=== PATIENT | female | born 1955 | race Hispanic/Latino ===

== ENCOUNTER 2018-04-17 09:58 | Emergency (ER) | payer BC ==
[2018-04-17 10:00] VITALS: BMI 24.0
[2018-04-17 10:04] VITALS: O2SAT 100
[2018-04-17] MEDS ORDERED: Sodium Chloride 0.9% 1,000 ML IV STA (10:21)
--- NOTE | 2018-04-17 10:39 | ED PDOC ---
HPI: Abdomen Time Seen by Provider: 04/17/18 10:14 Chief Complaint (Nursing): Abdominal Pain Chief Complaint (Provider): abdominal pain History Per: Patient History/Exam Limitations: no limitations Onset/Duration Of Symptoms: Days (x4) Current Symptoms Are (Timing): Still Present Location Of Pain/Discomfort: Suprapubic Associated Symptoms: Fever (subjective), Chills, Nausea, Back Pain. denies: Vomiting, Diarrhea, Constipation Additional Complaint(s): Holly Hernandez is a 62 year old female, with a past medical history of hypothyroidism, who presents to the emergency department complaining of suprapubic pain onset for x4 days associated with fever, chills and bilateral back pain. Patient states pain radiates to the entire abdomen but is concentrated mostly on the left side. She was seen at [facility] today and was referred to the ER after she was told she had positive blood & protein in her urine. Patient is also complaining of nausea but denies any vomiting, diarrhea, constipation, dysuria or hematuria. No further medical complaints. PMD: None provided. Past Medical History Reviewed: Historical Data, Nursing Documentation, Vital Signs Vital Signs: Last Vital Signs Temp 98.3 F 04/17/18 10:03 Pulse 97 H 04/17/18 10:03 Resp 20 04/17/18 10:03 BP 164/102 H 04/17/18 10:03 Pulse Ox 100 04/17/18 10:03 - Medical History PMH: Hypothyroidism (synthroid taken) - Surgical History Surgical History: No Surg Hx - Family History Family History: States: Unknown Family Hx - Social History Current smoker - smoking cessation education provided: Yes (light smoker <10 cigarettes daily) Alcohol: None Drugs: Denies - Home Medications Home Medications: Ambulatory Orders Medication Instructions Recorded Cefuroxime Axetil [Cefuroxime] 500 mg PO DAILY #7 tablet 04/17/18 Phenazopyridine [Pyridium] 200 mg PO TID PRN #6 tab 04/17/18 - Allergies Allergies/Adverse Reactions: Allergies Allergy/AdvReac Type Severity Reaction Status Date / Time No Known Allergies Allergy Verified 04/17/18 10:07 Review of Systems ROS Statement: Except As Marked, All Systems Reviewed And Found Negative Constitutional: Positive for: Fever (subjective), Chills Gastrointestinal: Positive for: Nausea, Abdominal Pain (suprapubic). Negative for: Vomiting, Diarrhea, Constipation Genitourinary Female: Negative for: Dysuria, Hematuria Musculoskeletal: Positive for: Back Pain Physical Exam - Reviewed Nursing Documentation Reviewed: Yes Vital Signs Reviewed: Yes - Physical Exam Appears: Positive for: No Acute Distress Head Exam: Positive for: ATRAUMATIC, NORMAL INSPECTION, NORMOCEPHALIC Skin: Positive for: Normal Color, Warm, Dry Eye Exam: Positive for: Normal appearance, EOMI, PERRL ENT: Positive for: Normal ENT Inspection Neck: Positive for: Normal, Painless ROM, Supple Cardiovascular/Chest: Positive for: Regular Rate, Rhythm. Negative for: Murmur Respiratory: Positive for: Normal Breath Sounds. Negative for: Respiratory Distress Gastrointestinal/Abdominal: Positive for: Tenderness (Mild suprapubic ). Negative for: Guarding, Rebound Back: Positive for: L CVA Tenderness. Negative for: R CVA Tenderness, Vertebral Tenderness Extremity: Positive for: Normal ROM (upper and lower extremities). Negative for: Deformity, Swelling Neurologic/Psych: Positive for: Alert, Oriented. Negative for: Motor/Sensory Deficits - Laboratory Results Result Diagrams: 04/17/18 10:30 04/17/18 10:30 - ECG O2 Sat by Pulse Oximetry: 100 (RA) Pulse Ox Interpretation: Normal Medical Decision Making Medical Decision Making: Time: 10:14 Initial Impression: Initial Plan: --Abd & Pelvis w/o PO or IV Cont [CT] --CMP --Urine dipstick --CBC w/ differential --PTT --PT --Sodium Chloride 1,000 ml IV 1,000 mls/hr --Tylenol 325 mg tab 650 mg PO --Zofran Inj 4 mg IV --Blood culture --Urine culture --Urinalysis --Reevaluation Accession No. : [id number] Patient Name / ID : LEVAR HAWK F / [id number] Exam Date : 04/17/2018 12:04:54 ( Approved ) Study Comment : Sex / Age : F / 62Y Creator : Zoran Koo MD Dictator : Zoran Koo MD Manager Construction : [employer] Measuring Machine Programmer : Zoran Koo MD Approver2 : Report Date : 04/17/2018 13:28:09 My Comment : Date of service: 04/17/2018 PROCEDURE: CT Abdomen and Pelvis. HISTORY: L flank pain, fever COMPARISON: None. TECHNIQUE: Contiguous axial images of the abdomen and pelvis performed without oral or intravenous contrast material. Additional 2D sagittal and coronal the however the reformats generated. Radiation dose: Total exam DLP = 370.1 mGy-cm. This CT exam was performed using one or more of the following dose reduction techniques: Automated exposure control, adjustment of the mA and/or kV according to patient size, and/or use of iterative reconstruction technique. FINDINGS: LOWER THORAX: Mild passive/dependent type atelectasis both posterior sulci. No evidence of focal consolidation effusion or basilar pneumothorax. Heart size within range of normal. No significant pericardial effusion. Tiny hiatal hernia. LIVER: Liver is mildly enlarged measuring over 19 cm in CC dimension. . GALLBLADDER AND BILE DUCTS: Unremarkable. Gallbladder is physiologically distended. No definitive evidence of intraluminal gallbladder calculi. PANCREAS: Unremarkable. No mass. No ductal dilatation. SPLEEN: Unremarkable. No splenomegaly. ADRENALS: Slightly prominent adrenal glands. KIDNEYS AND URETERS: Kidneys demonstrate relatively symmetric size. No evidence of nephrolithiasis or hydronephrosis. No renal masses or collections seen on this limited noncontrast study. BLADDER: The bladder is incompletely distended which in part accounts for thick-walled appearance however correlation with urinalysis recommended to exclude cystitis. REPRODUCTIVE: The uterus appears atrophic so far as can be seen. APPENDIX: Normal-appearing appendix. BOWEL: Evaluation of the bowel is limited due to the lack of circulating intravenous contrast material. The stomach is incompletely distended. Visualized loops of small bowel exhibit relatively normal contour and caliber. No evidence of acute mechanical small bowel obstruction however note made of fecalized content within multiple loops of small bowel. Findings could be secondary to stasis as a sec well of constipation as there is moderate amount of stool is seen throughout the cecum, transverse and proximal descending colon consistent with fecal retention/constipation.. PERITONEUM: Unremarkable. No fluid collection. No free air. LYMPH NODES: Unremarkable. No enlarged lymph nodes. VASCULATURE: Unremarkable. No aortic aneurysm. . aortic atherosclerotic calcification or mural plaque present. BONES: Multilevel degenerative spondylosis of the lower thoracic and lumbar spine most notably affecting the L2-L3 and L4-L5 levels OTHER FINDINGS: None. IMPRESSION: Wall thickening of the urinary bladder in part due to incomplete distention however correlation urinalysis recommended to exclude cystitis. Findings also consistent with constipation with associated fecalized content in several loops of small bowel. Mild hepatomegaly. See above discussion for additional details and findings. 14:[address] Greene, recommends discharge home with Rx Ceftin 500 mg PO qd X 7 days. REQUESTS CALL AFTER URINE CULTURE RESULTED Scribe Attestation: Documented by William Fletcher, acting as a scribe for Vivian Cordova MD. Provider Scribe Attestation: All medical record entries made by the Scribe were at my direction and personally dictated by me. I have reviewed the chart and agree that the record accurately reflects my personal performance of the history, physical exam, medical decision making, and the department course for this patient. I have also personally directed, reviewed, and agree with the discharge instructions and disposition. Disposition - Clinical Impression Clinical Impression: UTI (urinary tract infection) - Disposition Disposition: Routine/Home Disposition Time: 15:00 Condition: IMPROVED Additional Instructions: FOLLOW-UP WITH PMD WITHIN 2 DAYS FOR REEVALUATION. Prescriptions: Cefuroxime Axetil [Cefuroxime] 500 mg PO DAILY #7 tablet Phenazopyridine [Pyridium] 200 mg PO TID PRN #6 tab PRN Reason: Bladder Spasm Instructions: Urinary Tract Infections in Adults Forms: [employer] (Chadian)
[2018-04-17 10:45] LABS: VENOUS BLOOD GAS BASE EXCESS 0.3 mmol/L (0.0-2.0); VENOUS BLOOD GAS PCO2 45 mmHg (40-60); VENOUS BLOOD GAS PO2 16 mm/Hg (30-55); VENOUS BLOOD PH 7.37 (7.32-7.43)
[2018-04-17 10:59] LABS: ALB/GLOB RATIO 1.2 (1.0-2.1); ALBUMIN 4.4 g/dL (3.5-5.0); ALT/SGPT 33 U/L (9-52); AST/SGOT 34 U/L (14-36); BLOOD UREA NITROGEN 9 mg/dl (7-17); CALCIUM 9.6 mg/dL (8.4-10.2); GFR NON-AFRICAN AMERICAN > 60
[2018-04-17 11:03] LABS: BASO % 0.3 % (0.0-2.0); EOS % 0.2 % (0.0-4.0); HEMOGLOBIN 12.7 g/dL (12.0-16.0); LYMPH # 0.6 K/uL (1.0-4.3); MEAN CORPUSCULAR HEMOGLOBIN 30.8 pg (27.0-31.0); MEAN CORPUSCULAR HGB CONC 33.1 g/dL (33.0-37.0); MEAN PLATELET VOLUME 9.2 fl (7.2-11.7); MONO # 0.7 K/uL (0.0-0.8); MONO % 6.6 % (0.0-10.0); NEUT # 9.7 K/uL (1.8-7.0); NEUT % 87.9 % (50.0-75.0); NRBC % 0.2 % (0.0-0.0); PLATELET COUNT 206 K/uL (130-400); RBC 4.13 Mil/uL (3.80-5.20); RED CELL DISTRIBUTION WIDTH 13.1 % (11.5-14.5)
[2018-04-17 11:04] LABS: INR 1.1; PROTHROMBIN TIME 12.6 Seconds (9.8-13.1)
[2018-04-17 11:07] LABS: PARTIAL THROMBOPLASTIN TIME 30.9 Seconds (25.6-37.1)
[2018-04-17 11:08] LABS: URINE BILIRUBIN NEGATIVE (NEGATIVE); URINE CLARITY SLIGHTY-CLOUDY (Clear); URINE COLOR YELLOW (YELLOW); URINE GLUCOSE (UA) NEG (Normal); URINE LEUKOCYTE ESTERASE NEG Leu/uL (Negative); URINE PROTEIN 100 mg/dL (NEGATIVE)
[2018-04-17 12:38] LABS: URINE BLOOD MODERATE (NEGATIVE)
[2018-04-17 12:56] LABS: LYMPHOCYTE 6 % (20-50); MONOCYTE 6 % (0-10); NEUTROPHIL 88 % (42-75); TOTAL CELLS COUNTED 100
[2018-04-17 12:57] LABS: PLATELET ESTIMATE NORMAL (NORMAL)
--- NOTE | 2018-04-17 13:31 | CT ---
Date of service: 04/17/2018 PROCEDURE: CT Abdomen and Pelvis. HISTORY: L flank pain, fever COMPARISON: None. TECHNIQUE: Contiguous axial images of the abdomen and pelvis performed without oral or intravenous contrast material. Additional 2D sagittal and coronal the however the reformats generated. Radiation dose: Total exam DLP = 370.1 mGy-cm. This CT exam was performed using one or more of the following dose reduction techniques: Automated exposure control, adjustment of the mA and/or kV according to patient size, and/or use of iterative reconstruction technique. FINDINGS: LOWER THORAX: Mild passive/dependent type atelectasis both posterior sulci. No evidence of focal consolidation effusion or basilar pneumothorax. Heart size within range of normal. No significant pericardial effusion. Tiny hiatal hernia. LIVER: Liver is mildly enlarged measuring over 19 cm in CC dimension. . GALLBLADDER AND BILE DUCTS: Unremarkable. Gallbladder is physiologically distended. No definitive evidence of intraluminal gallbladder calculi. PANCREAS: Unremarkable. No mass. No ductal dilatation. SPLEEN: Unremarkable. No splenomegaly. ADRENALS: Slightly prominent adrenal glands. KIDNEYS AND URETERS: Kidneys demonstrate relatively symmetric size. No evidence of nephrolithiasis or hydronephrosis. No renal masses or collections seen on this limited noncontrast study. BLADDER: The bladder is incompletely distended which in part accounts for thick-walled appearance however correlation with urinalysis recommended to exclude cystitis. REPRODUCTIVE: The uterus appears atrophic so far as can be seen. APPENDIX: Normal-appearing appendix. BOWEL: Evaluation of the bowel is limited due to the lack of circulating intravenous contrast material. The stomach is incompletely distended. Visualized loops of small bowel exhibit relatively normal contour and caliber. No evidence of acute mechanical small bowel obstruction however note made of fecalized content within multiple loops of small bowel. Findings could be secondary to stasis as a sec well of constipation as there is moderate amount of stool is seen throughout the cecum, transverse and proximal descending colon consistent with fecal retention/constipation.. PERITONEUM: Unremarkable. No fluid collection. No free air. LYMPH NODES: Unremarkable. No enlarged lymph nodes. VASCULATURE: Unremarkable. No aortic aneurysm. . aortic atherosclerotic calcification or mural plaque present. BONES: Multilevel degenerative spondylosis of the lower thoracic and lumbar spine most notably affecting the L2-L3 and L4-L5 levels OTHER FINDINGS: None. IMPRESSION: Wall thickening of the urinary bladder in part due to incomplete distention however correlation urinalysis recommended to exclude cystitis. Findings also consistent with constipation with associated fecalized content in several loops of small bowel. Mild hepatomegaly. See above discussion for additional details and findings.
[2018-04-17] MEDS ORDERED: cefTRIAXone (Rocephin) 1 gm Inj ONE (13:46)
[2018-04-17 15:22] VITALS: BP 118/69; PULSE 100; RESP 17; TEMP 99.6
== END 2018-04-17 15:22 | disposition home or self-care (01) ==
LOC: H.ER 09:58
DX: N39.0 Urinary tract infection, site not specified (principal)
CPT/HCPCS: 74176; 80053; 81003; 82803; 85025; 85610; 85730; 87040; 87086; 96365; 96375; 99285; J0696; J1885; J2405; J7030

== ENCOUNTER 2018-07-23 10:20 | Inpatient (IN) | payer BC ==
[2018-07-23] MEDS ORDERED: Sodium Chloride 0.9% 1,000 ML IV STA (10:49)
--- NOTE | 2018-07-23 10:56 | ED PDOC ---
HPI: Abdomen Time Seen by Provider: 07/23/18 10:34 Chief Complaint (Nursing): Abdominal Pain Chief Complaint (Provider): sent by PMD for evaluation abd pain History Per: Patient History/Exam Limitations: no limitations Location Of Pain/Discomfort: Diffuse, LLQ Quality Of Discomfort: Unable To Describe Associated Symptoms: Loss Of Appetite. denies: Nausea, Vomiting Exacerbating Factors: None Alleviating Factors: None Last Bowel Movement: Days Ago (2) Additional Complaint(s): 63yo female has been having ongoing abdominal pain for several weeks, worsening over last few days, had outpatient CT abd pelv yesterday showing pelvic abscess, told to come to ED last night by PMD but waited until this morning. States may have had a fever a few days ago, but denies within last 24 hours. She notes ongoing constipation after starting iron for anemia of unknown etiology di scovered as outpatient several months ago. Denies prior colonoscopy. Denies vomiting, headache, vaginal bleeding, cough or urinary symptoms. Abnormal Vaginal Bleeding: No Past Medical History Reviewed: Historical Data, Nursing Documentation, Vital Signs Vital Signs: Last Vital Signs Temp 98.2 F 07/23/18 10:24 Pulse 98 H 07/23/18 10:24 Resp 17 07/23/18 10:24 BP 114/73 07/23/18 10:24 Pulse Ox 100 07/23/18 10:24 - Medical History PMH: Hypothyroidism (synthroid taken) - Family History Family History: States: Unknown Family Hx - Living Arrangements Living Arrangements: With Family - Social History Current smoker - smoking cessation education provided: No - Home Medications Home Medications: Ambulatory Orders Medication Instructions Recorded Alprazolam [Xanax] 1 tab PO TID 07/23/18 Ciprofloxacin [Cipro] 1 tab PO BID 07/23/18 Ferrous Sulfate [Feosol] 1 tab PO BID 07/23/18 Levothyroxine [Synthroid] 1 tab PO DAILY 07/23/18 Metronidazole [Flagyl] 1 tab PO TID 07/23/18 - Allergies Allergies/Adverse Reactions: Allergies Allergy/AdvReac Type Severity Reaction Status Date / Time No Known Allergies Allergy Verified 04/17/18 10:07 Review of Systems ROS Statement: Except As Marked, All Systems Reviewed And Found Negative Constitutional: Positive for: Chills, Sweats Eyes: Negative for: Conjunctivae Inflammation ENT: Negative for: Ear Pain, Nose Pain, Throat Pain Cardiovascular: Negative for: Chest Pain, Palpitations Respiratory: Negative for: Cough, Shortness of Breath Gastrointestinal: Positive for: Nausea, Abdominal Pain, Constipation. Negative for: Diarrhea, Melena, Hematochezia Genitourinary Female: Negative for: Dysuria Musculoskeletal: Negative for: Neck Pain Skin: Negative for: Rash, Lesions Neurological: Negative for: Weakness, Numbness, Confusion Psych: Negative for: Suicidal ideation Physical Exam - Reviewed Nursing Documentation Reviewed: Yes Vital Signs Reviewed: Yes - Physical Exam Appears: Positive for: Well, Non-toxic, No Acute Distress Head Exam: Positive for: ATRAUMATIC, NORMAL INSPECTION, NORMOCEPHALIC Skin: Positive for: Warm, Pallor Eye Exam: Positive for: EOMI, Normal appearance, PERRL ENT: Positive for: Normal ENT Inspection Neck: Positive for: Normal, Painless ROM Cardiovascular/Chest: Positive for: Regular Rate, Rhythm Respiratory: Positive for: CNT, Normal Breath Sounds Gastrointestinal/Abdominal: Positive for: Soft, Tenderness (mild lower abd tenderness). Negative for: Guarding, Rebound Back: Positive for: Normal Inspection Extremity: Positive for: Normal ROM Neurologic/Psych: Positive for: Alert, Oriented. Negative for: Motor/Sensory Deficits - Laboratory Results Result Diagrams: 07/23/18 11:25 07/23/18 11:25 - ECG O2 Sat by Pulse Oximetry: 100 Pulse Ox Interpretation: Normal - Radiology X-Ray: Read By Radiologist X-Ray Interpretation: No Acute Disease Medical Decision Making Medical Decision Making: panic report from radiologist at [facility] reviewed but full CT report not available. Disc of images uploaded to PACS for surgery review, ID [id number] labs reviewed lactate normal WBC normal significant anemia Hgb 7.0 Pt did not meet SIRS criteria in ED. Admit Dr Johnson hospitalist 12noon D/w Dr Greene ID assistant front end manager, recommended zosyn and flagyl, ordered, cultures obtained prior to antibiotic administration D/w Dr Crowell surgery covering Dr Cheikh Garcia, requests surg resident gita, Dr Espinosa in ED 130p 135pm consent for PRBC trasnsfusion obtained after risks/benefits/alternatives explained. Given failure outpatient therapy and acute abdominal infection possibly requiring surgery/ intervention, PRBC is indicated and recommended. Care transferred to surgery and admitting teams, surg resident to perform guiac. Disposition - Clinical Impression Clinical Impression: Pelvic abscess, Anemia - Patient ED Disposition Is Patient to be Admitted: Yes Counseled Patient/Family Regarding: Studies Performed, Diagnosis - Disposition Disposition Time: 12:08 (admit hospitalist) Condition: FAIR - Pt Status Changed To: Hospital Disposition Of: Inpatient - Admit Certification Admit to Inpatient:: After my assessment, the patient will require hospitalization for at least two midnights. This is because of the severity of symptoms shown, intensity of services needed, and/or the medical risk in this p atient being treated as an outpatient. - POA Present On Arrival: None
--- NOTE | 2018-07-23 11:33 | RAD ---
Date of service: 07/23/2018 HISTORY: fever COMPARISON: No prior. FINDINGS: LUNGS: No active pulmonary disease. PLEURA: No significant pleural effusion identified, no pneumothorax apparent. CARDIOVASCULAR: Atherosclerotic calcifications. Cardiomediastinal silhouette enlarged. OSSEOUS STRUCTURES: Spinal degenerative changes. VISUALIZED UPPER ABDOMEN: Retained oral contrast seen in the colon. OTHER FINDINGS: None. IMPRESSION: No active disease.
[2018-07-23 11:44] LABS: VENOUS BLOOD GAS BASE EXCESS 4.5 mmol/L (0.0-2.0); VENOUS BLOOD GAS PCO2 47 mmHg (40-60); VENOUS BLOOD GAS PO2 25 mm/Hg (30-55); VENOUS BLOOD PH 7.41 (7.32-7.43)
[2018-07-23] MEDS ORDERED: Piperacillin/Tazobact 4.5 GM in Sodium Chloride 0.9% 100 ML IVPB STA (11:46)
[2018-07-23] MEDS ORDERED: metroNIDAZOLE 500mg/100ml NS 100 ML IVPB STA (11:46)
[2018-07-23] MEDS ORDERED: metroNIDAZOLE 500mg/100ml NS 100 ML IVPB ONE (12:08)
[2018-07-23 12:14] LABS: BASO # 0.1 K/uL (0.0-0.2); BASO % 0.8 % (0.0-2.0); EOS % 0.5 % (0.0-4.0); LYMPH # 1.5 K/uL (1.0-4.3); LYMPH % 17.3 % (20.0-40.0); MEAN CELL VOLUME 79.7 fl (81.0-99.0); MEAN CORPUSCULAR HEMOGLOBIN 25.5 pg (27.0-31.0); MEAN PLATELET VOLUME 7.1 fl (7.2-11.7); MONO # 0.7 K/uL (0.0-0.8); MONO % 8.5 % (0.0-10.0); NEUT # 6.4 K/uL (1.8-7.0); NEUT % 72.9 % (50.0-75.0); RBC 2.74 Mil/uL (3.80-5.20); RED CELL DISTRIBUTION WIDTH 17.1 % (11.5-14.5); WHITE BLOOD COUNT 8.7 K/uL (4.8-10.8)
[2018-07-23 12:19] LABS: ALB/GLOB RATIO 0.9 (1.0-2.1); ALBUMIN 3.5 g/dL (3.5-5.0); ALT/SGPT 41 U/L (9-52); AST/SGOT 43 U/L (14-36); BLOOD UREA NITROGEN 8 mg/dl (7-17); CALCIUM 9.2 mg/dL (8.4-10.2); GFR NON-AFRICAN AMERICAN > 60; LIPASE 46 U/L (23-300)
[2018-07-23 12:20] LABS: URINE BILIRUBIN NEGATIVE (NEGATIVE); URINE BLOOD SMALL (NEGATIVE); URINE CLARITY CLEAR (Clear); URINE COLOR STRAW (YELLOW); URINE GLUCOSE (UA) NEG (NEGATIVE); URINE LEUKOCYTE ESTERASE NEG Leu/uL (Negative); URINE PROTEIN NEGATIVE (NEGATIVE); URINE UROBILINOGEN 0.2-1.0 mg/dL (0.2-1.0)
[2018-07-23 12:28] LABS: INR 1.4; PROTHROMBIN TIME 16.2 Seconds (9.8-13.1)
[2018-07-23 12:31] LABS: PARTIAL THROMBOPLASTIN TIME 31.2 Seconds (25.6-37.1)
--- NOTE | 2018-07-23 13:46 | CP.PCM.HP ---
<Paolo Espinosa - Last Filed: 07/23/18 18:04> History of Present Illness - History of Present Illness History of Present Illness: 63 yo F pmhx of hypothyroid, and anxiety was sent to ED per Dr. Silver for abdominal abcess incidentally found on outpatient abdo CT. Pt reports lower abdominal pain starting in May (dx with anemia) diffuse, occasionally radiating to the back. consistent. No aggravating factors. Minimally alleviated with motrin. She reports pain has been mild for approximately 1 week. No abdominal pain, melena, hematochezia, nausea or vomiting. On wednesday, Dr. Silver encouraged her to visit the ED, however, pt declined and requested time to wait for her sister to arrive. She was prescribed Cipro 500 mg BID and Metronidazole 500 mg TID. [place] [facility]. Abdo CT: 7 x cm abscess in pelvis anterior to recto-sigmoid; extralumenal air collecting PMD: Dr. Silver Surg: none Soc: 2 cigaretes per day for 20+ years; denies etoh or illicit drugs Fam: no hx LMP: 8 yrs ago. Rx: Synthroid 88 mcg Present on Admission - Present on Admission Any Indicators Present on Admission: No History of Uncontrolled Diabetes: No Urinary Catheter: No Review of Systems - Cardiovascular Cardiovascular: absent: Chest Pain - Respiratory Respiratory: absent: Dyspnea - Gastrointestinal Gastrointestinal: Abdominal Pain. absent: Constipation, Diarrhea - Menstruation Menstruation: Amenorrhea Past Patient History - Infectious Disease Hx of Infectious Diseases: None - Past Social History Smoking Status: Light Smoker < 10 Cigarettes Daily Alcohol: None Drugs: Denies Home Situation {Lives}: Alone - ENDOCRINE/METABOLIC Hx Hypothyroidism: Yes (synthroid taken) - PSYCHIATRIC Hx Substance Use: No - SURGICAL HISTORY Hx Surgeries: No Meds Allergies/Adverse Reactions: Allergies Allergy/AdvReac Type Severity Reaction Status Date / Time No Known Allergies Allergy Verified 04/17/18 10:07 Physical Exam - Constitutional Appears: Well, No Acute Distress - Eye Exam Eye Exam: EOMI, PERRL - ENT Exam ENT Exam: Mucous Membranes Moist - Respiratory Exam Respiratory Exam: Clear to Auscultation Bilateral, NORMAL BREATHING PATTERN. absent: Wheezes - Cardiovascular Exam Cardiovascular Exam: REGULAR RHYTHM, +S1, +S2 - GI/Abdominal Exam GI & Abdominal Exam: Normal Bowel Sounds, Soft. absent: Tenderness - Extremities Exam Extremities exam: Negative for: calf tenderness - Back Exam Back exam: absent: CVA tenderness (L), CVA tenderness (R) - Neurological Exam Neurological exam: Alert, CN II-XII Intact, Oriented x3 - Psychiatric Exam Psychiatric exam: Normal Affect, Normal Mood Results - Vital Signs Recent Vital Signs: Last Vital Signs Temp 98.2 F 07/23/18 10:24 Pulse 98 H 07/23/18 10:24 Resp 17 07/23/18 10:24 BP 114/73 07/23/18 10:24 Pulse Ox 100 07/23/18 10:56 - Labs Result Diagrams: 07/23/18 11:25 07/23/18 11:25 Labs: Laboratory Results - last 24 hr 07/23/18 07/23/18 07/23/18 11:10 11:25 11:25 WBC 8.7 RBC 2.74 L Hgb 7.0 L D Hct 21.8 L MCV 79.7 L D MCH 25.5 L MCHC 32.0 L RDW 17.1 H Plt Count 564 H D MPV 7.1 L Neut % (Auto) 72.9 Lymph % (Auto) 17.3 L Pierce % (Auto) 8.5 Eos % (Auto) 0.5 Baso % (Auto) 0.8 Neut # (Auto) 6.4 Lymph # (Auto) 1.5 Pierce # (Auto) 0.7 Eos # (Auto) 0.0 Baso # (Auto) 0.1 PT INR APTT pO2 25 L VBG pH 7.41 VBG pCO2 47 VBG HCO3 27.4 VBG Total CO2 31.2 H VBG O2 Sat (Calc) 42.9 VBG Base Excess 4.5 H VBG Potassium 3.8 Sodium 134.0 134 Chloride 102.0 96 L Glucose 103 Lactate 0.8 FiO2 21.0 Potassium 4.0 Carbon Dioxide 26 Anion Gap 16 BUN 8 Creatinine 0.6 L Est GFR ( Amer) > 60 Est GFR (Non-Af Amer) > 60 Random Glucose 100 Calcium 9.2 Phosphorus 4.3 Magnesium 2.4 H Total Bilirubin 0.2 AST 43 H D ALT 41 Alkaline Phosphatase 123 Total Protein 7.5 Albumin 3.5 D Globulin 4.0 H Albumin/Globulin Ratio 0.9 L Lipase 46 Venous Blood Potassium 3.8 Urine Color Urine Clarity Urine pH Ur Specific [place] Urine Protein Urine Glucose (UA) Urine Ketones Urine Blood Urine Nitrate Urine Bilirubin Urine Urobilinogen Ur Leukocyte Esterase Urine RBC (Auto) Urine Microscopic WBC Blood Type Antibody Screen BBK History Checked 07/23/18 07/23/18 07/23/18 11:25 11:25 11:43 WBC RBC Hgb Hct MCV MCH MCHC RDW Plt Count MPV Neut % (Auto) Lymph % (Auto) Pierce % (Auto) Eos % (Auto) Baso % (Auto) Neut # (Auto) Lymph # (Auto) Pierce # (Auto) Eos # (Auto) Baso # (Auto) PT 16.2 H INR 1.4 APTT 31.2 pO2 VBG pH VBG pCO2 VBG HCO3 VBG Total CO2 VBG O2 Sat (Calc) VBG Base Excess VBG Potassium Sodium Chloride Glucose Lactate FiO2 Potassium Carbon Dioxide Anion Gap BUN Creatinine Est GFR ( Amer) Est GFR (Non-Af Amer) Random Glucose Calcium Phosphorus Magnesium Total Bilirubin AST ALT Alkaline Phosphatase Total Protein Albumin Globulin Albumin/Globulin Ratio Lipase Venous Blood Potassium Urine Color Straw Urine Clarity Clear Urine pH 7.0 Ur Specific [place] 1.005 Urine Protein Negative Urine Glucose (UA) Neg Urine Ketones Negative Urine Blood Small Urine Nitrate Negative Urine Bilirubin Negative Urine Urobilinogen 0.2-1.0 Ur Leukocyte Esterase Neg Urine RBC (Auto) < 1 Urine Microscopic WBC 1 Blood Type A POSITIVE Antibody Screen Negative BBK History Checked No verified bt Assessment & Plan - Assessment and Plan (Free Text) Assessment: 63 yo F pmhx of hypothyroid, and anxiety was sent to ED per Dr. Silver for abdominal abcess incidentally found on outpatient abdo CT. Plan: Abdo CT: 7 x cm abscess in pelvis anterior to recto-sigmoid; extralumenal air collecting Abdominal abcess: Admit to med surg -Incidental finding on CT -Surgery Dr. Gonzales: Clear liquid diet, ABX, GI consult, -ID consult: Dr. Greene -occult blood positive -abx: Zosyn -Clear liquid -IVF: D5 1/2 NS 20 k -IR for possible drainage -f/u Blood and Urine culture, CBC, BMP Anemia: -H/H: 7.0/21.8 -Type and Cross match 1 unit -Feosol BID -f/u H/H Hypothyroid: -cw levothyroxine 88 mcg DVT prophylaxis: -SCDs Case and plan d/w Dr. Alex Espinosa MD PGY2 <Charity Johnson - Last Filed: 07/24/18 14:05> Results - Vital Signs Recent Vital Signs: Last Vital Signs Temp 97.1 F L 07/24/18 12:50 Pulse 72 07/24/18 12:50 Resp 18 07/24/18 12:50 BP 123/77 07/24/18 12:50 Pulse Ox 100 07/24/18 08:08 - Labs Result Diagrams: 07/24/18 06:14 07/24/18 06:14 Labs: Laboratory Results - last 24 hr 07/23/18 07/23/18 07/23/18 11:25 11:43 14:00 WBC RBC Hgb Hct MCV MCH MCHC RDW Plt Count Sodium Potassium Chloride Carbon Dioxide Anion Gap BUN Creatinine Est GFR ( Amer) Est GFR (Non-Af Amer) Random Glucose Lactic Acid Calcium Iron 20 L Ferritin 225.0 Stool Occult Blood Blood Type A POSITIVE Antibody Screen Negative Crossmatch See Detail BBK History Checked No verified bt 07/23/18 07/23/18 07/24/18 15:28 18:53 06:14 WBC 6.8 RBC 2.82 L Hgb 7.4 L Hct 22.8 L MCV 81.1 MCH 26.1 L MCHC 32.2 L RDW 16.3 H Plt Count 461 H D Sodium Potassium Chloride Carbon Dioxide Anion Gap BUN Creatinine Est GFR ( Amer) Est GFR (Non-Af Amer) Random Glucose Lactic Acid 2.8 H Calcium Iron Ferritin Stool Occult Blood Positive H Blood Type Antibody Screen Crossmatch BBK History Checked 07/24/18 06:14 WBC RBC Hgb Hct MCV MCH MCHC RDW Plt Count Sodium 136 Potassium 4.2 Chloride 103 Carbon Dioxide 22 Anion Gap 15 BUN 8 Creatinine 0.5 L Est GFR ( Amer) > 60 Est GFR (Non-Af Amer) > 60 Random Glucose 90 Lactic Acid Calcium 8.6 Iron Ferritin Stool Occult Blood Blood Type Antibody Screen Crossmatch BBK History Checked Attending/Attestation - Attestation I have personally seen and examined this patient.: Yes I have fully participated in the care of the patient.: Yes I have reviewed all pertinent clinical information: Yes Notes (Text): 07/24/18 14:04 AGREE WITH FINDINGS AND PLAN ABOVE.
--- NOTE | 2018-07-23 14:05 | CP.PCM.CON ---
<Jing Espinosa - Last Filed: 07/23/18 15:01> History of Present Illness - History of Present Illness History of Present Illness: General surgery consult note for Dr. Janet Espinosa, PGY-2 63F w/PMH sig for hypothyroidism and anemia consulted for pelvic abscess. Pt reports starting Iron supplementation at the end of May this year with resulting constipation- minimally alleviated by laxatives, stool softeners, prune juice. Pt reports resulting lower pelvic discomfort, L>R since May- sometimes radiating to low back. Pt recently evaluated by PMD with CT scan finding of 7 x 6 cm pelvic abscess in the rectosigmoid area. Admits to bloating sensation, occasional urinary urgency. Discomfort is alleviated by moving her bowels. No inciting or aggravating factors identified. Denies F & C, N & V, hematochezia, hematuria, vaginal bleeding, CP, SOB, dizziness, COREY, vision change s, weakness, syncope or other complaints. PMH: Hypothyroidism, Anemia PSH: Denies All: NKDA SH: Admits to #3 cigarettes daily x 20 yrs, denies EOTH or illicit drug use FH: Denies FH of IBD, crohns, diveritculitis, ulcerative colitis or colon CA PMD: Dr. Silver Review of Systems - Review of Systems All systems: reviewed and no additional remarkable complaints except - Constitutional Constitutional: absent: Chills, Fever, Headache - EENT Eyes: absent: Change in Vision Ears: absent: Dizziness Nose/Mouth/Throat: absent: Sore Throat - Cardiovascular Cardiovascular: absent: Chest Pain - Respiratory Respiratory: absent: Cough - Gastrointestinal Gastrointestinal: Abdominal Pain, Bloating, Constipation. absent: Diarrhea, Hematemesis, Hematochezia, Melena, Nausea, Vomiting - Genitourinary Genitourinary: Urinary Urgency (occasional). absent: Dysuria, Hematuria - Reproductive: Female Reproductive:Female: absent: Abnormal Vaginal Bleeding - Menstruation Menstruation: absent: Abnormal Vaginal Bleeding - Musculoskeletal Musculoskeletal: Back Pain. absent: Numbness, Tingling - Integumentary Integumentary: absent: Unusual Bruising - Neurological Neurological: absent: Weakness - Psychiatric Psychiatric: absent: Change in Appetite Past Patient History - Infectious Disease Hx of Infectious Diseases: None - Past Social History Smoking Status: Light Smoker < 10 Cigarettes Daily - ENDOCRINE/METABOLIC Hx Hypothyroidism: Yes (synthroid taken) - PSYCHIATRIC Hx Substance Use: No - SURGICAL HISTORY Hx Surgeries: No Meds Allergies/Adverse Reactions: Allergies Allergy/AdvReac Type Severity Reaction Status Date / Time No Known Allergies Allergy Verified 04/17/18 10:07 - Medications Medications: Current Medications Sodium Chloride (Sodium Chloride 0.9%) 1,000 mls @ 150 mls/hr IV .[id number] STA Stop: 07/23/18 17:28 Last Admin: 07/23/18 11:47 Dose: 150 mls/hr Physical Exam - Constitutional Appears: Non-toxic, No Acute Distress - Head Exam Head Exam: ATRAUMATIC, NORMAL INSPECTION, NORMOCEPHALIC - Eye Exam Eye Exam: EOMI, Normal appearance - ENT Exam ENT Exam: Mucous Membranes Moist, Normal Exam - Neck Exam Neck exam: Positive for: Full Rom, Normal Inspection - Respiratory Exam Respiratory Exam: Clear to Auscultation Bilateral, NORMAL BREATHING PATTERN. absent: Rales, Rhonchi, Wheezes, Respiratory Distress - Cardiovascular Exam Cardiovascular Exam: REGULAR RHYTHM, +S1, +S2 - GI/Abdominal Exam GI & Abdominal Exam: Normal Bowel Sounds, Soft. absent: Distended, Firm, Guarding, Organomegaly, Pulsatile Mass, Rebound, Rigid, Tenderness - Rectal Exam Rectal Exam: NORMAL INSPECTION. absent: Hemorrhoids, Fecal Impaction - Extremities Exam Extremities exam: Positive for: normal inspection. Negative for: tenderness - Neurological Exam Neurological exam: Alert, CN II-XII Intact, Oriented x3 - Psychiatric Exam Psychiatric exam: Normal Affect, Normal Mood - Skin Skin Exam: Dry, Intact, Normal Color, Warm Results - Vital Signs Recent Vital Signs: Last Vital Signs Temp 98.2 F 07/23/18 10:24 Pulse 98 H 07/23/18 10:24 Resp 17 07/23/18 10:24 BP 114/73 07/23/18 10:24 Pulse Ox 100 07/23/18 10:56 - Labs Result Diagrams: 07/23/18 11:25 07/23/18 11:25 Labs: Laboratory Results - last 24 hr 07/23/18 07/23/18 07/23/18 11:10 11:25 11:25 WBC 8.7 RBC 2.74 L Hgb 7.0 L D Hct 21.8 L MCV 79.7 L D MCH 25.5 L MCHC 32.0 L RDW 17.1 H Plt Count 564 H D MPV 7.1 L Neut % (Auto) 72.9 Lymph % (Auto) 17.3 L [place] % (Auto) 8.5 Eos % (Auto) 0.5 Baso % (Auto) 0.8 Neut # (Auto) 6.4 Lymph # (Auto) 1.5 Gove # (Auto) 0.7 Eos # (Auto) 0.0 Baso # (Auto) 0.1 PT INR APTT pO2 25 L VBG pH 7.41 VBG pCO2 47 VBG HCO3 27.4 VBG Total CO2 31.2 H VBG O2 Sat (Calc) 42.9 VBG Base Excess 4.5 H VBG Potassium 3.8 Sodium 134.0 134 Chloride 102.0 96 L Glucose 103 Lactate 0.8 FiO2 21.0 Potassium 4.0 Carbon Dioxide 26 Anion Gap 16 BUN 8 Creatinine 0.6 L Est GFR ( Amer) > 60 Est GFR (Non-Af Amer) > 60 Random Glucose 100 Calcium 9.2 Phosphorus 4.3 Magnesium 2.4 H Total Bilirubin 0.2 AST 43 H D ALT 41 Alkaline Phosphatase 123 Total Protein 7.5 Albumin 3.5 D Globulin 4.0 H Albumin/Globulin Ratio 0.9 L Lipase 46 Venous Blood Potassium 3.8 Urine Color Urine Clarity Urine pH Ur Specific [place] Urine Protein Urine Glucose (UA) Urine Ketones Urine Blood Urine Nitrate Urine Bilirubin Urine Urobilinogen Ur Leukocyte Esterase Urine RBC (Auto) Urine Microscopic WBC Blood Type Blood Type Confirm Antibody Screen BBK History Checked 07/23/18 07/23/18 07/23/18 11:25 11:25 11:43 WBC RBC Hgb Hct MCV MCH MCHC RDW Plt Count MPV Neut % (Auto) Lymph % (Auto) [place] % (Auto) Eos % (Auto) Baso % (Auto) Neut # (Auto) Lymph # (Auto) [place] # (Auto) Eos # (Auto) Baso # (Auto) PT 16.2 H INR 1.4 APTT 31.2 pO2 VBG pH VBG pCO2 VBG HCO3 VBG Total CO2 VBG O2 Sat (Calc) VBG Base Excess VBG Potassium Sodium Chloride Glucose Lactate FiO2 Potassium Carbon Dioxide Anion Gap BUN Creatinine Est GFR ( Amer) Est GFR (Non-Af Amer) Random Glucose Calcium Phosphorus Magnesium Total Bilirubin AST ALT Alkaline Phosphatase Total Protein Albumin Globulin Albumin/Globulin Ratio Lipase Venous Blood Potassium Urine Color Straw Urine Clarity Clear Urine pH 7.0 Ur Specific [place] 1.005 Urine Protein Negative Urine Glucose (UA) Neg Urine Ketones Negative Urine Blood Small Urine Nitrate Negative Urine Bilirubin Negative Urine Urobilinogen 0.2-1.0 Ur Leukocyte Esterase Neg Urine RBC (Auto) < 1 Urine Microscopic WBC 1 Blood Type A POSITIVE Blood Type Confirm Antibody Screen Negative BBK History Checked No verified bt 07/23/18 13:15 WBC RBC Hgb Hct MCV MCH MCHC RDW Plt Count MPV Neut % (Auto) Lymph % (Auto) [place] % (Auto) Eos % (Auto) Baso % (Auto) Neut # (Auto) Lymph # (Auto) Gove # (Auto) Eos # (Auto) Baso # (Auto) PT INR APTT pO2 VBG pH VBG pCO2 VBG HCO3 VBG Total CO2 VBG O2 Sat (Calc) VBG Base Excess VBG Potassium Sodium Chloride Glucose Lactate FiO2 Potassium Carbon Dioxide Anion Gap BUN Creatinine Est GFR ( Amer) Est GFR (Non-Af Amer) Random Glucose Calcium Phosphorus Magnesium Total Bilirubin AST ALT Alkaline Phosphatase Total Protein Albumin Globulin Albumin/Globulin Ratio Lipase Venous Blood Potassium Urine Color Urine Clarity Urine pH Ur Specific [place] Urine Protein Urine Glucose (UA) Urine Ketones Urine Blood Urine Nitrate Urine Bilirubin Urine Urobilinogen Ur Leukocyte Esterase Urine RBC (Auto) Urine Microscopic WBC Blood Type Blood Type Confirm A POSITIVE Antibody Screen BBK History Checked Assessment & Plan - Assessment and Plan (Free Text) Assessment: 63F w/PMH sig for hypothyroidism and anemia consulted for pelvic abscess Plan: Recommend IR drainage of pelvic abscess IVF Antibiotics as per ID Recommend GI consult Further recommendations pending attending evaluation RUI Gonzales - Date & Time Date: 07/23/18 Time: 14:05 <Armaan Crowell - Last Filed: 07/23/18 23:51> Meds - Medications Medications: Current Medications Acetaminophen (Tylenol 325mg Tab) 650 mg PO Q6 PRN PRN Reason: Pain, Mild (1-3) Last Admin: 07/23/18 18:05 Dose: 650 mg Alprazolam (Xanax) 0.5 mg PO Q8 PRN PRN Reason: Anxiety Last Admin: 07/23/18 16:44 Dose: 0.5 mg Ferrous Sulfate (Feosol) 325 mg PO BID [facility] Piperacillin Sod/Tazobactam (Sod 3.375 gm/ Sodium Chloride) 100 mls @ 100 mls/hr IVPB Q6 MERLENE; Protocol Last Admin: 07/23/18 21:57 Dose: 100 mls/hr Potassium Chloride/Dextrose/Sod Cl (Potassium Chl 20 Meq In D5-1/2ns) 1,000 mls @ 125 mls/hr IV .Q8H MERLENE Stop: 07/24/18 16:52 Last Admin: 07/23/18 18:31 Dose: 125 mls/hr Metronidazole (Flagyl 500mg/100ml Ns) 100 mls @ 100 mls/hr IVPB Q8 MERLENE; Protocol Last Admin: 07/23/18 20:28 Dose: 100 mls/hr Levothyroxine Sodium (Synthroid) 88 mcg PO DAILY [facility] Results - Vital Signs Recent Vital Signs: Last Vital Signs Temp 99.1 F 07/23/18 18:30 Pulse 78 07/23/18 20:32 Resp 20 07/23/18 20:32 BP 118/78 07/23/18 18:29 Pulse Ox 100 07/23/18 21:53 - Labs Result Diagrams: 07/23/18 11:25 07/23/18 11:25 Labs: Laboratory Results - last 24 hr 07/23/18 07/23/18 07/23/18 11:10 11:25 11:25 WBC 8.7 RBC 2.74 L Hgb 7.0 L D Hct 21.8 L MCV 79.7 L D MCH 25.5 L MCHC 32.0 L RDW 17.1 H Plt Count 564 H D MPV 7.1 L Neut % (Auto) 72.9 Lymph % (Auto) 17.3 L [place] % (Auto) 8.5 Eos % (Auto) 0.5 Baso % (Auto) 0.8 Neut # (Auto) 6.4 Lymph # (Auto) 1.5 Gove # (Auto) 0.7 Eos # (Auto) 0.0 Baso # (Auto) 0.1 PT INR APTT pO2 25 L VBG pH 7.41 VBG pCO2 47 VBG HCO3 27.4 VBG Total CO2 31.2 H VBG O2 Sat (Calc) 42.9 VBG Base Excess 4.5 H VBG Potassium 3.8 Sodium 134.0 134 Chloride 102.0 96 L Glucose 103 Lactate 0.8 FiO2 21.0 Potassium 4.0 Carbon Dioxide 26 Anion Gap 16 BUN 8 Creatinine 0.6 L Est GFR ( Amer) > 60 Est GFR (Non-Af Amer) > 60 Random Glucose 100 Lactic Acid Calcium 9.2 Phosphorus 4.3 Magnesium 2.4 H Iron Ferritin 225.0 Total Bilirubin 0.2 AST 43 H D ALT 41 Alkaline Phosphatase 123 Total Protein 7.5 Albumin 3.5 D Globulin 4.0 H Albumin/Globulin Ratio 0.9 L Lipase 46 Venous Blood Potassium 3.8 Urine Color Urine Clarity Urine pH Ur Specific [place] Urine Protein Urine Glucose (UA) Urine Ketones Urine Blood Urine Nitrate Urine Bilirubin Urine Urobilinogen Ur Leukocyte Esterase Urine RBC (Auto) Urine Microscopic WBC Stool Occult Blood Blood Type Blood Type Confirm Antibody Screen Crossmatch BBK History Checked 07/23/18 07/23/18 07/23/18 11:25 11:25 11:43 WBC RBC Hgb Hct MCV MCH MCHC RDW Plt Count MPV Neut % (Auto) Lymph % (Auto) [place] % (Auto) Eos % (Auto) Baso % (Auto) Neut # (Auto) Lymph # (Auto) Gove # (Auto) Eos # (Auto) Baso # (Auto) PT 16.2 H INR 1.4 APTT 31.2 pO2 VBG pH VBG pCO2 VBG HCO3 VBG Total CO2 VBG O2 Sat (Calc) VBG Base Excess VBG Potassium Sodium Chloride Glucose Lactate FiO2 Potassium Carbon Dioxide Anion Gap BUN Creatinine Est GFR ( Amer) Est GFR (Non-Af Amer) Random Glucose Lactic Acid Calcium Phosphorus Magnesium Iron Ferritin Total Bilirubin AST ALT Alkaline Phosphatase Total Protein Albumin Globulin Albumin/Globulin Ratio Lipase Venous Blood Potassium Urine Color Straw Urine Clarity Clear Urine pH 7.0 Ur Specific [place] 1.005 Urine Protein Negative Urine Glucose (UA) Neg Urine Ketones Negative Urine Blood Small Urine Nitrate Negative Urine Bilirubin Negative Urine Urobilinogen 0.2-1.0 Ur Leukocyte Esterase Neg Urine RBC (Auto) < 1 Urine Microscopic WBC 1 Stool Occult Blood Blood Type A POSITIVE Blood Type Confirm Antibody Screen Negative Crossmatch See Detail BBK History Checked No verified bt 07/23/18 07/23/18 07/23/18 13:15 14:00 15:28 WBC RBC Hgb Hct MCV MCH MCHC RDW Plt Count MPV Neut % (Auto) Lymph % (Auto) Gove % (Auto) Eos % (Auto) Baso % (Auto) Neut # (Auto) Lymph # (Auto) Gove # (Auto) Eos # (Auto) Baso # (Auto) PT INR APTT pO2 VBG pH VBG pCO2 VBG HCO3 VBG Total CO2 VBG O2 Sat (Calc) VBG Base Excess VBG Potassium Sodium Chloride Glucose Lactate FiO2 Potassium Carbon Dioxide Anion Gap BUN Creatinine Est GFR ( Amer) Est GFR (Non-Af Amer) Random Glucose Lactic Acid Calcium Phosphorus Magnesium Iron 20 L Ferritin Total Bilirubin AST ALT Alkaline Phosphatase Total Protein Albumin Globulin Albumin/Globulin Ratio Lipase Venous Blood Potassium Urine Color Urine Clarity Urine pH Ur Specific [place] Urine Protein Urine Glucose (UA) Urine Ketones Urine Blood Urine Nitrate Urine Bilirubin Urine Urobilinogen Ur Leukocyte Esterase Urine RBC (Auto) Urine Microscopic WBC Stool Occult Blood Positive H Blood Type Blood Type Confirm A POSITIVE Antibody Screen Crossmatch BBK History Checked 07/23/18 18:53 WBC RBC Hgb Hct MCV MCH MCHC RDW Plt Count MPV Neut % (Auto) Lymph % (Auto) Gove % (Auto) Eos % (Auto) Baso % (Auto) Neut # (Auto) Lymph # (Auto) Gove # (Auto) Eos # (Auto) Baso # (Auto) PT INR APTT pO2 VBG pH VBG pCO2 VBG HCO3 VBG Total CO2 VBG O2 Sat (Calc) VBG Base Excess VBG Potassium Sodium Chloride Glucose Lactate FiO2 Potassium Carbon Dioxide Anion Gap BUN Creatinine Est GFR ( Amer) Est GFR (Non-Af Amer) Random Glucose Lactic Acid 2.8 H Calcium Phosphorus Magnesium Iron Ferritin Total Bilirubin AST ALT Alkaline Phosphatase Total Protein Albumin Globulin Albumin/Globulin Ratio Lipase Venous Blood Potassium Urine Color Urine Clarity Urine pH Ur Specific [place] Urine Protein Urine Glucose (UA) Urine Ketones Urine Blood Urine Nitrate Urine Bilirubin Urine Urobilinogen Ur Leukocyte Esterase Urine RBC (Auto) Urine Microscopic WBC Stool Occult Blood Blood Type Blood Type Confirm Antibody Screen Crossmatch BBK History Checked Assessment & Plan - Assessment and Plan (Free Text) Plan: agree with resident 63yo F presents to ED for evaluation for pelvic abscess found on outpatient CT scan. Pt reports about 1 week ago she developed diffuse lower abdominal pain. Pt was seen by her PMD who sent her for CT scan and then referred pt to ED after obtained CT scan results. Pt reports history of anemia for which she was taking iron supplement. Pt hx of constipation. Pt currently denies any abdominal pain, nausea, vomiting, fever, chills, dysuria, hematuria. . No previous hx of colonoscopy. +weight loss since march. gen: awake, alert, NAD, thin HEENT: NC/AT, EOMI, PERRLA, -DEYSI, neck supple resp: CTA b/l card: S1s2 abd: soft, NT, some distention to lower abdomen, no tenderness, no peritoneal signs ext: no calf tenderness b/l 63yo F with hx anemia found to pelvic abscess on outpatient CT scan possible perforated diverticulitis vs mass -PACS system down unable to review CT scan -abdominal exam benign, no peritoneal signs -recommend IR for drainage of abscess -GI consult - colonoscopy/EGD -transfuse PRBC -IV abx -no acute intervention will continue to monitor clinically
[2018-07-23] MEDS ORDERED: Potassium Ch 20mEq in D5-1/2NS 1,000 ML IV SCH (16:30)
[2018-07-23] MEDS ORDERED: Dextrose 5%/0.45% NS 1,000 ML IV SCH (16:30)
[2018-07-23] MEDS ORDERED: metroNIDAZOLE 500mg/100ml NS 100 ML IVPB SCH (18:30)
[2018-07-23] MEDS: Potassium Ch 20mEq in D5-1/2NS 1,000 ML IV SCH (18:31)
--- NOTE | 2018-07-23 19:06 | CP.PCM.PN ---
Subjective - Date & Time of Evaluation Date of Evaluation: 07/23/18 Time of Evaluation: 18:52 - Subjective Subjective: I D NOTE PATIENT EXAMINED ,EMR REVIEWED ZOSYN/FLAGYL ORDERED RECEIVING 1 UNIT BLOOD NOW(HGB WAS 7 ON ADMISSION STOOL POSITIVE FOR OCCULT BLOOD).WILL LIKELY NEED MORE. HAVE ORDERED GI CONSULT c . DISCUSSED CASE c SURGERY Objective - Vital Signs/Intake and Output Vital Signs (last 24 hours): Temp Pulse Resp BP Pulse Ox 99.1 F 78 20 118/78 100 07/23/18 18:29 07/23/18 18:29 07/23/18 18:29 07/23/18 18:29 07/23/18 16:17 Intake and Output: 07/23/18 07/23/18 06:59 18:59 Intake Total 375 Balance 375 - Medications Medications: Current Medications Acetaminophen (Tylenol 325mg Tab) 650 mg PO Q6 PRN PRN Reason: Pain, Mild (1-3) Last Admin: 07/23/18 18:05 Dose: 650 mg Alprazolam (Xanax) 0.5 mg PO Q8 PRN PRN Reason: Anxiety Last Admin: 07/23/18 16:44 Dose: 0.5 mg Ferrous Sulfate (Feosol) 325 mg PO BID [facility]E Piperacillin Sod/Tazobactam (Sod 3.375 gm/ Sodium Chloride) 100 mls @ 100 mls/hr IVPB Q6 MERLENE; Protocol Potassium Chloride/Dextrose/Sod Cl (Potassium Chl 20 Meq In D5-1/2ns) 1,000 mls @ 125 mls/hr IV .Q8H MERLENE Stop: 07/24/18 16:52 Last Admin: 07/23/18 18:31 Dose: 125 mls/hr Metronidazole (Flagyl 500mg/100ml Ns) 100 mls @ 100 mls/hr IVPB Q8 MERLENE; Protocol Levothyroxine Sodium (Synthroid) 88 mcg PO DAILY MERLENE - Labs Labs: 07/23/18 11:25 07/23/18 11:25 PT 16.2 Seconds (9.8-13.1) H 07/23/18 11:25 INR 1.4 07/23/18 11:25 APTT 31.2 Seconds (25.6-37.1) 07/23/18 11:25
[2018-07-23] MEDS: Piperacillin/Tazobact 3.375 GM in Sodium Chloride 0.9% 100 ML IVPB SCH (21:57)
--- NOTE | 2018-07-23 23:50 | CP.PCM.CON ---
History of Present Illness - History of Present Illness History of Present Illness: 63 yo female admitted with pelvic abscess seen on outpatient CT. Has been having dull lower abdominal pain since May Review of Systems - Constitutional Constitutional: absent: Fatigue - EENT Eyes: absent: Blurred Vision Ears: absent: Ear Discharge Nose/Mouth/Throat: absent: Nasal Congestion - Cardiovascular Cardiovascular: absent: Chest Pain - Respiratory Respiratory: absent: Dyspnea - Gastrointestinal Gastrointestinal: As Per HPI - Genitourinary Genitourinary: absent: Change in Urinary Stream Past Patient History - Infectious Disease Hx of Infectious Diseases: None - Past Medical History & Family History Past Medical History?: Yes - Past Social History Smoking Status: Light Smoker < 10 Cigarettes Daily - HEENT Other/Comment: Wears corrective lenses for distance and reading - RENAL Hx Chronic Kidney Disease: No - ENDOCRINE/METABOLIC Hx Hypothyroidism: Yes (synthroid taken) - HEMATOLOGICAL/ONCOLOGICAL Other/Comment: Recent Dx with Anemia- Taking Feosol - INTEGUMENTARY Hx Dermatological Problems: No - MUSCULOSKELETAL/RHEUMATOLOGICAL Hx Musculoskeletal Disorders: No Hx Falls: No - GASTROINTESTINAL Hx Gastrointestinal Disorders: No Other/Comment: Has never had Colonoscopy - GENITOURINARY/GYNECOLOGICAL Hx Genitourinary Disorders: No - PSYCHIATRIC Hx Substance Use: No - SURGICAL HISTORY Hx Surgeries: No - ANESTHESIA Hx Anesthesia: No Meds Allergies/Adverse Reactions: Allergies Allergy/AdvReac Type Severity Reaction Status Date / Time No Known Allergies Allergy Verified 04/17/18 10:07 - Medications Medications: Current Medications Acetaminophen (Tylenol 325mg Tab) 650 mg PO Q6 PRN PRN Reason: Pain, Mild (1-3) Last Admin: 07/23/18 18:05 Dose: 650 mg Alprazolam (Xanax) 0.5 mg PO Q8 PRN PRN Reason: Anxiety Last Admin: 07/23/18 16:44 Dose: 0.5 mg Ferrous Sulfate (Feosol) 325 mg PO BID [facility] Piperacillin Sod/Tazobactam (Sod 3.375 gm/ Sodium Chloride) 100 mls @ 100 mls/hr IVPB Q6 [facility]; Protocol Last Admin: 07/23/18 21:57 Dose: 100 mls/hr Potassium Chloride/Dextrose/Sod Cl (Potassium Chl 20 Meq In D5-1/2ns) 1,000 mls @ 125 mls/hr IV .Q8H [facility] Stop: 07/24/18 16:52 Last Admin: 07/23/18 18:31 Dose: 125 mls/hr Metronidazole (Flagyl 500mg/100ml Ns) 100 mls @ 100 mls/hr IVPB Q8 [facility]; Protocol Last Admin: 07/23/18 20:28 Dose: 100 mls/hr Levothyroxine Sodium (Synthroid) 88 mcg PO DAILY [facility] Physical Exam - Head Exam Head Exam: ATRAUMATIC - Eye Exam Eye Exam: Normal appearance - ENT Exam ENT Exam: Normal Exam - Neck Exam Neck exam: Positive for: Normal Inspection - Respiratory Exam Respiratory Exam: Clear to Auscultation Bilateral - Cardiovascular Exam Cardiovascular Exam: REGULAR RHYTHM, +S1, +S2 - GI/Abdominal Exam GI & Abdominal Exam: Normal Bowel Sounds, Soft, Tenderness Results - Vital Signs Recent Vital Signs: Last Vital Signs Temp 99.1 F 07/23/18 18:30 Pulse 78 07/23/18 20:32 Resp 20 07/23/18 20:32 BP 118/78 07/23/18 18:29 Pulse Ox 100 07/23/18 21:53 - Labs Result Diagrams: 07/23/18 11:25 07/23/18 11:25 Labs: Laboratory Results - last 24 hr 07/23/18 07/23/18 07/23/18 11:10 11:25 11:25 WBC 8.7 RBC 2.74 L Hgb 7.0 L D Hct 21.8 L MCV 79.7 L D MCH 25.5 L MCHC 32.0 L RDW 17.1 H Plt Count 564 H D MPV 7.1 L Neut % (Auto) 72.9 Lymph % (Auto) 17.3 L [place] % (Auto) 8.5 Eos % (Auto) 0.5 Baso % (Auto) 0.8 Neut # (Auto) 6.4 Lymph # (Auto) 1.5 [place] # (Auto) 0.7 Eos # (Auto) 0.0 Baso # (Auto) 0.1 PT INR APTT pO2 25 L VBG pH 7.41 VBG pCO2 47 VBG HCO3 27.4 VBG Total CO2 31.2 H VBG O2 Sat (Calc) 42.9 VBG Base Excess 4.5 H VBG Potassium 3.8 Sodium 134.0 134 Chloride 102.0 96 L Glucose 103 Lactate 0.8 FiO2 21.0 Potassium 4.0 Carbon Dioxide 26 Anion Gap 16 BUN 8 Creatinine 0.6 L Est GFR ( Amer) > 60 Est GFR (Non-Af Amer) > 60 Random Glucose 100 Lactic Acid Calcium 9.2 Phosphorus 4.3 Magnesium 2.4 H Iron Ferritin 225.0 Total Bilirubin 0.2 AST 43 H D ALT 41 Alkaline Phosphatase 123 Total Protein 7.5 Albumin 3.5 D Globulin 4.0 H Albumin/Globulin Ratio 0.9 L Lipase 46 Venous Blood Potassium 3.8 Urine Color Urine Clarity Urine pH Ur Specific [place] Urine Protein Urine Glucose (UA) Urine Ketones Urine Blood Urine Nitrate Urine Bilirubin Urine Urobilinogen Ur Leukocyte Esterase Urine RBC (Auto) Urine Microscopic WBC Stool Occult Blood Blood Type Blood Type Confirm Antibody Screen Crossmatch BBK History Checked 07/23/18 07/23/18 07/23/18 11:25 11:25 11:43 WBC RBC Hgb Hct MCV MCH MCHC RDW Plt Count MPV Neut % (Auto) Lymph % (Auto) [place] % (Auto) Eos % (Auto) Baso % (Auto) Neut # (Auto) Lymph # (Auto) [place] # (Auto) Eos # (Auto) Baso # (Auto) PT 16.2 H INR 1.4 APTT 31.2 pO2 VBG pH VBG pCO2 VBG HCO3 VBG Total CO2 VBG O2 Sat (Calc) VBG Base Excess VBG Potassium Sodium Chloride Glucose Lactate FiO2 Potassium Carbon Dioxide Anion Gap BUN Creatinine Est GFR ( Amer) Est GFR (Non-Af Amer) Random Glucose Lactic Acid Calcium Phosphorus Magnesium Iron Ferritin Total Bilirubin AST ALT Alkaline Phosphatase Total Protein Albumin Globulin Albumin/Globulin Ratio Lipase Venous Blood Potassium Urine Color Straw Urine Clarity Clear Urine pH 7.0 Ur Specific [place] 1.005 Urine Protein Negative Urine Glucose (UA) Neg Urine Ketones Negative Urine Blood Small Urine Nitrate Negative Urine Bilirubin Negative Urine Urobilinogen 0.2-1.0 Ur Leukocyte Esterase Neg Urine RBC (Auto) < 1 Urine Microscopic WBC 1 Stool Occult Blood Blood Type A POSITIVE Blood Type Confirm Antibody Screen Negative Crossmatch See Detail BBK History Checked No verified bt 07/23/18 07/23/18 07/23/18 13:15 14:00 15:28 WBC RBC Hgb Hct MCV MCH MCHC RDW Plt Count MPV Neut % (Auto) Lymph % (Auto) [place] % (Auto) Eos % (Auto) Baso % (Auto) Neut # (Auto) Lymph # (Auto) [place] # (Auto) Eos # (Auto) Baso # (Auto) PT INR APTT pO2 VBG pH VBG pCO2 VBG HCO3 VBG Total CO2 VBG O2 Sat (Calc) VBG Base Excess VBG Potassium Sodium Chloride Glucose Lactate FiO2 Potassium Carbon Dioxide Anion Gap BUN Creatinine Est GFR ( Amer) Est GFR (Non-Af Amer) Random Glucose Lactic Acid Calcium Phosphorus Magnesium Iron 20 L Ferritin Total Bilirubin AST ALT Alkaline Phosphatase Total Protein Albumin Globulin Albumin/Globulin Ratio Lipase Venous Blood Potassium Urine Color Urine Clarity Urine pH Ur Specific [place] Urine Protein Urine Glucose (UA) Urine Ketones Urine Blood Urine Nitrate Urine Bilirubin Urine Urobilinogen Ur Leukocyte Esterase Urine RBC (Auto) Urine Microscopic WBC Stool Occult Blood Positive H Blood Type Blood Type Confirm A POSITIVE Antibody Screen Crossmatch BBK History Checked 07/23/18 18:53 WBC RBC Hgb Hct MCV MCH MCHC RDW Plt Count MPV Neut % (Auto) Lymph % (Auto) [place] % (Auto) Eos % (Auto) Baso % (Auto) Neut # (Auto) Lymph # (Auto) [place] # (Auto) Eos # (Auto) Baso # (Auto) PT INR APTT pO2 VBG pH VBG pCO2 VBG HCO3 VBG Total CO2 VBG O2 Sat (Calc) VBG Base Excess VBG Potassium Sodium Chloride Glucose Lactate FiO2 Potassium Carbon Dioxide Anion Gap BUN Creatinine Est GFR ( Amer) Est GFR (Non-Af Amer) Random Glucose Lactic Acid 2.8 H Calcium Phosphorus Magnesium Iron Ferritin Total Bilirubin AST ALT Alkaline Phosphatase Total Protein Albumin Globulin Albumin/Globulin Ratio Lipase Venous Blood Potassium Urine Color Urine Clarity Urine pH Ur Specific [place] Urine Protein Urine Glucose (UA) Urine Ketones Urine Blood Urine Nitrate Urine Bilirubin Urine Urobilinogen Ur Leukocyte Esterase Urine RBC (Auto) Urine Microscopic WBC Stool Occult Blood Blood Type Blood Type Confirm Antibody Screen Crossmatch BBK History Checked Assessment & Plan - Assessment and Plan (Free Text) Assessment: 63 yo female with pelvic abscess . CT done outside and results not immediately available. Initially IR drainage. After reviewing CT will likely need nonemergent colonoscopy to evaluate cause of abscess and anemia.
[2018-07-24] MEDS: Potassium Ch 20mEq in D5-1/2NS 1,000 ML IV SCH ×3 (02:00→10:13)
[2018-07-24] MEDS: metroNIDAZOLE 500mg/100ml NS 100 ML IVPB SCH ×3 (03:48→18:03)
[2018-07-24] MEDS: Piperacillin/Tazobact 3.375 GM in Sodium Chloride 0.9% 100 ML IVPB SCH ×4 (05:00→21:48)
[2018-07-24] MEDS: Levothyroxine 88 MCG TAB PO SCH ×2 (06:13→08:24)
[2018-07-24 06:22] LABS: HEMOGLOBIN 7.4 g/dL (12.0-16.0); MEAN CELL VOLUME 81.1 fl (81.0-99.0); MEAN CORPUSCULAR HEMOGLOBIN 26.1 pg (27.0-31.0); MEAN CORPUSCULAR HGB CONC 32.2 g/dL (33.0-37.0); RBC 2.82 Mil/uL (3.80-5.20); RED CELL DISTRIBUTION WIDTH 16.3 % (11.5-14.5); WHITE BLOOD COUNT 6.8 K/uL (4.8-10.8)
[2018-07-24 06:32] LABS: BLOOD UREA NITROGEN 8 mg/dl (7-17); CALCIUM 8.6 mg/dL (8.4-10.2); GFR NON-AFRICAN AMERICAN > 60
--- NOTE | 2018-07-24 07:23 | CP.PCM.PN ---
<Vidal Garcia Anna - Last Filed: 07/24/18 07:21> Subjective - Date & Time of Evaluation Date of Evaluation: 07/24/18 Time of Evaluation: 07:21 - Subjective Subjective: Gen Sx: Dr Crowell Pt S&E. MAXI. Resting comfortably. Pain well controlled and minimal. Afebrile. No tachycardia. Tolerating liquids. Passing flatus. Has been constipated recently. Denies N/V, F/C.OOB and ambulating. Objective - Vital Signs/Intake and Output Vital Signs (last 24 hours): Temp Pulse Resp BP Pulse Ox 97.6 F 71 20 97/64 L 98 07/24/18 00:19 07/24/18 00:19 07/24/18 00:19 07/24/18 00:19 07/24/18 00:19 - Medications Medications: Current Medications Acetaminophen (Tylenol 325mg Tab) 650 mg PO Q6 PRN PRN Reason: Pain, Mild (1-3) Last Admin: 07/23/18 18:05 Dose: 650 mg Alprazolam (Xanax) 0.5 mg PO Q8 PRN PRN Reason: Anxiety Last Admin: 07/23/18 16:44 Dose: 0.5 mg Ferrous Sulfate (Feosol) 325 mg PO BID [facility] Piperacillin Sod/Tazobactam (Sod 3.375 gm/ Sodium Chloride) 100 mls @ 100 mls/hr IVPB Q6 [facility]; Protocol Last Admin: 07/24/18 05:00 Dose: 100 mls/hr Potassium Chloride/Dextrose/Sod Cl (Potassium Chl 20 Meq In D5-1/2ns) 1,000 mls @ 125 mls/hr IV .Q8H [facility] Stop: 07/24/18 16:52 Last Admin: 07/24/18 05:03 Dose: 125 mls/hr Metronidazole (Flagyl 500mg/100ml Ns) 100 mls @ 100 mls/hr IVPB Q8H [facility]; Protocol Last Admin: 07/24/18 03:48 Dose: 100 mls/hr Levothyroxine Sodium (Synthroid) 88 mcg PO DAILY [facility] Last Admin: 07/24/18 06:13 Dose: 88 mcg - Labs Labs: 07/24/18 06:14 07/24/18 06:14 PT 16.2 Seconds (9.8-13.1) H 07/23/18 11:25 INR 1.4 07/23/18 11:25 APTT 31.2 Seconds (25.6-37.1) 07/23/18 11:25 - Constitutional Appears: Non-toxic, No Acute Distress - Head Exam Head Exam: NORMAL INSPECTION - Eye Exam Eye Exam: Normal appearance - ENT Exam ENT Exam: Mucous Membranes Moist - Respiratory Exam Respiratory Exam: absent: Accessory Muscle Use, Respiratory Distress - Cardiovascular Exam Cardiovascular Exam: REGULAR RHYTHM. absent: Tachycardia - GI/Abdominal Exam GI & Abdominal Exam: Soft, Tenderness (lower quadrants ). absent: Distended Assessment and Plan - Assessment and Plan (Free Text) Assessment: 63F with pelvic abscess Plan: cont iv abx ok for CLD possible IR drainage tomorrow d/w Dr Socrates Garcia, PGY4 <Armaan Crowell - Last Filed: 07/24/18 22:58> Objective - Vital Signs/Intake and Output Vital Signs (last 24 hours): Temp Pulse Resp BP Pulse Ox 97.7 F 73 18 103/68 100 07/24/18 16:15 07/24/18 16:15 07/24/18 16:15 07/24/18 16:15 07/24/18 16:15 Intake and Output: 07/24/18 07/25/18 18:59 06:59 Intake Total 325 Balance 325 - Medications Medications: Current Medications Acetaminophen (Tylenol 325mg Tab) 650 mg PO Q6 PRN PRN Reason: Pain, Mild (1-3) Last Admin: 07/23/18 18:05 Dose: 650 mg Alprazolam (Xanax) 0.5 mg PO Q8 PRN PRN Reason: Anxiety Last Admin: 07/24/18 15:28 Dose: 0.5 mg Ferrous Sulfate (Feosol) 325 mg PO BID [facility] Last Admin: 07/24/18 16:15 Dose: 325 mg Metronidazole (Flagyl 500mg/100ml Ns) 100 mls @ 100 mls/hr IVPB Q8H [facility]; Protocol Last Admin: 07/24/18 18:03 Dose: 100 mls/hr Potassium Chloride/Dextrose/Sod Cl (Potassium Chl 20 Meq In D5-1/2ns) 1,000 mls @ 125 mls/hr IV .Q8H [facility] Stop: 07/25/18 22:17 Levothyroxine Sodium (Synthroid) 88 mcg PO DAILY@0630 [facility] - Labs Labs: 07/24/18 06:14 07/24/18 06:14 PT 16.2 Seconds (9.8-13.1) H 07/23/18 11:25 INR 1.4 07/23/18 11:25 APTT 31.2 Seconds (25.6-37.1) 07/23/18 11:25 Assessment and Plan - Assessment and Plan (Free Text) Plan: seen at bedside, pt reports some abdominal discomfort. Tolerating clears. No BM, +flatus. gen: awake, alert, NAD abd: soft, some distention to lower abdomen, nontender, no peritoneal signs ext: no calf tenderness b/l, no edema 63yo F with pelvic abscess unknown etiology -NPO after midnight -discussed case with interventional radiologist unsure if there is a window for drainage of abscess, but will eval pt in AM -it IR unable to drain abscess pt will need laparoscopic drainage of abscess repeat HH in AM
--- NOTE | 2018-07-24 09:49 | CP.PCM.PN ---
<Russell Freitasmaine - Last Filed: 07/24/18 13:18> Subjective - Date & Time of Evaluation Date of Evaluation: 07/24/18 Time of Evaluation: 09:40 - Subjective Subjective: Patient seen and examined this AM at bedside, in NAD. Patient states she is feeling well, denies abdominal pain, CP, N/V/D. Patient reports normal appetite, currently on liquid diet, aware she will be NPO after midnight for possible IVR abscess drainage tomorrow. Afebrile. Ambulating well. Objective - Vital Signs/Intake and Output Vital Signs (last 24 hours): Temp Pulse Resp BP Pulse Ox 97.5 F L 72 20 101/65 100 07/24/18 08:08 07/24/18 08:08 07/24/18 08:08 07/24/18 08:08 07/24/18 08:08 - Medications Medications: Current Medications Acetaminophen (Tylenol 325mg Tab) 650 mg PO Q6 PRN PRN Reason: Pain, Mild (1-3) Last Admin: 07/23/18 18:05 Dose: 650 mg Alprazolam (Xanax) 0.5 mg PO Q8 PRN PRN Reason: Anxiety Last Admin: 07/23/18 16:44 Dose: 0.5 mg Ferrous Sulfate (Feosol) 325 mg PO BID [facility] Last Admin: 07/24/18 08:24 Dose: 325 mg Piperacillin Sod/Tazobactam (Sod 3.375 gm/ Sodium Chloride) 100 mls @ 100 mls/hr IVPB Q6 [facility]; Protocol Last Admin: 07/24/18 05:00 Dose: 100 mls/hr Potassium Chloride/Dextrose/Sod Cl (Potassium Chl 20 Meq In D5-1/2ns) 1,000 mls @ 125 mls/hr IV .Q8H [facility] Stop: 07/24/18 16:52 Last Admin: 07/24/18 05:03 Dose: 125 mls/hr Metronidazole (Flagyl 500mg/100ml Ns) 100 mls @ 100 mls/hr IVPB Q8H [facility]; Protocol Last Admin: 07/24/18 03:48 Dose: 100 mls/hr Levothyroxine Sodium (Synthroid) 88 mcg PO DAILY@0630 [facility] - Labs Labs: 07/24/18 06:14 07/24/18 06:14 PT 16.2 Seconds (9.8-13.1) H 07/23/18 11:25 INR 1.4 07/23/18 11:25 APTT 31.2 Seconds (25.6-37.1) 07/23/18 11:25 - Additional Findings Additional findings: - Constitutional Appears: Well, No Acute Distress - Eye Exam Eye Exam: EOMI, PERRL - ENT Exam ENT Exam: Mucous Membranes Moist - Respiratory Exam Respiratory Exam: Clear to Auscultation Bilateral, NORMAL BREATHING PATTERN. absent: Wheezes - Cardiovascular Exam Cardiovascular Exam: REGULAR RHYTHM, +S1, +S2 - GI/Abdominal Exam GI & Abdominal Exam: Normal Bowel Sounds, Soft, no mass. absent: Tenderness - Extremities Exam Extremities exam: Negative for: calf tenderness - Back Exam Back exam: absent: CVA tenderness (L), CVA tenderness (R) - Neurological Exam Neurological exam: Alert, CN II-XII Intact, Oriented x3 - Psychiatric Exam Psychiatric exam: Normal Affect, Normal Mood Assessment and Plan - Assessment and Plan (Free Text) Assessment: 63 yo F pmhx of hypothyroid, and anxiety was sent to ED per Dr. Silver for abdominal abbess incidentally found on outpatient abdom CT. Plan: Abdo CT: 7 x cm abscess in pelvis anterior to recto-sigmoid; extralumenal air collecting Abdominal abcess: -Incidental finding on CT -Surgery Dr. Gonzales: Clear liquid diet, ABX, GI consult, -occult blood positive -GI consult Dr Thompson, f/u recomms -ID consult: Dr. Greene -Sx Consult Dr Crowell, f/u recomms: plan for IR drainage of Abscess - Antbx: Zosyn IV, Flagyl IV -Clear liquid -IVF: D5 1/ NS 20 k 125ml/hr -IR for possible drainage on 07/25 -NPO after midnight - Blood and Urine culture: no growth Anemia: -H/H: 7.4/22.8 today after PRBC 1 unit recived -Positive Occult blood stool received -GI consult Dr Thompson, planning for colonoscopy after IR drainage to evaluate cause of abscess and anemia -Will give a second unit of PRBC and f/u respond -Feosol BID -f/u CBC in AM Hypothyroid: -cw levothyroxine 88 mcg DVT prophylaxis: -SCDs <Charity Johnson Erlin - Last Filed: 07/24/18 14:02> Objective - Vital Signs/Intake and Output Vital Signs (last 24 hours): Temp Pulse Resp BP Pulse Ox 97.1 F L 72 18 123/77 100 07/24/18 12:50 07/24/18 12:50 07/24/18 12:50 07/24/18 12:50 07/24/18 08:08 Intake and Output: 07/24/18 07/24/18 06:59 18:59 Intake Total 325 Balance 325 - Medications Medications: Current Medications Acetaminophen (Tylenol 325mg Tab) 650 mg PO Q6 PRN PRN Reason: Pain, Mild (1-3) Last Admin: 07/23/18 18:05 Dose: 650 mg Alprazolam (Xanax) 0.5 mg PO Q8 PRN PRN Reason: Anxiety Last Admin: 07/23/18 16:44 Dose: 0.5 mg Ferrous Sulfate (Feosol) 325 mg PO BID [facility] Last Admin: 07/24/18 08:24 Dose: 325 mg Piperacillin Sod/Tazobactam (Sod 3.375 gm/ Sodium Chloride) 100 mls @ 100 mls/hr IVPB Q6 [facility]; Protocol Last Admin: 07/24/18 10:13 Dose: 100 mls/hr Potassium Chloride/Dextrose/Sod Cl (Potassium Chl 20 Meq In D5-1/2ns) 1,000 mls @ 125 mls/hr IV .Q8H [facility] Stop: 07/24/18 16:52 Last Admin: 07/24/18 10:13 Dose: Not Given Metronidazole (Flagyl 500mg/100ml Ns) 100 mls @ 100 mls/hr IVPB Q8H [facility]; Protocol Last Admin: 07/24/18 11:26 Dose: 100 mls/hr Levothyroxine Sodium (Synthroid) 88 mcg PO DAILY@0630 [facility] - Labs Labs: 07/24/18 06:14 07/24/18 06:14 PT 16.2 Seconds (9.8-13.1) H 07/23/18 11:25 INR 1.4 07/23/18 11:25 APTT 31.2 Seconds (25.6-37.1) 07/23/18 11:25 Attending/Attestation - Attestation I have personally seen and examined this patient.: Yes I have fully participated in the care of the patient.: Yes I have reviewed all pertinent clinical information, including history, physical exam and plan: Yes Notes (Text): 07/24/18 14:01 FOR IR ABSCESS DRAINAGE TOMORROW. MONITOR CBC FOR ANEMIA PER GI OUTPATIENT COLONOSCOPY AGREE WITH FINDINGS AND PLAN ABOVE
--- NOTE | 2018-07-24 18:50 | CP.PCM.PN ---
Subjective - Date & Time of Evaluation Date of Evaluation: 07/24/18 Time of Evaluation: 15:00 - Subjective Subjective: Feeling less abdominal pain today Objective - Vital Signs/Intake and Output Vital Signs (last 24 hours): Temp Pulse Resp BP Pulse Ox 97.7 F 73 18 103/68 100 07/24/18 16:15 07/24/18 16:15 07/24/18 16:15 07/24/18 16:15 07/24/18 16:15 Intake and Output: 07/24/18 07/24/18 06:59 18:59 Intake Total 325 Balance 325 - Medications Medications: Current Medications Acetaminophen (Tylenol 325mg Tab) 650 mg PO Q6 PRN PRN Reason: Pain, Mild (1-3) Last Admin: 07/23/18 18:05 Dose: 650 mg Alprazolam (Xanax) 0.5 mg PO Q8 PRN PRN Reason: Anxiety Last Admin: 07/24/18 15:28 Dose: 0.5 mg Ferrous Sulfate (Feosol) 325 mg PO BID [facility] Last Admin: 07/24/18 16:15 Dose: 325 mg Piperacillin Sod/Tazobactam (Sod 3.375 gm/ Sodium Chloride) 100 mls @ 100 mls/hr IVPB Q6 [facility]; Protocol Last Admin: 07/24/18 16:14 Dose: 100 mls/hr Metronidazole (Flagyl 500mg/100ml Ns) 100 mls @ 100 mls/hr IVPB Q8H [facility]; Protocol Last Admin: 07/24/18 18:03 Dose: 100 mls/hr Levothyroxine Sodium (Synthroid) 88 mcg PO DAILY@0630 [facility] - Labs Labs: 07/24/18 06:14 07/24/18 06:14 PT 16.2 Seconds (9.8-13.1) H 07/23/18 11:25 INR 1.4 07/23/18 11:25 APTT 31.2 Seconds (25.6-37.1) 07/23/18 11:25 - Head Exam Head Exam: ATRAUMATIC - Eye Exam Eye Exam: Normal appearance Pupil Exam: PERRL - ENT Exam ENT Exam: Mucous Membranes Moist - Neck Exam Neck Exam: Full ROM - Cardiovascular Exam Cardiovascular Exam: REGULAR RHYTHM, +S1, +S2 - GI/Abdominal Exam GI & Abdominal Exam: Soft, Tenderness, Normal Bowel Sounds Assessment and Plan (1) Pelvic abscess Assessment & Plan: Feeling better with antibiotics. IR drainage tomorrow. Status: Acute
[2018-07-25] MEDS: Potassium Ch 20mEq in D5-1/2NS 1,000 ML IV SCH ×3 (00:44→14:56)
[2018-07-25] MEDS: metroNIDAZOLE 500mg/100ml NS 100 ML IVPB SCH ×3 (03:30→19:07)
[2018-07-25] MEDS: Piperacillin/Tazobact 3.375 GM in Sodium Chloride 0.9% 100 ML IVPB SCH ×4 (04:39→21:26)
[2018-07-25 05:07] LABS: HEMOGLOBIN 8.6 g/dL (12.0-16.0); MEAN CELL VOLUME 82.3 fl (81.0-99.0); MEAN CORPUSCULAR HEMOGLOBIN 26.3 pg (27.0-31.0); RBC 3.27 Mil/uL (3.80-5.20); RED CELL DISTRIBUTION WIDTH 16.5 % (11.5-14.5); WHITE BLOOD COUNT 4.4 K/uL (4.8-10.8)
[2018-07-25 05:19] LABS: BLOOD UREA NITROGEN 6 mg/dl (7-17); CALCIUM 8.8 mg/dL (8.4-10.2); GFR NON-AFRICAN AMERICAN > 60
[2018-07-25] MEDS: Levothyroxine 88 MCG TAB PO SCH (05:53)
--- NOTE | 2018-07-25 09:48 | CP.PCM.PN ---
<Paolo Espionsa - Last Filed: 07/25/18 11:43> Subjective - Date & Time of Evaluation Date of Evaluation: 07/25/18 Time of Evaluation: 07:40 - Subjective Subjective: Pt seen and examined at bedside. Denies significant overnight events. Remains afebrile; Denies abdominal pain. Objective - Vital Signs/Intake and Output Vital Signs (last 24 hours): Temp Pulse Resp BP Pulse Ox 97.9 F 108 H 20 123/80 98 07/25/18 08:21 07/25/18 08:21 07/25/18 08:21 07/25/18 08:21 07/25/18 08:21 - Medications Medications: Current Medications Acetaminophen (Tylenol 325mg Tab) 650 mg PO Q6 PRN PRN Reason: Pain, Mild (1-3) Last Admin: 07/23/18 18:05 Dose: 650 mg Alprazolam (Xanax) 0.5 mg PO Q8 PRN PRN Reason: Anxiety Last Admin: 07/25/18 00:41 Dose: 0.5 mg Ferrous Sulfate (Feosol) 325 mg PO BID [facility] Last Admin: 07/25/18 09:46 Dose: Not Given Metronidazole (Flagyl 500mg/100ml Ns) 100 mls @ 100 mls/hr IVPB Q8H [facility]; Protocol Last Admin: 07/25/18 03:30 Dose: 100 mls/hr Potassium Chloride/Dextrose/Sod Cl (Potassium Chl 20 Meq In D5-1/2ns) 1,000 mls @ 125 mls/hr IV .Q8H [facility] Stop: 07/25/18 22:17 Last Admin: 07/25/18 06:30 Dose: Not Given Piperacillin Sod/Tazobactam (Sod 3.375 gm/ Sodium Chloride) 100 mls @ 100 mls/hr IVPB Q6 [facility]; Protocol Last Admin: 07/25/18 04:39 Dose: 100 mls/hr Levothyroxine Sodium (Synthroid) 88 mcg PO DAILY@0630 [facility] Last Admin: 07/25/18 05:53 Dose: 88 mcg - Labs Labs: 07/25/18 04:30 07/25/18 04:30 PT 16.2 Seconds (9.8-13.1) H 07/23/18 11:25 INR 1.4 07/23/18 11:25 APTT 31.2 Seconds (25.6-37.1) 07/23/18 11:25 - Constitutional Appears: Well, No Acute Distress - Eye Exam Eye Exam: EOMI - ENT Exam ENT Exam: Mucous Membranes Moist - Neck Exam Neck Exam: Full ROM - Respiratory Exam Respiratory Exam: Clear to Ausculation Bilateral, NORMAL BREATHING PATTERN. absent: Wheezes - Cardiovascular Exam Cardiovascular Exam: REGULAR RHYTHM, +S1, +S2 - GI/Abdominal Exam GI & Abdominal Exam: Soft, Normal Bowel Sounds. absent: Tenderness - Neurological Exam Neurological Exam: Alert, Awake, Oriented x3 - Psychiatric Exam Psychiatric exam: Normal Affect, Normal Mood Assessment and Plan - Assessment and Plan (Free Text) Assessment: 63 yo F pmhx of hypothyroid, and anxiety was sent to ED per Dr. Silver for a bdominal abbess incidentally found on outpatient abdo CT. Plan: Abdo CT: 7 x 6 cm abscess in pelvis anterior to recto-sigmoid; extralumenal air collecting Blood and Urine culture: no growth Abdominal abcess: -Incidental finding on CT -occult blood positive -Surgery Dr. Gonzales -GI consult Dr Thompson -ID consult: Dr. Greene -Antbx: Zosyn IV, Flagyl IV -IVF: D5 1/2 NS K 20 125ml/hr -IR abscess drainage today at 13:00 -NPO Anemia: -H/H: 8.6/26.9 today after PRBC 2 unit transfused -Positive Occult blood stool received -GI consult Dr Thompson, planning for OP colonoscopy after IR drainage to evaluate cause of abscess and anemia -Feosol BID -f/u CBC Hypothyroid: -cw levothyroxine 88 mcg DVT prophylaxis: -SCDs Case and plan d/w Dr. Alex Espinosa MD PGY2 <Charity Johnson - Last Filed: 07/25/18 14:49> Objective - Vital Signs/Intake and Output Vital Signs (last 24 hours): Temp Pulse Resp BP Pulse Ox 98.7 F 79 18 122/77 100 07/25/18 14:30 07/25/18 14:30 07/25/18 14:30 07/25/18 14:30 07/25/18 14:30 - Medications Medications: Current Medications Acetaminophen (Tylenol 325mg Tab) 650 mg PO Q6 PRN PRN Reason: Pain, Mild (1-3) Last Admin: 07/23/18 18:05 Dose: 650 mg Alprazolam (Xanax) 0.5 mg PO Q8 PRN PRN Reason: Anxiety Last Admin: 07/25/18 00:41 Dose: 0.5 mg Ferrous Sulfate (Feosol) 325 mg PO BID [facility] Last Admin: 07/25/18 09:46 Dose: Not Given Metronidazole (Flagyl 500mg/100ml Ns) 100 mls @ 100 mls/hr IVPB Q8H [facility]; Protocol Last Admin: 07/25/18 11:44 Dose: 100 mls/hr Potassium Chloride/Dextrose/Sod Cl (Potassium Chl 20 Meq In D5-1/2ns) 1,000 mls @ 125 mls/hr IV .Q8H [facility] Stop: 07/25/18 22:17 Last Admin: 07/25/18 06:30 Dose: Not Given Piperacillin Sod/Tazobactam (Sod 3.375 gm/ Sodium Chloride) 100 mls @ 100 mls/hr IVPB Q6 [facility]; Protocol Last Admin: 07/25/18 09:50 Dose: 100 mls/hr Levothyroxine Sodium (Synthroid) 88 mcg PO DAILY@0630 [facility] Last Admin: 07/25/18 05:53 Dose: 88 mcg - Labs Labs: 07/25/18 04:30 07/25/18 04:30 PT 16.2 Seconds (9.8-13.1) H 07/23/18 11:25 INR 1.4 07/23/18 11:25 APTT 31.2 Seconds (25.6-37.1) 07/23/18 11:25 Attending/Attestation - Attestation I have personally seen and examined this patient.: Yes I have fully participated in the care of the patient.: Yes I have reviewed all pertinent clinical information, including history, physical exam and plan: Yes Notes (Text): 07/25/18 14:49 agree with findings and plan as above.
--- NOTE | 2018-07-25 10:07 | CP.PCM.PN ---
<Rogelio Smith - Last Filed: 07/25/18 10:04> Subjective - Date & Time of Evaluation Date of Evaluation: 07/25/18 Time of Evaluation: 10:04 - Subjective Subjective: General Surgery For Dr. Crowell This 63F was seen and examined this AM at bedside no acute events overnight. Pt continues to have some abdominal discomfort. She denies any fevers chills chest pain. Reports BM and flatus. NO new complaints at this time. Objective - Vital Signs/Intake and Output Vital Signs (last 24 hours): Temp Pulse Resp BP Pulse Ox 97.9 F 108 H 20 123/80 98 07/25/18 08:21 07/25/18 08:21 07/25/18 08:21 07/25/18 08:21 07/25/18 08:21 - Medications Medications: Current Medications Acetaminophen (Tylenol 325mg Tab) 650 mg PO Q6 PRN PRN Reason: Pain, Mild (1-3) Last Admin: 07/23/18 18:05 Dose: 650 mg Alprazolam (Xanax) 0.5 mg PO Q8 PRN PRN Reason: Anxiety Last Admin: 07/25/18 00:41 Dose: 0.5 mg Ferrous Sulfate (Feosol) 325 mg PO BID [facility] Last Admin: 07/25/18 09:46 Dose: Not Given Metronidazole (Flagyl 500mg/100ml Ns) 100 mls @ 100 mls/hr IVPB Q8H [facility]; Protocol Last Admin: 07/25/18 03:30 Dose: 100 mls/hr Potassium Chloride/Dextrose/Sod Cl (Potassium Chl 20 Meq In D5-1/2ns) 1,000 mls @ 125 mls/hr IV .Q8H [facility] Stop: 07/25/18 22:17 Last Admin: 07/25/18 06:30 Dose: Not Given Piperacillin Sod/Tazobactam (Sod 3.375 gm/ Sodium Chloride) 100 mls @ 100 mls/hr IVPB Q6 [facility]; Protocol Last Admin: 07/25/18 09:50 Dose: 100 mls/hr Levothyroxine Sodium (Synthroid) 88 mcg PO DAILY@0630 [facility] Last Admin: 07/25/18 05:53 Dose: 88 mcg - Labs Labs: 07/25/18 04:30 07/25/18 04:30 PT 16.2 Seconds (9.8-13.1) H 07/23/18 11:25 INR 1.4 07/23/18 11:25 APTT 31.2 Seconds (25.6-37.1) 07/23/18 11:25 - Constitutional Appears: Non-toxic, No Acute Distress - Head Exam Head Exam: ATRAUMATIC, NORMOCEPHALIC - Eye Exam Eye Exam: EOMI - ENT Exam ENT Exam: Mucous Membranes Moist - Respiratory Exam Respiratory Exam: NORMAL BREATHING PATTERN - Cardiovascular Exam Cardiovascular Exam: +S1, +S2 - GI/Abdominal Exam GI & Abdominal Exam: Distended, Soft. absent: Firm, Guarding, Rigid, Tenderness - Neurological Exam Neurological Exam: Alert, Awake - Psychiatric Exam Psychiatric exam: Normal Affect, Normal Mood - Skin Skin Exam: Dry, Intact Assessment and Plan - Assessment and Plan (Free Text) Assessment: 63F with pelvic abscess No surgery at this time will followup IR drainage procedure later today Will continue to follow Further recs per Dr. Socrates Smith PGY3 <Armaan Crowell - Last Filed: 07/25/18 11:13> Objective - Vital Signs/Intake and Output Vital Signs (last 24 hours): Temp Pulse Resp BP Pulse Ox 97.9 F 108 H 20 123/80 98 07/25/18 08:21 07/25/18 08:21 07/25/18 08:21 07/25/18 08:21 07/25/18 08:21 - Medications Medications: Current Medications Acetaminophen (Tylenol 325mg Tab) 650 mg PO Q6 PRN PRN Reason: Pain, Mild (1-3) Last Admin: 07/23/18 18:05 Dose: 650 mg Alprazolam (Xanax) 0.5 mg PO Q8 PRN PRN Reason: Anxiety Last Admin: 07/25/18 00:41 Dose: 0.5 mg Ferrous Sulfate (Feosol) 325 mg PO BID [facility] Last Admin: 07/25/18 09:46 Dose: Not Given Metronidazole (Flagyl 500mg/100ml Ns) 100 mls @ 100 mls/hr IVPB Q8H [facility]; Protocol Last Admin: 07/25/18 03:30 Dose: 100 mls/hr Potassium Chloride/Dextrose/Sod Cl (Potassium Chl 20 Meq In D5-1/2ns) 1,000 mls @ 125 mls/hr IV .Q8H [facility] Stop: 07/25/18 22:17 Last Admin: 07/25/18 06:30 Dose: Not Given Piperacillin Sod/Tazobactam (Sod 3.375 gm/ Sodium Chloride) 100 mls @ 100 mls/hr IVPB Q6 [facility]; Protocol Last Admin: 07/25/18 09:50 Dose: 100 mls/hr Levothyroxine Sodium (Synthroid) 88 mcg PO DAILY@0630 [facility] Last Admin: 07/25/18 05:53 Dose: 88 mcg - Labs Labs: 07/25/18 04:30 07/25/18 04:30 PT 16.2 Seconds (9.8-13.1) H 07/23/18 11:25 INR 1.4 07/23/18 11:25 APTT 31.2 Seconds (25.6-37.1) 07/23/18 11:25 Assessment and Plan - Assessment and Plan (Free Text) Plan: pt seen at bedside, no overnight events. Pt denies any abdominal pain, no nausea or vomiting. Pt is NPO for IR drainage of pelvic abscess. gen: awake, alert, NAD HEENT: NC/AT,EOMI, PERRLA, abd: soft, NT, ND, minimal discomfort to lower abdomen 63yo F with pelvic abscess -cont NPO -cont IV abx -to IR for drainage of pelvic abscess
[2018-07-25] MEDS ORDERED: Midazolam 5 MG/ML ONE (14:08)
[2018-07-25] MEDS ORDERED: Lidocaine Hydrochloride 0 ML INJ ONE (14:14)
[2018-07-25] MEDS ORDERED: Povidone Iodine Topical 10% Sol ONE (14:44)
[2018-07-25] MEDS ORDERED: Midazolam 2 MG/2 ML VIAL ONE (14:52)
--- NOTE | 2018-07-25 15:11 | PCM.SURG1 ---
Surgeon's Initial Post Op Note - Surgeon's Notes Surgeon: Lane Fruit I Farmworker: None Type of Anesthesia: Local Pre-Operative Diagnosis: Pelvic abscess Operative Findings: Pelvic abscess Post-Operative Diagnosis: Pelvic abscess Operation Performed: Pelvic abscess drainage catheter placement Specimen/Specimens Removed: aprox 250cc of purulent fluid aspirated Estimated Blood Loss: EBL {In ML}: 1 Date of Surgery/Procedure: 07/25/18 Time of Surgery/Procedure: 14:45
[2018-07-25] MEDS ORDERED: Sodium Chloride 0.9% 250 ML IV ONE (15:20)
--- NOTE | 2018-07-25 15:22 | CP.PCM.PN ---
Subjective - Date & Time of Evaluation Date of Evaluation: 07/25/18 Time of Evaluation: 15:19 - Subjective Subjective: I D NOTE PATIENT IS AT IR AT PRESENT RECEIVED 2ND UNIT PC AFEBRILE FOR COLONOSCOPY ALSO Objective - Vital Signs/Intake and Output Vital Signs (last 24 hours): Temp Pulse Resp BP Pulse Ox 98.7 F 79 18 122/77 100 07/25/18 14:30 07/25/18 14:30 07/25/18 14:30 07/25/18 14:30 07/25/18 14:30 - Medications Medications: Current Medications Acetaminophen (Tylenol 325mg Tab) 650 mg PO Q6 PRN PRN Reason: Pain, Mild (1-3) Last Admin: 07/23/18 18:05 Dose: 650 mg Alprazolam (Xanax) 0.5 mg PO Q8 PRN PRN Reason: Anxiety Last Admin: 07/25/18 00:41 Dose: 0.5 mg Ferrous Sulfate (Feosol) 325 mg PO BID [facility] Last Admin: 07/25/18 09:46 Dose: Not Given Hydromorphone HCl (Dilaudid) 0.5 mg IVP Q10M PRN PRN Reason: Pain, moderate (4-7) Metronidazole (Flagyl 500mg/100ml Ns) 100 mls @ 100 mls/hr IVPB Q8H [facility]; Protocol Last Admin: 07/25/18 11:44 Dose: 100 mls/hr Potassium Chloride/Dextrose/Sod Cl (Potassium Chl 20 Meq In D5-1/2ns) 1,000 mls @ 125 mls/hr IV .Q8H [facility] Stop: 07/25/18 22:17 Last Admin: 07/25/18 06:30 Dose: Not Given Piperacillin Sod/Tazobactam (Sod 3.375 gm/ Sodium Chloride) 100 mls @ 100 mls/hr IVPB Q6 [facility]; Protocol Last Admin: 07/25/18 09:50 Dose: 100 mls/hr Lactated Ringer's (Lactated Ringer's) 1,000 mls @ 125 mls/hr IV .Q8H [facility] Levothyroxine Sodium (Synthroid) 88 mcg PO DAILY@0630 [facility] Last Admin: 07/25/18 05:53 Dose: 88 mcg - Labs Labs: 07/25/18 04:30 07/25/18 04:30 PT 16.2 Seconds (9.8-13.1) H 07/23/18 11:25 INR 1.4 07/23/18 11:25 APTT 31.2 Seconds (25.6-37.1) 07/23/18 11:25
[2018-07-25] MEDS ORDERED: HYDROmorphone 0.5 mg/0.5 ml ISec ONE (15:29)
[2018-07-25] MEDS: Lactated Ringer's 1,000 ML IV SCH (16:00)
--- NOTE | 2018-07-25 16:24 | CARD ---
APPROVED REPORT Date of service: 07/25/2018 EKG Measurement Heart [id number] <Conclusion> Normal sinus rhythm Normal ECG
[2018-07-25] MEDS: Morphine 4 MG/ML VIAL IVP PRN (21:25)
[2018-07-26] MEDS: Lactated Ringer's 1,000 ML IV SCH ×2 (00:25→02:27)
[2018-07-26] MEDS: metroNIDAZOLE 500mg/100ml NS 100 ML IVPB SCH ×3 (02:19→18:27)
[2018-07-26] MEDS: Morphine 4 MG/ML VIAL IVP PRN ×2 (02:23→19:08)
[2018-07-26] MEDS: Piperacillin/Tazobact 3.375 GM in Sodium Chloride 0.9% 100 ML IVPB SCH ×4 (04:59→21:23)
[2018-07-26] MEDS: Levothyroxine 88 MCG TAB PO SCH (05:38)
[2018-07-26 06:30] LABS: BASO % 0.4 % (0.0-2.0); EOS % 0.1 % (0.0-4.0); HEMOGLOBIN 9.1 g/dL (12.0-16.0); LYMPH # 1.1 K/uL (1.0-4.3); LYMPH % 10.1 % (20.0-40.0); MEAN CELL VOLUME 80.8 fl (81.0-99.0); MEAN CORPUSCULAR HEMOGLOBIN 26.6 pg (27.0-31.0); MEAN CORPUSCULAR HGB CONC 32.9 g/dL (33.0-37.0); MEAN PLATELET VOLUME 6.8 fl (7.2-11.7); MONO # 0.5 K/uL (0.0-0.8); MONO % 4.2 % (0.0-10.0); NEUT # 9.4 K/uL (1.8-7.0); NEUT % 85.2 % (50.0-75.0); RBC 3.42 Mil/uL (3.80-5.20); RED CELL DISTRIBUTION WIDTH 16.9 % (11.5-14.5)
[2018-07-26 07:17] LABS: ALB/GLOB RATIO 0.9 (1.0-2.1); ALBUMIN 3.2 g/dL (3.5-5.0); ALT/SGPT 38 U/L (9-52); AST/SGOT 24 U/L (14-36); BLOOD UREA NITROGEN 6 mg/dl (7-17); CALCIUM 8.7 mg/dL (8.4-10.2); GFR NON-AFRICAN AMERICAN > 60
--- NOTE | 2018-07-26 07:22 | CP.PCM.PN ---
<Prema Cortezana maria - Last Filed: 07/26/18 10:02> Subjective - Date & Time of Evaluation Date of Evaluation: 07/26/18 Time of Evaluation: 07:20 - Subjective Subjective: General Surgery For Dr. Crowell 63 y/o female patient was seen and examined this AM with Dr. Crowell at bedside, no acute events overnight. Patient is POD1 s/p IR US guided transrectal drain placement. She denies any fevers chills chest pain. Patient states she is hungry at this time. Patient has no new complaints, and states she feels overall improved. Minimal sero-sanguinous drainage noted in the drain Objective - Vital Signs/Intake and Output Vital Signs (last 24 hours): Temp Pulse Resp BP Pulse Ox 99.3 F 95 H 18 129/80 96 07/26/18 04:00 07/26/18 03:39 07/26/18 03:39 07/26/18 03:39 07/26/18 03:39 Intake and Output: 07/26/18 07/26/18 06:59 18:59 Output Total 100 Balance -100 - Medications Medications: Current Medications Acetaminophen (Tylenol 325mg Tab) 650 mg PO Q6 PRN PRN Reason: Pain, Mild (1-3) Last Admin: 07/26/18 05:39 Dose: 650 mg Alprazolam (Xanax) 0.5 mg PO Q8 PRN PRN Reason: Anxiety Last Admin: 07/26/18 07:05 Dose: 0.5 mg Ferrous Sulfate (Feosol) 325 mg PO BID [facility] Last Admin: 07/25/18 18:03 Dose: 325 mg Hydromorphone HCl (Dilaudid) 0.5 mg IVP Q10M PRN PRN Reason: Pain, moderate (4-7) Metronidazole (Flagyl 500mg/100ml Ns) 100 mls @ 100 mls/hr IVPB Q8H [facility]; Protocol Last Admin: 07/26/18 02:19 Dose: 100 mls/hr Piperacillin Sod/Tazobactam (Sod 3.375 gm/ Sodium Chloride) 100 mls @ 100 mls/hr IVPB Q6 [facility]; Protocol Last Admin: 07/26/18 04:59 Dose: 100 mls/hr Lactated Ringer's (Lactated Ringer's) 1,000 mls @ 125 mls/hr IV .Q8H [facility] Last Admin: 07/26/18 02:27 Dose: 125 mls/hr Levothyroxine Sodium (Synthroid) 88 mcg PO DAILY@0630 [facility] Last Admin: 07/26/18 05:38 Dose: 88 mcg Morphine Sulfate (Morphine) 2 mg IVP Q4 PRN PRN Reason: Pain, severe (8-10) Last Admin: 07/26/18 02:23 Dose: 2 mg Oxycodone HCl (Oxycodone Immediate Release Tab) 5 mg PO Q6 PRN PRN Reason: Pain, moderate (4-7) - Labs Labs: 07/26/18 06:15 07/26/18 06:15 PT 16.2 Seconds (9.8-13.1) H 07/23/18 11:25 INR 1.4 07/23/18 11:25 APTT 31.2 Seconds (25.6-37.1) 07/23/18 11:25 - Constitutional Appears: Non-toxic, No Acute Distress - Head Exam Head Exam: ATRAUMATIC, NORMOCEPHALIC - ENT Exam ENT Exam: Mucous Membranes Moist - Respiratory Exam Respiratory Exam: NORMAL BREATHING PATTERN - Cardiovascular Exam Cardiovascular Exam: REGULAR RHYTHM, +S1, +S2 - GI/Abdominal Exam GI & Abdominal Exam: Distended, Soft. absent: Firm, Guarding, Rigid, Tenderness - Neurological Exam Neurological Exam: Alert, Awake - Psychiatric Exam Psychiatric exam: Normal Affect, Normal Mood Assessment and Plan - Assessment and Plan (Free Text) Assessment: 63 y/o female with pelvic abscess POD1 s/p IR US guided transrectal drain placement Plan: No surgery at this time Advance regular diet Encourage OOB to ralette/ambulation Patient started on bowel regimen with Miralax D/C IV fluids Follow up CT scan PO/IV contrast in the AM possible D/C planning tomorrow Will continue to follow Further recs per Dr. Socrates Cortez PGY1 <Armaan Crowell - Last Filed: 07/26/18 10:47> Objective - Vital Signs/Intake and Output Vital Signs (last 24 hours): Temp Pulse Resp BP Pulse Ox 97.7 F 81 20 110/74 97 07/26/18 08:26 07/26/18 08:26 07/26/18 08:26 07/26/18 08:26 07/26/18 08:26 Intake and Output: 07/26/18 07/26/18 06:59 18:59 Output Total 100 Balance -100 - Medications Medications: Current Medications Acetaminophen (Tylenol 325mg Tab) 650 mg PO Q6 PRN PRN Reason: Pain, Mild (1-3) Last Admin: 07/26/18 05:39 Dose: 650 mg Alprazolam (Xanax) 0.5 mg PO Q8 PRN PRN Reason: Anxiety Last Admin: 07/26/18 07:05 Dose: 0.5 mg Docusate Sodium (Colace) 100 mg PO BID [facility] Ferrous Sulfate (Feosol) 325 mg PO BID [facility] Last Admin: 07/26/18 08:21 Dose: 325 mg Hydromorphone HCl (Dilaudid) 0.5 mg IVP Q10M PRN PRN Reason: Pain, moderate (4-7) Metronidazole (Flagyl 500mg/100ml Ns) 100 mls @ 100 mls/hr IVPB Q8H [facility]; Protocol Last Admin: 07/26/18 10:16 Dose: 100 mls/hr Piperacillin Sod/Tazobactam (Sod 3.375 gm/ Sodium Chloride) 100 mls @ 100 mls/hr IVPB Q6 [facility]; Protocol Last Admin: 07/26/18 09:28 Dose: 100 mls/hr Levothyroxine Sodium (Synthroid) 88 mcg PO DAILY@0630 [facility] Last Admin: 07/26/18 05:38 Dose: 88 mcg Morphine Sulfate (Morphine) 2 mg IVP Q4 PRN PRN Reason: Pain, severe (8-10) Last Admin: 07/26/18 02:23 Dose: 2 mg Oxycodone HCl (Oxycodone Immediate Release Tab) 5 mg PO Q6 PRN PRN Reason: Pain, moderate (4-7) Polyethylene Glycol (Miralax) 17 gm PO BID [facility] - Labs Labs: 07/26/18 06:15 07/26/18 06:15 PT 16.2 Seconds (9.8-13.1) H 07/23/18 11:25 INR 1.4 07/23/18 11:25 APTT 31.2 Seconds (25.6-37.1) 07/23/18 11:25 Assessment and Plan - Assessment and Plan (Free Text) Plan: no overnight events. s/p Ir drainage of pelvis abscess ~250 cc of purelent material. Pt denies any abdominal pain, pt would like to eat. gen: awake, alert, NAD abd: soft, NT, ND, no peritoneal signs, drain in place with Serosanguinous drainage a/p -monitor drain output -can start diet -repeat CT in am -cont IV abx
--- NOTE | 2018-07-26 09:13 | CT ---
Ultrasound-guided placement of drainage catheter in pelvic abscess. Indication: Pelvic abscess seen on outside CT performed on 07/22/2018. Anesthesia: Local lidocaine and managed anesthesia care. Procedure and findings: Informed consent was obtained from the patient after discussing relative risks and benefits. The patient was positioned in an oblique manner. Initial transrectal ultrasound demonstrated a large pelvic abscess. An 18 gauge coaxial needle was introduced under ultrasound guidance into these access. A permanent image was stored. The inner stylet was then removed and an Amplatz guidewire was introduced. After dilatations with 6 Lao and 8 Lao dilators, an 8 Lao all-purpose drainage catheter was introduced with the catheter and looped within the abscess cavity in the pelvis. Subsequently, approximately 250 cc of frankly purulent fluid was aspirated. The drain was left in place and attached to a drainage bag. The abscess cavity was near completely collapsed subsequent to aspiration. The patient tolerated the procedure well. Impression: Placement of drainage catheter in pelvic abscess through transrectal ultrasound guidance. The abscess cavity was near completely collapsed after aspiration of approximately 250 cc of frankly purulent fluid. The drainage catheter was left in the residual abscess cavity. Follow-up CT can be obtained in 48 hours. Discussed with and Dr. Gonzales after the termination of the procedure.
--- NOTE | 2018-07-26 09:41 | CP.PCM.PN ---
<Paolo Espinosa - Last Filed: 07/26/18 14:31> Subjective - Date & Time of Evaluation Date of Evaluation: 07/26/18 Time of Evaluation: 08:45 - Subjective Subjective: Pt seen and examined at bedside. Denies acute overnight events. Tolerating PO diet and experiencing bowel movements. Afebrile. Objective - Vital Signs/Intake and Output Vital Signs (last 24 hours): Temp Pulse Resp BP Pulse Ox 97.7 F 81 20 110/74 97 07/26/18 08:26 07/26/18 08:26 07/26/18 08:26 07/26/18 08:26 07/26/18 08:26 Intake and Output: 07/26/18 07/26/18 06:59 18:59 Output Total 100 Balance -100 - Medications Medications: Current Medications Acetaminophen (Tylenol 325mg Tab) 650 mg PO Q6 PRN PRN Reason: Pain, Mild (1-3) Last Admin: 07/26/18 05:39 Dose: 650 mg Alprazolam (Xanax) 0.5 mg PO Q8 PRN PRN Reason: Anxiety Last Admin: 07/26/18 07:05 Dose: 0.5 mg Docusate Sodium (Colace) 100 mg PO BID [facility] Ferrous Sulfate (Feosol) 325 mg PO BID [facility] Last Admin: 07/26/18 08:21 Dose: 325 mg Hydromorphone HCl (Dilaudid) 0.5 mg IVP Q10M PRN PRN Reason: Pain, moderate (4-7) Metronidazole (Flagyl 500mg/100ml Ns) 100 mls @ 100 mls/hr IVPB Q8H [facility]; Protocol Last Admin: 07/26/18 02:19 Dose: 100 mls/hr Piperacillin Sod/Tazobactam (Sod 3.375 gm/ Sodium Chloride) 100 mls @ 100 mls/hr IVPB Q6 [facility]; Protocol Last Admin: 07/26/18 09:28 Dose: 100 mls/hr Lactated Ringer's (Lactated Ringer's) 1,000 mls @ 125 mls/hr IV .Q8H [facility] Last Admin: 07/26/18 02:27 Dose: 125 mls/hr Levothyroxine Sodium (Synthroid) 88 mcg PO DAILY@0630 [facility] Last Admin: 07/26/18 05:38 Dose: 88 mcg Morphine Sulfate (Morphine) 2 mg IVP Q4 PRN PRN Reason: Pain, severe (8-10) Last Admin: 07/26/18 02:23 Dose: 2 mg Oxycodone HCl (Oxycodone Immediate Release Tab) 5 mg PO Q6 PRN PRN Reason: Pain, moderate (4-7) Polyethylene Glycol (Miralax) 17 gm PO BID [facility] - Labs Labs: 07/26/18 06:15 07/26/18 06:15 PT 16.2 Seconds (9.8-13.1) H 07/23/18 11:25 INR 1.4 07/23/18 11:25 APTT 31.2 Seconds (25.6-37.1) 07/23/18 11:25 - Constitutional Appears: Well, No Acute Distress - Eye Exam Eye Exam: EOMI - ENT Exam ENT Exam: Mucous Membranes Moist - Neck Exam Neck Exam: Full ROM - Respiratory Exam Respiratory Exam: Clear to Ausculation Bilateral, NORMAL BREATHING PATTERN. absent: Wheezes - Cardiovascular Exam Cardiovascular Exam: REGULAR RHYTHM, +S1, +S2 - GI/Abdominal Exam GI & Abdominal Exam: Soft, Normal Bowel Sounds. absent: Tenderness - Extremities Exam Extremities Exam: absent: Calf Tenderness - Back Exam Back Exam: absent: CVA tenderness (L), CVA tenderness (R) - Neurological Exam Neurological Exam: Alert, Awake, CN II-XII Intact, Oriented x3 - Psychiatric Exam Psychiatric exam: Normal Affect, Normal Mood Assessment and Plan - Assessment and Plan (Free Text) Assessment: 63 yo F pmhx of hypothyroid, and anxiety was sent to ED per Dr. Silver for ab dominal abbess incidentally found on outpatient abdo CT. Plan: Abdo CT: 7 x 6 cm abscess in pelvis anterior to recto-sigmoid; extralumenal air collecting Blood and Urine culture: no growth Abdominal abcess: -s/p IR transrectal abscess drain placement -Incidental finding on CT -occult blood positive -Surgery Dr. Gonzales: f/u CT abdo with contrast in AM -GI consult Dr Thompson -ID consult: Dr. Greene -Antbx: Zosyn IV, Flagyl IV Anemia: -H/H: 9.1/27.6 today; s/p PRBC 2 unit transfused -Positive Occult blood stool received -GI consult Dr Thompson, planning for OP colonoscopy after IR drainage to evaluate cause of abscess and anemia -Feosol BID -f/u CBC Hypothyroid: -cw levothyroxine 88 mcg DVT prophylaxis: -SCDs Case and plan d/w Dr. Alex Espinosa MD PGY2 <AlexCharity Erlin - Last Filed: 07/26/18 18:58> Objective - Vital Signs/Intake and Output Vital Signs (last 24 hours): Temp Pulse Resp BP Pulse Ox 99.6 F 87 18 104/67 98 07/26/18 18:09 07/26/18 18:09 07/26/18 18:09 07/26/18 18:09 07/26/18 18:09 Intake and Output: 07/26/18 07/26/18 06:59 18:59 Output Total 100 Balance -100 - Medications Medications: Current Medications Acetaminophen (Tylenol 325mg Tab) 650 mg PO Q6 PRN PRN Reason: Pain, Mild (1-3) Last Admin: 07/26/18 05:39 Dose: 650 mg Alprazolam (Xanax) 0.5 mg PO Q8 PRN PRN Reason: Anxiety Last Admin: 07/26/18 07:05 Dose: 0.5 mg Docusate Sodium (Colace) 100 mg PO BID [facility] Last Admin: 07/26/18 16:07 Dose: 100 mg Ferrous Sulfate (Feosol) 325 mg PO BID [facility] Last Admin: 07/26/18 16:07 Dose: 325 mg Hydromorphone HCl (Dilaudid) 0.5 mg IVP Q10M PRN PRN Reason: Pain, moderate (4-7) Metronidazole (Flagyl 500mg/100ml Ns) 100 mls @ 100 mls/hr IVPB Q8H [facility]; Protocol Last Admin: 07/26/18 18:27 Dose: 100 mls/hr Piperacillin Sod/Tazobactam (Sod 3.375 gm/ Sodium Chloride) 100 mls @ 100 mls/hr IVPB Q6 [facility]; Protocol Last Admin: 07/26/18 16:12 Dose: 100 mls/hr Iohexol (Omnipaque 240 (50 Ml)) 50 ml PO ONCE ONE Stop: 07/27/18 05:01 Levothyroxine Sodium (Synthroid) 88 mcg PO DAILY@0630 [facility] Last Admin: 07/26/18 05:38 Dose: 88 mcg Morphine Sulfate (Morphine) 2 mg IVP Q4 PRN PRN Reason: Pain, severe (8-10) Last Admin: 07/26/18 02:23 Dose: 2 mg Oxycodone HCl (Oxycodone Immediate Release Tab) 5 mg PO Q6 PRN PRN Reason: Pain, moderate (4-7) Polyethylene Glycol (Miralax) 17 gm PO BID [facility] Last Admin: 07/26/18 16:09 Dose: 17 gm - Labs Labs: 07/26/18 06:15 07/26/18 06:15 PT 16.2 Seconds (9.8-13.1) H 07/23/18 11:25 INR 1.4 07/23/18 11:25 APTT 31.2 Seconds (25.6-37.1) 07/23/18 11:25 Attending/Attestation - Attestation I have personally seen and examined this patient.: Yes I have fully participated in the care of the patient.: Yes I have reviewed all pertinent clinical information, including history, physical exam and plan: Yes Notes (Text): 07/26/18 18:58 agree with findings and plan as above
[2018-07-26] MEDS: POLYETHYLENE GLYCOL 3350 17 GM/Dose PACKET PO SCH (16:09)
--- NOTE | 2018-07-26 16:31 | CP.PCM.PN ---
Subjective - Date & Time of Evaluation Date of Evaluation: 07/26/18 Time of Evaluation: 16:29 - Subjective Subjective: Feels much better post IR drainage. Less discomfort Objective - Vital Signs/Intake and Output Vital Signs (last 24 hours): Temp Pulse Resp BP Pulse Ox 97.7 F 81 20 110/74 97 07/26/18 08:26 07/26/18 08:26 07/26/18 08:26 07/26/18 08:26 07/26/18 08:26 Intake and Output: 07/26/18 07/26/18 06:59 18:59 Output Total 100 Balance -100 - Medications Medications: Current Medications Acetaminophen (Tylenol 325mg Tab) 650 mg PO Q6 PRN PRN Reason: Pain, Mild (1-3) Last Admin: 07/26/18 05:39 Dose: 650 mg Alprazolam (Xanax) 0.5 mg PO Q8 PRN PRN Reason: Anxiety Last Admin: 07/26/18 07:05 Dose: 0.5 mg Docusate Sodium (Colace) 100 mg PO BID [facility] Last Admin: 07/26/18 16:07 Dose: 100 mg Ferrous Sulfate (Feosol) 325 mg PO BID [facility] Last Admin: 07/26/18 16:07 Dose: 325 mg Hydromorphone HCl (Dilaudid) 0.5 mg IVP Q10M PRN PRN Reason: Pain, moderate (4-7) Metronidazole (Flagyl 500mg/100ml Ns) 100 mls @ 100 mls/hr IVPB Q8H [facility]; Protocol Last Admin: 07/26/18 10:16 Dose: 100 mls/hr Piperacillin Sod/Tazobactam (Sod 3.375 gm/ Sodium Chloride) 100 mls @ 100 mls/hr IVPB Q6 [facility]; Protocol Last Admin: 07/26/18 16:12 Dose: 100 mls/hr Iohexol (Omnipaque 240 (50 Ml)) 1 ml PO ONCE ONE Stop: 07/27/18 05:01 Levothyroxine Sodium (Synthroid) 88 mcg PO DAILY@0630 [facility] Last Admin: 07/26/18 05:38 Dose: 88 mcg Morphine Sulfate (Morphine) 2 mg IVP Q4 PRN PRN Reason: Pain, severe (8-10) Last Admin: 07/26/18 02:23 Dose: 2 mg Oxycodone HCl (Oxycodone Immediate Release Tab) 5 mg PO Q6 PRN PRN Reason: Pain, moderate (4-7) Polyethylene Glycol (Miralax) 17 gm PO BID [facility] Last Admin: 07/26/18 16:09 Dose: 17 gm - Labs Labs: 07/26/18 06:15 07/26/18 06:15 PT 16.2 Seconds (9.8-13.1) H 07/23/18 11:25 INR 1.4 07/23/18 11:25 APTT 31.2 Seconds (25.6-37.1) 07/23/18 11:25 - Head Exam Head Exam: ATRAUMATIC - Eye Exam Eye Exam: Normal appearance Pupil Exam: PERRL - ENT Exam ENT Exam: Normal Exam - Neck Exam Neck Exam: Normal Inspection - Respiratory Exam Respiratory Exam: Clear to Ausculation Bilateral - Cardiovascular Exam Cardiovascular Exam: REGULAR RHYTHM, +S1, +S2 - GI/Abdominal Exam GI & Abdominal Exam: Soft, Normal Bowel Sounds. absent: Tenderness Assessment and Plan (1) Pelvic abscess Assessment & Plan: Feels better after IR drainage of pelvic abscess . For elective colonoscopy as outpatient. Status: Acute
[2018-07-27] MEDS: metroNIDAZOLE 500mg/100ml NS 100 ML IVPB SCH ×3 (02:58→18:00)
[2018-07-27] MEDS: Piperacillin/Tazobact 3.375 GM in Sodium Chloride 0.9% 100 ML IVPB SCH ×4 (04:11→21:50)
[2018-07-27] MEDS ORDERED: Iohexol 240 (50 ml) PO ONE (05:00)
[2018-07-27] MEDS ORDERED: Barium Sulfate Susp 60% w/v, 41% w/w 355 ml Bottle PO ONE (05:00)
[2018-07-27] MEDS: Levothyroxine 88 MCG TAB PO SCH (06:42)
[2018-07-27 07:14] LABS: HEMOGLOBIN 9.3 g/dL (12.0-16.0); MEAN CELL VOLUME 83.4 fl (81.0-99.0); MEAN CORPUSCULAR HEMOGLOBIN 26.9 pg (27.0-31.0); MEAN CORPUSCULAR HGB CONC 32.3 g/dL (33.0-37.0); RBC 3.44 Mil/uL (3.80-5.20); RED CELL DISTRIBUTION WIDTH 17.5 % (11.5-14.5); WHITE BLOOD COUNT 9.1 K/uL (4.8-10.8)
[2018-07-27 07:44] LABS: ALB/GLOB RATIO 0.9 (1.0-2.1); ALBUMIN 3.3 g/dL (3.5-5.0); ALT/SGPT 30 U/L (9-52); AST/SGOT 20 U/L (14-36); BLOOD UREA NITROGEN 8 mg/dl (7-17); CALCIUM 8.7 mg/dL (8.4-10.2); GFR NON-AFRICAN AMERICAN > 60
[2018-07-27] MEDS ORDERED: Sodium Chloride 0.9% 50 ML IV ONE (08:59)
[2018-07-27] MEDS ORDERED: Iohexol 300 100 ML IJ ONE (08:59)
--- NOTE | 2018-07-27 09:41 | CP.PCM.PN ---
Subjective - Date & Time of Evaluation Date of Evaluation: 07/27/18 Time of Evaluation: 09:41 - Subjective Subjective: seen at bedside, no overnight events. pt is tolerating regular diet, no nausea or vomiting. Pt is tolerating diet, +BM, Flatus. Minimal drainage from drain. gen: awake, alert, NAD HEENT: NC/AT, EOMI, PERRLA, -DEYSI Resp: no acute respiratory distress abd: soft, NT,ND ext: no calf tenderness a/p s/p drainage of pelvic abscess -cont diet -repeat CT scan -pending read but abscess seems to have resolved, will d/c with IR for drain removal -f/u cultures -pt stable from surgery perspective for dc -needs Abx as per ID recs -needs to follow up with GI for outpatient colonoscopy -f/u in Surgery office - Dr. Crowell after colonoscopy - Objective - Vital Signs/Intake and Output Vital Signs (last 24 hours): Temp Pulse Resp BP Pulse Ox 97.1 F L 84 20 138/85 97 07/27/18 08:36 07/27/18 08:36 07/27/18 08:36 07/27/18 08:36 07/27/18 08:36 - Medications Medications: Current Medications Acetaminophen (Tylenol 325mg Tab) 650 mg PO Q6 PRN PRN Reason: Pain, Mild (1-3) Last Admin: 07/26/18 05:39 Dose: 650 mg Alprazolam (Xanax) 0.5 mg PO Q8 PRN PRN Reason: Anxiety Last Admin: 07/26/18 22:26 Dose: 0.5 mg Docusate Sodium (Colace) 100 mg PO BID [facility] Last Admin: 07/26/18 16:07 Dose: 100 mg Ferrous Sulfate (Feosol) 325 mg PO BID [facility] Last Admin: 07/26/18 16:07 Dose: 325 mg Hydromorphone HCl (Dilaudid) 0.5 mg IVP Q10M PRN PRN Reason: Pain, moderate (4-7) Metronidazole (Flagyl 500mg/100ml Ns) 100 mls @ 100 mls/hr IVPB Q8H [facility]; Protocol Last Admin: 07/27/18 02:58 Dose: 100 mls/hr Piperacillin Sod/Tazobactam (Sod 3.375 gm/ Sodium Chloride) 100 mls @ 100 mls/hr IVPB Q6 [facility]; Protocol Last Admin: 07/27/18 04:11 Dose: 100 mls/hr Levothyroxine Sodium (Synthroid) 88 mcg PO DAILY@0630 [facility] Last Admin: 07/27/18 06:42 Dose: 88 mcg Morphine Sulfate (Morphine) 2 mg IVP Q4 PRN PRN Reason: Pain, severe (8-10) Last Admin: 07/26/18 19:08 Dose: 2 mg Oxycodone HCl (Oxycodone Immediate Release Tab) 5 mg PO Q6 PRN PRN Reason: Pain, moderate (4-7) Polyethylene Glycol (Miralax) 17 gm PO BID [facility] Last Admin: 07/26/18 16:09 Dose: 17 gm - Labs Labs: 07/27/18 06:35 07/27/18 06:35 PT 16.2 Seconds (9.8-13.1) H 07/23/18 11:25 INR 1.4 07/23/18 11:25 APTT 31.2 Seconds (25.6-37.1) 07/23/18 11:25
[2018-07-27] MEDS: POLYETHYLENE GLYCOL 3350 17 GM/Dose PACKET PO SCH ×2 (09:46→16:41)
--- NOTE | 2018-07-27 11:07 | CP.PCM.PN ---
Subjective - Date & Time of Evaluation Date of Evaluation: 07/27/18 Time of Evaluation: 08:15 - Subjective Subjective: Pt seen and examined at bedside. Denies acute overnight events. Tolerating normal PO diet; experiencing normal bowel movements. Still draining per rectal drain. Objective - Vital Signs/Intake and Output Vital Signs (last 24 hours): Temp Pulse Resp BP Pulse Ox 97.1 F L 84 20 138/85 97 07/27/18 08:36 07/27/18 08:36 07/27/18 08:36 07/27/18 08:36 07/27/18 08:36 - Medications Medications: Current Medications Acetaminophen (Tylenol 325mg Tab) 650 mg PO Q6 PRN PRN Reason: Pain, Mild (1-3) Last Admin: 07/26/18 05:39 Dose: 650 mg Alprazolam (Xanax) 0.5 mg PO Q8 PRN PRN Reason: Anxiety Last Admin: 07/27/18 10:52 Dose: 0.5 mg Docusate Sodium (Colace) 100 mg PO BID [facility] Last Admin: 07/27/18 09:46 Dose: 100 mg Ferrous Sulfate (Feosol) 325 mg PO BID [facility] Last Admin: 07/27/18 09:46 Dose: 325 mg Hydromorphone HCl (Dilaudid) 0.5 mg IVP Q10M PRN PRN Reason: Pain, moderate (4-7) Metronidazole (Flagyl 500mg/100ml Ns) 100 mls @ 100 mls/hr IVPB Q8H [facility]; Protocol Last Admin: 07/27/18 02:58 Dose: 100 mls/hr Piperacillin Sod/Tazobactam (Sod 3.375 gm/ Sodium Chloride) 100 mls @ 100 mls/hr IVPB Q6 [facility]; Protocol Last Admin: 07/27/18 09:47 Dose: 100 mls/hr Levothyroxine Sodium (Synthroid) 88 mcg PO DAILY@0630 [facility] Last Admin: 07/27/18 06:42 Dose: 88 mcg Morphine Sulfate (Morphine) 2 mg IVP Q4 PRN PRN Reason: Pain, severe (8-10) Last Admin: 07/26/18 19:08 Dose: 2 mg Oxycodone HCl (Oxycodone Immediate Release Tab) 5 mg PO Q6 PRN PRN Reason: Pain, moderate (4-7) Polyethylene Glycol (Miralax) 17 gm PO BID [facility] Last Admin: 07/27/18 09:46 Dose: 17 gm - Labs Labs: 07/27/18 06:35 07/27/18 06:35 PT 16.2 Seconds (9.8-13.1) H 07/23/18 11:25 INR 1.4 07/23/18 11:25 APTT 31.2 Seconds (25.6-37.1) 07/23/18 11:25 - Constitutional Appears: Well, No Acute Distress - Eye Exam Eye Exam: EOMI - ENT Exam ENT Exam: Mucous Membranes Moist - Neck Exam Neck Exam: Full ROM - Respiratory Exam Respiratory Exam: Clear to Ausculation Bilateral, NORMAL BREATHING PATTERN. absent: Wheezes - Cardiovascular Exam Cardiovascular Exam: REGULAR RHYTHM, +S1, +S2 - GI/Abdominal Exam GI & Abdominal Exam: Soft, Normal Bowel Sounds. absent: Tenderness - Rectal Exam Additional comments: Rectal drain in place: still draining dark serosanguinous fluid - Extremities Exam Extremities Exam: Full ROM - Neurological Exam Neurological Exam: Alert, Awake, CN II-XII Intact, Oriented x3 - Psychiatric Exam Psychiatric exam: Normal Affect, Normal Mood Assessment and Plan - Assessment and Plan (Free Text) Assessment: 63 yo F pmhx of hypothyroid, and anxiety was sent to ED per Dr. Silver for abdominal abscess incidentally found on outpatient abdo CT. Plan: Abdo CT: 7 x 6 cm abscess in pelvis anterior to recto-sigmoid; extralumenal air collecting - repeat: Transrectal decompression of left pelvic pericolic abscess now measuring 4.7 x 5.2 cm compared prior outside CT 07/22/2018. Oral contrast material is identified within the lumen of the abscess at this time. Continued clinical and CT follow-up are advised through the pelvis. Stable dilated CBD without radiodense choledocholithiasis evident. Gallbladder distended but otherwise unremarkable appearing. Mild anasarca noted. Blood and Urine culture: no growth Abdominal abcess: -s/p IR transrectal abscess drain placement -Incidental finding on CT -occult blood positive -Surgery Dr. Gonzales -GI consult Dr Tohmpson -ID consult: Dr. Greene -IR Dr. Sherman: to flush drain and continue monitor -Antbx: Zosyn IV, Flagyl IV -Still draining with abscess now measuring 4.7x5.2 cm Anemia: -H/H: 9.1/27.6 today; s/p PRBC 2 unit transfused -Positive Occult blood stool received -GI consult Dr Thompson, planning for OP colonoscopy after IR drainage to evaluate cause of abscess and anemia -Feosol BID -f/u CBC Hypothyroid: -c/w levothyroxine 88 mcg DVT prophylaxis: -SCDs -Pt actively ambulating Case and plan d/w Dr. Pérez Espinosa MD PGY2
--- NOTE | 2018-07-27 12:13 | CT ---
Date of service: 07/27/2018 PROCEDURE: CT Abdomen and Pelvis with contrast HISTORY: follow CT COMPARISON: Abdomen pelvis CT with contrast 07/22/2018 from outside institution. TECHNIQUE: Following oral and intravenous contrast administration, a CT examination of the abdomen and pelvis was performed from the domes of the diaphragms to the symphysis pubis with reformatted datasets provided not only axial but also sagittal and coronal series. Contrast dose: Omnipaque 300, 90 cc Radiation dose: Total exam DLP = 278.14 mGy-cm. This CT exam was performed using one or more of the following dose reduction techniques: Automated exposure control, adjustment of the mA and/or kV according to patient size, and/or use of iterative reconstruction technique. FINDINGS: LOWER THORAX: Unremarkable. LIVER: Tiny lucency seen at the hepatic dome with liver appearing upper limits normal size. A small lucency too small to characterize at the left lobe not appreciate the prior CT potentially representing a tiny benign hemangioma. GALLBLADDER AND BILE DUCTS: Distended but otherwise unremarkable. Stable prominence of the common bile duct is appreciated which measures up to 9 mm at its midportion tapering to a normal caliber at the distal segment. No radiodense choledocholithiasis appreciated once again. PANCREAS: Unremarkable. No gross lesion or ductal dilatation. SPLEEN: Unremarkable. ADRENALS: Unremarkable. No mass. KIDNEYS AND URETERS: Unremarkable. No hydronephrosis. No solid mass. VASCULATURE: Unremarkable. No aortic aneurysm. No aortic atherosclerotic calcification or mural plaque present. BOWEL: Left-sided pelvic abscess, presumably related to sigmoid segmental colitis, possible diverticulitis, is now somewhat decompressed by patent drainage catheter apparently by transrectal approach. Oral contrast is identified adjacent to the catheter suggesting communication with the rectum or possibly the sigmoid colon. The abscess measures 4.7 x 5.2 cm compared to 6.7 x 7.4 cm on 07/22/2018. Lack of intra peritoneal fat, a nodule in the abdomen and also the pelvis limits definition of tissue planes between bowel loops in the pelvis in particular. Continued clinical and CT monitoring are advised. No obstruction. Remaining opacified bowel loops appear unremarkable grossly particularly the vast majority of the colon which is well opacified with oral contrast material. APPENDIX: No CT evidence to suggest appendicitis at this time. PERITONEUM: Subtle anasarca identified. No free fluid. No free air. LYMPH NODES: Unremarkable. No enlarged lymph nodes. BLADDER: Unremarkable. REPRODUCTIVE: Unremarkable. BONES: Gross disc height loss seen throughout the majority of the lumbar spine indicating advanced degenerative disease, particularly at the L2-3 level. OTHER FINDINGS: None. IMPRESSION: Transrectal decompression of left pelvic pericolic abscess now measuring 4.7 x 5.2 cm compared prior outside CT 07/22/2018. Oral contrast material is identified within the lumen of the abscess at this time. Continued clinical and CT follow-up are advised through the pelvis. Stable dilated CBD without radiodense choledocholithiasis evident. Gallbladder distended but otherwise unremarkable appearing. Mild anasarca noted.
--- NOTE | 2018-07-27 17:28 | CP.PCM.PN ---
Subjective - Date & Time of Evaluation Date of Evaluation: 07/27/18 Time of Evaluation: 17:25 - Subjective Subjective: I D NOTE DRAIN IS STILL IN,CT SCAN SHOWS THE CONTINUED PRESENCE OF FLUID OF FUID(ABSCESS) INITIAL CULTURE GREW STREP. CONTINUE IV ANTIBIOTICS Objective - Vital Signs/Intake and Output Vital Signs (last 24 hours): Temp Pulse Resp BP Pulse Ox 98.4 F 88 18 129/75 99 07/27/18 16:28 07/27/18 16:28 07/27/18 16:28 07/27/18 16:28 07/27/18 16:28 - Medications Medications: Current Medications Acetaminophen (Tylenol 325mg Tab) 650 mg PO Q6 PRN PRN Reason: Pain, Mild (1-3) Last Admin: 07/26/18 05:39 Dose: 650 mg Alprazolam (Xanax) 0.5 mg PO Q8 PRN PRN Reason: Anxiety Last Admin: 07/27/18 10:52 Dose: 0.5 mg Docusate Sodium (Colace) 100 mg PO BID [facility] Last Admin: 07/27/18 16:41 Dose: 100 mg Ferrous Sulfate (Feosol) 325 mg PO BID [facility] Last Admin: 07/27/18 16:41 Dose: 325 mg Hydromorphone HCl (Dilaudid) 0.5 mg IVP Q10M PRN PRN Reason: Pain, moderate (4-7) Metronidazole (Flagyl 500mg/100ml Ns) 100 mls @ 100 mls/hr IVPB Q8H [facility]; Protocol Last Admin: 07/27/18 12:18 Dose: 100 mls/hr Piperacillin Sod/Tazobactam (Sod 3.375 gm/ Sodium Chloride) 100 mls @ 100 mls/hr IVPB Q6 [facility]; Protocol Last Admin: 07/27/18 16:41 Dose: 100 mls/hr Levothyroxine Sodium (Synthroid) 88 mcg PO DAILY@0630 [facility] Last Admin: 07/27/18 06:42 Dose: 88 mcg Morphine Sulfate (Morphine) 2 mg IVP Q4 PRN PRN Reason: Pain, severe (8-10) Last Admin: 07/26/18 19:08 Dose: 2 mg Oxycodone HCl (Oxycodone Immediate Release Tab) 5 mg PO Q6 PRN PRN Reason: Pain, moderate (4-7) Polyethylene Glycol (Miralax) 17 gm PO BID [facility] Last Admin: 07/27/18 16:41 Dose: 17 gm - Labs Labs: 07/27/18 06:35 07/27/18 06:35 PT 16.2 Seconds (9.8-13.1) H 07/23/18 11:25 INR 1.4 07/23/18 11:25 APTT 31.2 Seconds (25.6-37.1) 07/23/18 11:25
[2018-07-27] MEDS: Morphine 4 MG/ML VIAL IVP PRN (17:52)
[2018-07-28] MEDS: Morphine 4 MG/ML VIAL IVP PRN ×2 (01:13→16:26)
[2018-07-28] MEDS: metroNIDAZOLE 500mg/100ml NS 100 ML IVPB SCH ×3 (04:00→19:21)
[2018-07-28] MEDS: Piperacillin/Tazobact 3.375 GM in Sodium Chloride 0.9% 100 ML IVPB SCH ×4 (05:00→21:03)
[2018-07-28] MEDS: Levothyroxine 88 MCG TAB PO SCH (05:53)
[2018-07-28 06:33] LABS: HEMOGLOBIN 8.4 g/dL (12.0-16.0); MEAN CELL VOLUME 81.1 fl (81.0-99.0); MEAN CORPUSCULAR HEMOGLOBIN 27.4 pg (27.0-31.0); MEAN CORPUSCULAR HGB CONC 33.7 g/dL (33.0-37.0); RBC 3.07 Mil/uL (3.80-5.20); RED CELL DISTRIBUTION WIDTH 17.4 % (11.5-14.5); WHITE BLOOD COUNT 5.1 K/uL (4.8-10.8)
[2018-07-28 06:40] LABS: BLOOD UREA NITROGEN 7 mg/dl (7-17); CALCIUM 8.5 mg/dL (8.4-10.2); GFR NON-AFRICAN AMERICAN > 60
--- NOTE | 2018-07-28 07:50 | CP.PCM.PN ---
<Adrienne Cortezirasema - Last Filed: 07/28/18 07:47> Subjective - Date & Time of Evaluation Date of Evaluation: 07/28/18 Time of Evaluation: 07:50 - Subjective Subjective: General Surgery For Dr. Crowell 63 y/o female patient was seen and examined this AM at bedside, no acute events overnight. Patient is POD3 s/p IR US guided transrectal drain placement. She denies any fevers chills chest pain. Patient complains of minimal pain to the drain insertion site, patient has had multiple bowel movements, and states she feels overall improved. Feculent drainage noted in the drain, 20cc drained at this time with 40cc overnight Objective - Vital Signs/Intake and Output Vital Signs (last 24 hours): Temp Pulse Resp BP Pulse Ox 97.5 F L 71 18 114/72 97 07/28/18 00:11 07/28/18 00:11 07/28/18 00:11 07/28/18 00:11 07/28/18 00:11 Intake and Output: 07/28/18 07/28/18 06:59 18:59 Output Total 40 Balance -40 - Medications Medications: Current Medications Acetaminophen (Tylenol 325mg Tab) 650 mg PO Q6 PRN PRN Reason: Pain, Mild (1-3) Last Admin: 07/26/18 05:39 Dose: 650 mg Alprazolam (Xanax) 0.5 mg PO Q8 PRN PRN Reason: Anxiety Last Admin: 07/27/18 10:52 Dose: 0.5 mg Docusate Sodium (Colace) 100 mg PO BID [facility] Last Admin: 07/27/18 16:41 Dose: 100 mg Ferrous Sulfate (Feosol) 325 mg PO BID [facility] Last Admin: 07/27/18 16:41 Dose: 325 mg Hydromorphone HCl (Dilaudid) 0.5 mg IVP Q10M PRN PRN Reason: Pain, moderate (4-7) Metronidazole (Flagyl 500mg/100ml Ns) 100 mls @ 100 mls/hr IVPB Q8H [facility]; Protocol Last Admin: 07/28/18 04:00 Dose: 100 mls/hr Piperacillin Sod/Tazobactam (Sod 3.375 gm/ Sodium Chloride) 100 mls @ 100 mls/hr IVPB Q6 [facility]; Protocol Last Admin: 07/28/18 05:00 Dose: 100 mls/hr Levothyroxine Sodium (Synthroid) 88 mcg PO DAILY@0630 [facility] Last Admin: 07/28/18 05:53 Dose: 88 mcg Morphine Sulfate (Morphine) 2 mg IVP Q4 PRN PRN Reason: Pain, severe (8-10) Last Admin: 07/28/18 01:13 Dose: 2 mg Oxycodone HCl (Oxycodone Immediate Release Tab) 5 mg PO Q6 PRN PRN Reason: Pain, moderate (4-7) Polyethylene Glycol (Miralax) 17 gm PO BID [facility] Last Admin: 07/27/18 16:41 Dose: 17 gm - Labs Labs: 07/28/18 05:45 07/28/18 05:45 PT 16.2 Seconds (9.8-13.1) H 07/23/18 11:25 INR 1.4 07/23/18 11:25 APTT 31.2 Seconds (25.6-37.1) 07/23/18 11:25 - Constitutional Appears: Well, Non-toxic, No Acute Distress - Head Exam Head Exam: NORMAL INSPECTION - Eye Exam Eye Exam: Normal appearance - ENT Exam ENT Exam: Mucous Membranes Moist - Respiratory Exam Respiratory Exam: Clear to Ausculation Bilateral - Cardiovascular Exam Cardiovascular Exam: REGULAR RHYTHM, +S1, +S2 - GI/Abdominal Exam GI & Abdominal Exam: Soft, Normal Bowel Sounds. absent: Distended, Firm, Guarding, Rigid - Extremities Exam Extremities Exam: absent: Calf Tenderness - Neurological Exam Neurological Exam: Alert, Awake, Oriented x3 - Psychiatric Exam Psychiatric exam: Normal Affect, Normal Mood - Skin Skin Exam: Normal Color Assessment and Plan - Assessment and Plan (Free Text) Assessment: 63 y/o female with pelvic abscess POD3 s/p IR US guided transrectal drain placement Plan: cont diet CT scan (07/27)- 4.5 x 5 cm collection with some contrast repeat CT on 07/29 Abscess Culture- streptococcus species needs Abx as per ID recs needs to follow up with GI for outpatient colonoscopy f/u in Surgery office - Dr. Crowell after colonoscopy case discussed with Dr. Socrates Cortez, PGY1 <Armaan Crowell - Last Filed: 07/28/18 11:55> Subjective - Subjective Subjective: pt seen at bedside, resting comfortably. Pt remains afebrile, hemodynamically stable. Pt is tolerating diet, no nausea or vomiting. Drain in place 50cc feculent like material gen: awake, alert, NAD no acute respiratory distress abd: soft, NT, some distention to lower abdomen, no peritoneal signs, drain in place ext: no edema b/l, no calf tenderness a/p 63yo F s/p IR drainage of pelvic abscess of unknown etiology -pt clinically doing well, not septic, abdominal exam benign -recommend cont IV abx -keep drain in place -pt will be dc with drain in place -PO abx as per ID -no acute surgical intervention, recommend outpatient colonoscopy and further surgical management pending colonoscopy results d/w with pt and at bedside Objective - Vital Signs/Intake and Output Vital Signs (last 24 hours): Temp Pulse Resp BP Pulse Ox 97.9 F 78 20 118/85 100 07/28/18 08:25 07/28/18 08:25 07/28/18 08:25 07/28/18 08:25 07/28/18 08:25 Intake and Output: 07/28/18 07/28/18 06:59 18:59 Output Total 40 Balance -40 - Medications Medications: Current Medications Acetaminophen (Tylenol 325mg Tab) 650 mg PO Q6 PRN PRN Reason: Pain, Mild (1-3) Last Admin: 07/26/18 05:39 Dose: 650 mg Alprazolam (Xanax) 0.5 mg PO Q8 PRN PRN Reason: Anxiety Last Admin: 07/28/18 09:21 Dose: 0.5 mg Docusate Sodium (Colace) 100 mg PO BID [facility] Last Admin: 07/28/18 09:14 Dose: 100 mg Ferrous Sulfate (Feosol) 325 mg PO BID [facility] Last Admin: 07/28/18 09:14 Dose: 325 mg Hydromorphone HCl (Dilaudid) 0.5 mg IVP Q10M PRN PRN Reason: Pain, moderate (4-7) Metronidazole (Flagyl 500mg/100ml Ns) 100 mls @ 100 mls/hr IVPB Q8H [facility]; Protocol Last Admin: 07/28/18 04:00 Dose: 100 mls/hr Piperacillin Sod/Tazobactam (Sod 3.375 gm/ Sodium Chloride) 100 mls @ 100 mls/hr IVPB Q6 [facility]; Protocol Last Admin: 07/28/18 09:14 Dose: 100 mls/hr Levothyroxine Sodium (Synthroid) 88 mcg PO DAILY@0630 [facility] Last Admin: 07/28/18 05:53 Dose: 88 mcg Morphine Sulfate (Morphine) 2 mg IVP Q4 PRN PRN Reason: Pain, severe (8-10) Last Admin: 07/28/18 01:13 Dose: 2 mg Oxycodone HCl (Oxycodone Immediate Release Tab) 5 mg PO Q6 PRN PRN Reason: Pain, moderate (4-7) Polyethylene Glycol (Miralax) 17 gm PO BID [facility] Last Admin: 07/28/18 09:13 Dose: Not Given - Labs Labs: 07/28/18 05:45 07/28/18 05:45 PT 16.2 Seconds (9.8-13.1) H 07/23/18 11:25 INR 1.4 07/23/18 11:25 APTT 31.2 Seconds (25.6-37.1) 07/23/18 11:25
[2018-07-28] MEDS: POLYETHYLENE GLYCOL 3350 17 GM/Dose PACKET PO SCH ×2 (09:13→16:17)
[2018-07-28] MEDS: Potassium Chloride 20 mEq/15 ml LIQ UD PO SCH ×2 (09:25→10:15)
--- NOTE | 2018-07-28 09:30 | CP.PCM.PN ---
<EspinosaBoone - Last Filed: 07/28/18 11:53> Subjective - Date & Time of Evaluation Date of Evaluation: 07/28/18 Time of Evaluation: 07:45 - Subjective Subjective: Pt seen and examined at bedside this am. Denies acute overnight events. Tolerating PO diet, regular BM. Ambulating without difficulty Objective - Vital Signs/Intake and Output Vital Signs (last 24 hours): Temp Pulse Resp BP Pulse Ox 97.9 F 78 20 118/85 100 07/28/18 08:25 07/28/18 08:25 07/28/18 08:25 07/28/18 08:25 07/28/18 08:25 Intake and Output: 07/28/18 07/28/18 06:59 18:59 Output Total 40 Balance -40 - Medications Medications: Current Medications Acetaminophen (Tylenol 325mg Tab) 650 mg PO Q6 PRN PRN Reason: Pain, Mild (1-3) Last Admin: 07/26/18 05:39 Dose: 650 mg Alprazolam (Xanax) 0.5 mg PO Q8 PRN PRN Reason: Anxiety Last Admin: 07/28/18 09:21 Dose: 0.5 mg Docusate Sodium (Colace) 100 mg PO BID [facility] Last Admin: 07/28/18 09:14 Dose: 100 mg Ferrous Sulfate (Feosol) 325 mg PO BID [facility] Last Admin: 07/28/18 09:14 Dose: 325 mg Hydromorphone HCl (Dilaudid) 0.5 mg IVP Q10M PRN PRN Reason: Pain, moderate (4-7) Metronidazole (Flagyl 500mg/100ml Ns) 100 mls @ 100 mls/hr IVPB Q8H [facility]; Protocol Last Admin: 07/28/18 04:00 Dose: 100 mls/hr Piperacillin Sod/Tazobactam (Sod 3.375 gm/ Sodium Chloride) 100 mls @ 100 mls/hr IVPB Q6 [facility]; Protocol Last Admin: 07/28/18 09:14 Dose: 100 mls/hr Levothyroxine Sodium (Synthroid) 88 mcg PO DAILY@0630 [facility] Last Admin: 07/28/18 05:53 Dose: 88 mcg Morphine Sulfate (Morphine) 2 mg IVP Q4 PRN PRN Reason: Pain, severe (8-10) Last Admin: 07/28/18 01:13 Dose: 2 mg Oxycodone HCl (Oxycodone Immediate Release Tab) 5 mg PO Q6 PRN PRN Reason: Pain, moderate (4-7) Polyethylene Glycol (Miralax) 17 gm PO BID [facility] Last Admin: 07/28/18 09:13 Dose: Not Given Potassium Chloride (Potassium Chloride Oral Soln) 40 meq PO Q2 [facility] Stop: 07/28/18 10:01 Last Admin: 07/28/18 09:25 Dose: 40 meq - Labs Labs: 07/28/18 05:45 07/28/18 05:45 PT 16.2 Seconds (9.8-13.1) H 07/23/18 11:25 INR 1.4 07/23/18 11:25 APTT 31.2 Seconds (25.6-37.1) 07/23/18 11:25 - Constitutional Appears: Well, No Acute Distress - Eye Exam Eye Exam: EOMI - ENT Exam ENT Exam: Mucous Membranes Moist - Respiratory Exam Respiratory Exam: Clear to Ausculation Bilateral, NORMAL BREATHING PATTERN. absent: Wheezes - Cardiovascular Exam Cardiovascular Exam: REGULAR RHYTHM, +S1, +S2 - GI/Abdominal Exam GI & Abdominal Exam: Soft, Normal Bowel Sounds. absent: Tenderness - Rectal Exam Additional comments: Pt with drain in place; draining 10 cc s/p flush this AM - Back Exam Back Exam: absent: CVA tenderness (L), CVA tenderness (R) - Neurological Exam Neurological Exam: Alert, Awake, CN II-XII Intact, Normal Gait, Oriented x3 - Psychiatric Exam Psychiatric exam: Normal Affect, Normal Mood Assessment and Plan - Assessment and Plan (Free Text) Assessment: 63 yo F pmhx of hypothyroidism, and anxiety was sent to ED per Dr. Silver for abdominal abscess incidentally found on outpatient abdo CT. Plan: Abdo CT: 7 x 6 cm abscess in pelvis anterior to recto-sigmoid; extralumenal air collecting -repeat: Transrectal decompression of left pelvic pericolic abscess now measuring 4.7 x 5.2 cm compared prior outside CT 07/22/2018. Oral contrast material is identified within the lumen of the abscess at this time. Continued clinical and CT follow-up are advised through the pelvis. Stable dilated CBD without radiodense choledocholithiasis evident. Gallbladder distended but other blevins unremarkable appearing. Mild anasarca noted. -Repeat: 07/29/2018: pending Blood and Urine culture: no growth Abdominal abcess: -s/p IR transrectal abscess pig tail drain placement -Incidental finding on CT -occult blood positive -Surgery Dr. Gonzales -GI consult Dr Thompson -ID consult: Dr. Greene -IR Dr. Sherman: to flush drain and continue monitor f/u CT abdo -Abx: Zosyn IV, Flagyl IV -Still draining with abscess now measuring 4.7x5.2 cm -f/u CT abdo: 07/29/2018 Anemia: -H/H: 8.4/24.9 today; s/p PRBC 2 unit transfused -Positive Occult blood stool received -GI consult Dr Thompson, planning for OP colonoscopy after IR drainage to evaluate cause of abscess and anemia -Feosol BID -f/u CBC Hypothyroid: -c/w levothyroxine 88 mcg DVT prophylaxis: -SCDs -Pt actively ambulating Case and plan d/w Dr. Alex Espinosa MD PGY2 <Charity Johnson - Last Filed: 07/29/18 16:20> Objective - Vital Signs/Intake and Output Vital Signs (last 24 hours): Temp Pulse Resp BP Pulse Ox 97.7 F 97 H 20 144/97 H 100 07/29/18 08:20 07/29/18 08:20 07/29/18 08:20 07/29/18 08:20 07/29/18 08:20 Intake and Output: 07/29/18 07/29/18 06:59 18:59 Output Total 10 Balance -10 - Medications Medications: Current Medications Acetaminophen (Tylenol 325mg Tab) 650 mg PO Q6 PRN PRN Reason: Pain, Mild (1-3) Last Admin: 07/29/18 11:49 Dose: 650 mg Alprazolam (Xanax) 0.5 mg PO Q8 PRN PRN Reason: Anxiety Last Admin: 07/29/18 13:06 Dose: 0.5 mg Docusate Sodium (Colace) 100 mg PO BID [facility] Last Admin: 07/29/18 16:15 Dose: Not Given Ferrous Sulfate (Feosol) 325 mg PO BID [facility] Last Admin: 07/29/18 16:16 Dose: 325 mg Hydromorphone HCl (Dilaudid) 0.5 mg IVP Q10M PRN PRN Reason: Pain, moderate (4-7) Metronidazole (Flagyl 500mg/100ml Ns) 100 mls @ 100 mls/hr IVPB Q8H [facility]; Protocol Last Admin: 07/29/18 12:48 Dose: 100 mls/hr Piperacillin Sod/Tazobactam (Sod 3.375 gm/ Sodium Chloride) 100 mls @ 100 mls/hr IVPB Q6 [facility]; Protocol Last Admin: 07/29/18 09:58 Dose: 100 mls/hr Levothyroxine Sodium (Synthroid) 88 mcg PO DAILY@0630 [facility] Last Admin: 07/29/18 06:03 Dose: Not Given Morphine Sulfate (Morphine) 2 mg IVP Q4 PRN PRN Reason: Pain, severe (8-10) Last Admin: 07/28/18 16:26 Dose: 2 mg Oxycodone HCl (Oxycodone Immediate Release Tab) 5 mg PO Q6 PRN PRN Reason: Pain, moderate (4-7) Polyethylene Glycol (Miralax) 17 gm PO BID [facility] Last Admin: 07/29/18 16:16 Dose: Not Given - Labs Labs: 07/29/18 05:35 07/29/18 05:35 PT 16.2 Seconds (9.8-13.1) H 07/23/18 11:25 INR 1.4 07/23/18 11:25 APTT 31.2 Seconds (25.6-37.1) 07/23/18 11:25 Attending/Attestation - Attestation I have personally seen and examined this patient.: Yes I have fully participated in the care of the patient.: Yes I have reviewed all pertinent clinical information, including history, physical exam and plan: Yes Notes (Text): 07/29/18 16:20 Agree with findings and plan as above.
[2018-07-28] MEDS: Iohexol 240 (50 ml) PO ONE ×2 (19:57→20:10)
--- NOTE | 2018-07-29 00:20 | CP.PCM.PN ---
Subjective - Date & Time of Evaluation Date of Evaluation: 07/28/18 Time of Evaluation: 09:00 - Subjective Subjective: Patient feeling well. Less abdominal discomfort. Objective - Vital Signs/Intake and Output Vital Signs (last 24 hours): Temp Pulse Resp BP Pulse Ox 98.4 F 76 18 131/83 99 07/28/18 23:41 07/28/18 23:41 07/28/18 23:41 07/28/18 23:41 07/28/18 23:41 - Medications Medications: Current Medications Acetaminophen (Tylenol 325mg Tab) 650 mg PO Q6 PRN PRN Reason: Pain, Mild (1-3) Last Admin: 07/26/18 05:39 Dose: 650 mg Alprazolam (Xanax) 0.5 mg PO Q8 PRN PRN Reason: Anxiety Last Admin: 07/28/18 21:03 Dose: 0.5 mg Docusate Sodium (Colace) 100 mg PO BID [facility] Last Admin: 07/28/18 16:17 Dose: 100 mg Ferrous Sulfate (Feosol) 325 mg PO BID [facility] Last Admin: 07/28/18 16:17 Dose: 325 mg Hydromorphone HCl (Dilaudid) 0.5 mg IVP Q10M PRN PRN Reason: Pain, moderate (4-7) Metronidazole (Flagyl 500mg/100ml Ns) 100 mls @ 100 mls/hr IVPB Q8H [facility]; Protocol Last Admin: 07/28/18 19:21 Dose: 100 mls/hr Piperacillin Sod/Tazobactam (Sod 3.375 gm/ Sodium Chloride) 100 mls @ 100 mls/hr IVPB Q6 [facility]; Protocol Last Admin: 07/28/18 21:03 Dose: 100 mls/hr Levothyroxine Sodium (Synthroid) 88 mcg PO DAILY@0630 [facility] Last Admin: 07/28/18 05:53 Dose: 88 mcg Morphine Sulfate (Morphine) 2 mg IVP Q4 PRN PRN Reason: Pain, severe (8-10) Last Admin: 07/28/18 16:26 Dose: 2 mg Oxycodone HCl (Oxycodone Immediate Release Tab) 5 mg PO Q6 PRN PRN Reason: Pain, moderate (4-7) Polyethylene Glycol (Miralax) 17 gm PO BID [facility] Last Admin: 07/28/18 16:17 Dose: Not Given - Labs Labs: 07/28/18 05:45 07/28/18 05:45 PT 16.2 Seconds (9.8-13.1) H 07/23/18 11:25 INR 1.4 07/23/18 11:25 APTT 31.2 Seconds (25.6-37.1) 07/23/18 11:25 - Head Exam Head Exam: ATRAUMATIC - Eye Exam Eye Exam: Normal appearance - ENT Exam ENT Exam: Normal Exam - Neck Exam Neck Exam: Full ROM - Respiratory Exam Respiratory Exam: Clear to Ausculation Bilateral, NORMAL BREATHING PATTERN - Cardiovascular Exam Cardiovascular Exam: +S1, +S2 - GI/Abdominal Exam GI & Abdominal Exam: Soft. absent: Tenderness Assessment and Plan (1) Pelvic abscess Assessment & Plan: Abscess somewhat smaller after catheter drainage though still significant in size. Possible connection to colon. Discussed with Surgery and olonoscopy to be avoided for now to avoid free perforation. Flush catheter and follow clinically. Will need colonoscopy after several weeks. Status: Acute
[2018-07-29] MEDS: metroNIDAZOLE 500mg/100ml NS 100 ML IVPB SCH ×3 (03:00→18:27)
[2018-07-29] MEDS: Piperacillin/Tazobact 3.375 GM in Sodium Chloride 0.9% 100 ML IVPB SCH ×4 (04:17→21:05)
[2018-07-29] MEDS: Levothyroxine 88 MCG TAB PO SCH (06:03)
[2018-07-29 06:37] LABS: HEMOGLOBIN 9.5 g/dL (12.0-16.0); MEAN CELL VOLUME 82.7 fl (81.0-99.0); MEAN CORPUSCULAR HEMOGLOBIN 26.7 pg (27.0-31.0); MEAN CORPUSCULAR HGB CONC 32.3 g/dL (33.0-37.0); RBC 3.56 Mil/uL (3.80-5.20); WHITE BLOOD COUNT 7.2 K/uL (4.8-10.8)
[2018-07-29 06:51] LABS: BLOOD UREA NITROGEN 8 mg/dl (7-17); CALCIUM 8.7 mg/dL (8.4-10.2); GFR NON-AFRICAN AMERICAN > 60
[2018-07-29] MEDS: Iohexol 240 (50 ml) PO ONE (07:09)
--- NOTE | 2018-07-29 07:31 | CP.PCM.PN ---
<See Sethi - Last Filed: 07/29/18 12:56> Subjective - Date & Time of Evaluation Date of Evaluation: 07/29/18 Time of Evaluation: 08:00 - Subjective Subjective: General Surgery For Dr. Crowell Patient seen and examined this AM at bedside. No acute event overnight. Patient is POD4 s/p IR US guided transrectal drain placement. Patient only wants to speak to Dr. Charity Johnson. She is against any surgery or procedure. Feculent output noted in the drain, 10cc/24hrs. Objective - Vital Signs/Intake and Output Vital Signs (last 24 hours): Temp Pulse Resp BP Pulse Ox 98.4 F 76 18 131/83 99 07/28/18 23:41 07/28/18 23:41 07/28/18 23:41 07/28/18 23:41 07/28/18 23:41 Intake and Output: 07/29/18 07/29/18 06:59 18:59 Output Total 10 Balance -10 - Medications Medications: Current Medications Acetaminophen (Tylenol 325mg Tab) 650 mg PO Q6 PRN PRN Reason: Pain, Mild (1-3) Last Admin: 07/26/18 05:39 Dose: 650 mg Alprazolam (Xanax) 0.5 mg PO Q8 PRN PRN Reason: Anxiety Last Admin: 07/28/18 21:03 Dose: 0.5 mg Docusate Sodium (Colace) 100 mg PO BID [facility] Last Admin: 07/28/18 16:17 Dose: 100 mg Ferrous Sulfate (Feosol) 325 mg PO BID [facility] Last Admin: 07/28/18 16:17 Dose: 325 mg Hydromorphone HCl (Dilaudid) 0.5 mg IVP Q10M PRN PRN Reason: Pain, moderate (4-7) Metronidazole (Flagyl 500mg/100ml Ns) 100 mls @ 100 mls/hr IVPB Q8H [facility]; Protocol Last Admin: 07/29/18 03:00 Dose: 100 mls/hr Piperacillin Sod/Tazobactam (Sod 3.375 gm/ Sodium Chloride) 100 mls @ 100 mls/hr IVPB Q6 [facility]; Protocol Last Admin: 07/29/18 04:17 Dose: 100 mls/hr Levothyroxine Sodium (Synthroid) 88 mcg PO DAILY@0630 [facility] Last Admin: 07/29/18 06:03 Dose: Not Given Morphine Sulfate (Morphine) 2 mg IVP Q4 PRN PRN Reason: Pain, severe (8-10) Last Admin: 07/28/18 16:26 Dose: 2 mg Oxycodone HCl (Oxycodone Immediate Release Tab) 5 mg PO Q6 PRN PRN Reason: Pain, moderate (4-7) Polyethylene Glycol (Miralax) 17 gm PO BID [facility] Last Admin: 07/28/18 16:17 Dose: Not Given - Labs Labs: 07/29/18 05:35 07/29/18 05:35 PT 16.2 Seconds (9.8-13.1) H 07/23/18 11:25 INR 1.4 07/23/18 11:25 APTT 31.2 Seconds (25.6-37.1) 07/23/18 11:25 - Additional Findings Additional findings: - Constitutional Appears: Well, Non-toxic, No Acute Distress - Head Exam Head Exam: NORMAL INSPECTION - Eye Exam Eye Exam: Normal appearance - ENT Exam ENT Exam: Mucous Membranes Moist - Respiratory Exam Respiratory Exam: Clear to Ausculation Bilateral - Cardiovascular Exam Cardiovascular Exam: REGULAR RHYTHM, +S1, +S2 - GI/Abdominal Exam GI & Abdominal Exam: Soft, Normal Bowel Sounds. absent: Distended, Firm, Guarding, Rigid - Rectal Exam Rectal Exam: s/p transrectal drainage, drain in place with feculent output - Extremities Exam Extremities Exam: absent: Calf Tenderness - Neurological Exam Neurological Exam: Alert, Awake, Oriented x3 - Psychiatric Exam Psychiatric exam: Normal Affect, Normal Mood - Skin Skin Exam: Normal Color Assessment and Plan - Assessment and Plan (Free Text) Assessment: 63 F with pelvic abscess POD4 s/p IR US guided transrectal drain placement Plan: Diet as tolerated f/u repeat CT abd/pelvis with IV & PO contrast today Abscess Culture- streptococcus species Abx as per ID needs to follow up with GI for outpatient colonoscopy f/u in Surgery office - Dr. Crowell after colonoscopy Discussed with Dr. Jhonathan Sethi PGY2 <Cristofer Ring - Last Filed: 07/29/18 13:35> Subjective - Date & Time of Evaluation Time of Evaluation: 13:15 - Subjective Subjective: Patient was seen and examined at the bedside. Agree with resident's note above. Objective - Vital Signs/Intake and Output Vital Signs (last 24 hours): Temp Pulse Resp BP Pulse Ox 97.7 F 97 H 20 144/97 H 100 07/29/18 08:20 07/29/18 08:20 07/29/18 08:20 07/29/18 08:20 07/29/18 08:20 Intake and Output: 07/29/18 07/29/18 06:59 18:59 Output Total 10 Balance -10 - Medications Medications: Current Medications Acetaminophen (Tylenol 325mg Tab) 650 mg PO Q6 PRN PRN Reason: Pain, Mild (1-3) Last Admin: 07/29/18 11:49 Dose: 650 mg Alprazolam (Xanax) 0.5 mg PO Q8 PRN PRN Reason: Anxiety Last Admin: 07/29/18 13:06 Dose: 0.5 mg Docusate Sodium (Colace) 100 mg PO BID [facility] Last Admin: 07/29/18 09:57 Dose: Not Given Ferrous Sulfate (Feosol) 325 mg PO BID [facility] Last Admin: 07/29/18 09:57 Dose: 325 mg Hydromorphone HCl (Dilaudid) 0.5 mg IVP Q10M PRN PRN Reason: Pain, moderate (4-7) Metronidazole (Flagyl 500mg/100ml Ns) 100 mls @ 100 mls/hr IVPB Q8H [facility]; Protocol Last Admin: 07/29/18 12:48 Dose: 100 mls/hr Piperacillin Sod/Tazobactam (Sod 3.375 gm/ Sodium Chloride) 100 mls @ 100 mls/hr IVPB Q6 [facility]; Protocol Last Admin: 07/29/18 09:58 Dose: 100 mls/hr Levothyroxine Sodium (Synthroid) 88 mcg PO DAILY@0630 [facility] Last Admin: 07/29/18 06:03 Dose: Not Given Morphine Sulfate (Morphine) 2 mg IVP Q4 PRN PRN Reason: Pain, severe (8-10) Last Admin: 07/28/18 16:26 Dose: 2 mg Oxycodone HCl (Oxycodone Immediate Release Tab) 5 mg PO Q6 PRN PRN Reason: Pain, moderate (4-7) Polyethylene Glycol (Miralax) 17 gm PO BID [facility] Last Admin: 07/29/18 09:57 Dose: Not Given - Labs Labs: 07/29/18 05:35 07/29/18 05:35 PT 16.2 Seconds (9.8-13.1) H 07/23/18 11:25 INR 1.4 07/23/18 11:25 APTT 31.2 Seconds (25.6-37.1) 07/23/18 11:25
[2018-07-29] MEDS: POLYETHYLENE GLYCOL 3350 17 GM/Dose PACKET PO SCH ×2 (09:57→16:16)
--- NOTE | 2018-07-29 10:32 | CP.PCM.PN ---
<EspinosaBoone - Last Filed: 07/29/18 15:22> Subjective - Date & Time of Evaluation Date of Evaluation: 07/29/18 Time of Evaluation: 07:45 - Subjective Subjective: Pt seen and examined at bedside. Denies acute overnight events. Pigtail draining. tolerating po diet and normal bm. Objective - Vital Signs/Intake and Output Vital Signs (last 24 hours): Temp Pulse Resp BP Pulse Ox 97.7 F 97 H 20 144/97 H 100 07/29/18 08:20 07/29/18 08:20 07/29/18 08:20 07/29/18 08:20 07/29/18 08:20 Intake and Output: 07/29/18 07/29/18 06:59 18:59 Output Total 10 Balance -10 - Medications Medications: Current Medications Acetaminophen (Tylenol 325mg Tab) 650 mg PO Q6 PRN PRN Reason: Pain, Mild (1-3) Last Admin: 07/26/18 05:39 Dose: 650 mg Alprazolam (Xanax) 0.5 mg PO Q8 PRN PRN Reason: Anxiety Last Admin: 07/28/18 21:03 Dose: 0.5 mg Docusate Sodium (Colace) 100 mg PO BID [facility] Last Admin: 07/29/18 09:57 Dose: Not Given Ferrous Sulfate (Feosol) 325 mg PO BID [facility] Last Admin: 07/29/18 09:57 Dose: 325 mg Hydromorphone HCl (Dilaudid) 0.5 mg IVP Q10M PRN PRN Reason: Pain, moderate (4-7) Metronidazole (Flagyl 500mg/100ml Ns) 100 mls @ 100 mls/hr IVPB Q8H [facility]; Protocol Last Admin: 07/29/18 03:00 Dose: 100 mls/hr Piperacillin Sod/Tazobactam (Sod 3.375 gm/ Sodium Chloride) 100 mls @ 100 mls/hr IVPB Q6 [facility]; Protocol Last Admin: 07/29/18 09:58 Dose: 100 mls/hr Levothyroxine Sodium (Synthroid) 88 mcg PO DAILY@0630 [facility] Last Admin: 07/29/18 06:03 Dose: Not Given Morphine Sulfate (Morphine) 2 mg IVP Q4 PRN PRN Reason: Pain, severe (8-10) Last Admin: 07/28/18 16:26 Dose: 2 mg Oxycodone HCl (Oxycodone Immediate Release Tab) 5 mg PO Q6 PRN PRN Reason: Pain, moderate (4-7) Polyethylene Glycol (Miralax) 17 gm PO BID [facility] Last Admin: 07/29/18 09:57 Dose: Not Given - Labs Labs: 07/29/18 05:35 07/29/18 05:35 PT 16.2 Seconds (9.8-13.1) H 07/23/18 11:25 INR 1.4 07/23/18 11:25 APTT 31.2 Seconds (25.6-37.1) 07/23/18 11:25 - Constitutional Appears: Well, No Acute Distress - Eye Exam Eye Exam: EOMI - ENT Exam ENT Exam: Mucous Membranes Moist - Respiratory Exam Respiratory Exam: Clear to Ausculation Bilateral, NORMAL BREATHING PATTERN. absent: Wheezes - Cardiovascular Exam Cardiovascular Exam: REGULAR RHYTHM, +S1, +S2 - GI/Abdominal Exam GI & Abdominal Exam: Soft, Normal Bowel Sounds. absent: Tenderness - Back Exam Back Exam: absent: CVA tenderness (L), CVA tenderness (R) - Neurological Exam Neurological Exam: Alert, Awake, CN II-XII Intact, Normal Gait, Oriented x3 - Psychiatric Exam Psychiatric exam: Normal Affect, Normal Mood Assessment and Plan - Assessment and Plan (Free Text) Assessment: 63 yo F pmhx of hypothyroidism, and anxiety was sent to ED per Dr. Silver for abdominal abscess incidentally found on outpatient abdo CT. Plan: Abdo CT: 7 x 6 cm abscess in pelvis anterior to recto-sigmoid; extralumenal air collecting -repeat: Transrectal decompression of left pelvic pericolic abscess now measuring 4.7 x 5.2 cm compared prior outside CT 07/22/2018. Oral contrast material is identified within the lumen of the abscess at this time. Continued clinical and CT follow-up are advised through the pelvis. Stable dilated CBD without radiodense choledocholithiasis evident. Gallbladder distended but otherwise unremarkable appearing. Mild anasarca noted. -Repeat: 07/29/2018: pending official report Blood and Urine culture: no growth Abdominal abcess: -s/p IR transrectal abscess pig tail drain placement -Incidental finding on CT -occult blood positive -Surgery Dr. Gonzales -GI consult Dr Thompson: consider barium enema -ID consult: Dr. Greene: recommends continued IV abx -IR Dr. Sherman: to flush drain and continue monitor f/u CT abdo -Abx: Zosyn IV, Flagyl IV -Still draining with abscess now measuring 4.7x5.2 cm -f/u CT abdo Anemia: -H/H: 9.5/29.4 today; s/p PRBC 2 unit transfused -Positive Occult blood stool received -GI consult Dr Thompson, planning for OP colonoscopy after IR drainage to evaluate cause of abscess and anemia -Feosol BID -f/u CBC Hypothyroid: -c/w levothyroxine 88 mcg DVT prophylaxis: -SCDs -Pt actively ambulating Case and plan d/w Dr. Alex Espinosa MD PGY2 <Charity Johnson - Last Filed: 07/29/18 16:14> Objective - Vital Signs/Intake and Output Vital Signs (last 24 hours): Temp Pulse Resp BP Pulse Ox 97.7 F 97 H 20 144/97 H 100 07/29/18 08:20 07/29/18 08:20 07/29/18 08:20 07/29/18 08:20 07/29/18 08:20 Intake and Output: 07/29/18 07/29/18 06:59 18:59 Output Total 10 Balance -10 - Medications Medications: Current Medications Acetaminophen (Tylenol 325mg Tab) 650 mg PO Q6 PRN PRN Reason: Pain, Mild (1-3) Last Admin: 07/29/18 11:49 Dose: 650 mg Alprazolam (Xanax) 0.5 mg PO Q8 PRN PRN Reason: Anxiety Last Admin: 07/29/18 13:06 Dose: 0.5 mg Docusate Sodium (Colace) 100 mg PO BID [facility] Last Admin: 07/29/18 09:57 Dose: Not Given Ferrous Sulfate (Feosol) 325 mg PO BID [facility] Last Admin: 07/29/18 09:57 Dose: 325 mg Hydromorphone HCl (Dilaudid) 0.5 mg IVP Q10M PRN PRN Reason: Pain, moderate (4-7) Metronidazole (Flagyl 500mg/100ml Ns) 100 mls @ 100 mls/hr IVPB Q8H [facility]; Protocol Last Admin: 07/29/18 12:48 Dose: 100 mls/hr Piperacillin Sod/Tazobactam (Sod 3.375 gm/ Sodium Chloride) 100 mls @ 100 mls/hr IVPB Q6 [facility]; Protocol Last Admin: 07/29/18 09:58 Dose: 100 mls/hr Levothyroxine Sodium (Synthroid) 88 mcg PO DAILY@0630 [facility] Last Admin: 07/29/18 06:03 Dose: Not Given Morphine Sulfate (Morphine) 2 mg IVP Q4 PRN PRN Reason: Pain, severe (8-10) Last Admin: 07/28/18 16:26 Dose: 2 mg Oxycodone HCl (Oxycodone Immediate Release Tab) 5 mg PO Q6 PRN PRN Reason: Pain, moderate (4-7) Polyethylene Glycol (Miralax) 17 gm PO BID [facility] Last Admin: 07/29/18 09:57 Dose: Not Given - Labs Labs: 07/29/18 05:35 07/29/18 05:35 PT 16.2 Seconds (9.8-13.1) H 07/23/18 11:25 INR 1.4 07/23/18 11:25 APTT 31.2 Seconds (25.6-37.1) 07/23/18 11:25 Attending/Attestation - Attestation I have personally seen and examined this patient.: Yes I have fully participated in the care of the patient.: Yes I have reviewed all pertinent clinical information, including history, physical exam and plan: Yes Notes (Text): 07/29/18 16:14 Agree with findings and plan as above.
[2018-07-29] MEDS ORDERED: Iohexol 300 100 ML IJ ONE (10:59)
[2018-07-29] MEDS ORDERED: Sodium Chloride 0.9% 50 ML IV ONE (10:59)
--- NOTE | 2018-07-29 14:00 | CP.PCM.DIS ---
Provider - Provider Date of Admission: 07/23/18 12:08 Attending physician: Charity Johnson DO Consults: 07/23/18 12:57 Surgery [General Surgery Consult] Stat Comment: Consulting Provider: Cheikh Garcia Consulting Physician: Cheikh Garcia Reason for Consult: pelvic abscess (d/w Dr Gonzales covering Dr Garcia) 07/23/18 14:48 Pastoral Care Referral Routine Comment: Physician Instructions: Reason For Exam: Pt request [employer] visit. Thank you! 07/23/18 18:06 Infectious Disease Consult Routine Comment: Consulting Provider: Chapito Greene Consulting Physician: Chapito Greene Reason for Consult: Pelvic Abscess 07/23/18 18:46 Gastroenterology Consult Routine Comment: Consulting Provider: Bijan Thompson Consulting Physician: Bijan Thompson Reason for Consult: GI BLEED,ABSCES Time Spent in preparation of Discharge (in minutes): 30 Hospital Course - Lab Results Lab Results: Micro Results 07/25/18 15:00 Abscess - Pelvic Gram Stain - Final 07/25/18 15:00 Abscess - Pelvic Wound Culture - Final Gram Positive Cocci 07/23/18 11:25 Blood Blood Culture - Final NO GROWTH AFTER 5 DAYS 07/23/18 11:25 Blood Gram Stain - Final TEST NOT PERFORMED 07/23/18 11:00 Urine,Clean Catch Urine Culture - Final No Growth (<1,000 CFU/ML) Most Recent Lab Values WBC 7.2 K/uL (4.8-10.8) 07/29/18 05:35 RBC 3.56 Mil/uL (3.80-5.20) L 07/29/18 05:35 Hgb 9.5 g/dL (12.0-16.0) L 07/29/18 05:35 Hct 29.4 % (34.0-47.0) L 07/29/18 05:35 MCV 82.7 fl (81.0-99.0) 07/29/18 05:35 MCH 26.7 pg (27.0-31.0) L 07/29/18 05:35 MCHC 32.3 g/dL (33.0-37.0) L 07/29/18 05:35 RDW 18.0 % (11.5-14.5) H 07/29/18 05:35 Plt Count 555 K/uL (130-400) H 07/29/18 05:35 MPV 6.8 fl (7.2-11.7) L 07/26/18 06:15 Neut % (Auto) 85.2 % (50.0-75.0) H 07/26/18 06:15 Lymph % (Auto) 10.1 % (20.0-40.0) L 07/26/18 06:15 [place] % (Auto) 4.2 % (0.0-10.0) 07/26/18 06:15 Eos % (Auto) 0.1 % (0.0-4.0) 07/26/18 06:15 Baso % (Auto) 0.4 % (0.0-2.0) 07/26/18 06:15 Neut # (Auto) 9.4 K/uL (1.8-7.0) H 07/26/18 06:15 Lymph # (Auto) 1.1 K/uL (1.0-4.3) 07/26/18 06:15 [place] # (Auto) 0.5 K/uL (0.0-0.8) 07/26/18 06:15 Eos # (Auto) 0.0 K/uL (0.0-0.7) 07/26/18 06:15 Baso # (Auto) 0.0 K/uL (0.0-0.2) 07/26/18 06:15 PT 16.2 Seconds (9.8-13.1) H 07/23/18 11:25 INR 1.4 07/23/18 11:25 APTT 31.2 Seconds (25.6-37.1) 07/23/18 11:25 pO2 25 mm/Hg (30-55) L 07/23/18 11:10 VBG pH 7.41 (7.32-7.43) 07/23/18 11:10 VBG pCO2 47 mmHg (40-60) 07/23/18 11:10 VBG HCO3 27.4 mmol/L 07/23/18 11:10 VBG Total CO2 31.2 mmol/L (22-28) H 07/23/18 11:10 VBG O2 Sat (Calc) 42.9 % (40-65) 07/23/18 11:10 VBG Base Excess 4.5 mmol/L (0.0-2.0) H 07/23/18 11:10 VBG Potassium 3.8 mmol/L (3.6-5.2) 07/23/18 11:10 Sodium 134.0 mmol/L (132-148) 07/23/18 11:10 Chloride 102.0 mmol/L (98-107) 07/23/18 11:10 Glucose 103 mg/dL (65-105) 07/23/18 11:10 Lactate 0.8 mmol/L (0.7-2.1) 07/23/18 11:10 FiO2 21.0 % 07/23/18 11:10 Sodium 139 mmol/l (132-148) 07/29/18 05:35 Potassium 4.0 MMOL/L (3.6-5.0) 07/29/18 05:35 Chloride 103 mmol/L (98-107) 07/29/18 05:35 Carbon Dioxide 25 mmol/L (22-30) 07/29/18 05:35 Anion Gap 15 (10-20) 07/29/18 05:35 BUN 8 mg/dl (7-17) 07/29/18 05:35 Creatinine 0.6 mg/dl (0.7-1.2) L 07/29/18 05:35 Est GFR ( Amer) > 60 07/29/18 05:35 Est GFR (Non-Af Amer) > 60 07/29/18 05:35 Random Glucose 88 mg/dL (65-105) 07/29/18 05:35 Lactic Acid 2.8 mmol/L (0.7-2.1) H 07/23/18 18:53 Calcium 8.7 mg/dL (8.4-10.2) 07/29/18 05:35 Phosphorus 3.4 mg/dl (2.5-4.5) 07/26/18 06:15 Magnesium 1.9 MG/DL (1.6-2.3) 07/26/18 06:15 Iron 20 ug/dL (37-170) L 07/23/18 14:00 Ferritin 225.0 ng/Ml (11.1-264.0) 07/23/18 11:25 Total Bilirubin 0.4 mg/dl (0.2-1.3) 07/27/18 06:35 AST 20 U/L (14-36) 07/27/18 06:35 ALT 30 U/L (9-52) 07/27/18 06:35 Alkaline Phosphatase 104 U/L (38-126) 07/27/18 06:35 Total Protein 7.0 G/DL (6.3-8.2) 07/27/18 06:35 Albumin 3.3 g/dL (3.5-5.0) L 07/27/18 06:35 Globulin 3.7 gm/dL (2.2-3.9) 07/27/18 06:35 Albumin/Globulin Ratio 0.9 (1.0-2.1) L 07/27/18 06:35 Lipase 46 U/L (23-300) 07/23/18 11:25 TSH 3rd Generation 4.35 mIU/ML (0.46-4.68) 07/25/18 12:00 Venous Blood Potassium 3.8 mmol/L (3.6-5.2) 07/23/18 11:10 Urine Color Straw (YELLOW) 07/23/18 11:25 Urine Clarity Clear (Clear) 07/23/18 11:25 Urine pH 7.0 (5.0-8.0) 07/23/18 11:25 Ur Specific [place] 1.005 (1.003-1.030) 07/23/18 11:25 Urine Protein Negative mg/dL (NEGATIVE) 07/23/18 11:25 Urine Glucose (UA) Neg mg/dL (NEGATIVE) 07/23/18 11:25 Urine Ketones Negative mg/dL (NEGATIVE) 07/23/18 11:25 Urine Blood Small (NEGATIVE) 07/23/18 11:25 Urine Nitrate Negative (NEGATIVE) 07/23/18 11:25 Urine Bilirubin Negative (NEGATIVE) 07/23/18 11:25 Urine Urobilinogen 0.2-1.0 mg/dL (0.2-1.0) 07/23/18 11:25 Ur Leukocyte Esterase Neg Johny/uL (Negative) 07/23/18 11:25 Urine RBC (Auto) < 1 /hpf (0-3) 07/23/18 11:25 Urine Microscopic WBC 1 /hpf (0-5) 07/23/18 11:25 Stool Occult Blood Positive (NEGATIVE) H 07/23/18 15:28 Blood Type A POSITIVE 07/23/18 11:43 Blood Type Confirm A POSITIVE 07/23/18 13:15 Antibody Screen Negative 07/23/18 11:43 Crossmatch See Detail 07/23/18 11:43 BBK History Checked No verified bt 07/23/18 11:43 - Hospital Course Hospital Course: 63 yo F pmhx of hypothyroidism, and anxiety was sent to ED per Dr. Yusuf for abdominal abscess incidentally found on outpatient abdo CT. Plan: Abdo CT: 7 x 6 cm abscess in pelvis anterior to recto-sigmoid; extralumenal air collecting -repeat: Transrectal decompression of left pelvic pericolic abscess now measuring 4.7 x 5.2 cm compared prior outside CT 07/22/2018. Oral contrast material is identified within the lumen of the abscess at this time. Continued clinical and CT follow-up are advised through the pelvis. Stable dilated CBD without radiodense choledocholithiasis evident. Gallbladder distended but otherwise unremarkable appearing. Mild anasarca noted. -Repeat: 07/29/2018: pending Blood and Urine culture: no growth Abdominal abcess: -s/p IR transrectal abscess pig tail drain placement -Incidental finding on CT -occult blood positive -Surgery Dr. Gonzales -GI consult Dr Thompson -ID consult: Dr. Greene -IR Dr. Sherman: to flush drain and continue monitor f/u CT abdo -Abx: Zosyn IV, Flagyl IV -Still draining with abscess now measuring 4.7x5.2 cm -f/u CT abdo: 07/29/2018 Anemia: -H/H: 8.4/24.9 today; s/p PRBC 2 unit transfused -Positive Occult blood stool received -GI consult Dr Thompson, planning for OP colonoscopy after IR drainage to evaluate cause of abscess and anemia -Feosol BID -f/u CBC Hypothyroid: -c/w levothyroxine 88 mcg DVT prophylaxis: -SCDs -Pt actively ambulating Case and plan d/w Dr. Alex Espinosa MD PGY2 Discharge Exam - Head Exam Head Exam: ATRAUMATIC - Eye Exam Eye Exam: EOMI - Respiratory Exam Respiratory Exam: Clear to PA & Lateral, NORMAL BREATHING PATTERN. absent: Wheezes - Cardiovascular Exam Cardiovascular Exam: REGULAR RHYTHM, +S1, +S2 - GI/Abdominal Exam GI & Abdominal Exam: Normal Bowel Sounds, Soft. absent: Tenderness Discharge Plan - Follow Up Plan Condition: FAIR Disposition: HOME/ ROUTINE Instructions: Anemia Caused by Low Iron, Adult (DC), Abscess Incision and Drainage (DC), How to Keep Track of Your Drainage, Abscess (GEN) Additional Instructions: follow up with your primary MD and surgeon 1 week [facility] visiting nurse [phone] Referrals: David Yusuf MD [Staff Provider] - Cheikh Garcia MD [Staff Provider] - Chapito Greene MD [Medical Doctor] - Bijan Thompson MD [Staff Provider] -
--- NOTE | 2018-07-29 15:19 | CT ---
Date of service: 07/29/2018 PROCEDURE: CT Abdomen and Pelvis with contrast HISTORY: evaluate abscess COMPARISON: ABDOMEN PELVIS CT WITH CONTRAST 07/27/2018. TECHNIQUE: Following oral and intravenous contrast administration, a CT examination of the abdomen and pelvis was performed from the domes of the diaphragms to the symphysis pubis with reformatted datasets provided not only axial but also sagittal and coronal series. Contrast dose: Omnipaque 300, 95 cc Radiation dose: Total exam DLP = 362.67 mGy-cm. This CT exam was performed using one or more of the following dose reduction techniques: Automated exposure control, adjustment of the mA and/or kV according to patient size, and/or use of iterative reconstruction technique. FINDINGS: LOWER THORAX: Unremarkable. LIVER: Concentrated oral contrast in the stomach generates tremendous streak artifacts obscuring upper abdominal evaluation. Lucencies at the dome of the liver as well as left lobe are reiterated and unchanged in the interval. GALLBLADDER AND BILE DUCTS: Prominent gallbladder distension persists as well as common bile duct dilatation, now up to 10 mm in fact. No interval radiodense choledocholithiasis identified. PANCREAS: Unremarkable. No gross lesion or ductal dilatation. SPLEEN: Unremarkable. ADRENALS: Unremarkable. No mass. KIDNEYS AND URETERS: Unremarkable. No hydronephrosis. No solid mass. VASCULATURE: Unremarkable. No aortic aneurysm. No aortic atherosclerotic calcification or mural plaque present. BOWEL: Segmental colitis pattern remains suggested at the distal sigmoid and potentially even the rectum APPENDIX: Normal appendix. PERITONEUM: Peritoneal abscess at the left paracentral pelvis measures 4.7 x 5.9 cm compared to 4.7 x 5.2 cm previously. Transrectal drainage catheter in situ once again. Correlate with daily drainage volumes from catheter. Increased gas is seen in the lumen which may be distending the abscess cavity somewhat. There is a stable small abscess medial to the prior abscess cavity, presumably noncommunicating with primary cavity measuring 2.6 x 3.5 cm. Anasarca pattern reiterated. LYMPH NODES: Unremarkable. No enlarged lymph nodes. BLADDER: Unremarkable. REPRODUCTIVE: Unremarkable. BONES: No acute fracture. OTHER FINDINGS: None. IMPRESSION: Borderline increase in left paracentral pelvic peritoneal abscess cavity measuring 4.7 x 5.9 cm compared to 4.7 x 5.2 cm previously. Majority of this changes likely a function of increased gas. Correlate with daily drainage volumes from transrectal drainage catheter which remains in situ. A separate smaller abscess cavity seen inferomedial to the draining primary abscess cavity may not communicate with the main cavity and therefore be separate completely. No interval change in size in this cavity. Segmental colitis and potential proctitis pattern stable but limited evaluation given lack of oral contrast transit through this segment and anasarca pattern..
[2018-07-29] MEDS: Morphine 4 MG/ML VIAL IVP PRN (18:27)
--- NOTE | 2018-07-29 18:54 | CP.PCM.PN ---
Subjective - Date & Time of Evaluation Date of Evaluation: 07/29/18 Time of Evaluation: 18:50 - Subjective Subjective: I D NOTE AFEBRILE HAS PAIN,BUT APPEARS COMFORTABLE MINIMAL DRAINAGE,CT NOTED NEEDS IV ANTIBIOTICS,WOULD CONTINUE PRESENT REGIMEN Objective - Vital Signs/Intake and Output Vital Signs (last 24 hours): Temp Pulse Resp BP Pulse Ox 97.7 F 78 20 121/77 98 07/29/18 16:20 07/29/18 16:20 07/29/18 16:20 07/29/18 16:20 07/29/18 16:20 Intake and Output: 07/29/18 07/29/18 06:59 18:59 Output Total 10 Balance -10 - Medications Medications: Current Medications Acetaminophen (Tylenol 325mg Tab) 650 mg PO Q6 PRN PRN Reason: Pain, Mild (1-3) Last Admin: 07/29/18 11:49 Dose: 650 mg Alprazolam (Xanax) 0.5 mg PO Q8 PRN PRN Reason: Anxiety Last Admin: 07/29/18 13:06 Dose: 0.5 mg Docusate Sodium (Colace) 100 mg PO BID [facility] Last Admin: 07/29/18 16:15 Dose: Not Given Ferrous Sulfate (Feosol) 325 mg PO BID [facility] Last Admin: 07/29/18 16:16 Dose: 325 mg Hydromorphone HCl (Dilaudid) 0.5 mg IVP Q10M PRN PRN Reason: Pain, moderate (4-7) Metronidazole (Flagyl 500mg/100ml Ns) 100 mls @ 100 mls/hr IVPB Q8H [facility]; Protocol Last Admin: 07/29/18 18:27 Dose: 100 mls/hr Piperacillin Sod/Tazobactam (Sod 3.375 gm/ Sodium Chloride) 100 mls @ 100 mls/hr IVPB Q6 [facility]; Protocol Last Admin: 07/29/18 16:25 Dose: 100 mls/hr Levothyroxine Sodium (Synthroid) 88 mcg PO DAILY@0630 [facility] Last Admin: 07/29/18 06:03 Dose: Not Given Morphine Sulfate (Morphine) 2 mg IVP Q4 PRN PRN Reason: Pain, severe (8-10) Last Admin: 07/29/18 18:27 Dose: 2 mg Oxycodone HCl (Oxycodone Immediate Release Tab) 5 mg PO Q6 PRN PRN Reason: Pain, moderate (4-7) Polyethylene Glycol (Miralax) 17 gm PO BID [facility] Last Admin: 07/29/18 16:16 Dose: Not Given - Labs Labs: 07/29/18 05:35 07/29/18 05:35 PT 16.2 Seconds (9.8-13.1) H 07/23/18 11:25 INR 1.4 07/23/18 11:25 APTT 31.2 Seconds (25.6-37.1) 07/23/18 11:25
[2018-07-30] MEDS: metroNIDAZOLE 500mg/100ml NS 100 ML IVPB SCH ×3 (02:43→18:04)
[2018-07-30] MEDS: Piperacillin/Tazobact 3.375 GM in Sodium Chloride 0.9% 100 ML IVPB SCH ×4 (04:01→21:08)
--- NOTE | 2018-07-30 05:58 | CP.PCM.PN ---
<See Sethi - Last Filed: 07/30/18 07:26> Subjective - Date & Time of Evaluation Date of Evaluation: 07/30/18 Time of Evaluation: 07:26 - Subjective Subjective: General Surgery Note For Dr. Weinstein Patient seen this AM. No acute event overnight. Patient only wants to speak to Dr. Charity Johnson or specific attendings. She is still against any surgery or procedure. Transrectal drain with feculent output at 10cc/24hrs. Repeat CT abd/pelvis with IV & PO contrast yesterday revealed no decrease in abscess and suggests possible loculation (see full report). Objective - Vital Signs/Intake and Output Vital Signs (last 24 hours): Temp Pulse Resp BP Pulse Ox 98.8 F 77 18 122/78 93 L 07/30/18 00:24 07/30/18 00:24 07/30/18 00:24 07/30/18 00:24 07/30/18 00:24 - Medications Medications: Current Medications Acetaminophen (Tylenol 325mg Tab) 650 mg PO Q6 PRN PRN Reason: Pain, Mild (1-3) Last Admin: 07/30/18 02:54 Dose: 650 mg Alprazolam (Xanax) 0.5 mg PO Q8 PRN PRN Reason: Anxiety Last Admin: 07/29/18 22:29 Dose: 0.5 mg Docusate Sodium (Colace) 100 mg PO BID [facility] Last Admin: 07/29/18 16:15 Dose: Not Given Ferrous Sulfate (Feosol) 325 mg PO BID [facility] Last Admin: 07/29/18 16:16 Dose: 325 mg Hydromorphone HCl (Dilaudid) 0.5 mg IVP Q10M PRN PRN Reason: Pain, moderate (4-7) Metronidazole (Flagyl 500mg/100ml Ns) 100 mls @ 100 mls/hr IVPB Q8H [facility]; Protocol Last Admin: 07/30/18 02:43 Dose: 100 mls/hr Piperacillin Sod/Tazobactam (Sod 3.375 gm/ Sodium Chloride) 100 mls @ 100 mls/hr IVPB Q6 [facility]; Protocol Last Admin: 07/30/18 04:01 Dose: 100 mls/hr Levothyroxine Sodium (Synthroid) 88 mcg PO DAILY@0630 [facility] Last Admin: 07/29/18 06:03 Dose: Not Given Morphine Sulfate (Morphine) 2 mg IVP Q4 PRN PRN Reason: Pain, severe (8-10) Last Admin: 07/29/18 18:27 Dose: 2 mg Oxycodone HCl (Oxycodone Immediate Release Tab) 5 mg PO Q6 PRN PRN Reason: Pain, moderate (4-7) Polyethylene Glycol (Miralax) 17 gm PO BID [facility] Last Admin: 07/29/18 16:16 Dose: Not Given - Labs Labs: 07/29/18 05:35 07/29/18 05:35 PT 16.2 Seconds (9.8-13.1) H 07/23/18 11:25 INR 1.4 07/23/18 11:25 APTT 31.2 Seconds (25.6-37.1) 07/23/18 11:25 - Constitutional Appears: Non-toxic, No Acute Distress - Neurological Exam Neurological Exam: Alert, Awake, Normal Gait, Oriented x3 - Additional Findings Additional findings: Patient refusing physical exam by surgical residents Assessment and Plan - Assessment and Plan (Free Text) Assessment: 63 F with pelvic abscess s/p IR US guided transrectal drain placement POD#5 Plan: Diet as tolerated Abscess Culture - streptococcus species Abx as per ID needs to follow up with GI for outpatient colonoscopy f/u as outpatient with Dr. Crowell Discussed with Dr. Js Sethi PGY2 <Claudio Weinstein - Last Filed: 07/30/18 12:22> Objective - Vital Signs/Intake and Output Vital Signs (last 24 hours): Temp Pulse Resp BP Pulse Ox 97.8 F 76 19 126/78 97 07/30/18 08:06 07/30/18 08:06 07/30/18 08:06 07/30/18 08:06 07/30/18 08:06 - Medications Medications: Current Medications Acetaminophen (Tylenol 325mg Tab) 650 mg PO Q6 PRN PRN Reason: Pain, Mild (1-3) Last Admin: 07/30/18 09:42 Dose: 650 mg Alprazolam (Xanax) 0.5 mg PO Q8 PRN PRN Reason: Anxiety Last Admin: 07/29/18 22:29 Dose: 0.5 mg Docusate Sodium (Colace) 100 mg PO BID [facility] Last Admin: 07/30/18 09:35 Dose: Not Given Enoxaparin Sodium (Lovenox) 40 mg SC DAILY [facility]; Protocol Last Admin: 07/30/18 09:36 Dose: 40 mg Ferrous Sulfate (Feosol) 325 mg PO BID [facility] Last Admin: 07/30/18 09:36 Dose: 325 mg Hydromorphone HCl (Dilaudid) 0.5 mg IVP Q10M PRN PRN Reason: Pain, moderate (4-7) Metronidazole (Flagyl 500mg/100ml Ns) 100 mls @ 100 mls/hr IVPB Q8H [facility]; Protocol Last Admin: 07/30/18 11:12 Dose: 100 mls/hr Piperacillin Sod/Tazobactam (Sod 3.375 gm/ Sodium Chloride) 100 mls @ 100 mls/hr IVPB Q6 [facility]; Protocol Last Admin: 07/30/18 09:34 Dose: 100 mls/hr Levothyroxine Sodium (Synthroid) 88 mcg PO DAILY@0630 [facility] Last Admin: 07/30/18 07:18 Dose: 88 mcg Morphine Sulfate (Morphine) 2 mg IVP Q4 PRN PRN Reason: Pain, severe (8-10) Last Admin: 07/29/18 18:27 Dose: 2 mg Oxycodone HCl (Oxycodone Immediate Release Tab) 5 mg PO Q6 PRN PRN Reason: Pain, moderate (4-7) Polyethylene Glycol (Miralax) 17 gm PO BID [facility] Last Admin: 07/30/18 09:36 Dose: Not Given - Labs Labs: 07/30/18 05:30 07/30/18 05:30 PT 16.2 Seconds (9.8-13.1) H 07/23/18 11:25 INR 1.4 07/23/18 11:25 APTT 31.2 Seconds (25.6-37.1) 07/23/18 11:25 Assessment and Plan - Assessment and Plan (Free Text) Plan: cont abx for now, pt will need repeat CT scan, will discuss with IR regarding drainage cath
[2018-07-30] MEDS: Levothyroxine 88 MCG TAB PO SCH (07:18)
[2018-07-30 07:44] LABS: BASO % 0.7 % (0.0-2.0); EOS # 0.1 K/uL (0.0-0.7); EOS % 1.8 % (0.0-4.0); HEMOGLOBIN 9.5 g/dL (12.0-16.0); LYMPH # 1.3 K/uL (1.0-4.3); LYMPH % 21.9 % (20.0-40.0); MEAN CORPUSCULAR HEMOGLOBIN 26.9 pg (27.0-31.0); MEAN CORPUSCULAR HGB CONC 32.8 g/dL (33.0-37.0); MONO # 0.7 K/uL (0.0-0.8); NEUT # 3.9 K/uL (1.8-7.0); NEUT % 64.6 % (50.0-75.0); NRBC % 0.1 % (0.0-0.0); RBC 3.53 Mil/uL (3.80-5.20); RED CELL DISTRIBUTION WIDTH 18.2 % (11.5-14.5)
[2018-07-30 08:04] LABS: BLOOD UREA NITROGEN 5 mg/dl (7-17); CALCIUM 8.7 mg/dL (8.4-10.2); GFR NON-AFRICAN AMERICAN > 60
--- NOTE | 2018-07-30 09:35 | CP.PCM.PN ---
<Paolo Espinosa - Last Filed: 07/30/18 12:25> Subjective - Date & Time of Evaluation Date of Evaluation: 07/30/18 Time of Evaluation: 07:45 - Subjective Subjective: Pt seen and examined at bedside. Denies acute overnight events. Drain in place. Tolerating PO diet. Regular BM; no diarrhea. Afebrile. Objective - Vital Signs/Intake and Output Vital Signs (last 24 hours): Temp Pulse Resp BP Pulse Ox 97.8 F 76 19 126/78 97 07/30/18 08:06 07/30/18 08:06 07/30/18 08:06 07/30/18 08:06 07/30/18 08:06 - Medications Medications: Current Medications Acetaminophen (Tylenol 325mg Tab) 650 mg PO Q6 PRN PRN Reason: Pain, Mild (1-3) Last Admin: 07/30/18 02:54 Dose: 650 mg Alprazolam (Xanax) 0.5 mg PO Q8 PRN PRN Reason: Anxiety Last Admin: 07/29/18 22:29 Dose: 0.5 mg Docusate Sodium (Colace) 100 mg PO BID [facility] Last Admin: 07/29/18 16:15 Dose: Not Given Enoxaparin Sodium (Lovenox) 40 mg SC DAILY [facility]; Protocol Ferrous Sulfate (Feosol) 325 mg PO BID [facility] Last Admin: 07/29/18 16:16 Dose: 325 mg Hydromorphone HCl (Dilaudid) 0.5 mg IVP Q10M PRN PRN Reason: Pain, moderate (4-7) Metronidazole (Flagyl 500mg/100ml Ns) 100 mls @ 100 mls/hr IVPB Q8H [facility]; Protocol Last Admin: 07/30/18 02:43 Dose: 100 mls/hr Piperacillin Sod/Tazobactam (Sod 3.375 gm/ Sodium Chloride) 100 mls @ 100 mls/hr IVPB Q6 [facility]; Protocol Last Admin: 07/30/18 04:01 Dose: 100 mls/hr Levothyroxine Sodium (Synthroid) 88 mcg PO DAILY@0630 [facility] Last Admin: 07/30/18 07:18 Dose: 88 mcg Morphine Sulfate (Morphine) 2 mg IVP Q4 PRN PRN Reason: Pain, severe (8-10) Last Admin: 07/29/18 18:27 Dose: 2 mg Oxycodone HCl (Oxycodone Immediate Release Tab) 5 mg PO Q6 PRN PRN Reason: Pain, moderate (4-7) Polyethylene Glycol (Miralax) 17 gm PO BID [facility] Last Admin: 07/29/18 16:16 Dose: Not Given - Labs Labs: 07/30/18 05:30 07/30/18 05:30 PT 16.2 Seconds (9.8-13.1) H 07/23/18 11:25 INR 1.4 07/23/18 11:25 APTT 31.2 Seconds (25.6-37.1) 07/23/18 11:25 - Constitutional Appears: Well, No Acute Distress - Eye Exam Eye Exam: EOMI - ENT Exam ENT Exam: Mucous Membranes Moist - Respiratory Exam Respiratory Exam: Clear to Ausculation Bilateral, NORMAL BREATHING PATTERN. absent: Wheezes - Cardiovascular Exam Cardiovascular Exam: REGULAR RHYTHM, +S1, +S2 - GI/Abdominal Exam GI & Abdominal Exam: Soft, Normal Bowel Sounds. absent: Tenderness - Rectal Exam Additional comments: Rectal drain - Neurological Exam Neurological Exam: Alert, Awake, CN II-XII Intact, Normal Gait, Oriented x3 - Psychiatric Exam Psychiatric exam: Normal Affect, Normal Mood Assessment and Plan - Assessment and Plan (Free Text) Assessment: 63 yo F pmhx of hypothyroidism, and anxiety was sent to ED per Dr. Silver for abdominal abscess incidentally found on outpatient abdo CT. Plan: Abdo CT: 7 x 6 cm abscess in pelvis anterior to recto-sigmoid; extralumenal air collecting -repeat: Transrectal decompression of left pelvic pericolic abscess now measuring 4.7 x 5.2 cm compared prior outside CT 07/22/2018. Oral contrast material is identified within the lumen of the abscess at this time. Continued clinical and CT follow-up are advised through the pelvis. Stable dilated CBD without radiodense choledocholithiasis evident. Gallbladder distended but otherwise unremarkable appearing. Mild anasarca noted. -Repeat: 07/29/2018: Borderline increase in left paracentral pelvic peritoneal abscess cavity measuring 4.7 x 5.9 cm compared to 4.7 x 5.2 cm previously. Majority of this changes likely a function of increased gas. Correlate with daily drainage volumes from transrectal drainage catheter which remains in situ. A separate smaller abscess cavity seen inferomedial to the draining primary abscess cavity may not communicate with the main cavity and therefore be separa te completely. No interval change in size in this cavity. Segmental colitis and potential proctitis pattern stable but limited evaluation given lack of oral contrast transit through this segment and anasarca pattern. Blood and Urine culture: no growth Abcess culture: Lactococcus species Abdominal abcess: -s/p IR transrectal abscess pig tail drain placement -Incidental finding on CT -occult blood positive -Surgery Dr. Gonzales -GI consult Dr Thompson: consider barium enema -ID consult: Dr. Greene: recommends continued IV abx -IR Dr. Sherman: to flush drain and continue monitor f/u CT abdo -Abx: Zosyn IV, Flagyl IV -Still draining with abscess now measuring 4.7x5.2 cm Anemia: -H/H: 9.5/29.0 today; stable; s/p PRBC 2 unit transfused -Positive Occult blood stool received -GI consult Dr Thompson, planning for OP colonoscopy after IR drainage to evaluate cause of abscess and anemia -Feosol BID -f/u CBC Hypothyroid: -c/w levothyroxine 88 mcg DVT prophylaxis: -SCDs -Pt actively ambulating -Lovenox Case and plan d/w Dr. Alex Espinosa MD PGY2 <Charity Johnson - Last Filed: 07/30/18 18:04> Objective - Vital Signs/Intake and Output Vital Signs (last 24 hours): Temp Pulse Resp BP Pulse Ox 98.7 F 86 20 131/81 100 07/30/18 16:57 07/30/18 16:57 07/30/18 16:57 07/30/18 16:57 07/30/18 16:57 - Medications Medications: Current Medications Acetaminophen (Tylenol 325mg Tab) 650 mg PO Q6 PRN PRN Reason: Pain, Mild (1-3) Last Admin: 07/30/18 09:42 Dose: 650 mg Alprazolam (Xanax) 0.5 mg PO Q8 PRN PRN Reason: Anxiety Last Admin: 07/29/18 22:29 Dose: 0.5 mg Docusate Sodium (Colace) 100 mg PO BID [facility] Last Admin: 07/30/18 16:27 Dose: Not Given Enoxaparin Sodium (Lovenox) 40 mg SC DAILY [facility]; Protocol Last Admin: 07/30/18 09:36 Dose: 40 mg Ferrous Sulfate (Feosol) 325 mg PO BID [facility] Last Admin: 07/30/18 16:33 Dose: 325 mg Hydromorphone HCl (Dilaudid) 0.5 mg IVP Q10M PRN PRN Reason: Pain, moderate (4-7) Metronidazole (Flagyl 500mg/100ml Ns) 100 mls @ 100 mls/hr IVPB Q8H [facility]; Protocol Last Admin: 07/30/18 11:12 Dose: 100 mls/hr Piperacillin Sod/Tazobactam (Sod 3.375 gm/ Sodium Chloride) 100 mls @ 100 mls/hr IVPB Q6 [facility]; Protocol Last Admin: 07/30/18 16:33 Dose: 100 mls/hr Levothyroxine Sodium (Synthroid) 88 mcg PO DAILY@0630 [facility] Last Admin: 07/30/18 07:18 Dose: 88 mcg Morphine Sulfate (Morphine) 2 mg IVP Q4 PRN PRN Reason: Pain, severe (8-10) Last Admin: 07/29/18 18:27 Dose: 2 mg Oxycodone HCl (Oxycodone Immediate Release Tab) 5 mg PO Q6 PRN PRN Reason: Pain, moderate (4-7) Last Admin: 07/30/18 16:32 Dose: 5 mg Polyethylene Glycol (Miralax) 17 gm PO BID [facility] Last Admin: 07/30/18 16:34 Dose: Not Given - Labs Labs: 07/30/18 05:30 07/30/18 05:30 PT 16.2 Seconds (9.8-13.1) H 07/23/18 11:25 INR 1.4 07/23/18 11:25 APTT 31.2 Seconds (25.6-37.1) 07/23/18 11:25 Attending/Attestation - Attestation I have personally seen and examined this patient.: Yes I have fully participated in the care of the patient.: Yes I have reviewed all pertinent clinical information, including history, physical exam and plan: Yes Notes (Text): 07/30/18 18:03 agree with findings and plan as above.
[2018-07-30] MEDS: POLYETHYLENE GLYCOL 3350 17 GM/Dose PACKET PO SCH ×2 (09:36→16:34)
[2018-07-30] MEDS: Enoxaparin 40 mg Syringe SC SCH (09:36)
[2018-07-30] MEDS: oxyCODONE 5 mg Immediate Release Tab PO PRN ×2 (16:32→22:59)
[2018-07-31] MEDS: metroNIDAZOLE 500mg/100ml NS 100 ML IVPB SCH ×3 (03:36→18:42)
[2018-07-31] MEDS: Piperacillin/Tazobact 3.375 GM in Sodium Chloride 0.9% 100 ML IVPB SCH ×4 (05:09→21:21)
[2018-07-31] MEDS: oxyCODONE 5 mg Immediate Release Tab PO PRN ×3 (05:38→21:16)
[2018-07-31] MEDS: Levothyroxine 88 MCG TAB PO SCH (06:19)
[2018-07-31 08:02] LABS: BASO % 0.6 % (0.0-2.0); EOS # 0.1 K/uL (0.0-0.7); HEMOGLOBIN 8.8 g/dL (12.0-16.0); LYMPH % 14.5 % (20.0-40.0); MEAN CELL VOLUME 81.6 fl (81.0-99.0); MEAN CORPUSCULAR HGB CONC 33.1 g/dL (33.0-37.0); MEAN PLATELET VOLUME 7.2 fl (7.2-11.7); MONO # 0.8 K/uL (0.0-0.8); MONO % 11.5 % (0.0-10.0); NEUT # 5.2 K/uL (1.8-7.0); NEUT % 72.4 % (50.0-75.0); RBC 3.28 Mil/uL (3.80-5.20); RED CELL DISTRIBUTION WIDTH 18.2 % (11.5-14.5); WHITE BLOOD COUNT 7.2 K/uL (4.8-10.8)
--- NOTE | 2018-07-31 08:05 | CP.PCM.PN ---
<Pelon Freitas - Last Filed: 07/31/18 10:28> Subjective - Date & Time of Evaluation Date of Evaluation: 07/31/18 Time of Evaluation: 08:45 - Subjective Subjective: Pt seen and examined this morning at bedside, in NAD. No overnight changes. Drain in place. Patient is tolerating oral diet. Patient denies COREY, CP ,N/V/D. Patient remains afebrile. Objective - Vital Signs/Intake and Output Vital Signs (last 24 hours): Temp Pulse Resp BP Pulse Ox 99.3 F 84 18 128/81 100 07/30/18 23:40 07/30/18 23:40 07/30/18 23:40 07/30/18 23:40 07/30/18 23:40 Intake and Output: 07/31/18 07/31/18 06:59 18:59 Output Total Balance - Medications Medications: Current Medications Acetaminophen (Tylenol 325mg Tab) 650 mg PO Q6 PRN PRN Reason: Pain, Mild (1-3) Last Admin: 07/30/18 09:42 Dose: 650 mg Alprazolam (Xanax) 0.5 mg PO Q8 PRN PRN Reason: Anxiety Last Admin: 07/30/18 21:14 Dose: 0.5 mg Docusate Sodium (Colace) 100 mg PO BID [facility] Last Admin: 07/30/18 16:27 Dose: Not Given Enoxaparin Sodium (Lovenox) 40 mg SC DAILY [facility]; Protocol Last Admin: 07/30/18 09:36 Dose: 40 mg Ferrous Sulfate (Feosol) 325 mg PO BID [facility] Last Admin: 07/30/18 16:33 Dose: 325 mg Hydromorphone HCl (Dilaudid) 0.5 mg IVP Q10M PRN PRN Reason: Pain, moderate (4-7) Metronidazole (Flagyl 500mg/100ml Ns) 100 mls @ 100 mls/hr IVPB Q8H [facility]; Protocol Last Admin: 07/31/18 03:36 Dose: 100 mls/hr Piperacillin Sod/Tazobactam (Sod 3.375 gm/ Sodium Chloride) 100 mls @ 100 mls/hr IVPB Q6 [facility]; Protocol Last Admin: 07/31/18 05:09 Dose: 100 mls/hr Levothyroxine Sodium (Synthroid) 88 mcg PO DAILY@0630 [facility] Last Admin: 07/31/18 06:19 Dose: 88 mcg Morphine Sulfate (Morphine) 2 mg IVP Q4 PRN PRN Reason: Pain, severe (8-10) Last Admin: 07/29/18 18:27 Dose: 2 mg Oxycodone HCl (Oxycodone Immediate Release Tab) 5 mg PO Q6 PRN PRN Reason: Pain, moderate (4-7) Last Admin: 07/31/18 05:38 Dose: 5 mg Polyethylene Glycol (Miralax) 17 gm PO BID [facility] Last Admin: 07/30/18 16:34 Dose: Not Given - Labs Labs: 07/30/18 05:30 07/30/18 05:30 PT 16.2 Seconds (9.8-13.1) H 07/23/18 11:25 INR 1.4 07/23/18 11:25 APTT 31.2 Seconds (25.6-37.1) 07/23/18 11:25 - Constitutional Appears: No Acute Distress - Head Exam Head Exam: ATRAUMATIC, NORMOCEPHALIC - Eye Exam Eye Exam: EOMI - Neck Exam Neck Exam: Full ROM - Respiratory Exam Respiratory Exam: Clear to Ausculation Bilateral - Cardiovascular Exam Cardiovascular Exam: REGULAR RHYTHM, +S1, +S2 - GI/Abdominal Exam GI & Abdominal Exam: Soft, Normal Bowel Sounds. absent: Tenderness - Rectal Exam Additional comments: rectal drain in place - Extremities Exam Extremities Exam: absent: Calf Tenderness, Pedal Edema - Neurological Exam Neurological Exam: Alert, Normal Gait, Oriented x3 - Psychiatric Exam Psychiatric exam: Normal Affect Assessment and Plan - Assessment and Plan (Free Text) Assessment: 63 yo F pmhx of hypothyroidism, and anxiety was sent to ED per Dr. Silver for abdominal abscess incidentally found on outpatient abdo CT. Plan: Abdo CT: 7 x 6 cm abscess in pelvis anterior to recto-sigmoid; extralumenal air collecting -repeat: Transrectal decompression of left pelvic pericolic abscess now measuring 4.7 x 5.2 cm compared prior outside CT 07/22/2018. Oral contrast material is identified within the lumen of the abscess at this time. Continued clinical and CT follow-up are advised through the pelvis. Stable dilated CBD without radiodense choledocholithiasis evident. Gallbladder distended but otherwise unremarkable appearing. Mild anasarca noted. -Repeat: 07/29/2018: Borderline increase in left paracentral pelvic peritoneal abscess cavity measuring 4.7 x 5.9 cm compared to 4.7 x 5.2 cm previously. Majority of this changes likely a function of increased gas. Correlate with daily drainage volumes from transrectal drainage catheter which remains in situ. A separate smaller abscess cavity seen inferomedial to the draining primary abscess cavity may not communicate with the main cavity and therefore be separate completely. No interval change in size in this cavity. Segmental colitis and potential proctitis pattern stable but limited evaluation given lack of oral contrast transit through this segment and anasarca pattern. Blood and Urine culture: no growth Abcess culture: Lactococcus species Abdominal abcess: -s/p IR transrectal abscess pig tail drain placement -Incidental finding on CT -occult blood positive -Surgery Dr. Gonzales -GI consult Dr Thompson: consider barium enema -ID consult: Dr. Greene: recommends continued IV abx -IR Dr. Sherman: to flush drain and continue monitor f/u CT abdo -Abx: Zosyn IV, Flagyl IV -Still draining with abscess now measuring 4.7x5.2 cm -Plan to repeat CT on Wednesday as per Surgery Hypokalemia mild of unclear etiology -K 3.4 -Replaced Anemia: -H/H: 9.5/29.0 today; stable; s/p PRBC 2 unit transfused -Positive Occult blood stool received -GI consult Dr Thompson, planning for OP colonoscopy after IR drainage to evaluate cause of abscess and anemia -Feosol BID -f/u CBC Hypothyroid: -c/w levothyroxine 88 mcg DVT prophylaxis: -SCDs -Pt actively ambulating -Lovenox <Charity Johnson - Last Filed: 07/31/18 11:39> Objective - Vital Signs/Intake and Output Vital Signs (last 24 hours): Temp Pulse Resp BP Pulse Ox 98.3 F 78 20 116/70 100 07/31/18 08:30 07/31/18 08:30 07/31/18 08:30 07/31/18 08:30 07/31/18 08:30 Intake and Output: 07/31/18 07/31/18 06:59 18:59 Output Total Balance - Medications Medications: Current Medications Acetaminophen (Tylenol 325mg Tab) 650 mg PO Q6 PRN PRN Reason: Pain, Mild (1-3) Last Admin: 07/30/18 09:42 Dose: 650 mg Alprazolam (Xanax) 0.5 mg PO Q8 PRN PRN Reason: Anxiety Last Admin: 07/30/18 21:14 Dose: 0.5 mg Docusate Sodium (Colace) 100 mg PO BID [facility] Last Admin: 07/31/18 09:36 Dose: Not Given Enoxaparin Sodium (Lovenox) 40 mg SC DAILY [facility]; Protocol Last Admin: 07/31/18 09:37 Dose: 40 mg Ferrous Sulfate (Feosol) 325 mg PO BID [facility] Last Admin: 07/31/18 09:36 Dose: 325 mg Hydromorphone HCl (Dilaudid) 0.5 mg IVP Q10M PRN PRN Reason: Pain, moderate (4-7) Metronidazole (Flagyl 500mg/100ml Ns) 100 mls @ 100 mls/hr IVPB Q8H [facility]; Protocol Last Admin: 07/31/18 10:18 Dose: 100 mls/hr Piperacillin Sod/Tazobactam (Sod 3.375 gm/ Sodium Chloride) 100 mls @ 100 mls/hr IVPB Q6 [facility]; Protocol Last Admin: 07/31/18 05:09 Dose: 100 mls/hr Levothyroxine Sodium (Synthroid) 88 mcg PO DAILY@0630 [facility] Last Admin: 07/31/18 06:19 Dose: 88 mcg Morphine Sulfate (Morphine) 2 mg IVP Q4 PRN PRN Reason: Pain, severe (8-10) Last Admin: 07/29/18 18:27 Dose: 2 mg Oxycodone HCl (Oxycodone Immediate Release Tab) 5 mg PO Q6 PRN PRN Reason: Pain, moderate (4-7) Last Admin: 07/31/18 05:38 Dose: 5 mg Polyethylene Glycol (Miralax) 17 gm PO BID [facility] Last Admin: 07/31/18 09:37 Dose: 17 gm - Labs Labs: 07/30/18 05:30 07/31/18 06:00 PT 16.2 Seconds (9.8-13.1) H 07/23/18 11:25 INR 1.4 07/23/18 11:25 APTT 31.2 Seconds (25.6-37.1) 07/23/18 11:25 Attending/Attestation - Attestation I have personally seen and examined this patient.: Yes I have fully participated in the care of the patient.: Yes I have reviewed all pertinent clinical information, including history, physical exam and plan: Yes Notes (Text): 07/31/18 11:39 Agree with findings and plans as above.
[2018-07-31 08:07] LABS: BLOOD UREA NITROGEN 5 mg/dl (7-17); CALCIUM 8.5 mg/dL (8.4-10.2); GFR NON-AFRICAN AMERICAN > 60
[2018-07-31] MEDS ORDERED: Potassium Chloride 20 mEq ER Tab PO ONE (08:45)
[2018-07-31] MEDS: Enoxaparin 40 mg Syringe SC SCH (09:37)
[2018-07-31] MEDS: POLYETHYLENE GLYCOL 3350 17 GM/Dose PACKET PO SCH ×2 (09:37→18:47)
[2018-08-01] MEDS: metroNIDAZOLE 500mg/100ml NS 100 ML IVPB SCH ×3 (02:46→18:31)
[2018-08-01] MEDS: Piperacillin/Tazobact 3.375 GM in Sodium Chloride 0.9% 100 ML IVPB SCH ×4 (03:57→21:50)
[2018-08-01 06:35] LABS: BASO % 0.6 % (0.0-2.0); EOS # 0.1 K/uL (0.0-0.7); EOS % 1.6 % (0.0-4.0); HEMOGLOBIN 9.8 g/dL (12.0-16.0); LYMPH # 1.1 K/uL (1.0-4.3); LYMPH % 14.3 % (20.0-40.0); MEAN CORPUSCULAR HEMOGLOBIN 27.1 pg (27.0-31.0); MEAN PLATELET VOLUME 7.1 fl (7.2-11.7); MONO # 0.7 K/uL (0.0-0.8); MONO % 9.8 % (0.0-10.0); NEUT # 5.5 K/uL (1.8-7.0); NEUT % 73.7 % (50.0-75.0); RBC 3.62 Mil/uL (3.80-5.20); RED CELL DISTRIBUTION WIDTH 18.6 % (11.5-14.5); WHITE BLOOD COUNT 7.4 K/uL (4.8-10.8)
--- NOTE | 2018-08-01 06:53 | CP.PCM.PN ---
<Matt Espinosaang - Last Filed: 08/01/18 12:38> Subjective - Date & Time of Evaluation Date of Evaluation: 08/01/18 Time of Evaluation: 06:53 - Subjective Subjective: Pt seen and examined at bedside. Denies acute overnight events. Drain in place, flushed by Dr. Crowell. No abdominal pain. Objective - Vital Signs/Intake and Output Vital Signs (last 24 hours): Temp Pulse Resp BP Pulse Ox 98.0 F 71 18 125/83 96 07/31/18 23:54 07/31/18 23:54 07/31/18 23:54 07/31/18 23:54 07/31/18 23:54 Intake and Output: 07/31/18 08/01/18 18:59 06:59 Output Total 15 Balance -15 - Medications Medications: Current Medications Acetaminophen (Tylenol 325mg Tab) 650 mg PO Q6 PRN PRN Reason: Pain, Mild (1-3) Last Admin: 08/01/18 03:55 Dose: 650 mg Alprazolam (Xanax) 0.5 mg PO Q8 PRN PRN Reason: Anxiety Last Admin: 07/31/18 16:47 Dose: 0.5 mg Docusate Sodium (Colace) 100 mg PO BID [facility] Last Admin: 07/31/18 18:47 Dose: Not Given Enoxaparin Sodium (Lovenox) 40 mg SC DAILY [facility]; Protocol Last Admin: 07/31/18 09:37 Dose: 40 mg Ferrous Sulfate (Feosol) 325 mg PO BID [facility] Last Admin: 07/31/18 18:42 Dose: 325 mg Metronidazole (Flagyl 500mg/100ml Ns) 100 mls @ 100 mls/hr IVPB Q8H [facility]; Protocol Last Admin: 08/01/18 02:46 Dose: 100 mls/hr Piperacillin Sod/Tazobactam (Sod 3.375 gm/ Sodium Chloride) 100 mls @ 100 mls/hr IVPB Q6 [facility]; Protocol Last Admin: 08/01/18 03:57 Dose: 100 mls/hr Levothyroxine Sodium (Synthroid) 88 mcg PO DAILY@0630 [facility] Last Admin: 07/31/18 06:19 Dose: 88 mcg Morphine Sulfate (Morphine) 2 mg IVP Q4 PRN PRN Reason: Pain, severe (8-10) Last Admin: 07/29/18 18:27 Dose: 2 mg Oxycodone HCl (Oxycodone Immediate Release Tab) 5 mg PO Q6 PRN PRN Reason: Pain, moderate (4-7) Last Admin: 07/31/18 21:16 Dose: 5 mg Polyethylene Glycol (Miralax) 17 gm PO BID [facility] Last Admin: 07/31/18 18:47 Dose: Not Given - Labs Labs: 08/01/18 05:40 07/31/18 06:00 PT 16.2 Seconds (9.8-13.1) H 07/23/18 11:25 INR 1.4 07/23/18 11:25 APTT 31.2 Seconds (25.6-37.1) 07/23/18 11:25 - Constitutional Appears: Well - Eye Exam Eye Exam: EOMI - ENT Exam ENT Exam: Mucous Membranes Moist - Respiratory Exam Respiratory Exam: Clear to Ausculation Bilateral, NORMAL BREATHING PATTERN. absent: Wheezes - Cardiovascular Exam Cardiovascular Exam: REGULAR RHYTHM, +S1, +S2 - GI/Abdominal Exam GI & Abdominal Exam: Soft, Normal Bowel Sounds. absent: Tenderness - Back Exam Back Exam: absent: CVA tenderness (L), CVA tenderness (R) - Neurological Exam Neurological Exam: Alert, Awake, CN II-XII Intact, Normal Gait, Oriented x3 - Psychiatric Exam Psychiatric exam: Normal Affect, Normal Mood Assessment and Plan - Assessment and Plan (Free Text) Assessment: 63 yo F pmhx of hypothyroidism, and anxiety was sent to ED per Dr. Silver for abdominal abscess incidentally found on outpatient abdo CT. Plan: Abdo CT: 7 x 6 cm abscess in pelvis anterior to recto-sigmoid; extralumenal air collecting -repeat: Transrectal decompression of left pelvic pericolic abscess now measuring 4.7 x 5.2 cm compared prior outside CT 07/22/2018. Oral contrast material is identified within the lumen of the abscess at this time. Continued clinical and CT follow-up are advised through the pelvis. Stable dilated CBD without radiodense choledocholithiasis evident. Gallbladder distended but otherwise unremarkable appearing. Mild anasarca noted. -Repeat: 07/29/2018: Borderline increase in left paracentral pelvic peritoneal abscess cavity measuring 4.7 x 5.9 cm compared to 4.7 x 5.2 cm previously. Majority of this changes likely a function of increased gas. Correlate with daily drainage volumes from transrectal drainage catheter which remains in situ. A separate smaller abscess cavity seen inferomedial to the draining primary abscess cavity may not communicate with the main cavity and therefore be separate completely. No interval change in size in this cavity. Segmental colitis and potential proctitis pattern stable but limited evaluation given lack of oral contrast transit through this segment and anasarca pattern. -Repeat: 08/02/2018 Blood and Urine culture: no growth Abcess culture: Lactococcus species Abdominal abcess: -s/p IR transrectal abscess pig tail drain placement -Incidental finding on CT -occult blood positive -Surgery Dr. Gonzales -GI consult Dr Thompson: consider barium enema -ID consult: Dr. Greene: recommends continued IV abx -IR Dr. Sherman: to flush drain and continue monitor f/u CT abdo -Abx: Zosyn IV, Flagyl IV -Still draining with abscess now measuring 4.7x5.2 cm -Plan to repeat CT on Wednesday as per Surgery Hypokalemia resolved -K 4.0 -Replaced Anemia: -H/H: 9.8/29.7 today; stable; s/p PRBC 2 unit transfused -Positive Occult blood stool received -GI consult Dr Thompson, planning for OP colonoscopy after IR drainage to evaluate cause of abscess and anemia -Feosol BID -f/u CBC Hypothyroid: -c/w levothyroxine 88 mcg DVT prophylaxis: -SCDs -Pt actively ambulating -Lovenox Case and plan d/w Dr. Jimmy Espinosa MD PGY2 <Jared Marquez D - Last Filed: 08/01/18 14:31> Objective - Vital Signs/Intake and Output Vital Signs (last 24 hours): Temp Pulse Resp BP Pulse Ox 98 F 81 19 129/80 99 08/01/18 07:56 08/01/18 07:56 08/01/18 07:56 08/01/18 07:56 08/01/18 07:56 Intake and Output: 08/01/18 08/01/18 06:59 18:59 Intake Total 300 Output Total 10 Balance 290 - Medications Medications: Current Medications Acetaminophen (Tylenol 325mg Tab) 650 mg PO Q6 PRN PRN Reason: Pain, Mild (1-3) Last Admin: 08/01/18 03:55 Dose: 650 mg Alprazolam (Xanax) 0.5 mg PO Q8 PRN PRN Reason: Anxiety Last Admin: 08/01/18 12:27 Dose: 0.5 mg Docusate Sodium (Colace) 100 mg PO BID [facility] Last Admin: 08/01/18 08:49 Dose: Not Given Enoxaparin Sodium (Lovenox) 40 mg SC DAILY [facility]; Protocol Last Admin: 08/01/18 08:51 Dose: 40 mg Ferrous Sulfate (Feosol) 325 mg PO BID [facility] Last Admin: 08/01/18 08:50 Dose: 325 mg Metronidazole (Flagyl 500mg/100ml Ns) 100 mls @ 100 mls/hr IVPB Q8H [facility]; Protocol Last Admin: 08/01/18 11:03 Dose: 100 mls/hr Piperacillin Sod/Tazobactam (Sod 3.375 gm/ Sodium Chloride) 100 mls @ 100 mls/hr IVPB Q6 [facility]; Protocol Last Admin: 08/01/18 09:00 Dose: 100 mls/hr Levothyroxine Sodium (Synthroid) 88 mcg PO DAILY@0630 [facility] Last Admin: 08/01/18 07:00 Dose: 88 mcg Morphine Sulfate (Morphine) 2 mg IVP Q4 PRN PRN Reason: Pain, severe (8-10) Last Admin: 07/29/18 18:27 Dose: 2 mg Oxycodone HCl (Oxycodone Immediate Release Tab) 5 mg PO Q6 PRN PRN Reason: Pain, moderate (4-7) Last Admin: 08/01/18 11:03 Dose: 5 mg Polyethylene Glycol (Miralax) 17 gm PO BID [facility] Last Admin: 08/01/18 08:51 Dose: Not Given - Labs Labs: 08/01/18 05:40 08/01/18 05:40 PT 16.2 Seconds (9.8-13.1) H 07/23/18 11:25 INR 1.4 07/23/18 11:25 APTT 31.2 Seconds (25.6-37.1) 07/23/18 11:25 Attending/Attestation - Attestation I have personally seen and examined this patient.: Yes I have fully participated in the care of the patient.: Yes I have reviewed all pertinent clinical information, including history, physical exam and plan: Yes Notes (Text): 08/01/18 14:28 Patient seen and examined with resident. Case was discussed and agreed with a ssessment. Patient has left peritoneal pelvic abscess and is being treated with IV Zosyn and Flagyl. We will reassess with CT scan of abdomen/pelvis with IV and oral contrast tomorrow.
[2018-08-01] MEDS: Levothyroxine 88 MCG TAB PO SCH (07:00)
[2018-08-01 07:02] LABS: BLOOD UREA NITROGEN 5 mg/dl (7-17); CALCIUM 9.1 mg/dL (8.4-10.2); GFR NON-AFRICAN AMERICAN > 60
[2018-08-01] MEDS: POLYETHYLENE GLYCOL 3350 17 GM/Dose PACKET PO SCH ×2 (08:51→17:24)
[2018-08-01] MEDS: Enoxaparin 40 mg Syringe SC SCH (08:51)
[2018-08-01] MEDS: oxyCODONE 5 mg Immediate Release Tab PO PRN ×2 (11:03→17:22)
--- NOTE | 2018-08-01 11:33 | CP.PCM.PN ---
Subjective - Date & Time of Evaluation Date of Evaluation: 08/01/18 Time of Evaluation: 11:30 - Subjective Subjective: pt seen at bedside, no overniht events. Pt remains afebrile, hemodynamically stable. Pt tolerating diet, +flatus and BM. Drain in place 10cc drainage. gen: awake, alert, NAD HEENT: NC/AT, EOMI, PERRLA no acute respiratory distress abd: soft, NT, mild distention to lower abdomen, no rebound or guarding, Drain in place ext: no calf tenderness b/l a/p: s/p IR drainage of pelvic abscess -cont diet -Iv abx -continue drain and monitor output -will repeat CT A/P in am Objective - Vital Signs/Intake and Output Vital Signs (last 24 hours): Temp Pulse Resp BP Pulse Ox 98 F 81 19 129/80 99 08/01/18 07:56 08/01/18 07:56 08/01/18 07:56 08/01/18 07:56 08/01/18 07:56 Intake and Output: 08/01/18 08/01/18 06:59 18:59 Intake Total 300 Output Total 10 Balance 290 - Medications Medications: Current Medications Acetaminophen (Tylenol 325mg Tab) 650 mg PO Q6 PRN PRN Reason: Pain, Mild (1-3) Last Admin: 08/01/18 03:55 Dose: 650 mg Alprazolam (Xanax) 0.5 mg PO Q8 PRN PRN Reason: Anxiety Last Admin: 07/31/18 16:47 Dose: 0.5 mg Docusate Sodium (Colace) 100 mg PO BID [facility] Last Admin: 08/01/18 08:49 Dose: Not Given Enoxaparin Sodium (Lovenox) 40 mg SC DAILY [facility]; Protocol Last Admin: 08/01/18 08:51 Dose: 40 mg Ferrous Sulfate (Feosol) 325 mg PO BID [facility] Last Admin: 08/01/18 08:50 Dose: 325 mg Metronidazole (Flagyl 500mg/100ml Ns) 100 mls @ 100 mls/hr IVPB Q8H [facility]; Protocol Last Admin: 08/01/18 11:03 Dose: 100 mls/hr Piperacillin Sod/Tazobactam (Sod 3.375 gm/ Sodium Chloride) 100 mls @ 100 mls/hr IVPB Q6 [facility]; Protocol Last Admin: 08/01/18 09:00 Dose: 100 mls/hr Levothyroxine Sodium (Synthroid) 88 mcg PO DAILY@0630 [facility] Last Admin: 08/01/18 07:00 Dose: 88 mcg Morphine Sulfate (Morphine) 2 mg IVP Q4 PRN PRN Reason: Pain, severe (8-10) Last Admin: 07/29/18 18:27 Dose: 2 mg Oxycodone HCl (Oxycodone Immediate Release Tab) 5 mg PO Q6 PRN PRN Reason: Pain, moderate (4-7) Last Admin: 08/01/18 11:03 Dose: 5 mg Polyethylene Glycol (Miralax) 17 gm PO BID [facility] Last Admin: 08/01/18 08:51 Dose: Not Given - Labs Labs: 08/01/18 05:40 08/01/18 05:40 PT 16.2 Seconds (9.8-13.1) H 07/23/18 11:25 INR 1.4 07/23/18 11:25 APTT 31.2 Seconds (25.6-37.1) 07/23/18 11:25
[2018-08-02] MEDS: metroNIDAZOLE 500mg/100ml NS 100 ML IVPB SCH ×3 (02:40→18:14)
[2018-08-02] MEDS: Piperacillin/Tazobact 3.375 GM in Sodium Chloride 0.9% 100 ML IVPB SCH ×4 (04:53→21:44)
[2018-08-02 06:35] LABS: HEMOGLOBIN 9.8 g/dL (12.0-16.0); MEAN CORPUSCULAR HGB CONC 32.5 g/dL (33.0-37.0); RBC 3.65 Mil/uL (3.80-5.20); RED CELL DISTRIBUTION WIDTH 18.4 % (11.5-14.5); WHITE BLOOD COUNT 5.9 K/uL (4.8-10.8)
[2018-08-02] MEDS: Levothyroxine 88 MCG TAB PO SCH (06:43)
[2018-08-02 06:50] LABS: BLOOD UREA NITROGEN 4 mg/dl (7-17); CALCIUM 8.9 mg/dL (8.4-10.2); GFR NON-AFRICAN AMERICAN > 60
[2018-08-02] MEDS ORDERED: Iohexol 240 (50 ml) PO ONE (08:20)
[2018-08-02] MEDS ORDERED: Potassium Chloride 20 mEq/15 ml LIQ UD PO ONE ×2 (08:24→10:30)
[2018-08-02] MEDS: oxyCODONE 5 mg Immediate Release Tab PO PRN ×3 (08:25→21:46)
[2018-08-02] MEDS: POLYETHYLENE GLYCOL 3350 17 GM/Dose PACKET PO SCH ×3 (10:00→17:19)
[2018-08-02] MEDS: Enoxaparin 40 mg Syringe SC SCH (10:00)
--- NOTE | 2018-08-02 10:11 | CP.PCM.PN ---
<Paolo Espinosa - Last Filed: 08/02/18 13:21> Subjective - Date & Time of Evaluation Date of Evaluation: 08/02/18 Time of Evaluation: 08:00 - Subjective Subjective: Pt seen and examined at bedside this AM. Denies acute overnight events. Denies abdominal pain, reports gas. Pending further evaluation for abdominal abscess. Objective - Vital Signs/Intake and Output Vital Signs (last 24 hours): Temp Pulse Resp BP Pulse Ox 98.7 F 83 18 128/78 98 08/02/18 08:35 08/02/18 08:35 08/02/18 08:35 08/02/18 08:35 08/02/18 08:35 Intake and Output: 08/02/18 08/02/18 06:59 18:59 Output Total 3 Balance -3 - Medications Medications: Current Medications Acetaminophen (Tylenol 325mg Tab) 650 mg PO Q6 PRN PRN Reason: Pain, Mild (1-3) Last Admin: 08/01/18 03:55 Dose: 650 mg Alprazolam (Xanax) 0.5 mg PO Q8 PRN PRN Reason: Anxiety Last Admin: 08/02/18 09:59 Dose: 0.5 mg Docusate Sodium (Colace) 100 mg PO BID [facility] Last Admin: 08/02/18 09:59 Dose: Not Given Enoxaparin Sodium (Lovenox) 40 mg SC DAILY [facility]; Protocol Last Admin: 08/02/18 10:00 Dose: 40 mg Ferrous Sulfate (Feosol) 325 mg PO BID [facility] Last Admin: 08/02/18 09:59 Dose: Not Given Metronidazole (Flagyl 500mg/100ml Ns) 100 mls @ 100 mls/hr IVPB Q8H [facility]; Protocol Last Admin: 08/02/18 10:02 Dose: 100 mls/hr Piperacillin Sod/Tazobactam (Sod 3.375 gm/ Sodium Chloride) 100 mls @ 100 mls/hr IVPB Q6 [facility]; Protocol Last Admin: 08/02/18 10:01 Dose: 100 mls/hr Levothyroxine Sodium (Synthroid) 88 mcg PO DAILY@0630 [facility] Last Admin: 08/02/18 06:43 Dose: Not Given Morphine Sulfate (Morphine) 2 mg IVP Q4 PRN PRN Reason: Pain, severe (8-10) Last Admin: 07/29/18 18:27 Dose: 2 mg Oxycodone HCl (Oxycodone Immediate Release Tab) 5 mg PO Q6 PRN PRN Reason: Pain, moderate (4-7) Last Admin: 08/02/18 08:25 Dose: 5 mg Polyethylene Glycol (Miralax) 17 gm PO BID [facility] Last Admin: 08/02/18 10:00 Dose: Not Given Potassium Chloride (Potassium Chloride Oral Soln) 20 meq PO ONCE ONE Stop: 08/02/18 10:31 - Labs Labs: 08/02/18 05:40 08/02/18 05:40 PT 16.2 Seconds (9.8-13.1) H 07/23/18 11:25 INR 1.4 07/23/18 11:25 APTT 31.2 Seconds (25.6-37.1) 07/23/18 11:25 - Constitutional Appears: Well, No Acute Distress - Eye Exam Eye Exam: EOMI - ENT Exam ENT Exam: Mucous Membranes Moist - Respiratory Exam Respiratory Exam: Clear to Ausculation Bilateral, NORMAL BREATHING PATTERN. absent: Wheezes - Cardiovascular Exam Cardiovascular Exam: REGULAR RHYTHM, +S1, +S2 - GI/Abdominal Exam GI & Abdominal Exam: Soft, Normal Bowel Sounds. absent: Tenderness - Neurological Exam Neurological Exam: Alert, Awake, CN II-XII Intact, Normal Gait, Oriented x3 - Psychiatric Exam Psychiatric exam: Anxious Assessment and Plan - Assessment and Plan (Free Text) Assessment: 63 yo F pmhx of hypothyroidism, and anxiety was sent to ED per Dr. Silver for abdominal abscess incidentally found on outpatient abdo CT. Plan: Abdo CT: 7 x 6 cm abscess in pelvis anterior to recto-sigmoid; extralumenal air collecting -repeat: Transrectal decompression of left pelvic pericolic abscess now measuring 4.7 x 5.2 cm compared prior outside CT 07/22/2018. Oral contrast material is identified within the lumen of the abscess at this time. Continued clinical and CT follow-up are advised through the pelvis. Stable dilated CBD without radiodense choledocholithiasis evident. Gallbladder distended but otherwise unremarkable appearing. Mild anasarca noted. -Repeat: 07/29/2018: Borderline increase in left paracentral pelvic peritoneal abscess cavity measuring 4.7 x 5.9 cm compared to 4.7 x 5.2 cm previously. Majority of this changes likely a function of increased gas. Correlate with daily drainage volumes from transrectal drainage catheter which remains in situ. A separate smaller abscess cavity seen inferomedial to the draining primary abscess cavity may not communicate with the main cavity and therefore be se parate completely. No interval change in size in this cavity. Segmental colitis and potential proctitis pattern stable but limited evaluation given lack of oral contrast transit through this segment and anasarca pattern. KUB: pending Barium enema: pending Blood and Urine culture: no growth Abcess culture: Lactococcus species Abdominal abcess: -s/p IR transrectal abscess pig tail drain placement -Incidental finding on CT -occult blood positive -Surgery Dr. Gonzales -GI consult Dr Thompson: consider barium enema -ID consult: Dr. Greene: recommends continued IV abx -IR Dr. Sherman: to flush drain and continue monitor f/u CT abdo -Abx: Zosyn IV, Flagyl IV -Still draining with abscess now measuring 4.7x5.2 cm -KUB in AM with barium enema. Hypokalemia -K 3.5 -kdur 20 -f/u bmp Anemia: -H/H: 9.8/30.3 today; stable; s/p PRBC 2 unit transfused -Positive Occult blood stool received -GI consult Dr Thompson, planning for OP colonoscopy after IR drainage to evaluate cause of abscess and anemia -Feosol BID -f/u CBC Hypothyroid: -c/w levothyroxine 88 mcg DVT prophylaxis: -SCDs -Pt actively ambulating -Lovenox Case and plan d/w Dr. Jimmy Espinosa MD PGY2 <Jared Marquez D - Last Filed: 08/02/18 14:40> Objective - Vital Signs/Intake and Output Vital Signs (last 24 hours): Temp Pulse Resp BP Pulse Ox 98.7 F 83 18 128/78 98 08/02/18 08:35 08/02/18 08:35 08/02/18 08:35 08/02/18 08:35 08/02/18 08:35 Intake and Output: 08/02/18 08/02/18 06:59 18:59 Output Total 3 Balance -3 - Medications Medications: Current Medications Acetaminophen (Tylenol 325mg Tab) 650 mg PO Q6 PRN PRN Reason: Pain, Mild (1-3) Last Admin: 08/01/18 03:55 Dose: 650 mg Alprazolam (Xanax) 0.5 mg PO Q8 PRN PRN Reason: Anxiety Last Admin: 08/02/18 09:59 Dose: 0.5 mg Docusate Sodium (Colace) 100 mg PO BID [facility] Last Admin: 08/02/18 11:46 Dose: 100 mg Enoxaparin Sodium (Lovenox) 40 mg SC DAILY [facility]; Protocol Last Admin: 08/02/18 10:00 Dose: 40 mg Ferrous Sulfate (Feosol) 325 mg PO BID [facility] Last Admin: 08/02/18 09:59 Dose: Not Given Metronidazole (Flagyl 500mg/100ml Ns) 100 mls @ 100 mls/hr IVPB Q8H [facility]; P rotocol Last Admin: 08/02/18 10:02 Dose: 100 mls/hr Piperacillin Sod/Tazobactam (Sod 3.375 gm/ Sodium Chloride) 100 mls @ 100 mls/hr IVPB Q6 [facility]; Protocol Last Admin: 08/02/18 10:01 Dose: 100 mls/hr Levothyroxine Sodium (Synthroid) 88 mcg PO DAILY@0630 [facility] Last Admin: 08/02/18 06:43 Dose: Not Given Morphine Sulfate (Morphine) 2 mg IVP Q4 PRN PRN Reason: Pain, severe (8-10) Last Admin: 07/29/18 18:27 Dose: 2 mg Oxycodone HCl (Oxycodone Immediate Release Tab) 5 mg PO Q6 PRN PRN Reason: Pain, moderate (4-7) Last Admin: 08/02/18 08:25 Dose: 5 mg Polyethylene Glycol (Miralax) 17 gm PO BID [facility] Last Admin: 08/02/18 11:48 Dose: 17 gm - Labs Labs: 08/02/18 05:40 08/02/18 05:40 PT 16.2 Seconds (9.8-13.1) H 07/23/18 11:25 INR 1.4 07/23/18 11:25 APTT 31.2 Seconds (25.6-37.1) 07/23/18 11:25 Attending/Attestation - Attestation I have personally seen and examined this patient.: Yes I have fully participated in the care of the patient.: Yes I have reviewed all pertinent clinical information, including history, physical exam and plan: Yes Notes (Text): 08/02/18 14:35 Patient seen and examined with resident. Case discussed and agreed with assessment. Patient is a 63 yo female with pelvic abscess. An IR transrectal drain in placed but no output was noted. Patient was supposed to have a follow up CT scan with contrast to gauge status of pelvic abscess but surgery decided to get barium enema study instead and cancelled CT scan.
--- NOTE | 2018-08-02 11:23 | CP.PCM.PN ---
Subjective - Date & Time of Evaluation Date of Evaluation: 08/02/18 Time of Evaluation: 11:19 - Subjective Subjective: pt seen and examined at bedside, no overnight events. Pt afebrile, hemodynamically stable. Pt tolerating diet, having bowel movements. Rectal Drain: 15cc gen: awake, alert, NAD HEENT: NC/AT, EOMI, PERRLA no acute respiratory distress abd: soft, NT, minimal distention to lower abdomen, rectal drain in place minimal feculent drainage ext: no edema, calf tenderness a/p 63yo F s/p IR drainage of pelvic abscess unknown etiology -prn pain control -cont diet -IV abx -KUB in am - f/u contrast -barium enema - pending clearance of PO contrast -further management pending barium enema results -extensive discussion with patient and family member regarding need for possible surgical intervention Objective - Vital Signs/Intake and Output Vital Signs (last 24 hours): Temp Pulse Resp BP Pulse Ox 98.7 F 83 18 128/78 98 08/02/18 08:35 08/02/18 08:35 08/02/18 08:35 08/02/18 08:35 08/02/18 08:35 Intake and Output: 08/02/18 08/02/18 06:59 18:59 Output Total 3 Balance -3 - Medications Medications: Current Medications Acetaminophen (Tylenol 325mg Tab) 650 mg PO Q6 PRN PRN Reason: Pain, Mild (1-3) Last Admin: 08/01/18 03:55 Dose: 650 mg Alprazolam (Xanax) 0.5 mg PO Q8 PRN PRN Reason: Anxiety Last Admin: 08/02/18 09:59 Dose: 0.5 mg Docusate Sodium (Colace) 100 mg PO BID [facility] Last Admin: 08/02/18 09:59 Dose: Not Given Enoxaparin Sodium (Lovenox) 40 mg SC DAILY [facility]; Protocol Last Admin: 08/02/18 10:00 Dose: 40 mg Ferrous Sulfate (Feosol) 325 mg PO BID [facility] Last Admin: 08/02/18 09:59 Dose: Not Given Metronidazole (Flagyl 500mg/100ml Ns) 100 mls @ 100 mls/hr IVPB Q8H [facility]; Protocol Last Admin: 08/02/18 10:02 Dose: 100 mls/hr Piperacillin Sod/Tazobactam (Sod 3.375 gm/ Sodium Chloride) 100 mls @ 100 mls/hr IVPB Q6 [facility]; Protocol Last Admin: 08/02/18 10:01 Dose: 100 mls/hr Levothyroxine Sodium (Synthroid) 88 mcg PO DAILY@0630 [facility] Last Admin: 08/02/18 06:43 Dose: Not Given Morphine Sulfate (Morphine) 2 mg IVP Q4 PRN PRN Reason: Pain, severe (8-10) Last Admin: 07/29/18 18:27 Dose: 2 mg Oxycodone HCl (Oxycodone Immediate Release Tab) 5 mg PO Q6 PRN PRN Reason: Pain, moderate (4-7) Last Admin: 08/02/18 08:25 Dose: 5 mg Polyethylene Glycol (Miralax) 17 gm PO BID [facility] Last Admin: 08/02/18 10:00 Dose: Not Given - Labs Labs: 08/02/18 05:40 08/02/18 05:40 PT 16.2 Seconds (9.8-13.1) H 07/23/18 11:25 INR 1.4 07/23/18 11:25 APTT 31.2 Seconds (25.6-37.1) 07/23/18 11:25
[2018-08-02] MEDS ORDERED: Potassium Chloride 20 mEq ER Tab PO ONE (13:24)
[2018-08-02] MEDS: Morphine 4 MG/ML VIAL IVP PRN (17:20)
--- NOTE | 2018-08-02 19:23 | CP.PCM.PN ---
Subjective - Date & Time of Evaluation Date of Evaluation: 08/02/18 Time of Evaluation: 19:20 - Subjective Subjective: I D NOTE FOR BARIUM ENEMA POSSIBLY TOMORROW AFEBRILE STILL HAS PAIN CONTINUE ZOSYN/FLAGYL Objective - Vital Signs/Intake and Output Vital Signs (last 24 hours): Temp Pulse Resp BP Pulse Ox 98.1 F 80 18 136/84 100 08/02/18 15:52 08/02/18 15:52 08/02/18 15:52 08/02/18 15:52 08/02/18 15:52 - Medications Medications: Current Medications Acetaminophen (Tylenol 325mg Tab) 650 mg PO Q6 PRN PRN Reason: Pain, Mild (1-3) Last Admin: 08/01/18 03:55 Dose: 650 mg Alprazolam (Xanax) 0.5 mg PO Q8 PRN PRN Reason: Anxiety Last Admin: 08/02/18 18:21 Dose: 0.5 mg Docusate Sodium (Colace) 100 mg PO BID [facility] Last Admin: 08/02/18 17:19 Dose: 100 mg Enoxaparin Sodium (Lovenox) 40 mg SC DAILY [facility]; Protocol Last Admin: 08/02/18 10:00 Dose: 40 mg Ferrous Sulfate (Feosol) 325 mg PO BID [facility] Last Admin: 08/02/18 17:19 Dose: 325 mg Metronidazole (Flagyl 500mg/100ml Ns) 100 mls @ 100 mls/hr IVPB Q8H [facility]; Protocol Last Admin: 08/02/18 18:14 Dose: 100 mls/hr Piperacillin Sod/Tazobactam (Sod 3.375 gm/ Sodium Chloride) 100 mls @ 100 mls/hr IVPB Q6 [facility]; Protocol Last Admin: 08/02/18 16:45 Dose: 100 mls/hr Levothyroxine Sodium (Synthroid) 88 mcg PO DAILY@0630 [facility] Last Admin: 08/02/18 06:43 Dose: Not Given Morphine Sulfate (Morphine) 2 mg IVP Q4 PRN PRN Reason: Pain, severe (8-10) Last Admin: 08/02/18 17:20 Dose: 2 mg Oxycodone HCl (Oxycodone Immediate Release Tab) 5 mg PO Q6 PRN PRN Reason: Pain, moderate (4-7) Last Admin: 08/02/18 14:45 Dose: 5 mg Polyethylene Glycol (Miralax) 17 gm PO BID [facility] Last Admin: 08/02/18 17:19 Dose: 17 gm - Labs Labs: 08/02/18 05:40 08/02/18 05:40 PT 16.2 Seconds (9.8-13.1) H 07/23/18 11:25 INR 1.4 07/23/18 11:25 APTT 31.2 Seconds (25.6-37.1) 07/23/18 11:25
--- NOTE | 2018-08-02 22:08 | CP.PCM.PN ---
Subjective - Date & Time of Evaluation Date of Evaluation: 08/02/18 Time of Evaluation: 10:00 - Subjective Subjective: Patient with lower abdominal discomfort. No acute pain or fever. Objective - Vital Signs/Intake and Output Vital Signs (last 24 hours): Temp Pulse Resp BP Pulse Ox 98.1 F 80 18 136/84 100 08/02/18 15:52 08/02/18 15:52 08/02/18 15:52 08/02/18 15:52 08/02/18 15:52 - Medications Medications: Current Medications Acetaminophen (Tylenol 325mg Tab) 650 mg PO Q6 PRN PRN Reason: Pain, Mild (1-3) Last Admin: 08/01/18 03:55 Dose: 650 mg Alprazolam (Xanax) 0.5 mg PO Q8 PRN PRN Reason: Anxiety Last Admin: 08/02/18 18:21 Dose: 0.5 mg Docusate Sodium (Colace) 100 mg PO BID [facility] Last Admin: 08/02/18 17:19 Dose: 100 mg Enoxaparin Sodium (Lovenox) 40 mg SC DAILY [facility]; Protocol Last Admin: 08/02/18 10:00 Dose: 40 mg Ferrous Sulfate (Feosol) 325 mg PO BID [facility] Last Admin: 08/02/18 17:19 Dose: 325 mg Metronidazole (Flagyl 500mg/100ml Ns) 100 mls @ 100 mls/hr IVPB Q8H [facility]; Protocol Last Admin: 08/02/18 18:14 Dose: 100 mls/hr Piperacillin Sod/Tazobactam (Sod 3.375 gm/ Sodium Chloride) 100 mls @ 100 mls/hr IVPB Q6 [facility]; Protocol Last Admin: 08/02/18 21:44 Dose: 100 mls/hr Levothyroxine Sodium (Synthroid) 88 mcg PO DAILY@0630 [facility] Last Admin: 08/02/18 06:43 Dose: Not Given Morphine Sulfate (Morphine) 2 mg IVP Q4 PRN PRN Reason: Pain, severe (8-10) Last Admin: 08/02/18 17:20 Dose: 2 mg Oxycodone HCl (Oxycodone Immediate Release Tab) 5 mg PO Q6 PRN PRN Reason: Pain, moderate (4-7) Last Admin: 08/02/18 21:46 Dose: 5 mg Polyethylene Glycol (Miralax) 17 gm PO BID [facility] Last Admin: 08/02/18 17:19 Dose: 17 gm - Labs Labs: 08/02/18 05:40 08/02/18 05:40 PT 16.2 Seconds (9.8-13.1) H 07/23/18 11:25 INR 1.4 07/23/18 11:25 APTT 31.2 Seconds (25.6-37.1) 07/23/18 11:25 - Head Exam Head Exam: ATRAUMATIC - Eye Exam Pupil Exam: NORMAL ACCOMODATION - ENT Exam ENT Exam: Mucous Membranes Moist - Respiratory Exam Respiratory Exam: Clear to Ausculation Bilateral - Cardiovascular Exam Cardiovascular Exam: REGULAR RHYTHM - GI/Abdominal Exam GI & Abdominal Exam: Soft, Normal Bowel Sounds Assessment and Plan (1) Pelvic abscess Assessment & Plan: Case discussed with surgery. Apparent communication between abscess cavity and bowel. Colonoscopy unlikely to have a role in treatment. To have gastrograffin enema and possible surgery. Maintain IV abx. Status: Acute
[2018-08-03] MEDS: Morphine 4 MG/ML VIAL IVP PRN ×2 (00:46→06:09)
[2018-08-03] MEDS: metroNIDAZOLE 500mg/100ml NS 100 ML IVPB SCH ×3 (03:35→18:34)
[2018-08-03] MEDS: Piperacillin/Tazobact 3.375 GM in Sodium Chloride 0.9% 100 ML IVPB SCH ×4 (04:48→22:14)
[2018-08-03] MEDS: Levothyroxine 88 MCG TAB PO SCH (06:02)
[2018-08-03 06:49] LABS: HEMOGLOBIN 9.8 g/dL (12.0-16.0); MEAN CELL VOLUME 82.2 fl (81.0-99.0); MEAN CORPUSCULAR HEMOGLOBIN 27.4 pg (27.0-31.0); MEAN CORPUSCULAR HGB CONC 33.3 g/dL (33.0-37.0); RBC 3.59 Mil/uL (3.80-5.20); RED CELL DISTRIBUTION WIDTH 18.8 % (11.5-14.5); WHITE BLOOD COUNT 4.9 K/uL (4.8-10.8)
[2018-08-03 07:13] LABS: BLOOD UREA NITROGEN 3 mg/dl (7-17); CALCIUM 9.2 mg/dL (8.4-10.2); GFR NON-AFRICAN AMERICAN > 60
[2018-08-03] MEDS ORDERED: Magnesium Citrate Oral SOL (300 ml) PO ONE (09:25)
--- NOTE | 2018-08-03 09:58 | CP.PCM.PN ---
Subjective - Date & Time of Evaluation Date of Evaluation: 08/03/18 Time of Evaluation: 09:46 - Subjective Subjective: pt seen at bedside, no overnight events. Pt resting comfortable. Pt reports discomfort mostly from drain. Pt was continues to tolerated diet without any nausea or vomiting. Pt afebrile, hemodynamically stable. Drain: scant output gen:awake, alert, NAD, HEENT: NC/AT, EOMI, no acute respiratory distress abd: soft, NT, ND, no peritoneal signs ext: no edema a/p: 63yo F s/p IR drainage of pelvic abscess -prn pain control -cont diet -IV abx -f/u KUB in Am - need to check for clearance of contrast -still needs barium enema Objective - Vital Signs/Intake and Output Vital Signs (last 24 hours): Temp Pulse Resp BP Pulse Ox 98.3 F 68 20 119/77 100 08/03/18 09:35 08/03/18 09:35 08/03/18 09:35 08/03/18 09:35 08/03/18 09:35 Intake and Output: 08/03/18 08/03/18 06:59 18:59 Output Total 0 Balance 0 - Medications Medications: Current Medications Acetaminophen (Tylenol 325mg Tab) 650 mg PO Q6 PRN PRN Reason: Pain, Mild (1-3) Last Admin: 08/01/18 03:55 Dose: 650 mg Alprazolam (Xanax) 0.5 mg PO Q8 PRN PRN Reason: Anxiety Last Admin: 08/02/18 18:21 Dose: 0.5 mg Docusate Sodium (Colace) 100 mg PO BID [facility] Last Admin: 08/02/18 17:19 Dose: 100 mg Enoxaparin Sodium (Lovenox) 40 mg SC DAILY [facility]; Protocol Last Admin: 08/02/18 10:00 Dose: 40 mg Ferrous Sulfate (Feosol) 325 mg PO BID [facility] Last Admin: 08/02/18 17:19 Dose: 325 mg Metronidazole (Flagyl 500mg/100ml Ns) 100 mls @ 100 mls/hr IVPB Q8H [facility]; Protocol Last Admin: 08/03/18 03:35 Dose: 100 mls/hr Piperacillin Sod/Tazobactam (Sod 3.375 gm/ Sodium Chloride) 100 mls @ 100 mls/hr IVPB Q6 [facility]; Protocol Last Admin: 08/03/18 04:48 Dose: 100 mls/hr Levothyroxine Sodium (Synthroid) 88 mcg PO DAILY@0630 [facility] Last Admin: 08/03/18 06:02 Dose: Not Given Magnesium Citrate (Citrate Of Mag) 300 ml PO ONCE ONE Stop: 08/03/18 09:26 Morphine Sulfate (Morphine) 2 mg IVP Q4 PRN PRN Reason: Pain, severe (8-10) Last Admin: 08/03/18 06:09 Dose: 2 mg Oxycodone HCl (Oxycodone Immediate Release Tab) 5 mg PO Q6 PRN PRN Reason: Pain, moderate (4-7) Last Admin: 08/02/18 21:46 Dose: 5 mg Polyethylene Glycol (Miralax) 17 gm PO BID [facility] Last Admin: 08/02/18 17:19 Dose: 17 gm - Labs Labs: 08/03/18 05:50 08/03/18 05:50 PT 16.2 Seconds (9.8-13.1) H 07/23/18 11:25 INR 1.4 07/23/18 11:25 APTT 31.2 Seconds (25.6-37.1) 07/23/18 11:25
[2018-08-03] MEDS: POLYETHYLENE GLYCOL 3350 17 GM/Dose PACKET PO SCH ×2 (10:27→17:32)
[2018-08-03] MEDS: Enoxaparin 40 mg Syringe SC SCH (10:27)
[2018-08-03] MEDS: oxyCODONE 5 mg Immediate Release Tab PO PRN ×3 (10:32→23:33)
--- NOTE | 2018-08-03 10:46 | CP.PCM.PN ---
<Paolo Espinosa - Last Filed: 08/03/18 11:51> Subjective - Date & Time of Evaluation Date of Evaluation: 08/03/18 Time of Evaluation: 08:00 - Subjective Subjective: pt seen and examined at bedside. Denies acute overnight events. Reports mild abdo pain yesterday that has since improved. Tolerating PO diet and experiencing normal BM. Objective - Vital Signs/Intake and Output Vital Signs (last 24 hours): Temp Pulse Resp BP Pulse Ox 98.3 F 68 20 119/77 100 08/03/18 09:35 08/03/18 09:35 08/03/18 09:35 08/03/18 09:35 08/03/18 09:35 Intake and Output: 08/03/18 08/03/18 06:59 18:59 Output Total 0 Balance 0 - Medications Medications: Current Medications Acetaminophen (Tylenol 325mg Tab) 650 mg PO Q6 PRN PRN Reason: Pain, Mild (1-3) Last Admin: 08/01/18 03:55 Dose: 650 mg Alprazolam (Xanax) 0.5 mg PO Q8 PRN PRN Reason: Anxiety Last Admin: 08/03/18 10:26 Dose: 0.5 mg Docusate Sodium (Colace) 100 mg PO BID [facility] Last Admin: 08/03/18 10:27 Dose: 100 mg Enoxaparin Sodium (Lovenox) 40 mg SC DAILY [facility]; Protocol Last Admin: 08/03/18 10:27 Dose: 40 mg Ferrous Sulfate (Feosol) 325 mg PO BID [facility] Last Admin: 08/03/18 10:26 Dose: 325 mg Metronidazole (Flagyl 500mg/100ml Ns) 100 mls @ 100 mls/hr IVPB Q8H [facility]; Protocol Last Admin: 08/03/18 10:17 Dose: 100 mls/hr Piperacillin Sod/Tazobactam (Sod 3.375 gm/ Sodium Chloride) 100 mls @ 100 ml s/hr IVPB Q6 [facility]; Protocol Last Admin: 08/03/18 04:48 Dose: 100 mls/hr Levothyroxine Sodium (Synthroid) 88 mcg PO DAILY@0630 [facility] Last Admin: 08/03/18 06:02 Dose: Not Given Morphine Sulfate (Morphine) 2 mg IVP Q4 PRN PRN Reason: Pain, severe (8-10) Last Admin: 08/03/18 06:09 Dose: 2 mg Oxycodone HCl (Oxycodone Immediate Release Tab) 5 mg PO Q6 PRN PRN Reason: Pain, moderate (4-7) Last Admin: 08/03/18 10:32 Dose: 5 mg Polyethylene Glycol (Miralax) 17 gm PO BID [facility] Last Admin: 08/03/18 10:27 Dose: 17 gm - Labs Labs: 08/03/18 05:50 08/03/18 05:50 PT 16.2 Seconds (9.8-13.1) H 07/23/18 11:25 INR 1.4 07/23/18 11:25 APTT 31.2 Seconds (25.6-37.1) 07/23/18 11:25 - Constitutional Appears: Well, No Acute Distress - Eye Exam Eye Exam: EOMI - ENT Exam ENT Exam: Mucous Membranes Moist - Respiratory Exam Respiratory Exam: Clear to Ausculation Bilateral, NORMAL BREATHING PATTERN. absent: Wheezes - Cardiovascular Exam Cardiovascular Exam: REGULAR RHYTHM, +S1, +S2 - GI/Abdominal Exam GI & Abdominal Exam: Soft, Normal Bowel Sounds. absent: Tenderness - Neurological Exam Neurological Exam: Alert, Awake, CN II-XII Intact, Normal Gait, Oriented x3 - Psychiatric Exam Psychiatric exam: Anxious Assessment and Plan - Assessment and Plan (Free Text) Assessment: 63 yo F pmhx of hypothyroidism, and anxiety was sent to ED per Dr. Silver for abdominal abscess incidentally found on outpatient abdo CT. Plan: Abdo CT: 7 x 6 cm abscess in pelvis anterior to recto-sigmoid; extralumenal air collecting -repeat: Transrectal decompression of left pelvic pericolic abscess now measuring 4.7 x 5.2 cm compared prior outside CT 07/22/2018. Oral contrast material is identified within the lumen of the abscess at this time. Continued clinical and CT follow-up are advised through the pelvis. Stable dilated CBD without radiodense choledocholithiasis evident. Gallbladder distended but otherwise unremarkable appearing. Mild anasarca noted. -Repeat: 07/29/2018: Borderline increase in left paracentral pelvic peritoneal abscess cavity measuring 4.7 x 5.9 cm compared to 4.7 x 5.2 cm previously. M ajority of this changes likely a function of increased gas. Correlate with daily drainage volumes from transrectal drainage catheter which remains in situ. A separate smaller abscess cavity seen inferomedial to the draining primary abscess cavity may not communicate with the main cavity and therefore be separate completely. No interval change in size in this cavity. Segmental colitis and potential proctitis pattern stable but limited evaluation given lack of oral contrast transit through this segment and anasarca pattern. KUB: done pending Barium enema: pending Blood and Urine culture: no growth Abcess culture: Lactococcus species Abdominal abcess: -s/p IR transrectal abscess pig tail drain placement -Incidental finding on CT -occult blood positive -Surgery Dr. Gonzales -GI consult Dr Thompson: consider barium enema -ID consult: Dr. Greene: recommends continued IV abx -IR Dr. Sherman -Abx: Zosyn IV, Flagyl IV -Still draining with abscess last measuring 4.7x5.2 cm -KUB in AM with barium enema to follow. Hypokalemia -K 4.2 -s/p kdur 20 -f/u bmp Anemia: -H/H: 9.8/29.5 today; stable; s/p PRBC 2 unit transfused -Positive Occult blood stool received -GI consult Dr Thompson, planning for OP colonoscopy after IR drainage to evaluate cause of abscess and anemia -Feosol BID -f/u CBC Hypothyroid: -c/w levothyroxine 88 mcg DVT prophylaxis: -SCDs -Pt actively ambulating -Lovenox Case and plan d/w Dr. Jimmy Espinosa MD PGY2 <Jared Marquez D - Last Filed: 08/03/18 13:19> Objective - Vital Signs/Intake and Output Vital Signs (last 24 hours): Temp Pulse Resp BP Pulse Ox 98.3 F 68 20 119/77 100 08/03/18 09:35 08/03/18 09:35 08/03/18 09:35 08/03/18 09:35 08/03/18 09:35 Intake and Output: 08/03/18 08/03/18 06:59 18:59 Output Total 0 0 Balance 0 0 - Medications Medications: Current Medications Acetaminophen (Tylenol 325mg Tab) 650 mg PO Q6 PRN PRN Reason: Pain, Mild (1-3) Last Admin: 08/01/18 03:55 Dose: 650 mg Alprazolam (Xanax) 0.5 mg PO Q8 PRN PRN Reason: Anxiety Last Admin: 08/03/18 10:26 Dose: 0.5 mg Docusate Sodium (Colace) 100 mg PO BID [facility] Last Admin: 08/03/18 10:27 Dose: 100 mg Enoxaparin Sodium (Lovenox) 40 mg SC DAILY [facility]; Protocol Last Admin: 08/03/18 10:27 Dose: 40 mg Ferrous Sulfate (Feosol) 325 mg PO BID [facility] Last Admin: 08/03/18 10:26 Dose: 325 mg Metronidazole (Flagyl 500mg/100ml Ns) 100 mls @ 100 mls/hr IVPB Q8H [facility]; Protocol Last Admin: 08/03/18 10:17 Dose: 100 mls/hr Piperacillin Sod/Tazobactam (Sod 3.375 gm/ Sodium Chloride) 100 mls @ 100 mls/hr IVPB Q6 [facility]; Protocol Last Admin: 08/03/18 12:51 Dose: 100 mls/hr Levothyroxine Sodium (Synthroid) 88 mcg PO DAILY@0630 [facility] Last Admin: 08/03/18 06:02 Dose: Not Given Morphine Sulfate (Morphine) 2 mg IVP Q4 PRN PRN Reason: Pain, severe (8-10) Last Admin: 08/03/18 06:09 Dose: 2 mg Oxycodone HCl (Oxycodone Immediate Release Tab) 5 mg PO Q6 PRN PRN Reason: Pain, moderate (4-7) Last Admin: 08/03/18 10:32 Dose: 5 mg Polyethylene Glycol (Miralax) 17 gm PO BID [facility] Last Admin: 08/03/18 10:27 Dose: 17 gm - Labs Labs: 08/03/18 05:50 08/03/18 05:50 PT 16.2 Seconds (9.8-13.1) H 07/23/18 11:25 INR 1.4 07/23/18 11:25 APTT 31.2 Seconds (25.6-37.1) 07/23/18 11:25 Attending/Attestation - Attestation I have personally seen and examined this patient.: Yes I have fully participated in the care of the patient.: Yes I have reviewed all pertinent clinical information, including history, physical exam and plan: Yes Notes (Text): 08/03/18 13:16 Patient seen and examined with resident. Case discussed and agreed with assessment and plan. Patient scheduled for barium enema to assess pelvic abscess.
--- NOTE | 2018-08-03 14:09 | RAD ---
Date of service: 08/03/2018 HISTORY: abd pain COMPARISON: None available. FINDINGS: BOWEL: There is contrast throughout the colon compatible with patient's 07/29/2018 CT abdomen and pelvic exam per oral contrast was administered. No bowel obstruction seen. Projecting over the rectal area there is a choroid abscess drained-presumably transrectal-per the CT 07/29/2018 report BONES: Diffuse thoraco lumbar spondylosis. S-shaped scoliosis. OTHER FINDINGS: None. IMPRESSION: The pelvic drain in place presumably within a transrectal pelvic abscess. Please note the prior CT abdomen and pelvic report regarding additional right medial pelvic abscess collection possibly noncommunicating. On this exam no bowel obstruction seen. No gross fistulous tracts noted. Redundancy of the colon and ptosis of the transverse colon with contrast is present.
[2018-08-04] MEDS: metroNIDAZOLE 500mg/100ml NS 100 ML IVPB SCH ×3 (02:10→18:54)
[2018-08-04] MEDS: Piperacillin/Tazobact 3.375 GM in Sodium Chloride 0.9% 100 ML IVPB SCH ×4 (03:58→21:23)
[2018-08-04] MEDS: Levothyroxine 88 MCG TAB PO SCH (06:30)
[2018-08-04 06:52] LABS: BASO # 0.1 K/uL (0.0-0.2); BASO % 2.2 % (0.0-2.0); EOS # 0.2 K/uL (0.0-0.7); EOS % 3.4 % (0.0-4.0); HEMOGLOBIN 9.8 g/dL (12.0-16.0); LYMPH % 22.2 % (20.0-40.0); MEAN CELL VOLUME 82.6 fl (81.0-99.0); MEAN CORPUSCULAR HEMOGLOBIN 27.3 pg (27.0-31.0); MEAN CORPUSCULAR HGB CONC 33.1 g/dL (33.0-37.0); MONO # 0.5 K/uL (0.0-0.8); MONO % 10.6 % (0.0-10.0); NEUT # 2.8 K/uL (1.8-7.0); NEUT % 61.6 % (50.0-75.0); NRBC % 0.1 % (0.0-0.0); RBC 3.57 Mil/uL (3.80-5.20); RED CELL DISTRIBUTION WIDTH 18.7 % (11.5-14.5); WHITE BLOOD COUNT 4.6 K/uL (4.8-10.8)
[2018-08-04 07:17] LABS: ALB/GLOB RATIO 0.9 (1.0-2.1); ALBUMIN 3.4 g/dL (3.5-5.0); ALT/SGPT 26 U/L (9-52); AST/SGOT 23 U/L (14-36); BLOOD UREA NITROGEN 4 mg/dl (7-17); CALCIUM 9.2 mg/dL (8.4-10.2); GFR NON-AFRICAN AMERICAN > 60
[2018-08-04] MEDS: Enoxaparin 40 mg Syringe SC SCH (09:31)
[2018-08-04] MEDS: POLYETHYLENE GLYCOL 3350 17 GM/Dose PACKET PO SCH ×2 (09:37→16:44)
[2018-08-04] MEDS ORDERED: Magnesium Citrate Oral SOL (300 ml) PO ONE ×2 (10:14→10:15)
--- NOTE | 2018-08-04 10:25 | CP.PCM.PN ---
Subjective - Date & Time of Evaluation Date of Evaluation: 08/04/18 Time of Evaluation: 08:00 - Subjective Subjective: Pt seen and examined at bedside this AM. Denies acute overnight events. Reports gas. Anxious Objective - Vital Signs/Intake and Output Vital Signs (last 24 hours): Temp Pulse Resp BP Pulse Ox 98.1 F 78 20 134/85 97 08/04/18 08:23 08/04/18 08:23 08/04/18 08:23 08/04/18 08:23 08/04/18 08:23 - Medications Medications: Current Medications Acetaminophen (Tylenol 325mg Tab) 650 mg PO Q6 PRN PRN Reason: Pain, Mild (1-3) Last Admin: 08/01/18 03:55 Dose: 650 mg Alprazolam (Xanax) 0.5 mg PO Q8 PRN PRN Reason: Anxiety Last Admin: 08/04/18 09:36 Dose: 0.5 mg Docusate Sodium (Colace) 100 mg PO BID [facility] Last Admin: 08/04/18 09:36 Dose: Not Given Enoxaparin Sodium (Lovenox) 40 mg SC DAILY [facility]; Protocol Last Admin: 08/04/18 09:31 Dose: 40 mg Ferrous Sulfate (Feosol) 325 mg PO BID [facility] Last Admin: 08/04/18 09:37 Dose: 325 mg Metronidazole (Flagyl 500mg/100ml Ns) 100 mls @ 100 mls/hr IVPB Q8H [facility]; Protocol Last Admin: 08/04/18 02:10 Dose: 100 mls/hr Piperacillin Sod/Tazobactam (Sod 3.375 gm/ Sodium Chloride) 100 mls @ 100 mls/hr IVPB Q6 [facility]; Protocol Last Admin: 08/04/18 09:30 Dose: 100 mls/hr Levothyroxine Sodium (Synthroid) 88 mcg PO DAILY@0630 [facility] Last Admin: 08/04/18 06:30 Dose: Not Given Magnesium Citrate (Citrate Of Mag) 300 ml PO ONCE ONE Stop: 08/04/18 10:15 Magnesium Citrate (Citrate Of Mag) 300 ml PO ONCE ONE Stop: 08/04/18 10:16 Morphine Sulfate (Morphine) 2 mg IVP Q4 PRN PRN Reason: Pain, severe (8-10) Last Admin: 03/13/19 06:09 Dose: 2 mg Oxycodone HCl (Oxycodone Immediate Release Tab) 5 mg PO Q6 PRN PRN Reason: Pain, moderate (4-7) Last Admin: 08/03/18 23:33 Dose: 5 mg Polyethylene Glycol (Miralax) 17 gm PO BID [facility] Last Admin: 08/04/18 09:37 Dose: Not Given - Labs Labs: 08/04/18 05:40 08/04/18 05:40 PT 16.2 Seconds (9.8-13.1) H 07/23/18 11:25 INR 1.4 07/23/18 11:25 APTT 31.2 Seconds (25.6-37.1) 07/23/18 11:25 - Constitutional Appears: No Acute Distress - Eye Exam Eye Exam: EOMI - ENT Exam ENT Exam: Mucous Membranes Moist - Respiratory Exam Respiratory Exam: Clear to Ausculation Bilateral, NORMAL BREATHING PATTERN. absent: Wheezes - Cardiovascular Exam Cardiovascular Exam: +S1, +S2 - GI/Abdominal Exam GI & Abdominal Exam: Soft, Normal Bowel Sounds - Rectal Exam Additional comments: rectal drain in place - Extremities Exam Extremities Exam: Full ROM - Neurological Exam Neurological Exam: Alert, Awake, Oriented x3 - Psychiatric Exam Psychiatric exam: Anxious Assessment and Plan - Assessment and Plan (Free Text) Assessment: 63 yo F pmhx of hypothyroidism, and anxiety was sent to ED per Dr. Silver for abdominal abscess incidentally found on outpatient abdo CT. Plan: Abdo CT: 7 x 6 cm abscess in pelvis anterior to recto-sigmoid; extralumenal air collecting -repeat: Transrectal decompression of left pelvic pericolic abscess now measuring 4.7 x 5.2 cm compared prior outside CT 07/22/2018. Oral contrast material is identified within the lumen of the abscess at this time. Continued clinical and CT follow-up are advised through the pelvis. Stable dilated CBD without radiodense choledocholithiasis evident. Gallbladder distended but otherwise unremarkable appearing. Mild anasarca noted. -Repeat: 07/29/2018: Borderline increase in left paracentral pelvic peritoneal abscess cavity measuring 4.7 x 5.9 cm compared to 4.7 x 5.2 cm previously. Majority of this changes likely a function of increased gas. Correlate with daily drainage volumes from transrectal drainage catheter which remains in situ. A separate smaller abscess cavity seen inferomedial to the draining primary abscess cavity may not communicate with the main cavity and therefore be separate completely. No interval change in size in this cavity. Segmental colitis and potential proctitis pattern stable but limited evaluation given lack of oral contrast transit through this segment and anasarca pattern. KUB: No significant change in the distribution of contrast primarily in the colon and appendix. The oral contrast appears to be more diluted. Stable position of pelvic drainage catheter. Barium enema: pending Blood and Urine culture: no growth Abcess culture: Lactococcus species Abdominal abcess: -s/p IR transrectal abscess pig tail drain placement -Incidental finding on CT -occult blood positive -Surgery Dr. Gonzales -GI consult Dr Thompson -ID consult: Dr. Greene: recommends continued IV abx -IR Dr. Sherman -Abx: Zosyn IV, Flagyl IV -Still draining with abscess last measuring 4.7x5.2 cm -KUB in AM with barium enema to follow. Pending contrast wash out Hypokalemia Resolved -K 4.4 -f/u bmp Anemia: -H/H: 9.8/29.5 today; stable; s/p PRBC 2 unit transfused -Positive Occult blood stool received -GI consult Dr Thompson: OP colonoscopy -Feosol BID -f/u CBC Hypothyroid: -c/w levothyroxine 88 mcg DVT prophylaxis: -SCDs -Pt actively ambulating -Lovenox Case and plan d/w Dr. Jimmy Espinosa MD PGY2
--- NOTE | 2018-08-04 10:44 | CP.PCM.PN ---
Subjective - Date & Time of Evaluation Date of Evaluation: 08/04/18 Time of Evaluation: 10:34 - Subjective Subjective: General Surgery Pt seen and examined this AM with Dr. Crowell. She c/o rectal pain from catheter. She reports moving her bowels from the magnesium citrate given yesterday. (-) N/V. KUB repeated this AM. Pt continues with contrast in colon. Labs and vitals noted PE Gen: Pt laying in bed in NAD Skin: warm and dry Resp: Abd: Soft NTND, (-) peritoneal signs Rectal: (+) catheter with no liquid or air in bag Extr: (-) calf swelling A/P 63yo F s/p IR drainage of pelvic abscess CT abd/pelvis today with only IV contrast Order entered for mag citrate x 2 today. Repeat KUB in AM to check for contrast clearance, if contrast is cleared from colon then pt will need Barium enema tomorrow. Monitor labs Pain meds prn Objective - Vital Signs/Intake and Output Vital Signs (last 24 hours): Temp Pulse Resp BP Pulse Ox 98.1 F 78 20 134/85 97 08/04/18 08:23 08/04/18 08:23 08/04/18 08:23 08/04/18 08:23 08/04/18 08:23 - Medications Medications: Current Medications Acetaminophen (Tylenol 325mg Tab) 650 mg PO Q6 PRN PRN Reason: Pain, Mild (1-3) Last Admin: 08/01/18 03:55 Dose: 650 mg Alprazolam (Xanax) 0.5 mg PO Q8 PRN PRN Reason: Anxiety Last Admin: 08/04/18 09:36 Dose: 0.5 mg Docusate Sodium (Colace) 100 mg PO BID [facility] Last Admin: 08/04/18 09:36 Dose: Not Given Enoxaparin Sodium (Lovenox) 40 mg SC DAILY [facility]; Protocol Last Admin: 08/04/18 09:31 Dose: 40 mg Ferrous Sulfate (Feosol) 325 mg PO BID [facility] Last Admin: 08/04/18 09:37 Dose: 325 mg Metronidazole (Flagyl 500mg/100ml Ns) 100 mls @ 100 mls/hr IVPB Q8H [facility]; Protocol Last Admin: 08/04/18 02:10 Dose: 100 mls/hr Piperacillin Sod/Tazobactam (Sod 3.375 gm/ Sodium Chloride) 100 mls @ 100 mls/hr IVPB Q6 [facility]; Protocol Last Admin: 08/04/18 09:30 Dose: 100 mls/hr Levothyroxine Sodium (Synthroid) 88 mcg PO DAILY@0630 [facility] Last Admin: 08/04/18 06:30 Dose: Not Given Magnesium Citrate (Citrate Of Mag) 300 ml PO ONCE ONE Stop: 08/04/18 10:15 Magnesium Citrate (Citrate Of Mag) 300 ml PO ONCE ONE Stop: 08/04/18 10:16 Morphine Sulfate (Morphine) 2 mg IVP Q4 PRN PRN Reason: Pain, severe (8-10) Last Admin: 08/03/18 06:09 Dose: 2 mg Oxycodone HCl (Oxycodone Immediate Release Tab) 5 mg PO Q6 PRN PRN Reason: Pain, moderate (4-7) Last Admin: 08/03/18 23:33 Dose: 5 mg Polyethylene Glycol (Miralax) 17 gm PO BID [facility] Last Admin: 08/04/18 09:37 Dose: Not Given - Labs Labs: 08/04/18 05:40 08/04/18 05:40 PT 16.2 Seconds (9.8-13.1) H 07/23/18 11:25 INR 1.4 07/23/18 11:25 APTT 31.2 Seconds (25.6-37.1) 07/23/18 11:25
--- NOTE | 2018-08-04 11:27 | RAD ---
Date of service: 08/04/2018 HISTORY: follow up of contrast COMPARISON: August 03, 2018. FINDINGS: BOWEL: Contrast remains in the nondistended colon and appendix. Contrast appears more dilute but is otherwise unchanged with respect to distribution. BONES: Normal. OTHER FINDINGS: Stable position of pigtail catheter in the pelvis. IMPRESSION: No significant change in the distribution of contrast primarily in the colon and appendix. The oral contrast appears to be more diluted. Stable position of pelvic drainage catheter.
[2018-08-04] MEDS ORDERED: Sodium Chloride 0.9% 50 ML IV ONE (13:21)
[2018-08-04] MEDS ORDERED: Iohexol 300 100 ML IJ ONE (13:21)
[2018-08-04] MEDS: oxyCODONE 5 mg Immediate Release Tab PO PRN ×2 (14:19→21:35)
--- NOTE | 2018-08-04 16:29 | CT ---
Date of service: 08/04/2018 PROCEDURE: CT Abdomen and Pelvis with contrast HISTORY: Pelvic abscess. Relevant interventional procedure(s): 07/30/2018. Transrectal directed abscess drainage with recovery of 0.25 L of fluid. COMPARISON: 07/29/2018. CT abdomen and pelvis. TECHNIQUE: Intravenous contrast dose: 95 cc Omnipaque 300. Radiation dose: Total exam DLP = <inf_radiation_dlp> mGy-cm. This CT exam was performed using one or more of the following dose reduction techniques: Automated exposure control, adjustment of the mA and/or kV according to patient size, and/or use of iterative reconstruction technique. FINDINGS: LOWER THORAX: Unremarkable. LIVER: Unremarkable. No gross lesion or ductal dilatation. GALLBLADDER AND BILE DUCTS: Unremarkable. PANCREAS: Unremarkable. No gross lesion or ductal dilatation. SPLEEN: Unremarkable. ADRENALS: Unremarkable. No mass. KIDNEYS AND URETERS: Unremarkable. No hydronephrosis. No solid mass. VASCULATURE: Unremarkable. No aortic aneurysm. No atherosclerotic calcification or mural plaque present. BOWEL: Distended stomach and duodenum to the point where celiac axis crosses the aorta just to the left of the midline, splenic artery region. Beyond this there is diffuse dilatation small bowel likely ileus. Fluid-filled colon APPENDIX: Normal appendix. PERITONEUM: Unremarkable. No free fluid. No free air. LYMPH NODES: Unremarkable. No enlarged lymph nodes. BLADDER: Unremarkable. REPRODUCTIVE: Unremarkable. BONES: No acute fracture. OTHER FINDINGS: The catheter, coiled in residing in the cul-de-sac appears to be inferior to a well-formed abscess cavity measuring 4.7 x 6.2 cm. Recurrent abscess, reaccumulation of fluid within the abscess cavity should be considered. The coiled component of the catheter is inferior to this collection. The collection is multiloculated and increased in size compared to the prior study 07/29/2018. IMPRESSION: Increase in size of the dominant abscess cavity in the pelvis. The previously identified pigtail catheter appears more caudally situated and a smaller collection. Distended stomach and duodenum. Beyond the point of narrowing in the vicinity of the celiac axis is small-bowel ileus. Communication of results: Verbal results with read back provided to the nurse involved in the care and management of this patient at 16:24.
[2018-08-05] MEDS: metroNIDAZOLE 500mg/100ml NS 100 ML IVPB SCH ×3 (02:38→19:04)
[2018-08-05] MEDS: Piperacillin/Tazobact 3.375 GM in Sodium Chloride 0.9% 100 ML IVPB SCH ×2 (03:27→12:01)
[2018-08-05] MEDS: Levothyroxine 88 MCG TAB PO SCH (06:15)
[2018-08-05 06:48] LABS: BLOOD UREA NITROGEN 5 mg/dl (7-17); CALCIUM 8.7 mg/dL (8.4-10.2); GFR NON-AFRICAN AMERICAN > 60
--- NOTE | 2018-08-05 07:25 | CP.PCM.PN ---
<Paolo Espinosa - Last Filed: 08/05/18 12:49> Subjective - Date & Time of Evaluation Date of Evaluation: 08/05/18 Time of Evaluation: 07:00 - Subjective Subjective: Pt seen and examined at bedside. No acute events overnight. Pt anxious about next steps. currently NPO per surgery. Objective - Vital Signs/Intake and Output Vital Signs (last 24 hours): Temp Pulse Resp BP Pulse Ox 98.2 F 62 20 113/73 98 08/04/18 23:54 08/04/18 23:54 08/04/18 23:54 08/04/18 23:54 08/04/18 23:54 - Medications Medications: Current Medications Acetaminophen (Tylenol 325mg Tab) 650 mg PO Q6 PRN PRN Reason: Pain, Mild (1-3) Last Admin: 08/01/18 03:55 Dose: 650 mg Alprazolam (Xanax) 0.5 mg PO Q8 PRN PRN Reason: Anxiety Last Admin: 08/04/18 21:21 Dose: 0.5 mg Docusate Sodium (Colace) 100 mg PO BID [facility] Last Admin: 08/04/18 16:43 Dose: Not Given Enoxaparin Sodium (Lovenox) 40 mg SC DAILY [facility]; Protocol Last Admin: 08/04/18 09:31 Dose: 40 mg Ferrous Sulfate (Feosol) 325 mg PO BID [facility] Last Admin: 08/04/18 16:43 Dose: 325 mg Metronidazole (Flagyl 500mg/100ml Ns) 100 mls @ 100 mls/hr IVPB Q8H [facility]; P rotocol Last Admin: 08/05/18 02:38 Dose: 100 mls/hr Piperacillin Sod/Tazobactam (Sod 3.375 gm/ Sodium Chloride) 100 mls @ 100 mls/hr IVPB Q6 [facility]; Protocol Last Admin: 08/05/18 03:27 Dose: 100 mls/hr Levothyroxine Sodium (Synthroid) 88 mcg PO DAILY@0630 [facility] Last Admin: 08/05/18 06:15 Dose: Not Given Morphine Sulfate (Morphine) 2 mg IVP Q4 PRN PRN Reason: Pain, severe (8-10) Last Admin: 08/03/18 06:09 Dose: 2 mg Oxycodone HCl (Oxycodone Immediate Release Tab) 5 mg PO Q6 PRN PRN Reason: Pain, moderate (4-7) Last Admin: 08/04/18 21:35 Dose: 5 mg Polyethylene Glycol (Miralax) 17 gm PO BID [facility] Last Admin: 08/04/18 16:44 Dose: Not Given - Labs Labs: 08/04/18 05:40 08/05/18 05:55 PT 16.2 Seconds (9.8-13.1) H 07/23/18 11:25 INR 1.4 07/23/18 11:25 APTT 31.2 Seconds (25.6-37.1) 07/23/18 11:25 - Constitutional Appears: No Acute Distress - Eye Exam Eye Exam: EOMI - ENT Exam ENT Exam: Mucous Membranes Moist - Respiratory Exam Respiratory Exam: Clear to Ausculation Bilateral, NORMAL BREATHING PATTERN. absent: Wheezes - Cardiovascular Exam Cardiovascular Exam: REGULAR RHYTHM, +S1, +S2 - GI/Abdominal Exam GI & Abdominal Exam: Soft, Normal Bowel Sounds - Rectal Exam Additional comments: rectal drain in place - Neurological Exam Neurological Exam: Alert, Awake, CN II-XII Intact, Normal Gait, Oriented x3 - Psychiatric Exam Psychiatric exam: Normal Affect, Normal Mood Assessment and Plan - Assessment and Plan (Free Text) Assessment: 63 yo F pmhx of hypothyroidism, and anxiety was sent to ED per Dr. Silver for a bdominal abscess incidentally found on outpatient abdo CT. Plan: Abdo CT: 7 x 6 cm abscess in pelvis anterior to recto-sigmoid; extralumenal air collecting -repeat: Transrectal decompression of left pelvic pericolic abscess now measuring 4.7 x 5.2 cm compared prior outside CT 07/22/2018. Oral contrast material is identified within the lumen of the abscess at this time. Continued clinical and CT follow-up are advised through the pelvis. Stable dilated CBD without radiodense choledocholithiasis evident. Gallbladder distended but otherwise unremarkable appearing. Mild anasarca noted. -Repeat: 07/29/2018: Borderline increase in left paracentral pelvic peritoneal abscess cavity measuring 4.7 x 5.9 cm compared to 4.7 x 5.2 cm previously. Majority of this changes likely a function of increased gas. Correlate with daily drainage volumes from transrectal drainage catheter which remains in situ. A separate smaller abscess cavity seen inferomedial to the draining primary abscess cavity may not communicate with the main cavity and therefore be separate completely. No interval change in size in this cavity. Segmental colitis and potential proctitis pattern stable but limited evaluation given lack of oral contrast transit through this segment and anasarca pattern. -Repeat: 08/04/2018: Increase in size of the dominant abscess cavity in the pelvis. The previously identified pigtail catheter appears more caudally situated and a smaller collection. Distended stomach and duodenum. Beyond the point of narrowing in the vicinity of the celiac axis is small-bowel ileus. KUB: No significant change in the distribution of contrast primarily in the colon and appendix. The oral contrast appears to be more diluted. Stable position of pelvic drainage catheter. Barium enema: pending Blood and Urine culture: no growth Abcess culture: Lactococcus species Abdominal abcess: -s/p IR transrectal abscess pig tail drain placement -Incidental finding on CT -occult blood positive -Surgery Dr. Gonzales -GI consult Dr Thompson -ID consult: Dr. Greene: recommends d/c zosyn; start meropenem -IR Dr. Sherman -Abx: Meropenem IV, Flagyl IV -Still draining with abscess last measuring 4.7x5.2 cm -Gastrografin enema today Hypokalemia Resolved -K 3.6 -f/u bmp Anemia: -H/H: 9.8/29.5; stable; s/p PRBC 2 unit transfused -Positive Occult blood stool received -GI consult Dr Thompson: OP colonoscopy -Feosol BID -f/u CBC Hypothyroid: -c/w levothyroxine 88 mcg DVT prophylaxis: -SCDs -Pt actively ambulating -Lovenox Case and plan d/w Dr. Alex Espinosa MD PGY2 <Charity Johnson - Last Filed: 08/06/18 19:09> Objective - Vital Signs/Intake and Output Vital Signs (last 24 hours): Temp Pulse Resp BP Pulse Ox 98 F 64 18 136/83 99 08/06/18 16:12 08/06/18 16:12 08/06/18 16:12 08/06/18 16:12 08/06/18 16:12 Intake and Output: 08/06/18 08/07/18 18:59 06:59 Intake Total 1380 Output Total 0 Balance 1380 - Medications Medications: Current Medications Acetaminophen (Tylenol 325mg Tab) 650 mg PO Q6 PRN PRN Reason: Pain, Mild (1-3) Last Admin: 08/01/18 03:55 Dose: 650 mg Alprazolam (Xanax) 0.5 mg PO Q8 PRN PRN Reason: Anxiety Last Admin: 08/06/18 08:36 Dose: 0.5 mg Docusate Sodium (Colace) 100 mg PO BID [facility] Last Admin: 08/06/18 18:21 Dose: Not Given Enoxaparin Sodium (Lovenox) 40 mg SC DAILY [facility]; Protocol Last Admin: 08/06/18 08:40 Dose: 40 mg Ferrous Sulfate (Feosol) 325 mg PO BID [facility] Last Admin: 08/06/18 18:21 Dose: 325 mg Metronidazole (Flagyl 500mg/100ml Ns) 100 mls @ 100 mls/hr IVPB Q8H [facility]; Protocol Last Admin: 08/06/18 18:21 Dose: 100 mls/hr Meropenem 500 mg/ Sodium (Chloride) 100 mls @ 100 mls/hr IVPB Q8 [facility]; Protocol Last Admin: 08/06/18 18:22 Dose: 100 mls/hr Vancomycin HCl 1 gm/ Sodium (Chloride) 250 mls @ 166.667 mls/hr IVPB Q12 [facility]; Protocol Last Admin: 08/06/18 08:38 Dose: 166.667 mls/hr Levothyroxine Sodium (Synthroid) 88 mcg PO DAILY@0630 [facility] Last Admin: 08/06/18 06:32 Dose: 88 mcg Morphine Sulfate (Morphine) 2 mg IVP Q4 PRN PRN Reason: Pain, severe (8-10) Last Admin: 08/03/18 06:09 Dose: 2 mg Oxycodone HCl (Oxycodone Immediate Release Tab) 5 mg PO Q6 PRN PRN Reason: Pain, moderate (4-7) Last Admin: 08/06/18 18:20 Dose: 5 mg Polyethylene Glycol (Miralax) 17 gm PO BID [facility] Last Admin: 08/06/18 18:20 Dose: Not Given - Labs Labs: 08/06/18 05:50 08/06/18 05:50 PT 16.2 Seconds (9.8-13.1) H 07/23/18 11:25 INR 1.4 07/23/18 11:25 APTT 31.2 Seconds (25.6-37.1) 07/23/18 11:25 Attending/Attestation - Attestation I have personally seen and examined this patient.: Yes I have fully participated in the care of the patient.: Yes I have reviewed all pertinent clinical information, including history, physical exam and plan: Yes Notes (Text): 08/06/18 19:09 Agree with findings and plan as above.
--- NOTE | 2018-08-05 09:19 | CP.PCM.PN ---
Subjective - Date & Time of Evaluation Date of Evaluation: 08/05/18 Time of Evaluation: 09:16 - Subjective Subjective: General Surgery Pt seen and examined this AM. She has no complaints at this time. Pt had a CT scan yesterday, which showed collection to have increased slightly in size. Afebrile. Continues on ABX. Pending KUB this AM to evaluate contrast, Labs and vitals noted PE Gen: Pt laying in bed in NAD Skin: warm and dry Cardio: s1s2 RRR Lungs: CTA bilaterally Abd: Soft NTND Rectal: (-) output or air in catheter bag Extr: (-) calf swelling or erythema bilaterally Pelvic abscess NPO for now Repeat KUB today to check for contrast clearance, if contrast is cleared from colon then pt will need Barium enema today Monitor labs Pain meds prn IVF ordered at this time as pt is NPO Pt on abx, being followed by ID. Objective - Vital Signs/Intake and Output Vital Signs (last 24 hours): Temp Pulse Resp BP Pulse Ox 98.0 F 71 20 121/77 100 08/05/18 08:21 08/05/18 08:21 08/05/18 08:21 08/05/18 08:21 08/05/18 08:21 Intake and Output: 08/05/18 08/05/18 06:59 18:59 Output Total 0 Balance 0 - Medications Medications: Current Medications Acetaminophen (Tylenol 325mg Tab) 650 mg PO Q6 PRN PRN Reason: Pain, Mild (1-3) Last Admin: 08/01/18 03:55 Dose: 650 mg Alprazolam (Xanax) 0.5 mg PO Q8 PRN PRN Reason: Anxiety Last Admin: 08/04/18 21:21 Dose: 0.5 mg Docusate Sodium (Colace) 100 mg PO BID [facility] Last Admin: 08/04/18 16:43 Dose: Not Given Enoxaparin Sodium (Lovenox) 40 mg SC DAILY [facility]; Protocol Last Admin: 08/04/18 09:31 Dose: 40 mg Ferrous Sulfate (Feosol) 325 mg PO BID [facility] Last Admin: 08/04/18 16:43 Dose: 325 mg Metronidazole (Flagyl 500mg/100ml Ns) 100 mls @ 100 mls/hr IVPB Q8H [facility]; Protocol Last Admin: 08/05/18 02:38 Dose: 100 mls/hr Piperacillin Sod/Tazobactam (Sod 3.375 gm/ Sodium Chloride) 100 mls @ 100 mls/hr IVPB Q6 [facility]; Protocol Last Admin: 08/05/18 03:27 Dose: 100 mls/hr Sodium Chloride (Sodium Chloride 0.9%) 1,000 mls @ 100 mls/hr IV .Q10H [facility] Stop: 08/06/18 08:51 Levothyroxine Sodium (Synthroid) 88 mcg PO DAILY@0630 [facility] Last Admin: 08/05/18 06:15 Dose: Not Given Morphine Sulfate (Morphine) 2 mg IVP Q4 PRN PRN Reason: Pain, severe (8-10) Last Admin: 08/03/18 06:09 Dose: 2 mg Oxycodone HCl (Oxycodone Immediate Release Tab) 5 mg PO Q6 PRN PRN Reason: Pain, moderate (4-7) Last Admin: 08/04/18 21:35 Dose: 5 mg Polyethylene Glycol (Miralax) 17 gm PO BID [facility] Last Admin: 08/04/18 16:44 Dose: Not Given - Labs Labs: 08/04/18 05:40 08/05/18 05:55 PT 16.2 Seconds (9.8-13.1) H 07/23/18 11:25 INR 1.4 07/23/18 11:25 APTT 31.2 Seconds (25.6-37.1) 07/23/18 11:25
[2018-08-05] MEDS: Sodium Chloride 0.9% 1,000 ML IV SCH ×3 (11:58→22:56)
[2018-08-05] MEDS: POLYETHYLENE GLYCOL 3350 17 GM/Dose PACKET PO SCH ×2 (11:58→16:10)
[2018-08-05] MEDS: Enoxaparin 40 mg Syringe SC SCH (12:02)
--- NOTE | 2018-08-05 12:12 | CP.PCM.PN ---
Subjective - Date & Time of Evaluation Date of Evaluation: 08/05/18 Time of Evaluation: 12:10 - Subjective Subjective: I D NOTE CT REVIEWED HACE D/ROSE ZOSYN STARTED MEROPENEM AND VANCOMYCIN Objective - Vital Signs/Intake and Output Vital Signs (last 24 hours): Temp Pulse Resp BP Pulse Ox 98.0 F 71 20 121/77 100 08/05/18 08:21 08/05/18 08:21 08/05/18 08:21 08/05/18 08:21 08/05/18 08:21 Intake and Output: 08/05/18 08/05/18 06:59 18:59 Output Total 0 Balance 0 - Medications Medications: Current Medications Acetaminophen (Tylenol 325mg Tab) 650 mg PO Q6 PRN PRN Reason: Pain, Mild (1-3) Last Admin: 08/01/18 03:55 Dose: 650 mg Alprazolam (Xanax) 0.5 mg PO Q8 PRN PRN Reason: Anxiety Last Admin: 08/04/18 21:21 Dose: 0.5 mg Docusate Sodium (Colace) 100 mg PO BID [facility] Last Admin: 08/05/18 11:58 Dose: Not Given Enoxaparin Sodium (Lovenox) 40 mg SC DAILY [facility]; Protocol Last Admin: 08/05/18 12:02 Dose: 40 mg Ferrous Sulfate (Feosol) 325 mg PO BID [facility] Last Admin: 08/05/18 11:58 Dose: Not Given Metronidazole (Flagyl 500mg/100ml Ns) 100 mls @ 100 mls/hr IVPB Q8H [facility]; Protocol Last Admin: 08/05/18 02:38 Dose: 100 mls/hr Sodium Chloride (Sodium Chloride 0.9%) 1,000 mls @ 100 mls/hr IV .Q10H [facility] Stop: 08/06/18 08:51 Last Admin: 08/05/18 11:58 Dose: Not Given Meropenem 500 mg/ Sodium (Chloride) 100 mls @ 100 mls/hr IVPB Q8 [facility]; Protocol Levothyroxine Sodium (Synthroid) 88 mcg PO DAILY@0630 [facility] Last Admin: 08/05/18 06:15 Dose: Not Given Morphine Sulfate (Morphine) 2 mg IVP Q4 PRN PRN Reason: Pain, severe (8-10) Last Admin: 08/03/18 06:09 Dose: 2 mg Oxycodone HCl (Oxycodone Immediate Release Tab) 5 mg PO Q6 PRN PRN Reason: Pain, moderate (4-7) Last Admin: 08/04/18 21:35 Dose: 5 mg Polyethylene Glycol (Miralax) 17 gm PO BID [facility] Last Admin: 08/05/18 11:58 Dose: Not Given - Labs Labs: 08/04/18 05:40 08/05/18 05:55 PT 16.2 Seconds (9.8-13.1) H 07/23/18 11:25 INR 1.4 07/23/18 11:25 APTT 31.2 Seconds (25.6-37.1) 07/23/18 11:25
--- NOTE | 2018-08-05 13:01 | RAD ---
Date of service: 08/05/2018 HISTORY: follow up contrast COMPARISON: August 04, 2018. FINDINGS: BOWEL: Normal. No obstruction. No free air. Contrast identified in the colon on prior studies is no longer visible. BONES: Scoliosis, secondary degenerative change at multiple levels. Redemonstration of rectal tube OTHER FINDINGS: None. IMPRESSION: No acute or significant findings Additional benign and/or incidental findings described above. No significant interval change compared to the prior examination(s).
[2018-08-05] MEDS: Meropenem 500 MG in Sodium Chloride 0.9% 100 ML IVPB SCH ×2 (15:57→18:06)
[2018-08-05] MEDS: oxyCODONE 5 mg Immediate Release Tab PO PRN (22:16)
[2018-08-06] MEDS: Meropenem 500 MG in Sodium Chloride 0.9% 100 ML IVPB SCH ×3 (01:28→18:22)
[2018-08-06] MEDS: metroNIDAZOLE 500mg/100ml NS 100 ML IVPB SCH ×3 (02:59→18:21)
[2018-08-06] MEDS: Sodium Chloride 0.9% 1,000 ML IV SCH (05:29)
[2018-08-06] MEDS: Levothyroxine 88 MCG TAB PO SCH (06:32)
[2018-08-06 06:54] LABS: BASO # 0.1 K/uL (0.0-0.2); EOS # 0.1 K/uL (0.0-0.7); EOS % 3.1 % (0.0-4.0); HEMOGLOBIN 9.7 g/dL (12.0-16.0); LYMPH # 1.2 K/uL (1.0-4.3); LYMPH % 27.6 % (20.0-40.0); MEAN CELL VOLUME 82.5 fl (81.0-99.0); MEAN CORPUSCULAR HEMOGLOBIN 26.6 pg (27.0-31.0); MEAN CORPUSCULAR HGB CONC 32.3 g/dL (33.0-37.0); MEAN PLATELET VOLUME 7.4 fl (7.2-11.7); MONO # 0.4 K/uL (0.0-0.8); MONO % 9.8 % (0.0-10.0); NEUT # 2.5 K/uL (1.8-7.0); NEUT % 57.5 % (50.0-75.0); RBC 3.63 Mil/uL (3.80-5.20); RED CELL DISTRIBUTION WIDTH 19.1 % (11.5-14.5); WHITE BLOOD COUNT 4.4 K/uL (4.8-10.8)
[2018-08-06 07:04] LABS: BLOOD UREA NITROGEN 5 mg/dl (7-17); CALCIUM 8.8 mg/dL (8.4-10.2); GFR NON-AFRICAN AMERICAN > 60
[2018-08-06] MEDS: POLYETHYLENE GLYCOL 3350 17 GM/Dose PACKET PO SCH ×2 (08:38→18:20)
[2018-08-06] MEDS: Enoxaparin 40 mg Syringe SC SCH (08:40)
--- NOTE | 2018-08-06 10:12 | CP.PCM.PN ---
Subjective - Date & Time of Evaluation Date of Evaluation: 08/06/18 Time of Evaluation: 10:07 - Subjective Subjective: General Surgery Pt seen and examined this AM. Barium enema not done yesterday because the IR radiologist reports it being high risk due to the inflammation in the colon to add a high pressure contrast, also because the test may not be conclusive of where the fistula is because of the catheter, and also because the catheter would be in the way of the bulb syringe to give the contrast. Pt is scheduled for surgery on 08/08/18. Long discussion with pt regarding surgery done. Labs and vitals noted. No output from catheter PE Gen: Pt laying in bed in NAD Skin: warm and dry Cardio: s1s2 RRR Lungs: CTA bilaterally Abd: Soft NTND A/P Pelvic collection with communication with bowel Full liquids today Clear liquids tomorrow, bowel prep tomorrow night OR on 08/08/18. Monitor vitals and serial abdominal exams. Monitor labs Objective - Vital Signs/Intake and Output Vital Signs (last 24 hours): Temp Pulse Resp BP Pulse Ox 97.8 F 69 20 132/85 99 08/06/18 07:54 08/06/18 07:54 08/06/18 07:54 08/06/18 07:54 08/06/18 07:54 Intake and Output: 08/06/18 08/06/18 06:59 18:59 Intake Total 1380 Output Total 0 Balance 1380 - Medications Medications: Current Medications Acetaminophen (Tylenol 325mg Tab) 650 mg PO Q6 PRN PRN Reason: Pain, Mild (1-3) Last Admin: 08/01/18 03:55 Dose: 650 mg Alprazolam (Xanax) 0.5 mg PO Q8 PRN PRN Reason: Anxiety Last Admin: 08/06/18 08:36 Dose: 0.5 mg Docusate Sodium (Colace) 100 mg PO BID [facility] Last Admin: 08/06/18 08:37 Dose: Not Given Enoxaparin Sodium (Lovenox) 40 mg SC DAILY [facility]; Protocol Last Admin: 08/06/18 08:40 Dose: 40 mg Ferrous Sulfate (Feosol) 325 mg PO BID [facility] Last Admin: 08/06/18 08:37 Dose: 325 mg Metronidazole (Flagyl 500mg/100ml Ns) 100 mls @ 100 mls/hr IVPB Q8H [facility]; Protocol Last Admin: 08/06/18 02:59 Dose: 100 mls/hr Meropenem 500 mg/ Sodium (Chloride) 100 mls @ 100 mls/hr IVPB Q8 [facility]; Protocol Last Admin: 08/06/18 08:37 Dose: 100 mls/hr Vancomycin HCl 1 gm/ Sodium (Chloride) 250 mls @ 166.667 mls/hr IVPB Q12 [facility]; Protocol Last Admin: 08/06/18 08:38 Dose: 166.667 mls/hr Levothyroxine Sodium (Synthroid) 88 mcg PO DAILY@0630 [facility] Last Admin: 08/06/18 06:32 Dose: 88 mcg Morphine Sulfate (Morphine) 2 mg IVP Q4 PRN PRN Reason: Pain, severe (8-10) Last Admin: 08/03/18 06:09 Dose: 2 mg Oxycodone HCl (Oxycodone Immediate Release Tab) 5 mg PO Q6 PRN PRN Reason: Pain, moderate (4-7) Last Admin: 08/05/18 22:16 Dose: 5 mg Polyethylene Glycol (Miralax) 17 gm PO BID [facility] Last Admin: 08/06/18 08:38 Dose: Not Given - Labs Labs: 08/06/18 05:50 08/06/18 05:50 PT 16.2 Seconds (9.8-13.1) H 07/23/18 11:25 INR 1.4 07/23/18 11:25 APTT 31.2 Seconds (25.6-37.1) 07/23/18 11:25
[2018-08-06] MEDS ORDERED: Potassium Chloride 20 mEq/15 ml LIQ UD PO ONE (10:52)
--- NOTE | 2018-08-06 11:03 | CP.PCM.PN ---
<Bari Carrero - Last Filed: 08/06/18 12:19> Subjective - Date & Time of Evaluation Date of Evaluation: 08/06/18 Time of Evaluation: 11:03 - Subjective Subjective: Pt seen and examined at bedside. No acute events overnight. She is anxious about next steps. No abdominal pain, nausea or vomiting, denies rectal bleeding. Objective - Vital Signs/Intake and Output Vital Signs (last 24 hours): Temp Pulse Resp BP Pulse Ox 97.8 F 69 20 132/85 99 08/06/18 07:54 08/06/18 07:54 08/06/18 07:54 08/06/18 07:54 08/06/18 07:54 Intake and Output: 08/06/18 08/06/18 06:59 18:59 Intake Total 1380 Output Total 0 Balance 1380 - Medications Medications: Current Medications Acetaminophen (Tylenol 325mg Tab) 650 mg PO Q6 PRN PRN Reason: Pain, Mild (1-3) Last Admin: 08/01/18 03:55 Dose: 650 mg Alprazolam (Xanax) 0.5 mg PO Q8 PRN PRN Reason: Anxiety Last Admin: 08/06/18 08:36 Dose: 0.5 mg Docusate Sodium (Colace) 100 mg PO BID [facility] Last Admin: 08/06/18 08:37 Dose: Not Given Enoxaparin Sodium (Lovenox) 40 mg SC DAILY [facility]; Protocol Last Admin: 08/06/18 08:40 Dose: 40 mg Ferrous Sulfate (Feosol) 325 mg PO BID [facility] Last Admin: 08/06/18 08:37 Dose: 325 mg Metronidazole (Flagyl 500mg/100ml Ns) 100 mls @ 100 mls/hr IVPB Q8H [facility]; Protocol Last Admin: 08/06/18 02:59 Dose: 100 mls/hr Meropenem 500 mg/ Sodium (Chloride) 100 mls @ 100 mls/hr IVPB Q8 [facility]; Protocol Last Admin: 08/06/18 08:37 Dose: 100 mls/hr Vancomycin HCl 1 gm/ Sodium (Chloride) 250 mls @ 166.667 mls/hr IVPB Q12 [facility]; Protocol Last Admin: 08/06/18 08:38 Dose: 166.667 mls/hr Levothyroxine Sodium (Synthroid) 88 mcg PO DAILY@0630 [facility] Last Admin: 08/06/18 06:32 Dose: 88 mcg Morphine Sulfate (Morphine) 2 mg IVP Q4 PRN PRN Reason: Pain, severe (8-10) Last Admin: 08/03/18 06:09 Dose: 2 mg Oxycodone HCl (Oxycodone Immediate Release Tab) 5 mg PO Q6 PRN PRN Reason: Pain, moderate (4-7) Last Admin: 08/05/18 22:16 Dose: 5 mg Polyethylene Glycol (Miralax) 17 gm PO BID [facility] Last Admin: 08/06/18 08:38 Dose: Not Given - Labs Labs: 08/06/18 05:50 08/06/18 05:50 PT 16.2 Seconds (9.8-13.1) H 07/23/18 11:25 INR 1.4 07/23/18 11:25 APTT 31.2 Seconds (25.6-37.1) 07/23/18 11:25 - Constitutional Appears: No Acute Distress, Other (Anxious) - Head Exam Head Exam: NORMAL INSPECTION - Respiratory Exam Respiratory Exam: Clear to Ausculation Bilateral, NORMAL BREATHING PATTERN - Cardiovascular Exam Cardiovascular Exam: REGULAR RHYTHM. absent: Tachycardia - GI/Abdominal Exam GI & Abdominal Exam: Soft, Normal Bowel Sounds. absent: Distended, Tenderness - Neurological Exam Neurological Exam: Alert, Awake, CN II-XII Intact, Oriented x3 - Skin Skin Exam: Dry, Warm Assessment and Plan - Assessment and Plan (Free Text) Assessment: 63 yo F pmhx of hypothyroidism, and anxiety was sent to ED per Dr. Silver for abdominal abscess incidentally found on outpatient abdo CT. Abdo CT: 7 x 6 cm abscess in pelvis anterior to recto-sigmoid; extralumenal air collecting -repeat: Transrectal decompression of left pelvic pericolic abscess now measuring 4.7 x 5.2 cm compared prior outside CT 07/22/2018. Oral contrast material is identified within the lumen of the abscess at this time. Continued clinical and CT follow-up are advised through the pelvis. Stable dilated CBD without radiodense choledocholithiasis evident. Gallbladder distended but otherwise unremarkable appearing. Mild anasarca noted. -Repeat: 07/29/2018: Borderline increase in left paracentral pelvic peritoneal abscess cavity measuring 4.7 x 5.9 cm compared to 4.7 x 5.2 cm previously. Majority of this changes likely a function of increased gas. Correlate with daily drainage volumes from transrectal drainage catheter which remains in situ. A separate smaller abscess cavity seen inferomedial to the draining primary abscess cavity may not communicate with the main cavity and therefore be separate completely. No interval change in size in this cavity. Segmental colitis and potential proctitis pattern stable but limited evaluation given lack of oral contrast transit through this segment and anasarca pattern. -Repeat: 08/04/2018: Increase in size of the dominant abscess cavity in the pelvis. The previously identified pigtail catheter appears more caudally situated and a smaller collection. Distended stomach and duodenum. Beyond the point of narrowing in the vicinity of the celiac axis is small-bowel ileus. KUB: No significant change in the distribution of contrast primarily in the colon and appendix. The oral contrast appears to be more diluted. Stable position of pelvic drainage catheter. Barium enema: cancelled because the IR radiologist reports it being high risk due to the inflammation in the colon to add a high pressure contrast, also bec ause the test may not be conclusive of where the fistula is because of the catheter, and also because the catheter would be in the way of the bulb syringe to give the contrast. Blood and Urine culture: no growth Abcess culture: Lactococcus species Plan: Abdominal abcess: - s/p IR transrectal abscess pig tail drain placement - Incidental finding on CT - occult blood positive - Surgery Dr. Gonzales - GI consult Dr Thompson - ID consult: Dr. Greene: recommends d/c zosyn; start meropenem - IR Dr. Sherman - Abx: Meropenem IV, Flagyl IV - Pt is scheduled for surgery on 08/08/18. - Full liquids today - Clear liquids tomorrow, bowel prep tomorrow night Anemia: - H/H: 9.7/29.5; stable; s/p PRBC 2 unit transfused - Positive Occult blood stool received - GI consult Dr Thompson: OP colonoscopy - Feosol BID - f/u CBC Hypothyroid: - c/w levothyroxine 88 mcg DVT prophylaxis: - SCDs - Pt actively ambulating - Lovenox Case and plan d/w Dr. Alex East PGY2 <Charity Johnson - Last Filed: 08/06/18 19:06> Objective - Vital Signs/Intake and Output Vital Signs (last 24 hours): Temp Pulse Resp BP Pulse Ox 98 F 64 18 136/83 99 08/06/18 16:12 08/06/18 16:12 08/06/18 16:12 08/06/18 16:12 08/06/18 16:12 Intake and Output: 08/06/18 08/07/18 18:59 06:59 Intake Total 1380 Output Total 0 Balance 1380 - Medications Medications: Current Medications Acetaminophen (Tylenol 325mg Tab) 650 mg PO Q6 PRN PRN Reason: Pain, Mild (1-3) Last Admin: 08/01/18 03:55 Dose: 650 mg Alprazolam (Xanax) 0.5 mg PO Q8 PRN PRN Reason: Anxiety Last Admin: 08/06/18 08:36 Dose: 0.5 mg Docusate Sodium (Colace) 100 mg PO BID [facility] Last Admin: 08/06/18 18:21 Dose: Not Given Enoxaparin Sodium (Lovenox) 40 mg SC DAILY [facility]; Protocol Last Admin: 08/06/18 08:40 Dose: 40 mg Ferrous Sulfate (Feosol) 325 mg PO BID [facility] Last Admin: 08/06/18 18:21 Dose: 325 mg Metronidazole (Flagyl 500mg/100ml Ns) 100 mls @ 100 mls/hr IVPB Q8H [facility]; Protocol Last Admin: 08/06/18 18:21 Dose: 100 mls/hr Meropenem 500 mg/ Sodium (Chloride) 100 mls @ 100 mls/hr IVPB Q8 [facility]; Protocol Last Admin: 08/06/18 18:22 Dose: 100 mls/hr Vancomycin HCl 1 gm/ Sodium (Chloride) 250 mls @ 166.667 mls/hr IVPB Q12 [facility]; Protocol Last Admin: 08/06/18 08:38 Dose: 166.667 mls/hr Levothyroxine Sodium (Synthroid) 88 mcg PO DAILY@0630 [facility] Last Admin: 08/06/18 06:32 Dose: 88 mcg Morphine Sulfate (Morphine) 2 mg IVP Q4 PRN PRN Reason: Pain, severe (8-10) Last Admin: 08/03/18 06:09 Dose: 2 mg Oxycodone HCl (Oxycodone Immediate Release Tab) 5 mg PO Q6 PRN PRN Reason: Pain, moderate (4-7) Last Admin: 08/06/18 18:20 Dose: 5 mg Polyethylene Glycol (Miralax) 17 gm PO BID [facility] Last Admin: 08/06/18 18:20 Dose: Not Given - Labs Labs: 08/06/18 05:50 08/06/18 05:50 PT 16.2 Seconds (9.8-13.1) H 07/23/18 11:25 INR 1.4 07/23/18 11:25 APTT 31.2 Seconds (25.6-37.1) 07/23/18 11:25 Attending/Attestation - Attestation I have personally seen and examined this patient.: Yes I have fully participated in the care of the patient.: Yes I have reviewed all pertinent clinical information, including history, physical exam and plan: Yes Notes (Text): 08/06/18 19:06 Agree with findings and plan as above.
[2018-08-06 13:53] VITALS: BMI 21.2
[2018-08-06] MEDS: oxyCODONE 5 mg Immediate Release Tab PO PRN (18:20)
[2018-08-07] MEDS: Meropenem 500 MG in Sodium Chloride 0.9% 100 ML IVPB SCH ×3 (00:15→16:43)
[2018-08-07] MEDS: metroNIDAZOLE 500mg/100ml NS 100 ML IVPB SCH ×3 (02:15→19:00)
[2018-08-07] MEDS: Levothyroxine 88 MCG TAB PO SCH (05:33)
[2018-08-07 07:00] LABS: INR 1.2; PROTHROMBIN TIME 13.5 Seconds (9.8-13.1)
[2018-08-07 07:03] LABS: PARTIAL THROMBOPLASTIN TIME 36.3 Seconds (25.6-37.1)
[2018-08-07 07:05] LABS: BLOOD UREA NITROGEN 4 mg/dl (7-17); CALCIUM 9.1 mg/dL (8.4-10.2); GFR NON-AFRICAN AMERICAN > 60
[2018-08-07 07:16] LABS: BASO % 0.3 % (0.0-2.0); EOS # 0.1 K/uL (0.0-0.7); EOS % 2.6 % (0.0-4.0); HEMOGLOBIN 9.9 g/dL (12.0-16.0); LYMPH # 1.2 K/uL (1.0-4.3); LYMPH % 24.7 % (20.0-40.0); MEAN CELL VOLUME 84.8 fl (81.0-99.0); MEAN CORPUSCULAR HGB CONC 31.9 g/dL (33.0-37.0); MEAN PLATELET VOLUME 7.6 fl (7.2-11.7); MONO # 0.4 K/uL (0.0-0.8); MONO % 9.5 % (0.0-10.0); NEUT % 62.9 % (50.0-75.0); NRBC % 0.1 % (0.0-0.0); RBC 3.68 Mil/uL (3.80-5.20); RED CELL DISTRIBUTION WIDTH 19.6 % (11.5-14.5); WHITE BLOOD COUNT 4.7 K/uL (4.8-10.8)
[2018-08-07] MEDS: Enoxaparin 40 mg Syringe SC SCH (10:37)
[2018-08-07] MEDS: POLYETHYLENE GLYCOL 3350 17 GM/Dose PACKET PO SCH ×2 (10:43→17:00)
--- NOTE | 2018-08-07 11:04 | CP.PCM.PN ---
<Mario Calloway - Last Filed: 08/07/18 13:54> Subjective - Date & Time of Evaluation Date of Evaluation: 08/07/18 Time of Evaluation: 07:40 - Subjective Subjective: Patient seen and examined at bedside. No acute event overnight. Patient was placed on liquid diet and she is tolerating it. Patient denies any abdominal pain. She denies any chest pain, sob, diarrhea or constipation. Objective - Vital Signs/Intake and Output Vital Signs (last 24 hours): Temp Pulse Resp BP Pulse Ox 98.1 F 69 20 138/77 99 08/07/18 07:50 08/07/18 07:50 08/07/18 07:50 08/07/18 07:50 08/07/18 07:50 Intake and Output: 08/07/18 08/07/18 06:59 18:59 Intake Total 2380 Output Total 0 Balance 2380 - Medications Medications: Current Medications Acetaminophen (Tylenol 325mg Tab) 650 mg PO Q6 PRN PRN Reason: Pain, Mild (1-3) Last Admin: 08/01/18 03:55 Dose: 650 mg Alprazolam (Xanax) 0.5 mg PO Q8 PRN PRN Reason: Anxiety Last Admin: 08/06/18 20:39 Dose: 0.5 mg Docusate Sodium (Colace) 100 mg PO BID [facility] Last Admin: 08/07/18 10:34 Dose: 100 mg Enoxaparin Sodium (Lovenox) 40 mg SC DAILY [facility]; Protocol Last Admin: 08/07/18 10:37 Dose: 40 mg Ferrous Sulfate (Feosol) 325 mg PO BID [facility] Last Admin: 08/07/18 10:34 Dose: 325 mg Metronidazole (Flagyl 500mg/100ml Ns) 100 mls @ 100 mls/hr IVPB Q8H [facility]; Protocol Last Admin: 08/07/18 02:15 Dose: 100 mls/hr Meropenem 500 mg/ Sodium (Chloride) 100 mls @ 100 mls/hr IVPB Q8 [facility]; Protocol Last Admin: 08/07/18 10:36 Dose: 100 mls/hr Vancomycin HCl 1 gm/ Sodium (Chloride) 250 mls @ 166.667 mls/hr IVPB Q12 [facility]; Protocol Last Admin: 08/07/18 10:36 Dose: 166.667 mls/hr Levothyroxine Sodium (Synthroid) 88 mcg PO DAILY@0630 [facility] Last Admin: 08/07/18 05:33 Dose: 88 mcg Magnesium Citrate (Citrate Of Mag) 300 ml PO ONCE ONE Stop: 08/07/18 15:01 Morphine Sulfate (Morphine) 2 mg IVP Q4 PRN PRN Reason: Pain, severe (8-10) Last Admin: 08/03/18 06:09 Dose: 2 mg Oxycodone HCl (Oxycodone Immediate Release Tab) 5 mg PO Q6 PRN PRN Reason: Pain, moderate (4-7) Last Admin: 08/06/18 18:20 Dose: 5 mg Polyethylene Glycol (Miralax) 17 gm PO BID [facility] Last Admin: 08/07/18 10:43 Dose: Not Given - Labs Labs: 08/07/18 05:30 08/07/18 05:30 PT 13.5 Seconds (9.8-13.1) H 08/07/18 05:30 INR 1.2 08/07/18 05:30 APTT 36.3 Seconds (25.6-37.1) 08/07/18 05:30 - Constitutional Appears: Well, Non-toxic, No Acute Distress - Head Exam Head Exam: ATRAUMATIC, NORMAL INSPECTION, NORMOCEPHALIC - Eye Exam Eye Exam: EOMI, Normal appearance, PERRL Pupil Exam: NORMAL ACCOMODATION, PERRL - ENT Exam ENT Exam: Mucous Membranes Moist, Normal Exam - Neck Exam Neck Exam: Full ROM, Normal Inspection - Respiratory Exam Respiratory Exam: Clear to Ausculation Bilateral, NORMAL BREATHING PATTERN - Cardiovascular Exam Cardiovascular Exam: REGULAR RHYTHM, +S1, +S2 - GI/Abdominal Exam GI & Abdominal Exam: Soft, Normal Bowel Sounds - Extremities Exam Extremities Exam: Full ROM - Neurological Exam Neurological Exam: Alert, Awake, Oriented x3 - Psychiatric Exam Psychiatric exam: Normal Affect, Normal Mood Assessment and Plan - Assessment and Plan (Free Text) Assessment: 63 yo f PMHx of hypothyroidism, and anxiety was sent to ED per Dr. Silver for abdominal abscess. Was found incidentally on CT scan. Plan: Abdominal abcess: - s/p IR transrectal abscess pig tail drain placement - Incidental finding on CT - occult blood positive - Surgery Dr. Gonzales - GI consult Dr Thompson - ID consult: Dr. Greene: continue meropenem - IR Dr. Sherman - Abx: Meropenem IV, Flagyl IV - Cardia risk indax 0.9 % METS >4 Patient is optemized for surgery. - EKG WNL - Chest Xray WNL - Clear liquids Today, bowel prep tonight (mag citrate) -IVF at midnight -NPO after Midnight Anemia: - H/H: 9.7/29.5-> 9.9 31.2; Improving s/p PRBC 2 unit transfused - Positive Occult blood stool received - GI consult Dr Thompson: OP colonoscopy - Feosol BID Hypothyroid: - c/w levothyroxine 88 mcg DVT prophylaxis: - SCDs - Pt actively ambulating -Hold Lovenox due surgery <Jared Marquez D - Last Filed: 08/07/18 16:32> Objective - Vital Signs/Intake and Output Vital Signs (last 24 hours): Temp Pulse Resp BP Pulse Ox 98.1 F 68 20 142/80 100 08/07/18 15:51 08/07/18 15:51 08/07/18 15:51 08/07/18 15:51 08/07/18 15:51 Intake and Output: 08/07/18 08/07/18 06:59 18:59 Intake Total 2380 Output Total 0 Balance 2380 - Medications Medications: Current Medications Alprazolam (Xanax) 0.5 mg PO Q8 PRN PRN Reason: Anxiety Last Admin: 08/07/18 11:52 Dose: 0.5 mg Docusate Sodium (Colace) 100 mg PO BID [facility] Last Admin: 08/07/18 10:34 Dose: 100 mg Enoxaparin Sodium (Lovenox) 40 mg SC DAILY [facility]; Protocol Last Admin: 08/07/18 10:37 Dose: 40 mg Ferrous Sulfate (Feosol) 325 mg PO BID [facility] Last Admin: 08/07/18 10:34 Dose: 325 mg Metronidazole (Flagyl 500mg/100ml Ns) 100 mls @ 100 mls/hr IVPB Q8H [facility]; Protocol Last Admin: 08/07/18 13:15 Dose: 100 mls/hr Meropenem 500 mg/ Sodium (Chloride) 100 mls @ 100 mls/hr IVPB Q8 [facility]; Protocol Last Admin: 08/07/18 10:36 Dose: 100 mls/hr Vancomycin HCl 1 gm/ Sodium (Chloride) 250 mls @ 166.667 mls/hr IVPB Q12 [facility]; Protocol Last Admin: 08/07/18 10:36 Dose: 166.667 mls/hr Lactated Ringer's (Lactated Ringer's) 1,000 mls @ 100 mls/hr IV .Q10H [facility] Levothyroxine Sodium (Synthroid) 88 mcg PO DAILY@0630 [facility] Last Admin: 08/07/18 05:33 Dose: 88 mcg Morphine Sulfate (Morphine) 2 mg IVP Q4 PRN PRN Reason: Pain, severe (8-10) Last Admin: 08/03/18 06:09 Dose: 2 mg Oxycodone HCl (Oxycodone Immediate Release Tab) 5 mg PO Q6 PRN PRN Reason: Pain, moderate (4-7) Last Admin: 08/06/18 18:20 Dose: 5 mg Polyethylene Glycol (Miralax) 17 gm PO BID [facility] Last Admin: 08/07/18 10:43 Dose: Not Given - Labs Labs: 08/07/18 05:30 08/07/18 05:30 PT 14.1 Seconds (9.8-13.1) H 08/07/18 10:50 INR 1.2 08/07/18 10:50 APTT 36.3 Seconds (25.6-37.1) 08/07/18 05:30 Attending/Attestation - Attestation I have personally seen and examined this patient.: Yes I have fully participated in the care of the patient.: Yes I have reviewed all pertinent clinical information, including history, physical exam and plan: Yes Notes (Text): 08/07/18 16:31 Patient seen and examined. Case discussed and agreed with assessment. Patient for surgical drainage of abscess in am.
[2018-08-07 11:22] LABS: INR 1.2; PROTHROMBIN TIME 14.1 Seconds (9.8-13.1)
--- NOTE | 2018-08-07 13:47 | CP.PCM.PN ---
Subjective - Date & Time of Evaluation Date of Evaluation: 08/07/18 Time of Evaluation: 13:44 - Subjective Subjective: GeneralSurgery Pt seen and examined this AM with uncle at bedside. She denies any abdominal pain, (-) N/V. She is currently on clear liquid diet and tolerating. Labs and vitals noted PE Gen: Pt laying in bed in NAD Skin: warm and dry Cardio: s1s2 RRR Lungs: CTA bilaterally Abd: Soft, NTND Extr: (-) calf tenderness bilaterally A/P Pelvic abscess/ collection Pt for OR tomorrow for exploratory laparotomy, colon resection, and possible colostomy. Consent obtained. Labs ordered for AM NPO after midnight Mag citrate for bowel prep today IVF to start at midnight. Objective - Vital Signs/Intake and Output Vital Signs (last 24 hours): Temp Pulse Resp BP Pulse Ox 98.1 F 69 20 138/77 99 08/07/18 07:50 08/07/18 07:50 08/07/18 07:50 08/07/18 07:50 08/07/18 07:50 Intake and Output: 08/07/18 08/07/18 06:59 18:59 Intake Total 2380 Output Total 0 Balance 2380 - Medications Medications: Current Medications Acetaminophen (Tylenol 325mg Tab) 650 mg PO Q6 PRN PRN Reason: Pain, Mild (1-3) Last Admin: 08/01/18 03:55 Dose: 650 mg Alprazolam (Xanax) 0.5 mg PO Q8 PRN PRN Reason: Anxiety Last Admin: 08/07/18 11:52 Dose: 0.5 mg Docusate Sodium (Colace) 100 mg PO BID [facility] Last Admin: 08/07/18 10:34 Dose: 100 mg Enoxaparin Sodium (Lovenox) 40 mg SC DAILY [facility]; Protocol Last Admin: 08/07/18 10:37 Dose: 40 mg Ferrous Sulfate (Feosol) 325 mg PO BID [facility] Last Admin: 08/07/18 10:34 Dose: 325 mg Metronidazole (Flagyl 500mg/100ml Ns) 100 mls @ 100 mls/hr IVPB Q8H [facility]; Protocol Last Admin: 08/07/18 13:15 Dose: 100 mls/hr Meropenem 500 mg/ Sodium (Chloride) 100 mls @ 100 mls/hr IVPB Q8 [facility]; Protocol Last Admin: 08/07/18 10:36 Dose: 100 mls/hr Vancomycin HCl 1 gm/ Sodium (Chloride) 250 mls @ 166.667 mls/hr IVPB Q12 [facility]; Protocol Last Admin: 08/07/18 10:36 Dose: 166.667 mls/hr Lactated Ringer's (Lactated Ringer's) 1,000 mls @ 100 mls/hr IV .Q10H [facility] Levothyroxine Sodium (Synthroid) 88 mcg PO DAILY@0630 [facility] Last Admin: 08/07/18 05:33 Dose: 88 mcg Magnesium Citrate (Citrate Of Mag) 300 ml PO ONCE ONE Stop: 08/07/18 15:01 Morphine Sulfate (Morphine) 2 mg IVP Q4 PRN PRN Reason: Pain, severe (8-10) Last Admin: 08/03/18 06:09 Dose: 2 mg Oxycodone HCl (Oxycodone Immediate Release Tab) 5 mg PO Q6 PRN PRN Reason: Pain, moderate (4-7) Last Admin: 08/06/18 18:20 Dose: 5 mg Polyethylene Glycol (Miralax) 17 gm PO BID [facility] Last Admin: 08/07/18 10:43 Dose: Not Given - Labs Labs: 08/07/18 05:30 08/07/18 05:30 PT 14.1 Seconds (9.8-13.1) H 08/07/18 10:50 INR 1.2 08/07/18 10:50 APTT 36.3 Seconds (25.6-37.1) 08/07/18 05:30
[2018-08-07] MEDS ORDERED: Magnesium Citrate Oral SOL (300 ml) PO ONE (15:00)
[2018-08-08] MEDS: Meropenem 500 MG in Sodium Chloride 0.9% 100 ML IVPB SCH ×4 (00:19→18:39)
[2018-08-08] MEDS: metroNIDAZOLE 500mg/100ml NS 100 ML IVPB SCH ×4 (02:52→18:39)
[2018-08-08] MEDS: Lactated Ringer's 1,000 ML IV SCH ×5 (02:53→20:05)
[2018-08-08] MEDS: Levothyroxine 88 MCG TAB PO SCH (05:47)
[2018-08-08 07:26] LABS: BASO # 0.1 K/uL (0.0-0.2); BASO % 2.1 % (0.0-2.0); EOS # 0.1 K/uL (0.0-0.7); EOS % 2.4 % (0.0-4.0); HEMOGLOBIN 10.7 g/dL (12.0-16.0); LYMPH % 24.5 % (20.0-40.0); MEAN CORPUSCULAR HEMOGLOBIN 26.7 pg (27.0-31.0); MEAN CORPUSCULAR HGB CONC 32.1 g/dL (33.0-37.0); MEAN PLATELET VOLUME 7.1 fl (7.2-11.7); MONO # 0.4 K/uL (0.0-0.8); NEUT # 2.6 K/uL (1.8-7.0); NRBC % 0.1 % (0.0-0.0); RED CELL DISTRIBUTION WIDTH 19.6 % (11.5-14.5); WHITE BLOOD COUNT 4.2 K/uL (4.8-10.8)
[2018-08-08 07:35] LABS: INR 1.2
[2018-08-08 07:38] LABS: PARTIAL THROMBOPLASTIN TIME 36.6 Seconds (25.6-37.1)
[2018-08-08 09:13] LABS: ALB/GLOB RATIO 0.8 (1.0-2.1); ALBUMIN 3.1 g/dL (3.5-5.0); ALT/SGPT 17 U/L (9-52); AST/SGOT 22 U/L (14-36); BLOOD UREA NITROGEN 4 mg/dl (7-17); CALCIUM 9.2 mg/dL (8.4-10.2); GFR NON-AFRICAN AMERICAN > 60
[2018-08-08] MEDS: POLYETHYLENE GLYCOL 3350 17 GM/Dose PACKET PO SCH ×2 (10:14→18:31)
--- NOTE | 2018-08-08 11:58 | CP.PCM.PN ---
<Bari Carrero - Last Filed: 08/08/18 12:02> Subjective - Date & Time of Evaluation Date of Evaluation: 08/08/18 Time of Evaluation: 11:56 - Subjective Subjective: Pt seen and examined today bedside, for OR today, pt anxious about surgery all questions answered. No acute overnight events. NPO since midnight. Objective - Vital Signs/Intake and Output Vital Signs (last 24 hours): Temp Pulse Resp BP Pulse Ox 97.4 F L 77 19 142/80 100 08/08/18 00:06 08/08/18 00:06 08/08/18 00:06 08/07/18 15:51 08/08/18 00:06 Intake and Output: 08/08/18 08/08/18 06:59 18:59 Intake Total 900 Output Total 0 Balance 900 - Medications Medications: Current Medications Alprazolam (Xanax) 0.5 mg PO Q8 PRN PRN Reason: Anxiety Last Admin: 08/07/18 21:33 Dose: 0.5 mg Docusate Sodium (Colace) 100 mg PO BID [facility] Last Admin: 08/08/18 10:13 Dose: Not Given Enoxaparin Sodium (Lovenox) 40 mg SC DAILY [facility]; Protocol Last Admin: 08/07/18 10:37 Dose: 40 mg Ferrous Sulfate (Feosol) 325 mg PO BID [facility] Last Admin: 08/08/18 10:13 Dose: Not Given Metronidazole (Flagyl 500mg/100ml Ns) 100 mls @ 100 mls/hr IVPB Q8H [facility]; Protocol Last Admin: 08/08/18 10:18 Dose: 100 mls/hr Meropenem 500 mg/ Sodium (Chloride) 100 mls @ 100 mls/hr IVPB Q8 [facility]; Protocol Last Admin: 08/08/18 10:16 Dose: 100 mls/hr Vancomycin HCl 1 gm/ Sodium (Chloride) 250 mls @ 166.667 mls/hr IVPB Q12 [facility]; Protocol Last Admin: 08/08/18 10:17 Dose: 166.667 mls/hr Lactated Ringer's (Lactated Ringer's) 1,000 mls @ 100 mls/hr IV .Q10H [facility] Last Admin: 08/08/18 10:14 Dose: Not Given Levothyroxine Sodium (Synthroid) 88 mcg PO DAILY@0630 [facility] Last Admin: 08/08/18 05:47 Dose: Not Given Morphine Sulfate (Morphine) 2 mg IVP Q4 PRN PRN Reason: Pain, severe (8-10) Last Admin: 08/03/18 06:09 Dose: 2 mg Oxycodone HCl (Oxycodone Immediate Release Tab) 5 mg PO Q6 PRN PRN Reason: Pain, moderate (4-7) Last Admin: 08/06/18 18:20 Dose: 5 mg Polyethylene Glycol (Miralax) 17 gm PO BID [facility] Last Admin: 08/08/18 10:14 Dose: Not Given - Labs Labs: 08/08/18 06:25 08/08/18 06:25 PT 14.0 Seconds (9.8-13.1) H 08/08/18 06:25 INR 1.2 08/08/18 06:25 APTT 36.6 Seconds (25.6-37.1) 08/08/18 06:25 - Constitutional Appears: No Acute Distress - Head Exam Head Exam: NORMAL INSPECTION - Respiratory Exam Respiratory Exam: Clear to Ausculation Bilateral, NORMAL BREATHING PATTERN - Cardiovascular Exam Cardiovascular Exam: REGULAR RHYTHM, +S1, +S2. absent: Tachycardia - GI/Abdominal Exam GI & Abdominal Exam: Soft, Normal Bowel Sounds. absent: Distended, Tenderness - Extremities Exam Extremities Exam: absent: Calf Tenderness - Neurological Exam Neurological Exam: Alert, Awake, CN II-XII Intact, Oriented x3 - Skin Skin Exam: Dry, Normal Color, Warm Assessment and Plan - Assessment and Plan (Free Text) Assessment: 63 yo f PMHx of hypothyroidism, and anxiety was sent to ED per Dr. Silver for abdominal abscess. Was found incidentally on CT scan. Plan: Abdominal abscess: - s/p IR transrectal abscess pig tail drain placement - Incidental finding on CT - for OR today - Surgery Dr. Gonzales - GI consult Dr Thompson - ID consult: Dr. Greene: continue meropenem - IR Dr. Sherman - Abx: Meropenem IV, Flagyl IV - Cardia risk indax 0.9 % METS >4 Patient is optimized for surgery. - EKG WNL - Chest Xray WNL - NPO - on IVF Anemia: - Stable H/H: 10.7/33.3 - s/p PRBC 2 unit transfused - Positive Occult blood stool received - GI consult Dr Thompson: OP colonoscopy - Feosol BID Hypothyroid: - c/w levothyroxine 88 mcg DVT prophylaxis: - SCDs - Pt actively ambulating - Hold Lovenox due surgery Case discussed with Dr Pérez East PGY 2 <Jared Marquez D - Last Filed: 08/08/18 17:01> Objective - Vital Signs/Intake and Output Vital Signs (last 24 hours): Temp Pulse Resp BP Pulse Ox 97.8 F 66 17 137/78 100 08/08/18 16:20 08/08/18 16:53 08/08/18 16:53 08/08/18 16:53 08/08/18 16:53 Intake and Output: 08/08/18 08/08/18 06:59 18:59 Intake Total 2500 Output Total 380 Balance 2120 - Medications Medications: Current Medications Docusate Sodium (Colace) 100 mg PO BID [facility] Last Admin: 08/08/18 10:13 Dose: Not Given Enoxaparin Sodium (Lovenox) 40 mg SC DAILY [facility]; Protocol Last Admin: 08/07/18 10:37 Dose: 40 mg Ferrous Sulfate (Feosol) 325 mg PO BID [facility] Last Admin: 08/08/18 10:13 Dose: Not Given Hydromorphone HCl (Dilaudid) 0.5 mg IVP Q10M PRN PRN Reason: Pain, moderate (4-7) Stop: 08/08/18 17:37 Last Admin: 08/08/18 16:20 Dose: 0.5 mg Metronidazole (Flagyl 500mg/100ml Ns) 100 mls @ 100 mls/hr IVPB Q8H [facility]; Protocol Last Admin: 08/08/18 13:15 Dose: 100 mls Meropenem 500 mg/ Sodium (Chloride) 100 mls @ 100 mls/hr IVPB Q8 [facility]; Protocol Last Admin: 08/08/18 10:16 Dose: 100 mls/hr Vancomycin HCl 1 gm/ Sodium (Chloride) 250 mls @ 166.667 mls/hr IVPB Q12 [facility]; Protocol Last Admin: 08/08/18 10:17 Dose: 166.667 mls/hr Lactated Ringer's (Lactated Ringer's) 1,000 mls @ 100 mls/hr IV .Q10H [facility] Last Admin: 08/08/18 10:14 Dose: Not Given Meropenem 500 mg/ Sodium (Chloride) 100 mls @ 100 mls/hr IVPB Q8 [facility]; Protocol Lactated Ringer's (Lactated Ringer's) 1,000 mls @ 100 mls/hr IV .Q10H [facility] Levothyroxine Sodium (Synthroid) 88 mcg PO DAILY@0630 [facility] Last Admin: 08/08/18 05:47 Dose: Not Given Morphine Sulfate (Morphine) 2 mg IVP Q4 PRN PRN Reason: Pain, severe (8-10) Last Admin: 08/03/18 06:09 Dose: 2 mg Ondansetron HCl (Zofran Inj) 4 mg IVP ONCE PRN PRN Reason: Nausea/Vomiting Stop: 08/08/18 17:38 Last Admin: 08/08/18 16:32 Dose: 4 mg Oxycodone HCl (Oxycodone Immediate Release Tab) 5 mg PO Q6 PRN PRN Reason: Pain, moderate (4-7) Last Admin: 08/06/18 18:20 Dose: 5 mg Polyethylene Glycol (Miralax) 17 gm PO BID [facility] Last Admin: 08/08/18 10:14 Dose: Not Given - Labs Labs: 08/08/18 06:25 08/08/18 06:25 PT 14.0 Seconds (9.8-13.1) H 08/08/18 06:25 INR 1.2 08/08/18 06:25 APTT 36.6 Seconds (25.6-37.1) 08/08/18 06:25 Attending/Attestation - Attestation I have personally seen and examined this patient.: Yes I have fully participated in the care of the patient.: Yes I have reviewed all pertinent clinical information, including history, physical exam and plan: Yes Notes (Text): 08/08/18 16:59 Patient seen and examined with resident. Case discussed and agreed with assessment. Patient for explore lap today.
[2018-08-08] MEDS ORDERED: Bupivacaine HCl 0.25% PF (30 ml) Inj ONE (12:35)
[2018-08-08] MEDS ORDERED: Liquid Adhesive TOP ONE (12:46)
[2018-08-08] MEDS ORDERED: Propofol 10 mg/ml Inj (20 ML) ONE (13:00)
[2018-08-08] MEDS ORDERED: Midazolam 2 MG/2 ML VIAL ONE (13:00)
[2018-08-08] MEDS ORDERED: Rocuronium 10 mg/ml (5 ml) ONE (13:00)
[2018-08-08] MEDS ORDERED: Lidocaine 4% (Laryng-O-Jet) Kit MM ONE (13:01)
[2018-08-08] MEDS ORDERED: Succinylcholine Chloride 20 mg/ml Syr (5 ml) IV ONE (13:01)
[2018-08-08] MEDS ORDERED: Lidocaine 1% 5ml Abboject ONE (13:01)
[2018-08-08] MEDS ORDERED: Neostigmine 1:1000 (1 mg/ml) Inj ONE (13:01)
[2018-08-08] MEDS ORDERED: Phenylephrine 10 mg/ml Inj ONE (13:48)
[2018-08-08] MEDS ORDERED: Lactated Ringer's 1,000 ML IV ONE (15:00)
[2018-08-08] MEDS: HYDROmorphone 0.5 mg/0.5 ml ISec IVP PRN ×5 (15:45→16:20)
--- NOTE | 2018-08-08 16:17 | PCM.SURG1 ---
<See Sethi - Last Filed: 08/08/18 16:15> Surgeon's Initial Post Op Note - Surgeon's Notes Surgeon: Dr. Crowell Machine Design Teacher: Jossie Cates PGY2 Type of Anesthesia: General Endo, Local Anesthesia Administered By: Dr. Oneill Pre-Operative Diagnosis: pelvic abscess from previous bout of diverticulitis Operative Findings: pelvic abscess from previous bout of diverticulitis Post-Operative Diagnosis: pelvic abscess from previous bout of diverticulitis Operation Performed: Exploratory laparotomy, Betzaida's procedure Specimen/Specimens Removed: Sigmoid colon, abscess capsule Estimated Blood Loss: EBL {In ML}: 100 Blood Products Given: N/A Drains Used: No Drains Post-Op Condition: Good Date of Surgery/Procedure: 08/08/18 Time of Surgery/Procedure: 16:18 <Armaan Crowell - Last Filed: 08/09/18 08:36> Surgeon's Initial Post Op Note - Surgeon's Notes Drains Used: No DrainsWei
--- NOTE | 2018-08-08 17:59 | CP.PCM.PN ---
Subjective - Date & Time of Evaluation Date of Evaluation: 08/08/18 Time of Evaluation: 17:51 - Subjective Subjective: I D NOTE PATIENT IS JUST OUT OF SURGERY HAD HARTMANNS PROCEDURE DONE ABSCESS DRAINED ,REMOVED APPARENTLY THICK WALLED OFF.PERFORATION AT SIGMOID COLON WILL CONTINUUE VANCOMYCIN,MEROPENEM,FLAGYL Objective - Vital Signs/Intake and Output Vital Signs (last 24 hours): Temp Pulse Resp BP Pulse Ox 97.8 F 66 17 137/78 100 08/08/18 16:20 08/08/18 16:53 08/08/18 16:53 08/08/18 16:53 08/08/18 16:53 Intake and Output: 08/08/18 08/08/18 06:59 18:59 Intake Total 2500 Output Total 380 Balance 2120 - Medications Medications: Current Medications Docusate Sodium (Colace) 100 mg PO BID [facility] Last Admin: 08/08/18 10:13 Dose: Not Given Enoxaparin Sodium (Lovenox) 40 mg SC DAILY [facility]; Protocol Last Admin: 08/07/18 10:37 Dose: 40 mg Ferrous Sulfate (Feosol) 325 mg PO BID [facility] Last Admin: 08/08/18 10:13 Dose: Not Given Metronidazole (Flagyl 500mg/100ml Ns) 100 mls @ 100 mls/hr IVPB Q8H [facility]; Protocol Last Admin: 08/08/18 13:15 Dose: 100 mls Meropenem 500 mg/ Sodium (Chloride) 100 mls @ 100 mls/hr IVPB Q8 [facility]; Protocol Last Admin: 08/08/18 10:16 Dose: 100 mls/hr Vancomycin HCl 1 gm/ Sodium (Chloride) 250 mls @ 166.667 mls/hr IVPB Q12 [facility]; Protocol Last Admin: 08/08/18 10:17 Dose: 166.667 mls/hr Lactated Ringer's (Lactated Ringer's) 1,000 mls @ 100 mls/hr IV .Q10H [facility] Last Admin: 08/08/18 10:14 Dose: Not Given Meropenem 500 mg/ Sodium (Chloride) 100 mls @ 100 mls/hr IVPB Q8 [facility]; Protocol Lactated Ringer's (Lactated Ringer's) 1,000 mls @ 100 mls/hr IV .Q10H [facility] Levothyroxine Sodium (Synthroid) 88 mcg PO DAILY@0630 [facility] Last Admin: 08/08/18 05:47 Dose: Not Given Morphine Sulfate (Morphine) 2 mg IVP Q4 PRN PRN Reason: Pain, severe (8-10) Last Admin: 08/03/18 06:09 Dose: 2 mg Oxycodone HCl (Oxycodone Immediate Release Tab) 5 mg PO Q6 PRN PRN Reason: Pain, moderate (4-7) Last Admin: 08/06/18 18:20 Dose: 5 mg Polyethylene Glycol (Miralax) 17 gm PO BID [facility] Last Admin: 08/08/18 10:14 Dose: Not Given - Labs Labs: 08/08/18 06:25 08/08/18 06:25 PT 14.0 Seconds (9.8-13.1) H 08/08/18 06:25 INR 1.2 08/08/18 06:25 APTT 36.6 Seconds (25.6-37.1) 08/08/18 06:25
[2018-08-08] MEDS: Morphine 4 MG/ML VIAL IVP PRN ×2 (18:35→22:15)
[2018-08-09] MEDS: Meropenem 500 MG in Sodium Chloride 0.9% 100 ML IVPB SCH ×4 (00:27→16:50)
[2018-08-09] MEDS: Lactated Ringer's 1,000 ML IV SCH ×2 (01:45→06:05)
[2018-08-09] MEDS: metroNIDAZOLE 500mg/100ml NS 100 ML IVPB SCH ×3 (02:00→18:43)
[2018-08-09] MEDS: Morphine 4 MG/ML VIAL IVP PRN ×3 (04:05→14:14)
[2018-08-09] MEDS: Levothyroxine 88 MCG TAB PO SCH ×2 (06:08→09:33)
[2018-08-09 06:59] LABS: ALB/GLOB RATIO 0.9 (1.0-2.1); ALBUMIN 3.3 g/dL (3.5-5.0); ALT/SGPT 20 U/L (9-52); AST/SGOT 21 U/L (14-36); BLOOD UREA NITROGEN 7 mg/dl (7-17); CALCIUM 8.9 mg/dL (8.4-10.2); GFR NON-AFRICAN AMERICAN > 60; MEAN CELL VOLUME 82.5 fl (81.0-99.0); MEAN CORPUSCULAR HEMOGLOBIN 27.2 pg (27.0-31.0); RBC 4.02 Mil/uL (3.80-5.20); RED CELL DISTRIBUTION WIDTH 19.6 % (11.5-14.5)
[2018-08-09 07:05] LABS: WHITE BLOOD COUNT 10.6 K/uL (4.8-10.8)
--- NOTE | 2018-08-09 08:13 | CP.PCM.PN ---
<Bari Carrero - Last Filed: 08/09/18 11:34> Subjective - Date & Time of Evaluation Date of Evaluation: 08/09/18 Time of Evaluation: 08:13 - Subjective Subjective: Patient seen and examined at bedside s/p exploratory laparotomy and Betzaida procedure. She is resting comfortably, c/o mild abdominal pain, no passing gas yet . No acute overnight events. Pt afebrile, VSS stable. Objective - Vital Signs/Intake and Output Vital Signs (last 24 hours): Temp Pulse Resp BP Pulse Ox 98.3 F 76 20 118/73 96 08/09/18 07:49 08/09/18 07:49 08/09/18 07:49 08/09/18 07:49 08/09/18 07:49 Intake and Output: 08/09/18 08/09/18 06:59 18:59 Output Total 820 Balance -820 - Medications Medications: Current Medications Docusate Sodium (Colace) 100 mg PO BID [facility] Last Admin: 08/08/18 18:29 Dose: Not Given Enoxaparin Sodium (Lovenox) 40 mg SC DAILY [facility]; Protocol Last Admin: 08/07/18 10:37 Dose: 40 mg Ferrous Sulfate (Feosol) 325 mg PO BID [facility] Last Admin: 08/08/18 18:29 Dose: Not Given Metronidazole (Flagyl 500mg/100ml Ns) 100 mls @ 100 mls/hr IVPB Q8H [facility]; Protocol Last Admin: 08/09/18 02:00 Dose: 100 mls/hr Vancomycin HCl 1 gm/ Sodium (Chloride) 250 mls @ 166.667 mls/hr IVPB Q12 [facility]; Protocol Last Admin: 08/08/18 21:08 Dose: 166.667 mls/hr Lactated Ringer's (Lactated Ringer's) 1,000 mls @ 100 mls/hr IV .Q10H [facility] Last Admin: 08/09/18 06:05 Dose: Not Given Meropenem 500 mg/ Sodium (Chloride) 100 mls @ 100 mls/hr IVPB Q8 [facility]; Protocol Last Admin: 08/09/18 00:27 Dose: 100 mls/hr Lactated Ringer's (Lactated Ringer's) 1,000 mls @ 100 mls/hr IV .Q10H [facility] Last Admin: 08/09/18 01:45 Dose: Not Given Levothyroxine Sodium (Synthroid) 88 mcg PO DAILY@0630 [facility] Last Admin: 08/09/18 06:08 Dose: Not Given Morphine Sulfate (Morphine) 2 mg IVP Q4 PRN PRN Reason: Pain, severe (8-10) Last Admin: 08/09/18 04:05 Dose: 2 mg Oxycodone HCl (Oxycodone Immediate Release Tab) 5 mg PO Q6 PRN PRN Reason: Pain, moderate (4-7) Last Admin: 08/06/18 18:20 Dose: 5 mg Polyethylene Glycol (Miralax) 17 gm PO BID [facility] Last Admin: 08/08/18 18:31 Dose: Not Given - Labs Labs: 08/09/18 05:45 08/09/18 05:45 PT 14.0 Seconds (9.8-13.1) H 08/08/18 06:25 INR 1.2 08/08/18 06:25 APTT 36.6 Seconds (25.6-37.1) 08/08/18 06:25 - Constitutional Appears: No Acute Distress - Respiratory Exam Respiratory Exam: Clear to Ausculation Bilateral, NORMAL BREATHING PATTERN - Cardiovascular Exam Cardiovascular Exam: REGULAR RHYTHM, +S1, +S2. absent: Tachycardia - GI/Abdominal Exam GI & Abdominal Exam: Soft, Tenderness (perincisional, dressing in place c/d/i. JADEN drain serosanguineus output 125cc, ostomy pink, no output noted), Normal Bowel Sounds. absent: Distended - Extremities Exam Extremities Exam: absent: Calf Tenderness, Pedal Edema - Neurological Exam Neurological Exam: Alert, CN II-XII Intact, Oriented x3 - Skin Skin Exam: Dry, Warm Assessment and Plan - Assessment and Plan (Free Text) Assessment: 63 yo f PMHx of hypothyroidism, and anxiety admitted with rectal abscess that was found incidentally on CT scan. s/p exploratory laparotomy, sigmoidectomy, drainage of pelvic abscess and ostomy POD 1. Plan: Abdominal abscess S/P Betzaida's procedure POD 1 - Surgery Dr. Gonzales on board - GI consult Dr Thompson - ID consult Dr. Greene - Abx: Meropenem IV, Flagyl IV - NPO - on IVF - incentive spirometry - pain management - Encouraged OOB and ambulation Anemia: - Stable H/H: 11.0/33.0 - GI consult Dr Thompson: OP colonoscopy - Feosol BID Hypothyroid: - c/w levothyroxine 88 mcg DVT prophylaxis: - SCDs - Lovenox Case discussed with Dr Marquez. Cruzito PGY 2 <Jared Marquez - Last Filed: 08/09/18 20:04> Objective - Vital Signs/Intake and Output Vital Signs (last 24 hours): Temp Pulse Resp BP Pulse Ox 98 F 69 20 121/73 98 08/09/18 16:22 08/09/18 16:22 08/09/18 16:22 08/09/18 16:22 08/09/18 16:22 Intake and Output: 08/09/18 08/10/18 18:59 06:59 Output Total 180 Balance -180 - Medications Medications: Current Medications Alprazolam (Xanax) 0.5 mg PO Q8 PRN PRN Reason: Anxiety Enoxaparin Sodium (Lovenox) 40 mg SC DAILY [facility]; Protocol Last Admin: 08/09/18 09:57 Dose: 40 mg Ferrous Sulfate (Feosol) 325 mg PO BID [facility] Last Admin: 08/09/18 16:46 Dose: 325 mg Metronidazole (Flagyl 500mg/100ml Ns) 100 mls @ 100 mls/hr IVPB Q8H [facility]; Protocol Last Admin: 08/09/18 18:43 Dose: 100 mls/hr Vancomycin HCl 1 gm/ Sodium (Chloride) 250 mls @ 166.667 mls/hr IVPB Q12 [facility]; Protocol Last Admin: 08/09/18 09:48 Dose: 166.667 mls/hr Meropenem 500 mg/ Sodium (Chloride) 100 mls @ 100 mls/hr IVPB Q8 [facility]; Protocol Last Admin: 08/09/18 16:50 Dose: 100 mls/hr Potassium Chloride/Dextrose/Sod Cl (Potassium Chl 40 Meq In D5-1/2ns) 1,000 mls @ 100 mls/hr IV .Q10H [facility] Stop: 08/10/18 09:12 Last Admin: 08/09/18 10:57 Dose: 100 mls/hr Ketorolac Tromethamine (Toradol) 15 mg IVP Q6 [facility] Last Admin: 08/09/18 17:44 Dose: 15 mg Levothyroxine Sodium (Synthroid) 88 mcg PO DAILY@0630 [facility] Last Admin: 08/09/18 09:33 Dose: 88 mcg Morphine Sulfate (Morphine) 4 mg IVP Q4 PRN PRN Reason: Pain, severe (8-10) Last Admin: 08/09/18 14:14 Dose: 4 mg Oxycodone/Acetaminophen (Percocet 5/325 Mg Tab) 1 tab PO Q4 PRN PRN Reason: Pain, moderate (4-7) Stop: 08/12/18 08:58 Polyethylene Glycol (Miralax) 17 gm PO BID [facility] Last Admin: 08/09/18 16:47 Dose: 17 gm - Labs Labs: 08/09/18 05:45 08/09/18 05:45 PT 14.0 Seconds (9.8-13.1) H 08/08/18 06:25 INR 1.2 08/08/18 06:25 APTT 36.6 Seconds (25.6-37.1) 08/08/18 06:25 Attending/Attestation - Attestation I have personally seen and examined this patient.: Yes I have fully participated in the care of the patient.: Yes I have reviewed all pertinent clinical information, including history, physical exam and plan: Yes Notes (Text): 08/09/18 20:03 Patient seen and examined with resident. Case discussed and agreed with assessment and plan of management.
--- NOTE | 2018-08-09 09:09 | CP.PCM.PN ---
Subjective - Date & Time of Evaluation Date of Evaluation: 08/09/18 Time of Evaluation: 09:03 - Subjective Subjective: pt seen and examined at bedside,no overnight events. Pt POD # 1 s/p exploratory laparotomy, sigmoidectomy, drainage of pelvic abscess. Pt resting comfortably, reports incisional pain. Pt currently NPO. Pt afebrile, hemodynamically stable. JADEN: 125cc serosanguineous Panchal: 1400cc gen: awake, alert, NAD resp: no acute respiratory distress abd: soft, ND, appropriate incisional tenderness, midline incision with dressing in place c/d/i. ostomy to LLQ pink, non productive, ext: no calf tenderness, no edema a/p: 63yo F POD # 1 s/p hartmanns procedure, drainage of pelvic abscess - PO percocet, toradol Q6 -incentive spirometry -cont IVF -clear liquid diet -zofran prn -dvt prophylaxis -ambulation -am labs Objective - Vital Signs/Intake and Output Vital Signs (last 24 hours): Temp Pulse Resp BP Pulse Ox 98.3 F 76 20 118/73 96 08/09/18 07:49 08/09/18 07:49 08/09/18 07:49 08/09/18 07:49 08/09/18 07:49 Intake and Output: 08/09/18 08/09/18 06:59 18:59 Output Total 820 Balance -820 - Medications Medications: Current Medications Enoxaparin Sodium (Lovenox) 40 mg SC DAILY [facility]; Protocol Last Admin: 08/07/18 10:37 Dose: 40 mg Ferrous Sulfate (Feosol) 325 mg PO BID [facility] Last Admin: 08/08/18 18:29 Dose: Not Given Metronidazole (Flagyl 500mg/100ml Ns) 100 mls @ 100 mls/hr IVPB Q8H [facility]; Protocol Last Admin: 08/09/18 02:00 Dose: 100 mls/hr Vancomycin HCl 1 gm/ Sodium (Chloride) 250 mls @ 166.667 mls/hr IVPB Q12 [facility]; Protocol Last Admin: 08/08/18 21:08 Dose: 166.667 mls/hr Lactated Ringer's (Lactated Ringer's) 1,000 mls @ 100 mls/hr IV .Q10H [facility] Last Admin: 08/09/18 06:05 Dose: Not Given Meropenem 500 mg/ Sodium (Chloride) 100 mls @ 100 mls/hr IVPB Q8 [facility]; Protocol Last Admin: 08/09/18 00:27 Dose: 100 mls/hr Lactated Ringer's (Lactated Ringer's) 1,000 mls @ 100 mls/hr IV .Q10H [facility] Last Admin: 08/09/18 01:45 Dose: Not Given Ketorolac Tromethamine (Toradol) 15 mg IVP Q6 [facility] Levothyroxine Sodium (Synthroid) 88 mcg PO DAILY@0630 [facility] Last Admin: 08/09/18 06:08 Dose: Not Given Morphine Sulfate (Morphine) 4 mg IVP Q4 PRN PRN Reason: Pain, severe (8-10) Oxycodone/Acetaminophen (Percocet 5/325 Mg Tab) 1 tab PO Q4 PRN PRN Reason: Pain, moderate (4-7) Stop: 08/12/18 08:58 Polyethylene Glycol (Miralax) 17 gm PO BID [facility] Last Admin: 08/08/18 18:31 Dose: Not Given - Labs Labs: 08/09/18 05:45 08/09/18 05:45 PT 14.0 Seconds (9.8-13.1) H 08/08/18 06:25 INR 1.2 08/08/18 06:25 APTT 36.6 Seconds (25.6-37.1) 08/08/18 06:25
[2018-08-09] MEDS: Enoxaparin 40 mg Syringe SC SCH (09:57)
[2018-08-09] MEDS: POLYETHYLENE GLYCOL 3350 17 GM/Dose PACKET PO SCH ×2 (09:58→16:47)
[2018-08-09] MEDS: Potassium Chl 40 mEq in D5-1/2 1,000 ML IV SCH ×2 (10:57→20:07)
--- NOTE | 2018-08-09 12:22 | CP.PCM.PN ---
Subjective - Date & Time of Evaluation Date of Evaluation: 08/09/18 Time of Evaluation: 12:20 - Subjective Subjective: iI D NOTE FIRST DAY POST OP WBC:10 CONTINUE SAME ANTIBIOTICS (VANCOMYCIN,MEROPENEM,FLAGYL Objective - Vital Signs/Intake and Output Vital Signs (last 24 hours): Temp Pulse Resp BP Pulse Ox 98.3 F 76 20 118/73 96 08/09/18 07:49 08/09/18 07:49 08/09/18 07:49 08/09/18 07:49 08/09/18 07:49 Intake and Output: 08/09/18 08/09/18 06:59 18:59 Output Total 820 Balance -820 - Medications Medications: Current Medications Enoxaparin Sodium (Lovenox) 40 mg SC DAILY [facility]; Protocol Last Admin: 08/09/18 09:57 Dose: 40 mg Ferrous Sulfate (Feosol) 325 mg PO BID [facility] Last Admin: 08/09/18 10:08 Dose: 325 mg Metronidazole (Flagyl 500mg/100ml Ns) 100 mls @ 100 mls/hr IVPB Q8H [facility]; Protocol Last Admin: 08/09/18 10:08 Dose: 100 mls/hr Vancomycin HCl 1 gm/ Sodium (Chloride) 250 mls @ 166.667 mls/hr IVPB Q12 [facility]; Protocol Last Admin: 08/09/18 09:48 Dose: 166.667 mls/hr Meropenem 500 mg/ Sodium (Chloride) 100 mls @ 100 mls/hr IVPB Q8 [facility]; Protocol Last Admin: 08/09/18 09:45 Dose: 100 mls/hr Potassium Chloride/Dextrose/Sod Cl (Potassium Chl 40 Meq In D5-1/2ns) 1,000 mls @ 100 mls/hr IV .Q10H [facility] Stop: 08/10/18 09:12 Last Admin: 08/09/18 10:57 Dose: 100 mls/hr Ketorolac Tromethamine (Toradol) 15 mg IVP Q6 [facility] Last Admin: 08/09/18 10:51 Dose: 15 mg Levothyroxine Sodium (Synthroid) 88 mcg PO DAILY@0630 [facility] Last Admin: 08/09/18 09:33 Dose: 88 mcg Morphine Sulfate (Morphine) 4 mg IVP Q4 PRN PRN Reason: Pain, severe (8-10) Last Admin: 08/09/18 09:37 Dose: 4 mg Oxycodone/Acetaminophen (Percocet 5/325 Mg Tab) 1 tab PO Q4 PRN PRN Reason: Pain, moderate (4-7) Stop: 08/12/18 08:58 Polyethylene Glycol (Miralax) 17 gm PO BID [facility] Last Admin: 08/09/18 09:58 Dose: 17 gm - Labs Labs: 08/09/18 05:45 08/09/18 05:45 PT 14.0 Seconds (9.8-13.1) H 08/08/18 06:25 INR 1.2 08/08/18 06:25 APTT 36.6 Seconds (25.6-37.1) 08/08/18 06:25
--- NOTE | 2018-08-09 15:54 | OP ---
PROCEDURE DATE: 08/09/2018 PREOPERATIVE DIAGNOSIS: Pelvic abscess. POSTOPERATIVE DIAGNOSIS: Pelvic abscess. SURGEON: Armaan Crowell MD NECKTIE STITCHER: Cristofer Ring MD ANESTHESIA: General, local. FINDINGS: The patient had a perforated sigmoid colon along with some purulent drainage. The patient had also a chronic abscess cavity about the size of 5 cm x 4 cm. COMPLICATIONS: None. ESTIMATED BLOOD LOSS: 100 mL. DRAIN: A size 19-Romanian Wei drain was left in place. SPECIMENS: Sigmoid colon, abscess cavity. CONDITION: Stable. INDICATION: This is a 63-year-old female who was referred to the emergency room by her primary care doctor after having an outpatient CT scan which showed a pelvic abscess. Upon admission to the hospital, the patient was noted to have no previous history of colonoscopy or previous history of diverticulitis. The abscess was of unknown etiology. Initially, the patient was taken to Interventional Radiology in which a transrectal drain was used to drain this abscess. The patient was also placed on IV antibiotics but throughout the hospital admission, the size of the abscess did not improve. At this point, an excessive discussion was had with the patient regarding the need for surgical intervention. The patient was explained the likelihood that she may need a colon resection along with a colostomy creation. The patient was also explained the risks and benefits of the procedure not limited to bleeding, infection, abscess formation, injury to surrounding structures. The patient agreed to procedure and surgical consent was obtained. DESCRIPTION OF PROCEDURE: On the date of procedure, the patient was brought to the operating room where she was placed in supine position. The patient was given IV antibiotics. The patient was then placed under general endotracheal anesthesia, which she tolerated well. A Panchal catheter was placed under sterile condition. The patient was then prepped and draped in usual sterile fashion. After an adequate time-out, an infraumbilical vertical incision was used making a template. The subcutaneous tissue was transected using the Bovie cautery obtaining adequate hemostasis at all times. The abdominal cavity was then entered and the fascia was transected along the length of the incision. Upon entering the abdominal cavity, no gross purulent peritonitis was noted or any gross abnormalities seen. At this point, we focused our attention to the lower pelvis along the sigmoid. We initially began our dissection transecting the white line of Toldt to the lower portion of the descending colon in order to have some mobilization of the sigmoid colon. During our exploration of the lower pelvis, we did note to have about a 1 cm perforation along the sigmoid colon with purulent drainage around this area. At this point, I made a decision to transect the sigmoid colon using a 75 mm MATTEO. I then proceeded to mobilize the sigmoid colon using the LigaSure. Once again, we continued to notice purulent drainage anterior to the sigmoid and posterior to the uterus. After closer observation, we did note that posterior to the uterus in the front of the sigmoid, there was a large abscess cavity that likely was chronic. The abscess cavity was around the size of 5 x 4 cm. This cavity had copious amounts of purulence which was all suctioned out. We proceeded to mobilize the abscess cavity off the uterus and transect it. Once the abscess cavity was transected, it was sent to pathology. At this point, once the abscess cavity was transected, we once again focused our attention along the sigmoid colon and we were able to mobilize it inferiorly. Once having obtained optimal mobilization, we used a Blue Load Contour stapler to transect the sigmoid colon. The sigmoid colon was sent for pathology. The staple was examined and adequate hemostasis obtained. At this time, we proceeded to copiously irrigate the abdominal cavity with normal saline. All the irrigation was suctioned out. I now focused my attention to create the colostomy site. About a 1-inch circular incision was made to the left lower quadrant. The Bovie cautery was used to transect the subcutaneous tissue down to the anterior rectus sheath and then subsequently transecting the peritoneum. The colostomy was brought out through this site. At this point, a 19-Romanian Wei drain was placed to the area of the previous abscess cavity. The Wei drain was brought out through a right lower quadrant stab incision which was made with an #11 blade. A 0 silk stitch was used to secure the drain to the left lower quadrant. At this point, we once again irrigated the abdominal cavity and the abdominal cavity was then examined for adequate hemostasis. There was some oozing from the raw surfaces of the previous abscess cavity and I decided to leave some Surgicel around this area to obtain optimal hemostasis. Having been satisfied with our hemostasis, at this point we proceeded to close the fascia and looped PDS was used to close the fascia. The skin was then reapproximated using salima. At this point, we focused our attention to mature the colostomy. The colon was opened transversely and then using a 3-0 Monocryl stitch, the ostomy was matured. Once the colostomy was matured, it was examined and it was patent. At this point having been satisfied with the procedure, we proceeded to apply some local anesthetic to the midline incision. Sterile wound and colostomy bag was applied over the incision site and colostomy. The patient tolerated the procedure well. She was extubated without any complications. The Panchal catheter was left in place. The patient was then brought to the recovery area in stable condition. At the end of the procedure, there was an adequate count to all instruments, sponges, and lap pads. Armaan Crowell MD
[2018-08-10] MEDS: Meropenem 500 MG in Sodium Chloride 0.9% 100 ML IVPB SCH ×3 (00:27→16:22)
[2018-08-10] MEDS: metroNIDAZOLE 500mg/100ml NS 100 ML IVPB SCH ×3 (02:38→18:00)
[2018-08-10] MEDS: Potassium Chl 40 mEq in D5-1/2 1,000 ML IV SCH (06:55)
[2018-08-10] MEDS: Levothyroxine 88 MCG TAB PO SCH (06:55)
[2018-08-10 07:04] LABS: MEAN CELL VOLUME 83.7 fl (81.0-99.0); MEAN CORPUSCULAR HEMOGLOBIN 27.3 pg (27.0-31.0); MEAN CORPUSCULAR HGB CONC 32.6 g/dL (33.0-37.0); RBC 3.67 Mil/uL (3.80-5.20); RED CELL DISTRIBUTION WIDTH 20.3 % (11.5-14.5); WHITE BLOOD COUNT 7.5 K/uL (4.8-10.8)
[2018-08-10 07:33] LABS: BLOOD UREA NITROGEN 10 mg/dl (7-17); CALCIUM 8.8 mg/dL (8.4-10.2); GFR NON-AFRICAN AMERICAN > 60
--- NOTE | 2018-08-10 07:37 | CP.PCM.PN ---
<Bari Carrero - Last Filed: 08/10/18 12:41> Subjective - Date & Time of Evaluation Date of Evaluation: 08/10/18 Time of Evaluation: 07:37 - Subjective Subjective: Patient seen and examined today at bedside, pt was walking on the hallway, reported mild abdominal discomfort around incision, tolerating liquids, passing gas, Denies fever, chills, nausea, vomiting, afebrile, VSS. Objective - Vital Signs/Intake and Output Vital Signs (last 24 hours): Temp Pulse Resp BP Pulse Ox 98 F 71 18 110/74 98 08/10/18 01:00 08/10/18 01:00 08/10/18 01:00 08/10/18 01:00 08/10/18 01:00 Intake and Output: 08/10/18 08/10/18 06:59 18:59 Output Total 180 Balance -180 - Medications Medications: Current Medications Alprazolam (Xanax) 0.5 mg PO Q8 PRN PRN Reason: Anxiety Last Admin: 08/10/18 06:55 Dose: 0.5 mg Enoxaparin Sodium (Lovenox) 40 mg SC DAILY [facility]; Protocol Last Admin: 08/09/18 09:57 Dose: 40 mg Ferrous Sulfate (Feosol) 325 mg PO BID [facility] Last Admin: 08/09/18 16:46 Dose: 325 mg Metronidazole (Flagyl 500mg/100ml Ns) 100 mls @ 100 mls/hr IVPB Q8H [facility]; Protocol Last Admin: 08/10/18 02:38 Dose: 100 mls/hr Vancomycin HCl 1 gm/ Sodium (Chloride) 250 mls @ 166.667 mls/hr IVPB Q12 [facility]; Protocol Last Admin: 08/09/18 21:49 Dose: 166.667 mls/hr Meropenem 500 mg/ Sodium (Chloride) 100 mls @ 100 mls/hr IVPB Q8 [facility]; Protocol Last Admin: 08/10/18 00:27 Dose: 100 mls/hr Potassium Chloride/Dextrose/Sod Cl (Potassium Chl 40 Meq In D5-1/2ns) 1,000 mls @ 100 mls/hr IV .Q10H [facility] Stop: 08/10/18 09:12 Last Admin: 08/10/18 06:55 Dose: 100 mls/hr Ketorolac Tromethamine (Toradol) 15 mg IVP Q6 [facility] Last Admin: 08/10/18 03:29 Dose: 15 mg Levothyroxine Sodium (Synthroid) 88 mcg PO DAILY@0630 [facility] Last Admin: 08/10/18 06:55 Dose: 88 mcg Morphine Sulfate (Morphine) 4 mg IVP Q4 PRN PRN Reason: Pain, severe (8-10) Last Admin: 08/09/18 14:14 Dose: 4 mg Oxycodone/Acetaminophen (Percocet 5/325 Mg Tab) 1 tab PO Q4 PRN PRN Reason: Pain, moderate (4-7) Stop: 08/12/18 08:58 Polyethylene Glycol (Miralax) 17 gm PO BID [facility] Last Admin: 08/09/18 16:47 Dose: 17 gm - Labs Labs: 08/10/18 06:10 08/10/18 06:10 PT 14.0 Seconds (9.8-13.1) H 08/08/18 06:25 INR 1.2 08/08/18 06:25 APTT 36.6 Seconds (25.6-37.1) 08/08/18 06:25 - Constitutional Appears: No Acute Distress, Other (Ambulating w/o difficulty) - Head Exam Head Exam: NORMAL INSPECTION - ENT Exam ENT Exam: Mucous Membranes Moist - Respiratory Exam Respiratory Exam: Clear to Ausculation Bilateral, NORMAL BREATHING PATTERN - Cardiovascular Exam Cardiovascular Exam: REGULAR RHYTHM. absent: Tachycardia, Murmur - GI/Abdominal Exam GI & Abdominal Exam: Soft, Tenderness (perincisional), Normal Bowel Sounds. absent: Distended Additional comments: dressing in place c/d/i. JADEN drain serosanguineus output 65cc, ostomy pink and intact raining brown liquid stool. - Extremities Exam Extremities Exam: absent: Calf Tenderness, Pedal Edema - Neurological Exam Neurological Exam: Alert, Awake, Oriented x3 - Skin Skin Exam: Dry, Normal Color, Warm Assessment and Plan - Assessment and Plan (Free Text) Assessment: 63 yo f PMHx of hypothyroidism, and anxiety admitted with rectal abscess that was found incidentally on CT scan. s/p exploratory laparotomy, sigmoidectomy, drainage of pelvic abscess and ostomy POD 2 Plan: Abdominal abscess/ S/P Betzaida's procedure POD 2 - Surgery Dr. Gonzales on board - ID consult Dr. Greene - Wound cx grows Gram+ cocci and yeast species - Blood cx: negative - IV Abx: Meropenem, Flagyl, vanco; Diflucam added - continue afebrile, no leukocytosis - Advanced to liquid diet - c/w IVF - incentive spirometry - pain management - Encouraged OOB and ambulation Anemia: - Stable H/H: 10.0/33.0 - GI consult Dr Thompson: OP colonoscopy - Feosol BID Hypothyroid: - c/w levothyroxine 88 mcg DVT prophylaxis: - SCDs - Lovenox Case discussed with Dr Alex East PGY 2 <Charity Johnson - Last Filed: 08/11/18 11:22> Objective - Vital Signs/Intake and Output Vital Signs (last 24 hours): Temp Pulse Resp BP Pulse Ox 98.3 F 71 20 122/75 99 08/11/18 07:59 08/11/18 07:59 08/11/18 07:59 08/11/18 07:59 08/11/18 07:59 Intake and Output: 08/11/18 08/11/18 06:59 18:59 Output Total 75 Balance -75 - Medications Medications: Current Medications Alprazolam (Xanax) 0.5 mg PO Q8 PRN PRN Reason: Anxiety Last Admin: 08/10/18 22:05 Dose: 0.5 mg Enoxaparin Sodium (Lovenox) 40 mg SC DAILY [facility]; Protocol Last Admin: 08/11/18 08:47 Dose: 40 mg Ferrous Sulfate (Feosol) 325 mg PO BID [facility] Last Admin: 08/11/18 08:47 Dose: 325 mg Metronidazole (Flagyl 500mg/100ml Ns) 100 mls @ 100 mls/hr IVPB Q8H [facility]; Protocol Last Admin: 08/11/18 10:33 Dose: 100 mls/hr Vancomycin HCl 1 gm/ Sodium (Chloride) 250 mls @ 166.667 mls/hr IVPB Q12 [facility]; Protocol Last Admin: 08/11/18 08:48 Dose: 166.667 mls/hr Meropenem 500 mg/ Sodium (Chloride) 100 mls @ 100 mls/hr IVPB Q8 [facility]; Protocol Last Admin: 08/11/18 08:48 Dose: 100 mls/hr Fluconazole (Diflucan Iv 200 Mg/100 Ml Ns) 100 mls @ 100 mls/hr IVPB DAILY [facility]; Protocol Last Admin: 08/11/18 08:49 Dose: 100 mls/hr Levothyroxine Sodium (Synthroid) 88 mcg PO DAILY@0630 [facility] Last Admin: 08/11/18 05:38 Dose: 88 mcg Morphine Sulfate (Morphine) 4 mg IVP Q4 PRN PRN Reason: Pain, severe (8-10) Last Admin: 08/11/18 05:46 Dose: 4 mg Oxycodone/Acetaminophen (Percocet 5/325 Mg Tab) 1 tab PO Q4 PRN PRN Reason: Pain, moderate (4-7) Stop: 08/12/18 08:58 Last Admin: 08/11/18 10:32 Dose: 1 tab Pantoprazole Sodium (Protonix Ec Tab) 40 mg PO DAILY [facility] Potassium Phos/Sodium Phos (Neutra-Phos) 1 pkt PO TID [facility] Last Admin: 08/11/18 08:47 Dose: 1 pkt - Labs Labs: 08/11/18 05:35 08/11/18 05:35 PT 14.0 Seconds (9.8-13.1) H 08/08/18 06:25 INR 1.2 08/08/18 06:25 APTT 36.6 Seconds (25.6-37.1) 08/08/18 06:25 Attending/Attestation - Attestation I have personally seen and examined this patient.: Yes I have fully participated in the care of the patient.: Yes I have reviewed all pertinent clinical information, including history, physical exam and plan: Yes Notes (Text): 08/11/18 11:22 Agree with findings and plan as above
[2018-08-10] MEDS: Morphine 4 MG/ML VIAL IVP PRN (07:38)
[2018-08-10] MEDS: Potassium & Sodium Phosphate PO SCH ×3 (09:27→17:30)
[2018-08-10] MEDS: Enoxaparin 40 mg Syringe SC SCH (09:29)
[2018-08-10] MEDS: Fluconazole IV 200mg/100 ml NS 100 ML IVPB SCH (09:40)
--- NOTE | 2018-08-10 11:34 | CP.PCM.PN ---
Subjective - Date & Time of Evaluation Date of Evaluation: 08/10/18 Time of Evaluation: 11:31 - Subjective Subjective: General Surgery Pt seen and examined this AM with Dr. Ring. She reports feeling okay with some incisional pain. She has been ambulating. Afebrile. Tolerating clear liquid diet. Afebrile Labs and vitals noted. PE Gen: Pt laying in bed in NAD Skin: warm and dry, see ABD Resp: (-) tachypnea Abd: Soft, (-) distended, (+) nery-incisional tenderness, stapled incision c/d/i. (+) colostomy with dark brown liquid stool, (+) drain with serosanguinous output. Extr: (-) calf tenderness bilaterally A/P POD # 2 s/p hartmanns procedure, drainage of pelvic abscess, and sigmoid colon resection Pt doing well post op, will advance diet to fulls. DVT prophylaxis. Encourage OOB. Monitor colostomy output. Encourage IS. D/C IVF as pt is tolerating liquids. Labs in AM. Objective - Vital Signs/Intake and Output Vital Signs (last 24 hours): Temp Pulse Resp BP Pulse Ox 98 F 75 20 130/81 99 08/10/18 08:17 08/10/18 08:17 08/10/18 08:17 08/10/18 08:17 08/10/18 08:17 Intake and Output: 08/10/18 08/10/18 06:59 18:59 Output Total 715 Balance -715 - Medications Medications: Current Medications Alprazolam (Xanax) 0.5 mg PO Q8 PRN PRN Reason: Anxiety Last Admin: 08/10/18 06:55 Dose: 0.5 mg Enoxaparin Sodium (Lovenox) 40 mg SC DAILY [facility]; Protocol Last Admin: 08/10/18 09:29 Dose: 40 mg Ferrous Sulfate (Feosol) 325 mg PO BID [facility] Last Admin: 08/10/18 09:29 Dose: 325 mg Metronidazole (Flagyl 500mg/100ml Ns) 100 mls @ 100 mls/hr IVPB Q8H [facility]; Protocol Last Admin: 08/10/18 02:38 Dose: 100 mls/hr Vancomycin HCl 1 gm/ Sodium (Chloride) 250 mls @ 166.667 mls/hr IVPB Q12 [facility]; Protocol Last Admin: 08/10/18 09:30 Dose: 166.667 mls/hr Meropenem 500 mg/ Sodium (Chloride) 100 mls @ 100 mls/hr IVPB Q8 [facility]; Protocol Last Admin: 08/10/18 09:27 Dose: 100 mls/hr Fluconazole (Diflucan Iv 200 Mg/100 Ml Ns) 100 mls @ 100 mls/hr IVPB DAILY [facility]; Protocol Last Admin: 08/10/18 09:40 Dose: 100 mls/hr Ketorolac Tromethamine (Toradol) 15 mg IVP Q6 [facility] Last Admin: 08/10/18 09:29 Dose: 15 mg Levothyroxine Sodium (Synthroid) 88 mcg PO DAILY@0630 [facility] Last Admin: 08/10/18 06:55 Dose: 88 mcg Morphine Sulfate (Morphine) 4 mg IVP Q4 PRN PRN Reason: Pain, severe (8-10) Last Admin: 08/10/18 07:38 Dose: 4 mg Oxycodone/Acetaminophen (Percocet 5/325 Mg Tab) 1 tab PO Q4 PRN PRN Reason: Pain, moderate (4-7) Stop: 08/12/18 08:58 Potassium Phos/Sodium Phos (Neutra-Phos) 1 pkt PO TID [facility] Last Admin: 08/10/18 09:27 Dose: 1 pkt - Labs Labs: 08/10/18 06:10 08/10/18 06:10 PT 14.0 Seconds (9.8-13.1) H 08/08/18 06:25 INR 1.2 08/08/18 06:25 APTT 36.6 Seconds (25.6-37.1) 08/08/18 06:25
[2018-08-11] MEDS: Meropenem 500 MG in Sodium Chloride 0.9% 100 ML IVPB SCH ×2 (00:09→08:48)
[2018-08-11] MEDS: metroNIDAZOLE 500mg/100ml NS 100 ML IVPB SCH ×2 (03:56→10:33)
[2018-08-11] MEDS: Levothyroxine 88 MCG TAB PO SCH (05:38)
[2018-08-11 06:26] LABS: BASO # 0.1 K/uL (0.0-0.2); EOS # 0.2 K/uL (0.0-0.7); EOS % 3.7 % (0.0-4.0); LYMPH # 0.8 K/uL (1.0-4.3); MEAN CELL VOLUME 83.8 fl (81.0-99.0); MEAN CORPUSCULAR HGB CONC 32.2 g/dL (33.0-37.0); MEAN PLATELET VOLUME 7.6 fl (7.2-11.7); MONO # 0.7 K/uL (0.0-0.8); MONO % 11.2 % (0.0-10.0); NEUT # 4.7 K/uL (1.8-7.0); NEUT % 72.1 % (50.0-75.0); RBC 3.28 Mil/uL (3.80-5.20); RED CELL DISTRIBUTION WIDTH 20.4 % (11.5-14.5); WHITE BLOOD COUNT 6.6 K/uL (4.8-10.8)
[2018-08-11 06:29] LABS: HEMOGLOBIN 8.9 g/dL (12.0-16.0)
[2018-08-11 06:48] LABS: BLOOD UREA NITROGEN 8 mg/dl (7-17); CALCIUM 8.4 mg/dL (8.4-10.2); GFR NON-AFRICAN AMERICAN > 60
[2018-08-11] MEDS: Potassium & Sodium Phosphate PO SCH ×3 (08:47→16:43)
[2018-08-11] MEDS: Enoxaparin 40 mg Syringe SC SCH (08:47)
[2018-08-11] MEDS: Fluconazole IV 200mg/100 ml NS 100 ML IVPB SCH (08:49)
--- NOTE | 2018-08-11 09:59 | CP.PCM.PN ---
Subjective - Date & Time of Evaluation Date of Evaluation: 08/11/18 Time of Evaluation: 09:53 - Subjective Subjective: pt seen and examined at bedside, no overnight events. Pt resting comfortably, tolerating full liquid diet. Denies any nausea or vomiting. Ostomy: 45cc semisolid JADEN 30cc serosanguinous AVSS gen: awake, alert, NAD HEENT: NC/AT, EOMI, PERRLA Resp: no acute respiratory distress abd: soft, ND, appropriate incisional tenderness, midline incision with salima in place c/d/i. JADEN drain to RLQ with serosanguinous drainage, ostomy to LLQ with semisolid melanotic stool a/p: s/p Hartmanns procedure, drainage pelvic abscess -PO pain meds -advance to regular diet -zofran prn -protonix -cbc in AM -cont IV abx -if patient cont to tolerate diet will be stable for dc -need to f/u with ID regarding abx recommendations Objective - Vital Signs/Intake and Output Vital Signs (last 24 hours): Temp Pulse Resp BP Pulse Ox 98.3 F 71 20 122/75 99 08/11/18 07:59 08/11/18 07:59 08/11/18 07:59 08/11/18 07:59 08/11/18 07:59 Intake and Output: 08/11/18 08/11/18 06:59 18:59 Output Total 75 Balance -75 - Medications Medications: Current Medications Alprazolam (Xanax) 0.5 mg PO Q8 PRN PRN Reason: Anxiety Last Admin: 08/10/18 22:05 Dose: 0.5 mg Enoxaparin Sodium (Lovenox) 40 mg SC DAILY [facility]; Protocol Last Admin: 08/11/18 08:47 Dose: 40 mg Ferrous Sulfate (Feosol) 325 mg PO BID [facility] Last Admin: 08/11/18 08:47 Dose: 325 mg Metronidazole (Flagyl 500mg/100ml Ns) 100 mls @ 100 mls/hr IVPB Q8H [facility]; Protocol Last Admin: 08/11/18 03:56 Dose: 100 mls/hr Vancomycin HCl 1 gm/ Sodium (Chloride) 250 mls @ 166.667 mls/hr IVPB Q12 [facility]; Protocol Last Admin: 08/11/18 08:48 Dose: 166.667 mls/hr Meropenem 500 mg/ Sodium (Chloride) 100 mls @ 100 mls/hr IVPB Q8 [facility]; Protocol Last Admin: 08/11/18 08:48 Dose: 100 mls/hr Fluconazole (Diflucan Iv 200 Mg/100 Ml Ns) 100 mls @ 100 mls/hr IVPB DAILY [facility]; Protocol Last Admin: 08/11/18 08:49 Dose: 100 mls/hr Levothyroxine Sodium (Synthroid) 88 mcg PO DAILY@0630 [facility] Last Admin: 08/11/18 05:38 Dose: 88 mcg Morphine Sulfate (Morphine) 4 mg IVP Q4 PRN PRN Reason: Pain, severe (8-10) Last Admin: 08/11/18 05:46 Dose: 4 mg Oxycodone/Acetaminophen (Percocet 5/325 Mg Tab) 1 tab PO Q4 PRN PRN Reason: Pain, moderate (4-7) Stop: 08/12/18 08:58 Potassium Phos/Sodium Phos (Neutra-Phos) 1 pkt PO TID [facility] Last Admin: 08/11/18 08:47 Dose: 1 pkt - Labs Labs: 08/11/18 05:35 08/11/18 05:35 PT 14.0 Seconds (9.8-13.1) H 08/08/18 06:25 INR 1.2 08/08/18 06:25 APTT 36.6 Seconds (25.6-37.1) 08/08/18 06:25
[2018-08-11] MEDS ORDERED: Pantoprazole 40 mg EC Tab PO SCH (10:00)
[2018-08-11] MEDS: Oxycodone/Acetaminophen 5/325 mg Tab PO PRN ×2 (10:32→16:42)
--- NOTE | 2018-08-11 11:16 | CP.PCM.PN ---
Subjective - Date & Time of Evaluation Date of Evaluation: 08/11/18 Time of Evaluation: 11:16 - Subjective Subjective: Patient seen and examined today at bedside, reports feeling better, mild abdominal well controlled with meds, tolerating PO w/o difficulty, passing gas, Denies fever, chills, nausea, vomiting, afebrile, VSS. Objective - Vital Signs/Intake and Output Vital Signs (last 24 hours): Temp Pulse Resp BP Pulse Ox 98.3 F 71 20 122/75 99 08/11/18 07:59 08/11/18 07:59 08/11/18 07:59 08/11/18 07:59 08/11/18 07:59 Intake and Output: 08/11/18 08/11/18 06:59 18:59 Output Total 75 Balance -75 - Medications Medications: Current Medications Alprazolam (Xanax) 0.5 mg PO Q8 PRN PRN Reason: Anxiety Last Admin: 08/10/18 22:05 Dose: 0.5 mg Enoxaparin Sodium (Lovenox) 40 mg SC DAILY [facility]; Protocol Last Admin: 08/11/18 08:47 Dose: 40 mg Ferrous Sulfate (Feosol) 325 mg PO BID [facility] Last Admin: 08/11/18 08:47 Dose: 325 mg Metronidazole (Flagyl 500mg/100ml Ns) 100 mls @ 100 mls/hr IVPB Q8H [facility]; Protocol Last Admin: 08/11/18 10:33 Dose: 100 mls/hr Vancomycin HCl 1 gm/ Sodium (Chloride) 250 mls @ 166.667 mls/hr IVPB Q12 [facility]; Protocol Last Admin: 08/11/18 08:48 Dose: 166.667 mls/hr Meropenem 500 mg/ Sodium (Chloride) 100 mls @ 100 mls/hr IVPB Q8 [facility]; Protocol Last Admin: 08/11/18 08:48 Dose: 100 mls/hr Fluconazole (Diflucan Iv 200 Mg/100 Ml Ns) 100 mls @ 100 mls/hr IVPB DAILY [facility]; Protocol Last Admin: 08/11/18 08:49 Dose: 100 mls/hr Levothyroxine Sodium (Synthroid) 88 mcg PO DAILY@0630 [facility] Last Admin: 08/11/18 05:38 Dose: 88 mcg Morphine Sulfate (Morphine) 4 mg IVP Q4 PRN PRN Reason: Pain, severe (8-10) Last Admin: 08/11/18 05:46 Dose: 4 mg Oxycodone/Acetaminophen (Percocet 5/325 Mg Tab) 1 tab PO Q4 PRN PRN Reason: Pain, moderate (4-7) Stop: 08/12/18 08:58 Last Admin: 08/11/18 10:32 Dose: 1 tab Pantoprazole Sodium (Protonix Ec Tab) 40 mg PO DAILY [facility] Potassium Phos/Sodium Phos (Neutra-Phos) 1 pkt PO TID [facility] Last Admin: 08/11/18 08:47 Dose: 1 pkt - Labs Labs: 08/11/18 05:35 08/11/18 05:35 PT 14.0 Seconds (9.8-13.1) H 08/08/18 06:25 INR 1.2 08/08/18 06:25 APTT 36.6 Seconds (25.6-37.1) 08/08/18 06:25 - Constitutional Appears: No Acute Distress - Head Exam Head Exam: NORMAL INSPECTION - Respiratory Exam Respiratory Exam: Clear to Ausculation Bilateral, NORMAL BREATHING PATTERN - Cardiovascular Exam Cardiovascular Exam: REGULAR RHYTHM, +S1, +S2 - GI/Abdominal Exam GI & Abdominal Exam: Soft, Tenderness (mild around incision), Normal Bowel Sounds. absent: Distended Additional comments: dressing in place c/d/i. JADEN drain serosanguineus output 30cc and ostomy is pink and intact raining brown semisolid stools. - Extremities Exam Extremities Exam: absent: Calf Tenderness - Neurological Exam Neurological Exam: Alert, Awake, Oriented x3 - Skin Skin Exam: Dry, Normal Color, Warm Assessment and Plan - Assessment and Plan (Free Text) Assessment: 63 yo f PMHx of hypothyroidism, and anxiety admitted with rectal abscess that was found incidentally on CT scan. s/p exploratory laparotomy, sigmoidectomy, drainage of pelvic abscess and ostomy POD 3 Plan: Abdominal abscess/ S/P Betzaida's procedure POD 3 - Surgery Dr. Gonzales on board - ID consult Dr. Greene - Wound cx grows Gram+ cocci and leo albicans - Blood cx: negative - IV Abx: Meropenem, Flagyl, vanco; Diflucam added, need 10 more days - continue afebrile, no leukocytosis - Advanced to regular diet - incentive spirometry - pain management - Encouraged OOB and ambulation Anemia: - Stable H/H: 10.0/33.0 - GI consult Dr Thompson: OP colonoscopy - Feosol BID Hypothyroid: - c/w levothyroxine 88 mcg DVT prophylaxis: - SCDs - Lovenox Case discussed with Dr Alex East PGY 2
--- NOTE | 2018-08-11 13:44 | CP.PCM.DIS ---
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 Thank you! 07/23/18 18:06 Infectious Disease Consult Routine Comment: Consulting Provider: Chapito Greene Consulting Physician: Chapito Greene Reason for Consult: Pelvic Abscess 07/23/18 18:46 Gastroenterology Consult Routine Comment: Consulting Provider: Bijan Thompson Consulting Physician: Bijan Thompson Reason for Consult: GI BLEED,ABSCES Time Spent in preparation of Discharge (in minutes): 38 Diagnosis - Discharge Diagnosis (1) Pelvic abscess Status: Acute (2) Status post Betzaida procedure Status: Acute (3) Hypothyroidism Status: Acute (4) Anemia Status: Acute Hospital Course - Lab Results Lab Results: Micro Results 08/08/18 17:35 Abdomen Gram Stain - Final 08/08/18 17:35 Abdomen Wound Culture - Final Sirena Albicans 07/25/18 15:00 Abscess - Pelvic Gram Stain - Final 07/25/18 15:00 Abscess - Pelvic Wound Culture - Final Gram Positive Cocci 07/23/18 11:25 Blood Blood Culture - Final NO GROWTH AFTER 5 DAYS 07/23/18 11:25 Blood Gram Stain - Final TEST NOT PERFORMED 07/23/18 11:00 Urine,Clean Catch Urine Culture - Final No Growth (<1,000 CFU/ML) Most Recent Lab Values WBC 6.6 K/uL (4.8-10.8) 08/11/18 05:35 RBC 3.28 Mil/uL (3.80-5.20) L 08/11/18 05:35 Hgb 8.9 g/dL (12.0-16.0) L 08/11/18 05:35 Hct 27.5 % (34.0-47.0) L 08/11/18 05:35 MCV 83.8 fl (81.0-99.0) 08/11/18 05:35 MCH 27.0 pg (27.0-31.0) 08/11/18 05:35 MCHC 32.2 g/dL (33.0-37.0) L 08/11/18 05:35 RDW 20.4 % (11.5-14.5) H 08/11/18 05:35 Plt Count 351 K/uL (130-400) 08/11/18 05:35 MPV 7.6 fl (7.2-11.7) 08/11/18 05:35 Neut % (Auto) 72.1 % (50.0-75.0) 08/11/18 05:35 Lymph % (Auto) 12.0 % (20.0-40.0) L 08/11/18 05:35 [place] % (Auto) 11.2 % (0.0-10.0) H 08/11/18 05:35 Eos % (Auto) 3.7 % (0.0-4.0) 08/11/18 05:35 Baso % (Auto) 1.0 % (0.0-2.0) 08/11/18 05:35 Neut # (Auto) 4.7 K/uL (1.8-7.0) 08/11/18 05:35 Lymph # (Auto) 0.8 K/uL (1.0-4.3) L 08/11/18 05:35 [place] # (Auto) 0.7 K/uL (0.0-0.8) 08/11/18 05:35 Eos # (Auto) 0.2 K/uL (0.0-0.7) 08/11/18 05:35 Baso # (Auto) 0.1 K/uL (0.0-0.2) 08/11/18 05:35 PT 14.0 Seconds (9.8-13.1) H 08/08/18 06:25 INR 1.2 08/08/18 06:25 APTT 36.6 Seconds (25.6-37.1) 08/08/18 06:25 pO2 25 mm/Hg (30-55) L 07/23/18 11:10 VBG pH 7.41 (7.32-7.43) 07/23/18 11:10 VBG pCO2 47 mmHg (40-60) 07/23/18 11:10 VBG HCO3 27.4 mmol/L 07/23/18 11:10 VBG Total CO2 31.2 mmol/L (22-28) H 07/23/18 11:10 VBG O2 Sat (Calc) 42.9 % (40-65) 07/23/18 11:10 VBG Base Excess 4.5 mmol/L (0.0-2.0) H 07/23/18 11:10 VBG Potassium 3.8 mmol/L (3.6-5.2) 07/23/18 11:10 Sodium 134.0 mmol/L (132-148) 07/23/18 11:10 Chloride 102.0 mmol/L (98-107) 07/23/18 11:10 Glucose 103 mg/dL (65-105) 07/23/18 11:10 Lactate 0.8 mmol/L (0.7-2.1) 07/23/18 11:10 FiO2 21.0 % 07/23/18 11:10 Sodium 137 mmol/l (132-148) 08/11/18 05:35 Potassium 4.4 MMOL/L (3.6-5.0) 08/11/18 05:35 Chloride 103 mmol/L (98-107) 08/11/18 05:35 Carbon Dioxide 27 mmol/L (22-30) 08/11/18 05:35 Anion Gap 11 (10-20) 08/11/18 05:35 BUN 8 mg/dl (7-17) 08/11/18 05:35 Creatinine 0.7 mg/dl (0.7-1.2) 08/11/18 05:35 Est GFR ( Amer) > 60 08/11/18 05:35 Est GFR (Non-Af Amer) > 60 08/11/18 05:35 Random Glucose 82 mg/dL (65-105) 08/11/18 05:35 Lactic Acid 2.8 mmol/L (0.7-2.1) H 07/23/18 18:53 Calcium 8.4 mg/dL (8.4-10.2) 08/11/18 05:35 Phosphorus 2.4 mg/dl (2.5-4.5) L 08/10/18 06:10 Magnesium 2.3 MG/DL (1.6-2.3) 08/10/18 06:10 Iron 20 ug/dL (37-170) L 07/23/18 14:00 Ferritin 225.0 ng/Ml (11.1-264.0) 07/23/18 11:25 Total Bilirubin 0.5 mg/dl (0.2-1.3) 08/09/18 05:45 AST 21 U/L (14-36) 08/09/18 05:45 ALT 20 U/L (9-52) 08/09/18 05:45 Alkaline Phosphatase 76 U/L (38-126) 08/09/18 05:45 Total Protein 6.9 G/DL (6.3-8.2) 08/09/18 05:45 Albumin 3.3 g/dL (3.5-5.0) L 08/09/18 05:45 Globulin 3.6 gm/dL (2.2-3.9) 08/09/18 05:45 Albumin/Globulin Ratio 0.9 (1.0-2.1) L 08/09/18 05:45 Lipase 46 U/L (23-300) 07/23/18 11:25 TSH 3rd Generation 4.35 mIU/ML (0.46-4.68) 07/25/18 12:00 Venous Blood Potassium 3.8 mmol/L (3.6-5.2) 07/23/18 11:10 Urine Color Straw (YELLOW) 07/23/18 11:25 Urine Clarity Clear (Clear) 07/23/18 11:25 Urine pH 7.0 (5.0-8.0) 07/23/18 11:25 Ur Specific [place] 1.005 (1.003-1.030) 07/23/18 11:25 Urine Protein Negative mg/dL (NEGATIVE) 07/23/18 11:25 Urine Glucose (UA) Neg mg/dL (NEGATIVE) 07/23/18 11:25 Urine Ketones Negative mg/dL (NEGATIVE) 07/23/18 11:25 Urine Blood Small (NEGATIVE) 07/23/18 11:25 Urine Nitrate Negative (NEGATIVE) 07/23/18 11:25 Urine Bilirubin Negative (NEGATIVE) 07/23/18 11:25 Urine Urobilinogen 0.2-1.0 mg/dL (0.2-1.0) 07/23/18 11:25 Ur Leukocyte Esterase Neg Johny/uL (Negative) 07/23/18 11:25 Urine RBC (Auto) < 1 /hpf (0-3) 07/23/18 11:25 Urine Microscopic WBC 1 /hpf (0-5) 07/23/18 11:25 Stool Occult Blood Positive (NEGATIVE) H 07/23/18 15:28 Vancomycin Trough 12.0 ug/mL (5.0-10.0) H 08/06/18 18:30 Blood Type A POSITIVE 08/07/18 10:50 Blood Type Confirm A POSITIVE 07/23/18 13:15 Antibody Screen Negative 08/07/18 10:50 Crossmatch See Detail 07/23/18 11:43 BBK History Checked Patient has bt 08/07/18 10:50 - Hospital Course Hospital Course: 63 yo F pmhx of hypothyroid, and anxiety due to rectal abcess incidentally found on outpatient abdo CT. 7 x cm abscess in pelvis anterior to recto-sigmoid; extralumenal air collecting. Pt reports lower abdominal pain starting in May (dx with anemia) diffuse, occasionally radiating to the back. No aggravating factors. Minimally alleviated with motrin. No abdominal pain, melena, hematochezia, nausea or vomiting. She was prescribed Cipro 500 mg BID and Metronidazole 500 mg TID. She underwent Hartmanns procedure on 08/08/18, POD 3, doing well after surgery. Wound cx positive for Sirena and Gram + cocci, ID on board. Patient now is discharged to TCU to complete 10 days IV abx treatment and PT. Discharge Exam - Additional Findings Additional findings: as described in progress note Discharge Plan - Discharge Medications Prescriptions: Fluconazole IV 100mg/50 ml NS [Diflucan IV 100 mg/50 ml NS] 100 mg IV DAILY 10 Days #10 ml - Follow Up Plan Condition: FAIR Disposition: REHAB FACILITY/REHAB UNIT Instructions: Colorectal Resection Additional Instructions: follow up with your primary MD and surgeon 1 week the [facility] visiting nurse [phone] Referrals: David Yusuf MD [Staff Provider] - Cheikh Garcia MD [Staff Provider] - Chapito Greene MD [Medical Doctor] - Bijan Thompson MD [Staff Provider] -
[2018-08-11 17:03] VITALS: BP 147/86; PULSE 74; RESP 18; TEMP 97.7; O2SAT 100
== END 2018-08-11 17:15 | DRG 329 ==
LOC: H.ER 10:20 → H.ERHOLD 12:08 → H.MEDSURG1 15:51
PROVIDERS: ADMIT Student in an Organized Health Care Education/Training Program; ATTEND Student in an Organized Health Care Education/Training Program
PROC: 30233N1 Transfusion of Nonautologous Red Blood Cells into Peripheral Vein, Percutaneous Approach (ICD-10-PCS; 2018-07-23)
PROC: 0W9J30Z Drainage of Pelvic Cavity with Drainage Device, Percutaneous Approach (ICD-10-PCS; 2018-07-25)
PROC: 0D1N0Z4 Bypass Sigmoid Colon to Cutaneous, Open Approach (ICD-10-PCS; 2018-08-08)
PROC: 0DTN0ZZ Resection of Sigmoid Colon, Open Approach (ICD-10-PCS; principal; 2018-08-08 12:30)
DX: K63.0 Abscess of intestine (principal); N73.3 Female acute pelvic peritonitis; K63.1 Perforation of intestine (nontraumatic); K56.7 Ileus, unspecified; D50.9 Iron deficiency anemia, unspecified; B95.1 Streptococcus, group B, as the cause of diseases classified elsewhere; E03.9 Hypothyroidism, unspecified; F17.210 Nicotine dependence, cigarettes, uncomplicated

== ENCOUNTER 2018-08-11 14:50 | Inpatient (IN) | payer BC ==
[2018-08-11 17:41] VITALS: BMI 21.8
[2018-08-11] MEDS ORDERED: metroNIDAZOLE 500mg/100ml NS 250 MG in Premixed IV 1 EA IVPB SCH (19:00)
[2018-08-11] MEDS ORDERED: Meropenem 500 MG in Sodium Chloride 0.9% 100 ML IVPB SCH (19:00)
[2018-08-11] MEDS: Oxycodone/Acetaminophen 5/325 mg Tab PO PRN (23:40)
[2018-08-12] MEDS: metroNIDAZOLE 500mg/100ml NS 250 MG in Premixed IV 1 EA IVPB SCH ×3 (00:27→17:24)
[2018-08-12] MEDS ORDERED: Meropenem 500 MG in Sodium Chloride 0.9% 100 ML IVPB SCH (01:00)
[2018-08-12] MEDS: Meropenem 1 GM in Sodium Chloride 0.9% 100 ML IVPB SCH ×3 (06:07→20:55)
[2018-08-12] MEDS: Levothyroxine 88 MCG TAB PO SCH (06:09)
[2018-08-12 06:49] LABS: HEMOGLOBIN 10.3 g/dL (12.0-16.0); MEAN CELL VOLUME 84.6 fl (81.0-99.0); MEAN CORPUSCULAR HEMOGLOBIN 27.7 pg (27.0-31.0); MEAN CORPUSCULAR HGB CONC 32.7 g/dL (33.0-37.0); RBC 3.7 Mil/uL (3.80-5.20); RED CELL DISTRIBUTION WIDTH 20.6 % (11.5-14.5); WHITE BLOOD COUNT 7.3 K/uL (4.8-10.8)
--- NOTE | 2018-08-12 07:14 | CP.PCM.HP ---
<Bari Carrero - Last Filed: 08/12/18 12:51> History of Present Illness - History of Present Illness History of Present Illness: 63 yo F pmhx of hypothyroid, and anxiety due to rectal abscess incidentally found on outpatient abdo CT. Pt reports lower abdominal pain starting in May (dx with anemia) diffuse, occasionally radiating to the back. No aggravating factors. Minimally alleviated with motrin. No abdominal pain, melena, hematochezia, nausea or vomiting. She was prescribed Cipro 500 mg BID and Metronidazole 500 mg TID. She underwent Hartmanns procedure on 08/08/18, POD 4, doing well after surgery now admitted to TCU to complete 10 days IV abx treatment. Present on Admission - Present on Admission Any Indicators Present on Admission: No Review of Systems - Review of Systems All systems: reviewed and no additional remarkable complaints except (HPI) Past Patient History - Infectious Disease Hx of Infectious Diseases: None - Past Medical History & Family History Past Medical History?: Yes - Past Social History Smoking Status: Former Smoker - HEENT Other/Comment: Wears corrective lenses for distance and reading - RENAL Hx Chronic Kidney Disease: No - ENDOCRINE/METABOLIC Hx Hypothyroidism: Yes (synthroid taken) - HEMATOLOGICAL/ONCOLOGICAL Hx AIDS: No Hx Human Immunodeficiency Virus (HIV): No - INTEGUMENTARY Hx Dermatological Problems: No - MUSCULOSKELETAL/RHEUMATOLOGICAL Hx Falls: No - GASTROINTESTINAL Hx Gastrointestinal Disorders: No Other/Comment: Has never had Colonoscopy - GENITOURINARY/GYNECOLOGICAL Hx Genitourinary Disorders: No - PSYCHIATRIC Hx Substance Use: No - SURGICAL HISTORY Hx Surgeries: No - ANESTHESIA Hx Anesthesia: No Meds Allergies/Adverse Reactions: Allergies Allergy/AdvReac Type Severity Reaction Status Date / Time No Known Allergies Allergy Verified 04/17/18 10:07 Physical Exam - Constitutional Appears: No Acute Distress - Respiratory Exam Respiratory Exam: Clear to Auscultation Bilateral, NORMAL BREATHING PATTERN - Cardiovascular Exam Cardiovascular Exam: REGULAR RHYTHM, +S1, +S2 - GI/Abdominal Exam GI & Abdominal Exam: Normal Bowel Sounds, Soft. absent: Distended, Guarding Additional comments: Dressing c/d/i, ostomy pink, bag clean recently changed - Extremities Exam Extremities exam: Negative for: calf tenderness, pedal edema - Neurological Exam Neurological exam: Alert, CN II-XII Intact, Oriented x3 - Skin Skin Exam: Dry, Warm Results - Vital Signs Recent Vital Signs: Last Vital Signs Temp 98.5 F 08/11/18 21:47 Pulse 76 08/11/18 21:47 Resp 20 08/11/18 21:47 BP 131/78 08/11/18 21:47 Pulse Ox 98 08/11/18 21:47 - Labs Result Diagrams: 08/12/18 06:30 Labs: Laboratory Results - last 24 hr 08/12/18 06:30 WBC 7.3 RBC 3.70 L Hgb 10.3 L Hct 31.3 L MCV 84.6 MCH 27.7 MCHC 32.7 L RDW 20.6 H Plt Count 404 H Assessment & Plan - Assessment and Plan (Free Text) Assessment: 63 yo f PMHx of hypothyroidism, and anxiety admitted with rectal abscess that was found incidentally on CT scan. s/p exploratory laparotomy, sigmoidectomy, drainage of pelvic abscess and ostomy POD 4 admitted to TCU to complete IV abx treatment Plan: Abdominal abscess/ S/P Betzaida's procedure POD 4 - Surgery Dr. Gonzales on board - ID consult Dr. Greene - Wound cx grows Gram+ cocci and leo albicans - Blood cx: negative - IV Abx: Meropenem, Flagyl, vanco; Diflucam added, need 9 more days - continue afebrile, no leukocytosis - incentive spirometry - pain management - Encouraged OOB and ambulation Anemia: - Stable - GI consult Dr Thompson: OP colonoscopy - Feosol BID Hypothyroid: - c/w levothyroxine 88 mcg DVT prophylaxis: - SCDs - Lovenox Case discussed with Dr Jimmy East PGY 2 <Jared Marquez D - Last Filed: 08/12/18 13:12> Results - Vital Signs Recent Vital Signs: Last Vital Signs Temp 98.3 F 08/12/18 07:56 Pulse 84 08/12/18 07:56 Resp 20 08/12/18 07:56 BP 145/87 08/12/18 07:56 Pulse Ox 97 08/12/18 07:56 - Labs Result Diagrams: 08/12/18 06:30 Labs: Laboratory Results - last 24 hr 08/12/18 06:30 WBC 7.3 RBC 3.70 L Hgb 10.3 L Hct 31.3 L MCV 84.6 MCH 27.7 MCHC 32.7 L RDW 20.6 H Plt Count 404 H Attending/Attestation - Attestation I have personally seen and examined this patient.: Yes I have fully participated in the care of the patient.: Yes I have reviewed all pertinent clinical information: Yes Notes (Text): 08/12/18 13:11 Patient seen and examined with resident. Case discussed and agreed with assessment and plan of management.
--- NOTE | 2018-08-12 08:27 | CP.PCM.CON ---
History of Present Illness - History of Present Illness History of Present Illness: General Surgery 63F w/PMH sig for hypothyroidism and anemia consulted for pelvic abscess. She was admitted to the hospital on 07/23/[address] scan that showed a pelvic abscess. She had abdominal pain in the pelvic region since May 2018 soon after starting Fe supplements. She has never had a colonoscopy before. Wh ile in the hospital she had a delmer's procedure, drainage of abscess and a sigmoid colon resection on 08/08/[address] Crowell. Post operatively the pt has been doing well and the colostomy bag has been functional. Pathology showed chronic active inflammation of the resected colon. PMH: Hypothyroidism, Anemia PSH: delmer's procedure, drainage of abscess and a sigmoid colon resection on 08/08/18 All: NKDA SH: Former smoker, quit a few months a go, denies EOTH or illicit drug use FH: Denies FH of IBD, crohns, diverticulitis, ulcerative colitis or colon CA PMD: Dr. Silver Review of Systems - Constitutional Constitutional: Fever (a few weeks ago) - EENT Nose/Mouth/Throat: absent: Nasal Congestion - Cardiovascular Cardiovascular: absent: Chest Pain - Respiratory Respiratory: Chest Congestion - Gastrointestinal Gastrointestinal: Abdominal Pain (from surgical incision) Additional comments: Has colostomy - Genitourinary Genitourinary: absent: Difficulty Urinating - Reproductive: Female Reproductive:Female: Post Menopausal - Menstruation Menstruation: Post Menopausal - Musculoskeletal Musculoskeletal: absent: Abnormal Gait - Integumentary Integumentary: Other (Surgical incision). absent: Rash - Neurological Neurological: absent: Abnormal Gait - Psychiatric Psychiatric: Anxiety Past Patient History - Infectious Disease Hx of Infectious Diseases: None - Past Medical History & Family History Past Medical History?: Yes - Past Social History Smoking Status: Former Smoker - CARDIAC Hx Cardiac Disorders: No - PULMONARY Hx Respiratory Disorders: No - NEUROLOGICAL Hx Neurological Disorder: No - HEENT Other/Comment: Wears corrective lenses for distance and reading - RENAL Hx Chronic Kidney Disease: No - ENDOCRINE/METABOLIC Hx Hypothyroidism: Yes (synthroid taken) - HEMATOLOGICAL/ONCOLOGICAL Hx AIDS: No Hx Anemia: Yes ( on Fe supplements) Hx Human Immunodeficiency Virus (HIV): No - INTEGUMENTARY Hx Dermatological Problems: No - MUSCULOSKELETAL/RHEUMATOLOGICAL Hx Falls: No - GASTROINTESTINAL Hx Gastrointestinal Disorders: No Hx Bowel Surgery: Yes (see HPI) Other/Comment: Has never had Colonoscopy - GENITOURINARY/GYNECOLOGICAL Hx Genitourinary Disorders: No - PSYCHIATRIC Hx Anxiety: Yes Hx Substance Use: No - SURGICAL HISTORY Hx Surgeries: Yes (see HPI) - ANESTHESIA Hx Anesthesia: Yes Hx Anesthesia Reactions: No Meds Allergies/Adverse Reactions: Allergies Allergy/AdvReac Type Severity Reaction Status Date / Time No Known Allergies Allergy Verified 04/17/18 10:07 - Medications Medications: Current Medications Acetaminophen (Tylenol 325mg Tab) 650 mg PO Q4 PRN PRN Reason: Pain, Mild (1-3) Alprazolam (Xanax) 1 mg PO Q8 [facility] Last Admin: 08/12/18 01:21 Dose: Not Given Enoxaparin Sodium (Lovenox) 40 mg SC DAILY [facility]; Protocol Ferrous Sulfate (Feosol) 325 mg PO BIDWM [facility] Fluconazole (Diflucan Iv 100 Mg/50 Ml Ns) 50 mls @ 50 mls/hr IVPB DAILY@1700 [facility]; Protocol Metronidazole 250 mg/ (Miscellaneous) 50 mls @ 50 mls/hr IVPB Q8 [facility]; Protocol Last Admin: 08/12/18 00:27 Dose: 50 mls/hr Meropenem 1 gm/ Sodium (Chloride) 100 mls @ 100 mls/hr IVPB Q8@0500,1300,2100 [facility]; Protocol Last Admin: 08/12/18 06:07 Dose: 100 mls/hr Vancomycin HCl 1 gm/ Sodium (Chloride) 250 mls @ 166.667 mls/hr IVPB Q12@0000 ,1200 [facility]; Protocol Last Admin: 08/12/18 01:00 Dose: 166.667 mls/hr Levothyroxine Sodium (Synthroid) 88 mcg PO DAILY@0630 [facility] Last Admin: 08/12/18 06:09 Dose: 88 mcg Oxycodone/Acetaminophen (Percocet 5/325 Mg Tab) 1 tab PO Q4 PRN PRN Reason: Pain, moderate (4-7) Stop: 08/14/18 18:37 Last Admin: 08/11/18 23:40 Dose: 1 tab Pantoprazole Sodium (Protonix Inj) 40 mg IVP DAILY [facility] Potassium Phos/Sodium Phos (Neutra-Phos) 1 pkt PO TIDWM [facility] Physical Exam - Constitutional Appears: Well, Non-toxic, No Acute Distress - Head Exam Head Exam: NORMAL INSPECTION, NORMOCEPHALIC - Eye Exam Eye Exam: Normal appearance - ENT Exam ENT Exam: Mucous Membranes Moist, Normal Exam - Neck Exam Neck exam: Positive for: Normal Inspection - Respiratory Exam Respiratory Exam: Clear to Auscultation Bilateral, NORMAL BREATHING PATTERN - Cardiovascular Exam Cardiovascular Exam: REGULAR RHYTHM, +S1, +S2 - GI/Abdominal Exam GI & Abdominal Exam: Soft. absent: Distended, Firm, Rebound, Rigid Additional comments: (+) colostomy with air and stool, Wei drain with scant serosanguinous drainage. - Neurological Exam Neurological exam: Alert, CN II-XII Intact, Normal Gait, Oriented x3 - Psychiatric Exam Psychiatric exam: Normal Affect, Normal Mood - Skin Skin Exam: Dry Additional comments: Surgical incision, stapled c/d/i Results - Vital Signs Recent Vital Signs: Last Vital Signs Temp 98.3 F 08/12/18 07:56 Pulse 84 08/12/18 07:56 Resp 20 08/12/18 07:56 BP 145/87 08/12/18 07:56 Pulse Ox 97 08/12/18 07:56 - Labs Result Diagrams: 08/12/18 06:30 Labs: Laboratory Results - last 24 hr 08/12/18 06:30 WBC 7.3 RBC 3.70 L Hgb 10.3 L Hct 31.3 L MCV 84.6 MCH 27.7 MCHC 32.7 L RDW 20.6 H Plt Count 404 H Assessment & Plan - Assessment and Plan (Free Text) Assessment: Pt is POD 4 s/p Delmer's procedure, drainage of pelvic abscess, and sigmoid colon resection. Plan: Wei drain removed. Continue colostomy training. Recommend to D/C antibiotics Keep incision clean and dry Pt cleared from surgical standpoint, she will need to follow up with Dr. Crowell in the office in 7-10 days. Surgery will sign off.
[2018-08-12] MEDS: Oxycodone/Acetaminophen 5/325 mg Tab PO PRN ×4 (08:46→22:01)
[2018-08-12] MEDS ORDERED: Levothyroxine 88 MCG TAB PO SCH (09:00)
[2018-08-12] MEDS ORDERED: NS 100 MG IV SCH (09:00)
[2018-08-12] MEDS ORDERED: FLUCONAZOLE 100 MG/50 ML IV SCH (09:00)
[2018-08-12] MEDS: Enoxaparin 40 mg Syringe SC SCH (10:21)
[2018-08-12] MEDS: Potassium & Sodium Phosphate PO SCH ×3 (10:21→17:21)
[2018-08-12] MEDS: Fluconazole IV 100mg/50 ml NS 50 ML IVPB SCH (17:24)
--- NOTE | 2018-08-12 18:17 | CP.PCM.PN ---
Subjective - Date & Time of Evaluation Date of Evaluation: 08/12/18 Time of Evaluation: 18:10 - Subjective Subjective: i d note have ordered cxr pulmonary rx tid dc vancomycin in am Objective - Vital Signs/Intake and Output Vital Signs (last 24 hours): Temp Pulse Resp BP Pulse Ox 98.5 F 77 20 123/78 96 08/12/18 17:42 08/12/18 17:42 08/12/18 17:42 08/12/18 17:42 08/12/18 17:42 - Medications Medications: Current Medications Acetaminophen (Tylenol 325mg Tab) 650 mg PO Q4 PRN PRN Reason: Pain, Mild (1-3) Albuterol/Ipratropium (Duoneb 3 Mg/0.5 Mg (3 Ml) Ud) 3 ml INH RTID [facility] Alprazolam (Xanax) 1 mg PO Q8 [facility] Last Admin: 08/12/18 17:21 Dose: 1 mg Enoxaparin Sodium (Lovenox) 40 mg SC DAILY [facility]; Protocol Last Admin: 08/12/18 10:21 Dose: 40 mg Ferrous Sulfate (Feosol) 325 mg PO BIDWM [facility] Last Admin: 08/12/18 17:22 Dose: 325 mg Fluconazole (Diflucan Iv 100 Mg/50 Ml Ns) 50 mls @ 50 mls/hr IVPB DAILY@1700 [facility]; Protocol Last Admin: 08/12/18 17:24 Dose: 50 mls/hr Metronidazole 250 mg/ (Miscellaneous) 50 mls @ 50 mls/hr IVPB Q8 [facility]; Protocol Last Admin: 08/12/18 17:24 Dose: 50 mls/hr Meropenem 1 gm/ Sodium (Chloride) 100 mls @ 100 mls/hr IVPB Q8@0500,1300,2100 [facility]; Protocol Last Admin: 08/12/18 13:02 Dose: 100 mls/hr Vancomycin HCl 1 gm/ Sodium (Chloride) 250 mls @ 166.667 mls/hr IVPB Q12@000 0,1200 [facility]; Protocol Last Admin: 08/12/18 12:55 Dose: 166.667 mls/hr Levothyroxine Sodium (Synthroid) 88 mcg PO DAILY@0630 [facility] Last Admin: 08/12/18 06:09 Dose: 88 mcg Oxycodone/Acetaminophen (Percocet 5/325 Mg Tab) 1 tab PO Q4 PRN PRN Reason: Pain, moderate (4-7) Stop: 08/14/18 18:37 Last Admin: 08/12/18 17:21 Dose: 1 tab Pantoprazole Sodium (Protonix Inj) 40 mg IVP DAILY [facility] Last Admin: 08/12/18 10:21 Dose: 40 mg Potassium Phos/Sodium Phos (Neutra-Phos) 1 pkt PO TIDWM [facility] Last Admin: 08/12/18 17:21 Dose: 1 pkt - Labs Labs: 08/12/18 06:30
[2018-08-12] MEDS: Albuterol-Ipratrop 3 mg / 0.5 (3 ml) UD INH SCH (19:21)
[2018-08-13] MEDS: metroNIDAZOLE 500mg/100ml NS 250 MG in Premixed IV 1 EA IVPB SCH ×3 (00:20→16:57)
[2018-08-13] MEDS: Levothyroxine 88 MCG TAB PO SCH (05:44)
[2018-08-13] MEDS: Meropenem 1 GM in Sodium Chloride 0.9% 100 ML IVPB SCH ×3 (05:45→21:02)
[2018-08-13] MEDS: Oxycodone/Acetaminophen 5/325 mg Tab PO PRN ×3 (06:53→16:53)
[2018-08-13] MEDS: Albuterol-Ipratrop 3 mg / 0.5 (3 ml) UD INH SCH ×3 (07:15→19:08)
[2018-08-13 08:02] LABS: ALB/GLOB RATIO 0.9 (1.0-2.1); ALBUMIN 2.9 g/dL (3.5-5.0); ALT/SGPT 22 U/L (9-52); AST/SGOT 16 U/L (14-36); BLOOD UREA NITROGEN 6 mg/dl (7-17); CALCIUM 8.6 mg/dL (8.4-10.2); GFR NON-AFRICAN AMERICAN > 60
[2018-08-13] MEDS: Potassium & Sodium Phosphate PO SCH ×3 (09:32→16:54)
[2018-08-13] MEDS: Enoxaparin 40 mg Syringe SC SCH (09:32)
--- NOTE | 2018-08-13 10:48 | RAD ---
Date of service: 08/12/2018 HISTORY: Chest congestion COMPARISON: Comparison chest 07/23/2018 TECHNIQUE: 1 view obtained. FINDINGS: LUNGS: The interstitial markings are increased and coarsened; rule out sequela of reactive/inflammatory airway disease or viral illness. PLEURA: No significant pleural effusion identified, no pneumothorax apparent. CARDIOVASCULAR: No aortic atherosclerotic calcification present. Normal cardiac size. No pulmonary vascular congestion. OSSEOUS STRUCTURES: No significant abnormalities. VISUALIZED UPPER ABDOMEN: Small amount of free intraperitoneal air is present below the the right hemidiaphragm consistent with recent surgery. OTHER FINDINGS: None. IMPRESSION: Increased coarsened interstitial markings; rule out sequela of reactive-inflammatory airway disease or viral illness. Small amount of free intraperitoneal air is present below the the right hemidiaphragm consistent with recent surgery. These findings discussed with Dr. Shah at 10:44 a.m. 08/13/2018
[2018-08-13] MEDS: Fluconazole IV 100mg/50 ml NS 50 ML IVPB SCH (18:24)
[2018-08-14] MEDS: metroNIDAZOLE 500mg/100ml NS 250 MG in Premixed IV 1 EA IVPB SCH ×3 (00:06→18:46)
[2018-08-14] MEDS: Meropenem 1 GM in Sodium Chloride 0.9% 100 ML IVPB SCH ×3 (04:02→21:45)
[2018-08-14] MEDS: Levothyroxine 88 MCG TAB PO SCH (06:12)
[2018-08-14] MEDS: Oxycodone/Acetaminophen 5/325 mg Tab PO PRN ×4 (06:12→23:01)
[2018-08-14] MEDS: Albuterol-Ipratrop 3 mg / 0.5 (3 ml) UD INH SCH ×3 (07:10→20:28)
[2018-08-14] MEDS: Potassium & Sodium Phosphate PO SCH ×3 (09:15→17:42)
[2018-08-14] MEDS: Lactobacillus Acidophilus 500 MU Cap PO SCH ×2 (09:15→17:41)
[2018-08-14] MEDS: Enoxaparin 40 mg Syringe SC SCH (09:16)
--- NOTE | 2018-08-14 16:34 | CP.PCM.PN ---
Subjective - Date & Time of Evaluation Date of Evaluation: 08/14/18 Time of Evaluation: 16:26 - Subjective Subjective: I D NOTE AFEBRILE BREATHING MUCH BETTER TODAY MUCH LESS CONGESTION LUNGS:RALES AT BASES ,SOME SCATTERED WHEEZING. COLOSTOMY IS FUNCTIONING RENAL FUNCTION IS WNL WILL ORDER LABS WELL CT SCAN OF ABDOMEN AND PELVIS CONTINUE RESPIRATORY RX ALONG c IV ANTIBIOTICS (MEROPENEM /FLAGYL) Objective - Vital Signs/Intake and Output Vital Signs (last 24 hours): Temp Pulse Resp BP Pulse Ox 98.5 F 100 H 20 107/72 96 08/14/18 08:48 08/14/18 08:48 08/14/18 08:48 08/14/18 08:48 08/14/18 08:48 - Medications Medications: Current Medications Acetaminophen (Tylenol 325mg Tab) 650 mg PO Q4 PRN PRN Reason: Pain, Mild (1-3) Albuterol/Ipratropium (Duoneb 3 Mg/0.5 Mg (3 Ml) Ud) 3 ml INH RTID [facility] Last Admin: 08/14/18 13:12 Dose: 3 ml Alprazolam (Xanax) 1 mg PO Q8 [facility] Last Admin: 08/14/18 09:18 Dose: 1 mg Enoxaparin Sodium (Lovenox) 40 mg SC DAILY [facility]; Protocol Last Admin: 08/14/18 09:16 Dose: 40 mg Ferrous Sulfate (Feosol) 325 mg PO BIDWM [facility] Last Admin: 08/14/18 09:15 Dose: 325 mg Fluconazole (Diflucan Iv 100 Mg/50 Ml Ns) 50 mls @ 50 mls/hr IVPB DAILY@1700 [facility]; Protocol Last Admin: 08/13/18 18:24 Dose: 50 mls/hr Metronidazole 250 mg/ (Miscellaneous) 50 mls @ 50 mls/hr IVPB Q8 [facility]; Protocol Last Admin: 08/14/18 09:15 Dose: 50 mls/hr Meropenem 1 gm/ Sodium (Chloride) 100 mls @ 100 mls/hr IVPB Q8@0500,1300,2100 [facility]; Protocol Last Admin: 08/14/18 13:29 Dose: 100 mls/hr Lactobacillus Acidophilus (Bacid Acidophilus) 1 cap PO BID [facility] Last Admin: 08/14/18 09:15 Dose: 1 cap Levothyroxine Sodium (Synthroid) 88 mcg PO DAILY@0630 [facility] Last Admin: 08/14/18 06:12 Dose: 88 mcg Oxycodone/Acetaminophen (Percocet 5/325 Mg Tab) 1 tab PO Q4 PRN PRN Reason: Pain, moderate (4-7) Stop: 08/14/18 18:37 Last Admin: 08/14/18 13:32 Dose: 1 tab Pantoprazole Sodium (Protonix Inj) 40 mg IVP DAILY [facility] Last Admin: 08/14/18 09:16 Dose: 40 mg Potassium Phos/Sodium Phos (Neutra-Phos) 1 pkt PO TIDWM [facility] Last Admin: 08/14/18 13:30 Dose: 1 pkt - Labs Labs: 08/12/18 06:30 08/13/18 06:30
[2018-08-14] MEDS: Fluconazole IV 100mg/50 ml NS 50 ML IVPB SCH (17:41)
[2018-08-15] MEDS: metroNIDAZOLE 500mg/100ml NS 250 MG in Premixed IV 1 EA IVPB SCH ×3 (00:24→18:15)
[2018-08-15] MEDS: Meropenem 1 GM in Sodium Chloride 0.9% 100 ML IVPB SCH ×3 (05:22→21:45)
[2018-08-15] MEDS ORDERED: Iohexol 240 (50 ml) ONE (06:43)
[2018-08-15] MEDS ORDERED: Iohexol 240 (50 ml) IVP ONE (07:09)
[2018-08-15] MEDS: Albuterol-Ipratrop 3 mg / 0.5 (3 ml) UD INH SCH ×3 (07:32→19:06)
[2018-08-15] MEDS: Levothyroxine 88 MCG TAB PO SCH (08:00)
[2018-08-15] MEDS: Potassium & Sodium Phosphate PO SCH ×3 (09:00→17:40)
[2018-08-15] MEDS ORDERED: Iohexol 240 (50 ml) PO ONE (09:00)
[2018-08-15] MEDS: Lactobacillus Acidophilus 500 MU Cap PO SCH ×2 (09:14→17:39)
[2018-08-15] MEDS: Enoxaparin 40 mg Syringe SC SCH (11:17)
[2018-08-15] MEDS: Oxycodone/Acetaminophen 5/325 mg Tab PO PRN ×3 (11:19→22:35)
--- NOTE | 2018-08-15 15:37 | CP.PCM.PN ---
Subjective - Date & Time of Evaluation Date of Evaluation: 08/15/18 Time of Evaluation: 15:09 - Subjective Subjective: I D NOTE AWAITING TODAYs CT SCAN RESULT LUNGS ARE CLEAR WILL CONTINUE IV ANTIBIOTICS Objective - Vital Signs/Intake and Output Vital Signs (last 24 hours): Temp Pulse Resp BP Pulse Ox 98.5 F 78 20 110/74 98 08/15/18 08:46 08/15/18 08:46 08/15/18 08:46 08/15/18 08:46 08/15/18 08:46 - Medications Medications: Current Medications Acetaminophen (Tylenol 325mg Tab) 650 mg PO Q4 PRN PRN Reason: Pain, Mild (1-3) Albuterol/Ipratropium (Duoneb 3 Mg/0.5 Mg (3 Ml) Ud) 3 ml INH RTID [facility] Last Admin: 08/15/18 13:07 Dose: 3 ml Alprazolam (Xanax) 1 mg PO Q8 [facility] Last Admin: 08/15/18 09:00 Dose: Not Given Ferrous Sulfate (Feosol) 325 mg PO BIDWM [facility] Last Admin: 08/15/18 09:00 Dose: Not Given Fluconazole (Diflucan Iv 100 Mg/50 Ml Ns) 50 mls @ 50 mls/hr IVPB DAILY@1700 [facility]; Protocol Last Admin: 08/14/18 17:41 Dose: 50 mls/hr Metronidazole 250 mg/ (Miscellaneous) 50 mls @ 50 mls/hr IVPB Q8 [facility]; Protocol Last Admin: 08/15/18 08:50 Dose: 50 mls/hr Meropenem 1 gm/ Sodium (Chloride) 100 mls @ 100 mls/hr IVPB Q8@0500,1300,2100 [facility]; Protocol Last Admin: 08/15/18 13:11 Dose: 100 mls/hr Lactobacillus Acidophilus (Bacid Acidophilus) 1 cap PO BID [facility] Last Admin: 08/15/18 09:14 Dose: Not Given Levothyroxine Sodium (Synthroid) 88 mcg PO DAILY@0630 [facility] Last Admin: 08/15/18 08:00 Dose: Not Given Oxycodone/Acetaminophen (Percocet 5/325 Mg Tab) 1 tab PO Q4 PRN PRN Reason: for pain level 7-10 Stop: 08/17/18 22:41 Last Admin: 08/15/18 11:19 Dose: 1 tab Pantoprazole Sodium (Protonix Inj) 40 mg IVP DAILY [facility] Last Admin: 08/15/18 08:50 Dose: 40 mg Potassium Phos/Sodium Phos (Neutra-Phos) 1 pkt PO TIDWM [facility] Last Admin: 08/15/18 11:17 Dose: 1 pkt - Labs Labs: 08/12/18 06:30 08/13/18 06:30
[2018-08-15] MEDS: Fluconazole IV 100mg/50 ml NS 50 ML IVPB SCH (17:46)
[2018-08-16] MEDS: metroNIDAZOLE 500mg/100ml NS 250 MG in Premixed IV 1 EA IVPB SCH ×3 (01:15→17:00)
[2018-08-16] MEDS: Meropenem 1 GM in Sodium Chloride 0.9% 100 ML IVPB SCH ×3 (05:05→21:30)
[2018-08-16] MEDS: Levothyroxine 88 MCG TAB PO SCH (06:17)
[2018-08-16] MEDS: Albuterol-Ipratrop 3 mg / 0.5 (3 ml) UD INH SCH ×3 (07:31→19:15)
[2018-08-16] MEDS: Lactobacillus Acidophilus 500 MU Cap PO SCH ×2 (09:26→16:57)
[2018-08-16] MEDS: Potassium & Sodium Phosphate PO SCH ×3 (09:29→17:01)
[2018-08-16] MEDS: Oxycodone/Acetaminophen 5/325 mg Tab PO PRN ×3 (09:36→21:37)
--- NOTE | 2018-08-16 10:51 | CP.PCM.PN ---
Subjective - Date & Time of Evaluation Date of Evaluation: 08/16/18 Time of Evaluation: 10:48 - Subjective Subjective: seen at bedside, resting comfortably. Pt is tolerating diet, no nausea or vomiting. Ostomy functioning well. Pt remains on IV abx as per ID. Had CT A/P on 08/15. gen: awake, alert, NAD no acute respiratory distress abd: soft, distention to lower abdomen, NT, midline incision with salima in place c/d/i. ostomy to LLQ pink, patent, and productive. a/p: 63yo F s/p Hartmanns Procedure, drainage of pelvic abscess -prn pain control -cont diet -IV abx as per ID -pt stable from surgery perspective for dc, f/u in Office for staple removal Objective - Vital Signs/Intake and Output Vital Signs (last 24 hours): Temp Pulse Resp BP Pulse Ox 98.2 F 73 20 114/80 99 08/16/18 08:19 08/16/18 08:19 08/16/18 08:19 08/16/18 08:19 08/16/18 08:19 - Medications Medications: Current Medications Acetaminophen (Tylenol 325mg Tab) 650 mg PO Q4 PRN PRN Reason: Pain, Mild (1-3) Albuterol/Ipratropium (Duoneb 3 Mg/0.5 Mg (3 Ml) Ud) 3 ml INH RTID [facility] Last Admin: 08/16/18 07:31 Dose: 3 ml Alprazolam (Xanax) 1 mg PO Q8 [facility] Last Admin: 08/16/18 09:26 Dose: 1 mg Ferrous Sulfate (Feosol) 325 mg PO BIDWM [facility] Last Admin: 08/16/18 09:28 Dose: 325 mg Fluconazole (Diflucan Iv 100 Mg/50 Ml Ns) 50 mls @ 50 mls/hr IVPB DAILY@1700 [facility]; Protocol Last Admin: 08/15/18 17:46 Dose: 50 mls/hr Metronidazole 250 mg/ (Miscellaneous) 50 mls @ 50 mls/hr IVPB Q8 [facility]; Protocol Last Admin: 08/16/18 09:29 Dose: 50 mls/hr Meropenem 1 gm/ Sodium (Chloride) 100 mls @ 100 mls/hr IVPB Q8@0500,1300,2100 [facility]; Protocol Last Admin: 08/16/18 05:05 Dose: 100 mls/hr Lactobacillus Acidophilus (Bacid Acidophilus) 1 cap PO BID [facility] Last Admin: 08/16/18 09:26 Dose: 1 cap Levothyroxine Sodium (Synthroid) 88 mcg PO DAILY@0630 [facility] Last Admin: 08/16/18 06:17 Dose: 88 mcg Oxycodone/Acetaminophen (Percocet 5/325 Mg Tab) 1 tab PO Q4 PRN PRN Reason: for pain level 7-10 Stop: 08/17/18 22:41 Last Admin: 08/16/18 09:36 Dose: 1 tab Pantoprazole Sodium (Protonix Inj) 40 mg IVP DAILY [facility] Last Admin: 08/16/18 09:28 Dose: 40 mg Potassium Phos/Sodium Phos (Neutra-Phos) 1 pkt PO TIDWM [facility] Last Admin: 08/16/18 09:29 Dose: 1 pkt - Labs Labs: 08/12/18 06:30 08/13/18 06:30
--- NOTE | 2018-08-16 15:34 | CP.PCM.PN ---
Subjective - Date & Time of Evaluation Date of Evaluation: 08/16/18 Time of Evaluation: 10:15 - Subjective Subjective: Patient seen and examined. Denied any complaint. Pain on abdomen described more as soreness. Objective - Vital Signs/Intake and Output Vital Signs (last 24 hours): Temp Pulse Resp BP Pulse Ox 98.2 F 73 20 114/80 99 08/16/18 08:19 08/16/18 08:19 08/16/18 08:19 08/16/18 08:19 08/16/18 08:19 - Medications Medications: Current Medications Acetaminophen (Tylenol 325mg Tab) 650 mg PO Q4 PRN PRN Reason: Pain, Mild (1-3) Albuterol/Ipratropium (Duoneb 3 Mg/0.5 Mg (3 Ml) Ud) 3 ml INH RTID [facility] Last Admin: 08/16/18 13:24 Dose: 3 ml Alprazolam (Xanax) 1 mg PO Q8 [facility] Last Admin: 08/16/18 09:26 Dose: 1 mg Enoxaparin Sodium (Lovenox) 40 mg SC DAILY [facility]; Protocol Ferrous Sulfate (Feosol) 325 mg PO BIDWM [facility] Last Admin: 08/16/18 09:28 Dose: 325 mg Fluconazole (Diflucan Iv 100 Mg/50 Ml Ns) 50 mls @ 50 mls/hr IVPB DAILY@1700 [facility]; Protocol Last Admin: 08/15/18 17:46 Dose: 50 mls/hr Metronidazole 250 mg/ (Miscellaneous) 50 mls @ 50 mls/hr IVPB Q8 [facility]; Protocol Last Admin: 08/16/18 09:29 Dose: 50 mls/hr Meropenem 1 gm/ Sodium (Chloride) 100 mls @ 100 mls/hr IVPB Q8@0500,1300,2100 [facility]; Protocol Last Admin: 08/16/18 13:19 Dose: 100 mls/hr Lactobacillus Acidophilus (Bacid Acidophilus) 1 cap PO BID [facility] Last Admin: 08/16/18 09:26 Dose: 1 cap Levothyroxine Sodium (Synthroid) 88 mcg PO DAILY@0630 [facility] Last Admin: 08/16/18 06:17 Dose: 88 mcg Oxycodone/Acetaminophen (Percocet 5/325 Mg Tab) 1 tab PO Q4 PRN PRN Reason: for pain level 7-10 Stop: 08/17/18 22:41 Last Admin: 08/16/18 09:36 Dose: 1 tab Pantoprazole Sodium (Protonix Inj) 40 mg IVP DAILY [facility] Last Admin: 08/16/18 09:28 Dose: 40 mg Potassium Phos/Sodium Phos (Neutra-Phos) 1 pkt PO TIDWM [facility] Last Admin: 08/16/18 13:18 Dose: 1 pkt - Labs Labs: 08/12/18 06:30 08/13/18 06:30 - Constitutional Appears: No Acute Distress - Head Exam Head Exam: ATRAUMATIC - Eye Exam Eye Exam: absent: Scleral icterus - ENT Exam ENT Exam: Mucous Membranes Moist - Neck Exam Neck Exam: absent: Meningismus - Cardiovascular Exam Cardiovascular Exam: REGULAR RHYTHM, +S1, +S2 - GI/Abdominal Exam GI & Abdominal Exam: Soft. absent: Tenderness - Rectal Exam Rectal Exam: Deferred - Neurological Exam Neurological Exam: Alert, Oriented x3 - Psychiatric Exam Psychiatric exam: Normal Affect - Skin Skin Exam: Dry, Intact Assessment and Plan - Assessment and Plan (Free Text) Assessment: 63 yo female with history of hypothyroidism and anxiety was admitted because of pelvic abscess. Explore laparotomy with sigmoidectomy and drainage of abscess was done and patient was sent to TCU for continuation of IV antibiotics 1. Pelvic Abscess Betzaida's procedure on 08/08/2018 wound culture grew gram + cocci and Sirena albicans blood culture was negative continue Meropenem, Flagyl and Diflucan CT scan of abdomen: no abscess seen 2. Anemia: Stable continue Feosol 3. Hypothyroid: continue Levothyroxine 4. DVT prophylaxis: on Lovenox
[2018-08-16] MEDS: Fluconazole IV 100mg/50 ml NS 50 ML IVPB SCH (16:59)
[2018-08-16] MEDS: Enoxaparin 40 mg Syringe SC SCH (17:00)
--- NOTE | 2018-08-16 18:22 | CP.PCM.PN ---
Subjective - Date & Time of Evaluation Date of Evaluation: 08/16/18 Time of Evaluation: 18:15 - Subjective Subjective: I D NOTE REVIEWED SURGICAL NOTES CT SCAN SHOWS NO EVIDENCE OF ABSCESS WILL GIVE 2 FURTHER DAYS OF IV ANTIBIOTICS AND DISCHARGE ON WEDNESDAY Objective - Vital Signs/Intake and Output Vital Signs (last 24 hours): Temp Pulse Resp BP Pulse Ox 97.4 F L 78 20 109/70 100 08/16/18 16:51 08/16/18 16:51 08/16/18 16:51 08/16/18 16:51 08/16/18 16:51 - Medications Medications: Current Medications Acetaminophen (Tylenol 325mg Tab) 650 mg PO Q4 PRN PRN Reason: Pain, Mild (1-3) Albuterol/Ipratropium (Duoneb 3 Mg/0.5 Mg (3 Ml) Ud) 3 ml INH RTID [facility] Last Admin: 08/16/18 13:24 Dose: 3 ml Alprazolam (Xanax) 1 mg PO Q8 [facility] Last Admin: 08/16/18 16:59 Dose: 1 mg Enoxaparin Sodium (Lovenox) 40 mg SC DAILY [facility]; Protocol Last Admin: 08/16/18 17:00 Dose: 40 mg Ferrous Sulfate (Feosol) 325 mg PO BIDWM [facility] Last Admin: 08/16/18 17:00 Dose: 325 mg Fluconazole (Diflucan Iv 100 Mg/50 Ml Ns) 50 mls @ 50 mls/hr IVPB DAILY@1700 [facility]; Protocol Last Admin: 08/16/18 16:59 Dose: 50 mls/hr Metronidazole 250 mg/ (Miscellaneous) 50 mls @ 50 mls/hr IVPB Q8 [facility]; Protocol Last Admin: 08/16/18 17:00 Dose: 50 mls/hr Meropenem 1 gm/ Sodium (Chloride) 100 mls @ 100 mls/hr IVPB Q8@0500,1300,2100 [facility]; Protocol Last Admin: 08/16/18 13:19 Dose: 100 mls/hr Lactobacillus Acidophilus (Bacid Acidophilus) 1 cap PO BID [facility] Last Admin: 08/16/18 16:57 Dose: 1 cap Levothyroxine Sodium (Synthroid) 88 mcg PO DAILY@0630 [facility] Last Admin: 08/16/18 06:17 Dose: 88 mcg Oxycodone/Acetaminophen (Percocet 5/325 Mg Tab) 1 tab PO Q4 PRN PRN Reason: for pain level 7-10 Stop: 08/17/18 22:41 Last Admin: 08/16/18 16:58 Dose: 1 tab Pantoprazole Sodium (Protonix Inj) 40 mg IVP DAILY [facility] Last Admin: 08/16/18 09:28 Dose: 40 mg Potassium Phos/Sodium Phos (Neutra-Phos) 1 pkt PO TIDWM [facility] Last Admin: 08/16/18 17:01 Dose: 1 pkt - Labs Labs: 08/12/18 06:30 08/13/18 06:30
[2018-08-17] MEDS: metroNIDAZOLE 500mg/100ml NS 250 MG in Premixed IV 1 EA IVPB SCH (02:10)
[2018-08-17] MEDS: Levothyroxine 88 MCG TAB PO SCH (06:24)
[2018-08-17] MEDS: Meropenem 1 GM in Sodium Chloride 0.9% 100 ML IVPB SCH ×2 (06:25→12:51)
[2018-08-17 06:54] LABS: BASO # 0.1 K/uL (0.0-0.2); EOS # 0.3 K/uL (0.0-0.7); EOS % 7.3 % (0.0-4.0); HEMOGLOBIN 8.4 g/dL (12.0-16.0); LYMPH # 1.3 K/uL (1.0-4.3); LYMPH % 33.7 % (20.0-40.0); MEAN CELL VOLUME 83.8 fl (81.0-99.0); MEAN CORPUSCULAR HEMOGLOBIN 27.2 pg (27.0-31.0); MEAN CORPUSCULAR HGB CONC 32.4 g/dL (33.0-37.0); MEAN PLATELET VOLUME 8.2 fl (7.2-11.7); MONO # 0.6 K/uL (0.0-0.8); NEUT # 1.7 K/uL (1.8-7.0); RBC 3.1 Mil/uL (3.80-5.20); RED CELL DISTRIBUTION WIDTH 20.2 % (11.5-14.5)
[2018-08-17 07:39] LABS: ALB/GLOB RATIO 0.9 (1.0-2.1); ALT/SGPT 26 U/L (9-52); AST/SGOT 31 U/L (14-36); BLOOD UREA NITROGEN 7 mg/dl (7-17); GFR NON-AFRICAN AMERICAN > 60
[2018-08-17] MEDS: Albuterol-Ipratrop 3 mg / 0.5 (3 ml) UD INH SCH ×2 (08:05→13:45)
[2018-08-17] MEDS: Enoxaparin 40 mg Syringe SC SCH (08:34)
[2018-08-17] MEDS: Lactobacillus Acidophilus 500 MU Cap PO SCH ×2 (08:35→16:28)
[2018-08-17] MEDS: Potassium & Sodium Phosphate PO SCH ×3 (08:35→16:28)
[2018-08-17] MEDS: Oxycodone/Acetaminophen 5/325 mg Tab PO PRN ×2 (11:16→16:29)
[2018-08-17] MEDS: Fluconazole IV 100mg/50 ml NS 50 ML IVPB SCH (16:35)
--- NOTE | 2018-08-17 19:14 | CP.PCM.PN ---
Subjective - Date & Time of Evaluation Date of Evaluation: 08/17/18 Time of Evaluation: 19:10 - Subjective Subjective: I D NOTE LABS REVIEWED HGB :8.4 RENAL FUNCTION IS WNL AFEBRILE DISCHARGE ON CEFTIN 500MG PO QD AND FLAGYL 250 MG PO TID DISCUSSED CASE c ,HER PCP WHO WILL SEE HER IN 2 WEEKS I WILL SEE PRN SURGERY HAS MADE F/U ARRANGEMENTS Objective - Vital Signs/Intake and Output Vital Signs (last 24 hours): Temp Pulse Resp BP Pulse Ox 98.5 F 83 20 102/71 99 08/17/18 17:01 08/17/18 17:01 08/17/18 17:01 08/17/18 17:01 08/17/18 17:01 - Medications Medications: Current Medications Acetaminophen (Tylenol 325mg Tab) 650 mg PO Q4 PRN PRN Reason: Pain, Mild (1-3) Alprazolam (Xanax) 1 mg PO Q8 [facility] Last Admin: 08/17/18 16:29 Dose: 1 mg Enoxaparin Sodium (Lovenox) 40 mg SC DAILY [facility]; Protocol Last Admin: 08/17/18 08:34 Dose: 40 mg Ferrous Sulfate (Feosol) 325 mg PO BIDWM [facility] Last Admin: 08/17/18 16:27 Dose: 325 mg Lactobacillus Acidophilus (Bacid Acidophilus) 1 cap PO BID [facility] Last Admin: 08/17/18 16:28 Dose: 1 cap Levothyroxine Sodium (Synthroid) 88 mcg PO DAILY@0630 [facility] Last Admin: 08/17/18 06:24 Dose: 88 mcg Oxycodone/Acetaminophen (Percocet 5/325 Mg Tab) 1 tab PO Q4 PRN PRN Reason: for pain level 7-10 Stop: 08/17/18 22:41 Last Admin: 08/17/18 16:29 Dose: 1 tab Potassium Phos/Sodium Phos (Neutra-Phos) 1 pkt PO TIDWM [facility] Last Admin: 08/17/18 16:28 Dose: 1 pkt - Labs Labs: 08/17/18 06:30 08/17/18 06:30
[2018-08-18] MEDS: Levothyroxine 88 MCG TAB PO SCH (06:22)
[2018-08-18 07:55] VITALS: BP 121/80; PULSE 76; TEMP 98.5; O2SAT 100
--- NOTE | 2018-08-18 10:22 | CP.PCM.DIS ---
Provider - Provider Date of Admission: 08/11/18 17:41 Attending physician: Charity Johnson DO Consults: 08/11/18 20:11 Gastroenterology Consult Routine Comment: Consulting Provider: Bijan Thompson Consulting Physician: Bijan Thompson Reason for Consult: Pelvic abscess Infectious Disease Consult Routine Comment: Consulting Provider: Chapito Greene Consulting Physician: Chapito Greene Reason for Consult: Pelvic abscess 08/11/18 20:13 General Surgery Consult Routine Comment: Consulting Provider: Armaan Crowell Consulting Physician: Armaan Crowell Reason for Consult: s/p Hartmanns procedure, draining pelvic abscess Time Spent in preparation of Discharge (in minutes): 25 Diagnosis - Discharge Diagnosis (1) Pelvic abscess Status: Acute Comment: had Betzaida's procedure on 08/08/2018. completed course of IV Meropenem, Flagyl and Diflucan. will continue PO Ceftin and Flagyl at home (2) Anemia Status: Chronic Comment: stable. continue Fe supplement (3) Hypothyroidism Status: Chronic Comment: continue Levothyroxine Hospital Course - Lab Results Lab Results: Most Recent Lab Values WBC 4.0 K/uL (4.8-10.8) L 08/17/18 06:30 RBC 3.10 Mil/uL (3.80-5.20) L 08/17/18 06:30 Hgb 8.4 g/dL (12.0-16.0) L 08/17/18 06:30 Hct 26.0 % (34.0-47.0) L 08/17/18 06:30 MCV 83.8 fl (81.0-99.0) 08/17/18 06:30 MCH 27.2 pg (27.0-31.0) 08/17/18 06:30 MCHC 32.4 g/dL (33.0-37.0) L 08/17/18 06:30 RDW 20.2 % (11.5-14.5) H 08/17/18 06:30 Plt Count 319 K/uL (130-400) 08/17/18 06:30 MPV 8.2 fl (7.2-11.7) 08/17/18 06:30 Neut % (Auto) 42.0 % (50.0-75.0) L 08/17/18 06:30 Lymph % (Auto) 33.7 % (20.0-40.0) 08/17/18 06:30 [place] % (Auto) 14.0 % (0.0-10.0) H 08/17/18 06:30 Eos % (Auto) 7.3 % (0.0-4.0) H 08/17/18 06:30 Baso % (Auto) 3.0 % (0.0-2.0) H 08/17/18 06:30 Neut # (Auto) 1.7 K/uL (1.8-7.0) L 08/17/18 06:30 Lymph # (Auto) 1.3 K/uL (1.0-4.3) 08/17/18 06:30 [place] # (Auto) 0.6 K/uL (0.0-0.8) 08/17/18 06:30 Eos # (Auto) 0.3 K/uL (0.0-0.7) 08/17/18 06:30 Baso # (Auto) 0.1 K/uL (0.0-0.2) 08/17/18 06:30 Sodium 137 mmol/l (132-148) 08/17/18 06:30 Potassium 4.3 MMOL/L (3.6-5.0) 08/17/18 06:30 Chloride 99 mmol/L (98-107) 08/17/18 06:30 Carbon Dioxide 31 mmol/L (22-30) H 08/17/18 06:30 Anion Gap 11 (10-20) 08/17/18 06:30 BUN 7 mg/dl (7-17) 08/17/18 06:30 Creatinine 0.7 mg/dl (0.7-1.2) 08/17/18 06:30 Est GFR ( Amer) > 60 08/17/18 06:30 Est GFR (Non-Af Amer) > 60 08/17/18 06:30 Random Glucose 78 mg/dL (65-105) 08/17/18 06:30 Calcium 9.0 mg/dL (8.4-10.2) 08/17/18 06:30 Total Bilirubin 0.1 mg/dl (0.2-1.3) L 08/17/18 06:30 AST 31 U/L (14-36) 08/17/18 06:30 ALT 26 U/L (9-52) 08/17/18 06:30 Alkaline Phosphatase 83 U/L (38-126) 08/17/18 06:30 Total Protein 6.3 G/DL (6.3-8.2) 08/17/18 06:30 Albumin 3.0 g/dL (3.5-5.0) L 08/17/18 06:30 Globulin 3.3 gm/dL (2.2-3.9) 08/17/18 06:30 Albumin/Globulin Ratio 0.9 (1.0-2.1) L 08/17/18 06:30 - Hospital Course Hospital Course: 63 yo female with history of hypothyroidism and anxiety was admitted because of pelvic abscess. Explore laparotomy with sigmoidectomy and drainage of abscess was done and patient was sent to TCU for continuation of IV antibiotics and therapy. Patient completed IV antibiotics and did well with therapy. Patient is discharged in stable condition. Discharge Exam - Head Exam Head Exam: ATRAUMATIC - Eye Exam Eye Exam: absent: Scleral icterus - ENT Exam ENT Exam: Mucous Membranes Moist - Respiratory Exam Respiratory Exam: absent: Rales, Rhonchi, Wheezes, Respiratory Distress - Cardiovascular Exam Cardiovascular Exam: REGULAR RHYTHM, +S1, +S2 - GI/Abdominal Exam GI & Abdominal Exam: Soft. absent: Tenderness - Rectal Exam Rectal Exam: Deferred - Neurological Exam Neurological exam: Alert, Oriented x3 - Psychiatric Exam Psychiatric exam: Normal Affect - Skin Skin Exam: Dry, Intact Discharge Plan - Discharge Medications Prescriptions: Cefuroxime Axetil [Cefuroxime] 500 mg PO DAILY #14 tablet - Follow Up Plan Condition: GOOD Disposition: HOME/ ROUTINE
[2018-08-18] MEDS: Enoxaparin 40 mg Syringe SC SCH (10:34)
[2018-08-18] MEDS: Potassium & Sodium Phosphate PO SCH ×2 (10:35→12:30)
[2018-08-18] MEDS: Lactobacillus Acidophilus 500 MU Cap PO SCH (10:37)
[2018-08-18 17:23] VITALS: RESP 20
== END 2018-08-18 14:30 | disposition home or self-care (01) | DRG 758 ==
LOC: H.TCU 17:41
PROVIDERS: ADMIT Student in an Organized Health Care Education/Training Program; ATTEND Student in an Organized Health Care Education/Training Program
DX: N73.9 Female pelvic inflammatory disease, unspecified (principal); K61.1 Rectal abscess; E03.9 Hypothyroidism, unspecified; D64.9 Anemia, unspecified; Z87.891 Personal history of nicotine dependence; Z93.3 Colostomy status; Z90.49 Acquired absence of other specified parts of digestive tract; Z98.0 Intestinal bypass and anastomosis status; F41.9 Anxiety disorder, unspecified

== ENCOUNTER 2018-10-24 08:58 | Day surgery (SDC) | payer BC ==
[2018-10-24 09:53] VITALS: BMI 19.5
[2018-10-24 09:59] VITALS: O2SAT 100
[2018-10-24] MEDS ORDERED: Lactated Ringer's 500 ML IV ONE ×2 (10:09→10:49)
[2018-10-24 11:38] VITALS: BP 110/81; PULSE 64; RESP 20; TEMP 96.5
== END 2018-10-24 15:10 | disposition home or self-care (01) ==
LOC: H.ENDO 08:58
PROVIDERS: ATTEND Internal Medicine Gastroenterology
DX: Z12.11 Encounter for screening for malignant neoplasm of colon (principal); K64.8 Other hemorrhoids; Z93.3 Colostomy status
CPT/HCPCS: 44388; J7120